=== PATIENT | female | born 1950 | race Caucasian/White ===

== ENCOUNTER → 2018-05-23 | Outpatient (CLI) | payer MEDICARE, MEDICAID ==
[2018-05-23 12:35] LABS: BUN/CREATININE RATIO 19; CREATININE SERUM 0.72 MG/DL (0.60-1.30); GFR ESTIMATED > 60
== END ==
LOC: LAB 11:57
PROVIDERS: ATTEND Nurse Practitioner Family
DX: J44.9 Chronic obstructive pulmonary disease, unspecified (principal)
CPT/HCPCS: 36415; 82565; 84520

== ENCOUNTER → 2018-06-28 | Outpatient (CLI) | payer MEDICARE ==
[~2018-06-28] MED LIST: IOHEXOL 350 MG/ML 100 ML (OMNIPAQUE 350) VIAL IV ONE; NS 100 ML (IVPB) BAG IV ONE; RECEIVED CONTRAST (Hold Metformin) IV SCH
[2018-06-28 12:32] LABS: ABG BASE EXCESS 0.7 MMOL/L (-2.5-2.5); ABG OXYGEN SATURATION 95 % (94-100); ABG PCO2 45 MMHG (35-45); ABG PH 7.37 (7.37-7.43); ABG PO2 73 MMHG (79-93); ABG TCO2 26.8 MMOL/L (21.0-31.0)
[2018-06-28 12:33] LABS: ALLENS TEST YES-POS; INSPIRED O2 RM AIR; PATIENT TEMP 98.4; VENTILATOR NO
--- NOTE | 2018-06-28 14:28 | Diagnostic Imaging Report ---
PROCEDURE: CT chest with contrast only. TECHNIQUE: Multiple contiguous axial images were obtained through the chest after administration of intravenous contrast. INDICATION: Shortness of breath. FINDINGS: The previous CT chest exam performed on 09/29/2017 noted mild diffuse interstitial changes but failed to show any sign of an acute cardiopulmonary abnormality. On this study, the heart size is within normal limits and stable when compared to the prior exam. Coronary artery calcifications are evident. The aorta is not abnormally dilated and there is no sign of dissection. There is no defect within the pulmonary arteries to indicate pulmonary embolus. There is no sign of failure, pneumonia, or pleural effusion. There are emphysematous changes involving both lungs, particularly the lung apices. There is a vague 5 mm parenchymal density in the posterior aspect of the right infrahilar region (image 34/62). This finding was not clearly evident on the prior exam. This density does not have the typical appearance of a pulmonary nodule, although its precise etiology is uncertain. No other parenchymal lung mass is noted. There is no mediastinal or hilar adenopathy. The thyroid gland where visualized is unremarkable. There is no obvious breast mass. According to our records, the patient has not had a mammogram. If the patient has had a recent (within the last year) mammogram elsewhere, then no further imaging would be necessary. However if the patient has not had a recent mammogram, then mammography would be recommended. The sections through the upper abdomen again show postsurgical changes, consistent with prior cholecystectomy. There is no acute abnormality of the upper abdomen. The bone windows are unremarkable for fracture or for destructive lesion. IMPRESSION: 1. There is no evidence for an acute cardiopulmonary abnormality. In particular, there is no sign of pulmonary embolus or of dissection. 2. There are emphysematous changes involving both lungs, primarily the upper lobes. 3. The faint parenchymal density in the right infrahilar region is of uncertain etiology. This is unlikely to be related to malignancy. Even so, a six-month followup CT chest exam would be recommended for further evaluation. 4. There is no obvious breast mass. Recommendations, as above. Dictated by: Dictated on workstation # [id number]
== END ==
LOC: LAB 12:04
PROVIDERS: ATTEND Nurse Practitioner Family
DX: J43.9 Emphysema, unspecified (principal); J98.4 Other disorders of lung; J45.909 Unspecified asthma, uncomplicated; Z72.0 Tobacco use
CPT/HCPCS: 36600; 71260; 82805

== ENCOUNTER → 2018-07-07 | Outpatient (CLI) | payer MEDICARE, MEDICAID ==
[~2018-07-07] MED LIST changes: -IOHEXOL 350 MG/ML 100 ML (OMNIPAQUE 350) VIAL IV ONE; -NS 100 ML (IVPB) BAG IV ONE; -RECEIVED CONTRAST (Hold Metformin) IV SCH; +RT-ALBUTEROL SULF 2.5 MG/3 ML PRE-MIX VIAL INH ONE; +RT-ALBUTEROL SULF 2.5 MG/3 ML PRE-MIX VIAL ONE
== END ==
LOC: RT 14:29
PROVIDERS: ATTEND Nurse Practitioner Family
DX: J44.9 Chronic obstructive pulmonary disease, unspecified (principal); J30.2 Other seasonal allergic rhinitis; R06.00 Dyspnea, unspecified; Z72.0 Tobacco use
CPT/HCPCS: 94060; 94726; 94729

== ENCOUNTER 2018-07-13 17:14 | Emergency (ER) | payer MEDICARE, MEDICAID ==
[~2018-07-13] VITALS: Ht 152.4 cm; Wt 65.8 kg
--- NOTE | 2018-07-13 17:22 | ED Respiratory ---
General Stated Complaint: SOB History of Present Illness Date Seen by Provider: Jul 13, 2018 Time Seen by Provider: 17:05 Initial Comments 67-year-old female with a 3 month history of sensation of dyspnea. She reportedly has had multiple workups which been negative including blood gases. Day she felt her breathing was worse so EMS was called. When they arrived her saturation was 95% on room air. She received a DuoNeb breathing treatment and her O2 sat increased 100%. She's not had any chest pain or pleuritic discomfort. No nausea or vomiting reported. Her family reports that she started having some mental status changes. She apparently becomes confused quite easily. No fever or chills and been reported. No paresthesias, weakness, incoordination or slurred speech reported. She smokes one pack a day. (SARA BUCIO MD) Allergies and Home Medications Allergies Coded Allergies: No Known Drug Allergies (Unverified , 07/13/18) Patient Home Medication List Home Medication List Reviewed: Yes (SARA BUCIO MD) Review of Systems Review of Systems Constitutional: No chills, No fever; malaise, weakness EENTM: no symptoms reported Respiratory: see HPI, cough; No hemoptysis, No orthopnea; short of breath, wheezing Cardiovascular: no symptoms reported; No chest pain Gastrointestinal: No diarrhea, No nausea, No vomiting Genitourinary: no symptoms reported Musculoskeletal: no symptoms reported Skin: no symptoms reported Psychiatric/Neurological: No Symptoms Reported Hematologic/Lymphatic: No Symptoms Reported Immunological/Allergic: no symptoms reported (SARA BUCIO MD) Past Wsztfrt-Crvfeo-Mxbadr Hx Past Med/Social Hx: Reviewed Nursing Past Med/Soc Hx (SARA BUCIO MD) Patient Social History Recent Foreign Travel: No Contact w/Someone Who Travel: No (SARA BUCIO MD) Physical Exam Vital Signs - First Documented 07/13/18 17:15 Temp 99.3 Pulse 82 Resp 18 B/P (MAP) 154/65 (94) Pulse Ox 94 (LI MIN DO) Capillary Refill : (SARA BUCIO MD) Height: '" Weight: lbs. oz. kg; BMI Method: General Appearance: WD/WN, no apparent distress Eyes: Bilateral Eye Normal Inspection, Bilateral Eye PERRL, Bilateral Eye EOMI HEENT: PERRL/EOMI; No normal ENT inspection (missing teeth); pharynx normal; No scleral icterus (L), No pharyngeal erythema Neck: non-tender, full range of motion, supple, normal inspection Respiratory: chest non-tender, no respiratory distress, no accessory muscle use , decreased breath sounds, rhonchi, wheezing (throughout) Cardiovascular: normal peripheral pulses, regular rate, rhythm, no edema, no gallop, no JVD, no murmur Extremities: normal range of motion, non-tender, normal inspection, no pedal edema, no calf tenderness, normal capillary refill, pelvis stable Neurologic/Psychiatric: shear assembler II-XII nml as tested, no motor/sensory deficits, alert, normal mood/affect, oriented x 3 Skin: normal color, warm/dry; No cyanosis, No jaundice Lymphatic: no adenopathy (SARA BUCIO MD) Progress/Results/Core Measures Suspected Sepsis SIRS Temperature: Pulse: Respiratory Rate: Blood Pressure / Mean: (SARA BUCIO MD) Results/Orders Lab Results Laboratory Tests Test 07/13/18 17:15 Range/Units White Blood Count 6.3 4.3-11.0 10^3/uL Red Blood Count 4.00 L 4.35-5.85 10^6/uL Hemoglobin 12.8 11.5-16.0 G/DL Hematocrit 39 35-52 % Mean Corpuscular Volume 98 80-99 FL Mean Corpuscular Hemoglobin 32 25-34 PG Mean Corpuscular Hemoglobin Concent 33 32-36 G/DL Red Cell Distribution Width 12.2 10.0-14.5 % Platelet Count 225 130-400 10^3/uL Mean Platelet Volume 10.4 7.4-10.4 FL Neutrophils (%) (Auto) 55 42-75 % Lymphocytes (%) (Auto) 34 12-44 % Monocytes (%) (Auto) 7 0-12 % Eosinophils (%) (Auto) 4 0-10 % Basophils (%) (Auto) 0 0-10 % Neutrophils # (Auto) 3.5 1.8-7.8 X 10^3 Lymphocytes # (Auto) 2.1 1.0-4.0 X 10^3 Monocytes # (Auto) 0.5 0.0-1.0 X 10^3 Eosinophils # (Auto) 0.3 0.0-0.3 10^3/uL Basophils # (Auto) 0.0 0.0-0.1 10^3/uL D-Dimer 1.57 H 0.00-0.49 UG/ML Sodium Level 144 135-145 MMOL/L Potassium Level 3.2 L 3.6-5.0 MMOL/L Chloride Level 103 98-107 MMOL/L Carbon Dioxide Level 26 21-32 MMOL/L Anion Gap 15 H 5-14 MMOL/L Blood Urea Nitrogen 9 7-18 MG/DL Creatinine 0.87 0.60-1.30 MG/DL Estimat Glomerular Filtration Rate > 60 BUN/Creatinine Ratio 10 Glucose Level 129 H 70-105 MG/DL Calcium Level 8.8 8.5-10.1 MG/DL Corrected Calcium 8.9 8.5-10.1 MG/DL Magnesium Level 1.7 L 1.8-2.4 MG/DL Total Bilirubin 0.2 0.1-1.0 MG/DL Aspartate Amino Transf (AST/SGOT) 22 5-34 U/L Alanine Aminotransferase (ALT/SGPT) 22 0-55 U/L Alkaline Phosphatase 66 40-136 U/L Troponin T < 6 <=10 NG/L B-Type Natriuretic Peptide 527.4 H <100.0 PG/ML Total Protein 6.3 L 6.4-8.2 GM/DL Albumin 3.9 3.2-4.5 GM/DL (LI MIN DO) My Orders Orders - LI MIN DO Azithromycin Injection (Zithromax Inject (07/13/18 18:28) Ceftriaxone For Iv Use (Rocephin For I (07/13/18 18:28) Ct Angio Chest W (07/13/18 18:48) Iopamidol 61% Injection (Isovue 300 61% (07/13/18 19:15) Sodium Chloride Flush (Catheter Flush Sy (07/13/18 19:15) Contrast Received (Contrast Received) (07/13/18 19:15) Ns (Ivpb) (Sodium Chloride 0.9% Ivpb Bag (07/13/18 19:15) (LI MIN DO) Medications Given in ED Current Medications Medications Dose Ordered Sig/Hernesto Route Start Time Stop Time Status Last Admin Dose Admin Iopamidol 100 ml ONCE ONCE IV 07/13/18 19:15 07/13/18 19:20 DC 07/13/18 19:23 100 ML Sodium Chloride 10 ml NEEDED PRN IV 07/13/18 19:15 07/13/18 19:23 10 ML Sodium Chloride 50 ml ONCE ONCE IV 07/13/18 19:15 07/13/18 19:20 DC 07/13/18 19:23 40 ML (LI MIN DO) Vital Signs/I&O 07/13/18 07/13/18 17:15 19:39 Temp 99.3 98.0 Pulse 82 82 Resp 18 18 B/P (MAP) 154/65 (94) 159/66 (97) Pulse Ox 94 95 (LI MIN DO) Vital Signs/I&O Capillary Refill : (SARA BUCIO MD) Progress Note : Time: 17:22 Progress Note We'll obtain cardiac/respiratory workup as well as a CT of her head due to reported mental status changes. I discussed this with the patient who understands and agrees with workup plan. 0 Will transition care to Dr. Min for remaining testing results. (SARA BUCIO MD) Progress Note : Progress Note Curtis addendum: Given patchy infiltrates on chest x-ray, patient complained of recent cough and shortness of breath, patient was treated for pneumonia. No recent antibiotics or hospitalizations, she was treated with Rocephin and azithromycin. CTA shows no PE. Patient was accepted for transfer by Dr. Vicente at [facility] at 8:10 PM as [facility] is on diversion. (LI MIN DO) ECG Initial ECG Impression Date: Jul 13, 2018 Initial ECG Impression Time: 17:32 Initial ECG Rhythm: Normal Sinus Initial ECG Intervals: Normal Initial ECG Impression: Nonspecific Changes Comment no acute changes. (SARA BUCIO MD) Departure Impression Primary Impression: Acute encephalopathy Additional Impressions: Cough Emphysema of lung Disposition: XFER SHT-TRM HOSP Condition: Stable Transfer Transfer Facility: Patient accepted by Dr. Vicente at 8:10 PM [facility]. (LI MIN DO) Departure-Patient Inst. Referrals: CHACHO PÉREZ DO (PCP/Family) Primary Care Physician SARA BUCIO MD Jul 13, 2018 17:22 LI MIN DO Jul 13, 2018 20:15
--- NOTE | 2018-07-13 17:47 | Diagnostic Imaging Report ---
PROCEDURE: CT head without contrast. TECHNIQUE: Multiple contiguous axial images were obtained through the brain without the use of intravenous contrast. INDICATION: Frequent falls. FINDINGS: The ventricles and sulci are within normal limits. There is no hydrocephalus or cerebral edema. There is no midline shift or mass effect. There is no intracranial mass, hemorrhage, or extra-axial fluid collection. The visualized paranasal sinuses and mastoid air cells are clear. There are no regional areas of decreased attenuation appreciated to suggest an acute CVA. IMPRESSION: No acute intracranial abnormality. Dictated by: Dictated on workstation # [id number]
--- NOTE | 2018-07-13 17:51 | Diagnostic Imaging Report ---
INDICATION: Shortness of breath. PA and lateral views were obtained. FINDINGS: The heart size is normal. There are patchy bibasilar infiltrates, right greater than left. There is no pleural effusion or pneumothorax. The mediastinum is unremarkable. IMPRESSION: Patchy bibasilar infiltrates, right greater than left. Dictated by: Dictated on workstation # [id number]
[2018-07-13 17:58] LABS: HEMATOCRIT 39 % (35-52); HEMOGLOBIN 12.8 G/DL (11.5-16.0); MEAN CORPUSCULAR HEMOGLOBIN 32 PG (25-34); MEAN CORPUSCULAR HGB CONC 33 G/DL (32-36); MEAN CORPUSCULAR VOLUME 98 FL (80-99); RED CELL DISTRIBUTION WIDTH 12.2 % (10.0-14.5); WHITE BLOOD COUNT 6.3 10^3/uL (4.3-11.0)
[2018-07-13 17:59] LABS: BASOPHILS % (AUTO) 0 % (0-10); EOSINOPHILS # (AUTO) 0.3 10^3/uL (0.0-0.3); EOSINOPHILS % (AUTO) 4 % (0-10); LYMPHOCYTES # (AUTO) 2.1 X 10^3 (1.0-4.0); LYMPHOCYTES % (AUTO) 34 % (12-44); MEAN PLATELET VOLUME 10.4 FL (7.4-10.4); MONOCYTES # (AUTO) 0.5 X 10^3 (0.0-1.0); MONOCYTES % (AUTO) 7 % (0-12); NEUTROPHILS # (AUTO) 3.5 X 10^3 (1.8-7.8); NEUTROPHILS % (AUTO) 55 % (42-75); PLATELET COUNT 225 10^3/uL (130-400)
[2018-07-13] MEDS ORDERED: BUPR100T8 (18:23)
[2018-07-13] MEDS ORDERED: CYCL10TA9 (18:23)
[2018-07-13] MEDS ORDERED: PANT40TA3 (18:23)
[2018-07-13] MEDS ORDERED: TRAZ-189 (18:23)
[2018-07-13] MEDS ORDERED: DULO60CA58 (18:23)
[2018-07-13] MEDS ORDERED: HYDR-3781 (18:23)
[2018-07-13] MEDS ORDERED: CLOP75TA28 (18:23)
[2018-07-13] MEDS ORDERED: SIMV40TA4 (18:23)
[2018-07-13] MEDS ORDERED: ZOLP5TAB7 (18:23)
[2018-07-13] MEDS ORDERED: LISI10TA2 (18:23)
[2018-07-13] MEDS ORDERED: PRAM1TAB5 (18:23)
[2018-07-13] MEDS ORDERED: PROP10TA8 (18:23)
[2018-07-13] MEDS ORDERED: MELO15TA39 (18:23)
[2018-07-13] MEDS ORDERED: LORA1TAB (18:23)
[2018-07-13] MEDS ORDERED: cefTRIAXone FOR IV USE 1,000 MG in WATER (STERILE) FOR INJECTION 10 ML IV STA (18:28)
[2018-07-13] MEDS ORDERED: AZITHROMYCIN INJECTION 500 MG in NS (IVPB) 250 ML IV STA (18:28)
[2018-07-13 18:37] LABS: ALANINE AMINOTRANSFERASE 22 U/L (0-55); ALKALINE PHOSPHATASE 66 U/L (40-136); BILIRUBIN,TOTAL 0.2 MG/DL (0.1-1.0); BUN/CREATININE RATIO 10; CALCIUM 8.8 MG/DL (8.5-10.1); CARBON DIOXIDE 26 MMOL/L (21-32); CHLORIDE 103 MMOL/L (98-107); CREATININE SERUM 0.87 MG/DL (0.60-1.30); GFR ESTIMATED > 60; GLUCOSE 129 MG/DL (70-105); MAGNESIUM 1.7 MG/DL (1.8-2.4); POTASSIUM 3.2 MMOL/L (3.6-5.0); SODIUM 144 MMOL/L (135-145); TOTAL PROTEIN 6.3 GM/DL (6.4-8.2)
[2018-07-13 18:38] LABS: ALBUMIN 3.9 GM/DL (3.2-4.5)
[2018-07-13] MEDS ORDERED: KCL 20 MEQ POWDER FOR ORAL SOLUTION PO STA (18:48)
--- NOTE | 2018-07-13 18:58 | NUR ---
DRESSING CHANGE TO RIGHT UPPER ARM FROM RECENT FISTULA PLACEMENT. STERI STRIPS IN PLACE ET AREA BRUISED WITH NO SIGNS OR SYMPTOMS OF INFECTION.
--- NOTE | 2018-07-13 19:07 | NUR ---
Report given to SCOTTIE Gonsalves at this time.
[2018-07-13] MEDS ORDERED: NS 50 ML (IVPB) BAG IV ONE (19:15)
[2018-07-13] MEDS ORDERED: RECEIVED CONTRAST (Hold Metformin) IV SCH (19:15)
[2018-07-13] MEDS ORDERED: IOPAMIDOL 61% 100 ML (ISOVUE 300) VIAL IV ONE (19:15)
[2018-07-13] MEDS ORDERED: CATHETER FLUSH 10 ML SYR IV PRN (19:15)
[2018-07-13 19:39] VITALS: BP 159/66
--- NOTE | 2018-07-13 19:57 | NUR ---
Pt. walked to the bathroom with assistance of 1. No c/o sob but did c/o nausea. Doctor notified.
--- NOTE | 2018-07-13 19:59 | NUR ---
Doctor in to see the patient at this time.
--- NOTE | 2018-07-13 20:03 | Diagnostic Imaging Report ---
PROCEDURE: CT angiography of the chest with contrast. TECHNIQUE: Multiple contiguous axial images were obtained through the chest after uneventful bolus administration of intravenous contrast. 2D reconstructed CTA MIP acquisitions were also performed. INDICATION: Shortness of breath FINDINGS: There are mild centrilobular emphysematous changes. There are no discrete pulmonary nodules, masses or infiltrates. There is no pleural or pericardial fluid. There is no pneumothorax. The thoracic aorta is normal in caliber without evidence of dissection. There are no filling defects seen within the pulmonary arteries to suggest pulmonary embolism. There is no pathologically enlarged adenopathy in the chest. There is a left renal cyst. The remainder of the intra-abdominal structures are unremarkable. IMPRESSION: Mild centrilobular emphysema Left renal cyst. No other acute abnormality in the chest. Specifically, there is no evidence of pulmonary embolism or aortic dissection. Dictated by: Dictated on workstation # [id number]
--- NOTE | 2018-07-13 21:27 | NUR ---
Talked to [facility] and they informed this RN that they were getting a room ready for the patient and they would call with a room number. This RN informed them that we were waiting for transport availability at this time as well. Pt. is sleeping at this time with no complaints noted.
[2018-07-13 22:25] VITALS: BP 136/58
== END 2018-07-13 23:51 | disposition short-term general hospital (02) ==
LOC: EDUNIT# 17:14 → ER FS 17:15
DX: J43.9 Emphysema, unspecified (principal); G93.40 Encephalopathy, unspecified; F17.210 Nicotine dependence, cigarettes, uncomplicated
CPT/HCPCS: 36415; 70450; 71046; 71275; 80053; 83735; 83880; 84484; 85025; 85379; 93041

== ENCOUNTER → 2018-08-11 | Outpatient (CLI) | payer MEDICARE, MEDICAID ==
[~2018-08-11] MED LIST changes: +BUPR100T8; +CLOP75TA28; +CYCL10TA9; +DULO60CA58; +HYDR-3781; +LISI10TA2; +LORA1TAB; +MELO15TA39; +PANT40TA3; +PRAM1TAB5; +PROP10TA8; -RT-ALBUTEROL SULF 2.5 MG/3 ML PRE-MIX VIAL INH ONE; -RT-ALBUTEROL SULF 2.5 MG/3 ML PRE-MIX VIAL ONE; +SIMV40TA4; +TRAZ-189; +ZOLP5TAB7
--- NOTE | 2018-08-11 11:12 | Diagnostic Imaging Report ---
INDICATION: Dysphagia. The study was performed in conjunction with speech pathology. Videofluoroscopy was performed during swallowing of barium of multiple consistencies. Patient ingested thin barium as well as thin barium with a straw. Patient also ingested applesauce, banana, ground meat and cracker consistency. Total of one minute and 3 seconds of fluoroscopy time was utilized. Oral phase unremarkable. There is normal epiglottic tilt and laryngeal elevation. No penetration or aspiration was observed. No significant residue was identified. IMPRESSION: Unremarkable modified barium swallow. Dictated by: Dictated on workstation # [id number]
== END ==
LOC: RAD 09:26
PROVIDERS: ATTEND Nurse Practitioner Family
DX: R13.11 Dysphagia, oral phase (principal)
CPT/HCPCS: 74230

== ENCOUNTER 2018-09-10 16:23 | Emergency (ER) | payer MEDICARE, MEDICAID ==
[~2018-09-10] VITALS: Ht 152.4 cm; Wt 65.8 kg
--- NOTE | 2018-09-10 17:06 | ED Dyspnea ---
General Chief Complaint: Respiratory Problems Stated Complaint: SOA Nursing Triage Note: Has been soa since 0900 this a.m. Has hx of COPD. Source of Information: Patient, EMS, RN Notes Reviewed Exam Limitations: No Limitations History of Present Illness Date Seen by Provider: Sep 10, 2018 Time Seen by Provider: 17:00 Initial Comments Patient presents c/ c/o worsening SOA since 09:00 this AM. States she has a PMH of COPD and this feels like a flare up. No known fever. Been using her inhaler s/ relief. Timing/Duration: 4-6 Hours Severity: Moderate Prior Episodes/Possible Cause: Occasional Episodes Modifying Factors: Improves With Other (noting helping) Associated Symptoms: Cough, Wheezing Allergies and Home Medications Allergies Coded Allergies: No Known Drug Allergies (Unverified , 07/13/18) Home Medications Doxycycline Hyclate 100 Mg Tablet, 100 MG PO BID Prescribed by: SUKUMAR CAR on 09/10/18 336 Review of Systems Review of Systems Constitutional: see HPI Respiratory: see HPI, cough, dyspnea on exertion, short of breath, wheezing All Other Systems Reviewed Negative Unless Noted: Yes (Negative excepted noted.) Past Alsxync-Eimebc-Ntpaet Hx Patient Social History Recent Foreign Travel: No Contact w/Someone Who Travel: No Recent Infectious Disease Expo: No Recent Hopitalizations: No Seasonal Allergies Seasonal Allergies: No Past Medical History Surgeries: No Respiratory: Yes COPD Cardiac: No Neurological: No Genitourinary: No Gastrointestinal: No Musculoskeletal: No Endocrine: No HEENT: No Cancer: No Psychosocial: Yes Anxiety Integumentary: No Blood Disorders: No Adverse Reaction/Blood Tranf: No Physical Exam Vital Signs Vital Signs - First Documented 09/10/18 16:31 Temp 97.3 Pulse 93 Resp 14 B/P (MAP) 138/79 (98) Pulse Ox 98 Capillary Refill : Less Than 3 Seconds Height, Weight, BMI Height: 5'0" Weight: 145lbs. oz. 65.604233up; BMI Method:Stated General Appearance: No Apparent Distress, WD/WN HEENT: Normal ENT Inspection Neck: Normal Inspection Respiratory: No Respiratory Distress, Decreased Breath Sounds, Wheezing Cardiovascular: Regular Rate, Rhythm Gastrointestinal: Non Tender, Soft Rectal: Deferred Neurologic/Psychiatric: Alert, Oriented x3, No Motor/Sensory Deficits, Depressed Affect Skin: Warm/Dry Progress/Results/Core Measures Results/Orders Lab Results Laboratory Tests Test 09/10/18 17:26 Range/Units My Orders Orders - SUKUMAR CAR DO Cbc With Automated Diff (09/10/18 17:03) Comprehensive Metabolic Panel (09/10/18 17:03) Magnesium (09/10/18 17:03) Chest 1 View Ap/Pa Only (09/10/18 17:03) Probnp Fs (09/10/18 17:03) Methylprednisolone Sod Succ (Solu-Medrol (09/10/18 17:15) Albuterol/Ipra Inhalation Soln (Duoneb I (09/10/18 17:45) Svn Small Volume Nebulizer (09/10/18 17:42) Medications Given in ED Current Medications Medications Dose Ordered Sig/Hernesto Route Start Time Stop Time Status Last Admin Dose Admin Methylprednisolone Sodium Succinate 125 mg ONCE ONCE IVP 09/10/18 17:15 09/10/18 17:16 UNV 09/10/18 17:23 125 MG Vital Signs/I&O 09/10/18 16:31 Temp 97.3 Pulse 93 Resp 14 B/P (MAP) 138/79 (98) Pulse Ox 98 Blood Pressure Mean: 98 Departure Impression Primary Impression: COPD exacerbation Disposition: 01 HOME, SELF-CARE Condition: Improved Departure-Patient Inst. Decision time for Depature: 17:57 Referrals: CHACHO PÉREZ DO (PCP/Family) Primary Care Physician Patient Instructions: Chronic Obstructive Pulmonary Disease (COPD), Including Emphysema Add. Discharge Instructions: All discharge instructions reviewed with patient and/or family. Voiced understanding. CONTINUE YOUR BREATHING TREATMENTS NEEDED. PUSH FLUIDS. Scripts Doxycycline Hyclate (Doxycycline Hyclate) 100 Mg Tablet 100 MG PO BID for 10 Days, #20 TAB 0 Refills Prov: SUKUMAR CAR DO 09/10/18 SUKUMAR CAR DO Sep 10, 2018 17:06
[2018-09-10] MEDS ORDERED: methylPREDNISolone 125 MG (Solu-MEDROL) VIAL ONE (17:14)
[2018-09-10] MEDS ORDERED: methylPREDNISolone 125 MG (Solu-MEDROL) VIAL IVP ONE (17:15)
--- NOTE | 2018-09-10 17:27 | Diagnostic Imaging Report ---
INDICATION: Shortness of breath. TIME OF EXAM: 05:12 p.m. COMPARISON: Correlation is made with prior study from 07/13/2018. FINDINGS: The heart size is normal. The pulmonary vascularity is unremarkable. The lungs are clear. No infiltrate, effusion or pneumothorax is detected. IMPRESSION: No acute cardiopulmonary process is detected. Dictated by: Dictated on workstation # [id number]
[2018-09-10] MEDS ORDERED: RT-ALBUTEROL/IPRATROPIUM 3 ML (DUONEB) VIAL INH ONE (17:45)
[2018-09-10] MEDS ORDERED: DOXY100T2 PO (17:46)
[2018-09-10] MEDS ORDERED: DOXYCYCLINE 100 MG (VIBRAMYCIN) TABLET PO STA (17:55)
[2018-09-10 17:56] LABS: HEMATOCRIT 39 % (35-52); HEMOGLOBIN 12.7 G/DL (11.5-16.0); MEAN CORPUSCULAR HEMOGLOBIN 31 PG (25-34); MEAN CORPUSCULAR HGB CONC 33 G/DL (32-36); MEAN CORPUSCULAR VOLUME 97 FL (80-99); WHITE BLOOD COUNT 7.8 10^3/uL (4.3-11.0)
[2018-09-10 17:57] LABS: BASOPHILS % (AUTO) 1 % (0-10); EOSINOPHILS % (AUTO) 4 % (0-10); LYMPHOCYTES % (AUTO) 25 % (12-44); MEAN PLATELET VOLUME 10.2 FL (7.4-10.4); MONOCYTES % (AUTO) 6 % (0-12); NEUTROPHILS % (AUTO) 64 % (42-75); PLATELET COUNT 167 10^3/uL (130-400); RED CELL DISTRIBUTION WIDTH 12.1 % (10.0-14.5)
[2018-09-10 17:58] LABS: BASOPHILS # (AUTO) 0.1 10^3/uL (0.0-0.1); EOSINOPHILS # (AUTO) 0.3 10^3/uL (0.0-0.3); LYMPHOCYTES # (AUTO) 1.9 X 10^3 (1.0-4.0); MONOCYTES # (AUTO) 0.5 X 10^3 (0.0-1.0)
[2018-09-10 17:59] LABS: SMEAR SCAN COMMENT YES
[2018-09-10] MEDS ORDERED: methylPREDNISolone 80 MG/ML (DEPO MEDROL) VIAL IM ONE (18:00)
[2018-09-10 18:04] LABS: CARBON DIOXIDE 27 MMOL/L (21-32); CHLORIDE 101 MMOL/L (98-107); POTASSIUM 4.1 MMOL/L (3.6-5.0)
[2018-09-10 18:05] LABS: ALANINE AMINOTRANSFERASE 19 U/L (0-55); ALKALINE PHOSPHATASE 84 U/L (40-136); BILIRUBIN,TOTAL 0.2 MG/DL (0.1-1.0); BUN/CREATININE RATIO 21; CREATININE SERUM 0.92 MG/DL (0.60-1.30); GFR ESTIMATED > 60; GLUCOSE 107 MG/DL (70-105); MAGNESIUM 1.8 MG/DL (1.8-2.4); TOTAL PROTEIN 6.4 GM/DL (6.4-8.2)
[2018-09-10 18:06] LABS: ALBUMIN 4.1 GM/DL (3.2-4.5)
[2018-09-10 18:07] LABS: SODIUM 142 MMOL/L (135-145)
[2018-09-10] MEDS ORDERED: methylPREDNISolone 80 MG/ML (DEPO MEDROL) VIAL ONE (18:25)
[2018-09-10] MEDS ORDERED: DOXYCYCLINE 100 MG (VIBRAMYCIN) TABLET ONE (18:25)
[2018-09-10] MEDS ORDERED: RT-ALBUTEROL/IPRATROPIUM 3 ML (DUONEB) VIAL ONE (18:25)
[2018-09-10 18:35] VITALS: BP 135/65
== END 2018-09-10 18:37 | disposition home or self-care (01) ==
LOC: EDUNIT# 16:23 → ER FS 16:24
DX: J44.1 Chronic obstructive pulmonary disease with (acute) exacerbation (principal); F41.9 Anxiety disorder, unspecified
CPT/HCPCS: 36415; 71045; 80053; 83735; 83880; 85025

== ENCOUNTER → 2018-09-21 | Outpatient (CLI) | payer MEDICARE, MEDICAID ==
[~2018-09-21] MED LIST changes: +DOXY100T2 PO
--- NOTE | 2018-09-21 12:05 | Diagnostic Imaging Report ---
CLINICAL INDICATION: Patient with ongoing cough and shortness of breath. EXAM: Chest x-ray PA and lateral views. COMPARISONS: Portable chest x-ray dated 09/10/2018. FINDINGS: Improved aeration of both lungs compared to the prior study. There is amorphous opacity in the periphery of the right lung base which may represent atelectasis versus infiltrate. There is minimal left lung base atelectasis versus infiltrate. Remainder of the lungs is clear. There is no pleural effusion or pneumothorax. Pulmonary vasculature and cardiac silhouettes are within normal limits. There are degenerative spurs throughout the thoracic spine. IMPRESSION: 1: There is improved aeration of both lung bases with minimal bibasilar atelectasis versus infiltrate present. 2: The remainder of this exam shows no significant interval change compared to the prior study of comparison. Dictated by: Dictated on workstation # [id number]
== END ==
LOC: RAD FS 10:10
PROVIDERS: ATTEND Nurse Practitioner Family
DX: R06.02 Shortness of breath (principal)
CPT/HCPCS: 71046

== ENCOUNTER 2018-10-23 16:09 | Emergency (ER) | payer MEDICARE, MEDICAID ==
[~2018-10-23] VITALS: Ht 152.4 cm; Wt 70.3 kg
[~2018-10-23 16:09] MED LIST changes: -TRAZ-189; +TRAZ-222
--- OUTSIDE RECORDS SUMMARY | 2018-10-23 16:14 | XMS REPORT | Continuity of Care Document ---
Author Organization Unknown Address Unknown Allergies Active Description Code Type Severity Reaction Onset Reported/Identified Relationship to Patient Clinical Status Yes No Allergy Information Available [id number] Drug Allergy Unknown N/A 06/28/2018 Yes No Known Drug Allergies [id number] Drug Allergy Unknown N/A 07/13/2018 Medications There is no data. Problems Date Dx Coded Attending Type Code Diagnosis Diagnosed By 05/24/2018 LUIS GASCA GAME PROGRAMER Ot J44.9 CHRONIC OBSTRUCTIVE PULMONARY DISEASE, U 05/31/2018 LUIS GASCA GAME PROGRAMER Ot J44.9 CHRONIC OBSTRUCTIVE PULMONARY DISEASE, U 06/15/2018 LUIS GASCA GAME PROGRAMER Ot J44.9 CHRONIC OBSTRUCTIVE PULMONARY DISEASE, U 06/28/2018 LUIS GASCA GAME PROGRAMER Ot J44.9 CHRONIC OBSTRUCTIVE PULMONARY DISEASE, U 06/28/2018 LUIS GASCA GAME PROGRAMER Ot J43.9 EMPHYSEMA, UNSPECIFIED 06/28/2018 LUIS GASCA GAME PROGRAMER Ot J45.909 UNSPECIFIED ASTHMA, UNCOMPLICATED 06/28/2018 LUIS GASCA GAME PROGRAMER Ot J98.4 OTHER DISORDERS OF LUNG 06/28/2018 LUIS GASCA GAME PROGRAMER Ot Z72.0 TOBACCO USE 07/07/2018 LUIS GASCA GAME PROGRAMER Ot J43.9 EMPHYSEMA, UNSPECIFIED 07/07/2018 LUIS GASCA GAME PROGRAMER Ot J45.909 UNSPECIFIED ASTHMA, UNCOMPLICATED 07/07/2018 LUIS GASCA GAME PROGRAMER Ot J98.4 OTHER DISORDERS OF LUNG 07/07/2018 LUIS GASCA GAME PROGRAMER Ot Z72.0 TOBACCO USE 07/13/2018 LUIS GASCA GAME PROGRAMER Ot R13.11 DYSPHAGIA, ORAL PHASE 07/13/2018 LUIS GASCA GAME PROGRAMER Ot G47.10 HYPERSOMNIA, UNSPECIFIED 07/13/2018 LI MIN DO Ot F17.210 NICOTINE DEPENDENCE, CIGARETTES, UNCOMPL 07/13/2018 MECHELLE CHO, LI T Ot G93.40 ENCEPHALOPATHY, UNSPECIFIED 07/13/2018 MECHELLE CHO, LI T Ot J43.9 EMPHYSEMA, UNSPECIFIED 07/13/2018 MECHELLE CHO, LI T Ot R06.00 DYSPNEA, UNSPECIFIED 07/14/2018 MECHELLE CHO, LI T Ot F17.210 NICOTINE DEPENDENCE, CIGARETTES, UNCOMPL 07/14/2018 MECHELLE CHO, LI T Ot G93.40 ENCEPHALOPATHY, UNSPECIFIED 07/14/2018 MECHELLE CHO, LI T Ot J43.9 EMPHYSEMA, UNSPECIFIED 07/14/2018 MECHELLE CHO, LI T Ot R06.00 DYSPNEA, UNSPECIFIED 07/18/2018 LUIS GASCA APRN Ot J43.9 EMPHYSEMA, UNSPECIFIED 07/18/2018 LUIS GASCA APRN Ot J45.909 UNSPECIFIED ASTHMA, UNCOMPLICATED 07/18/2018 LUIS GASCA GAME PROGRAMER Ot J98.4 OTHER DISORDERS OF LUNG 07/18/2018 LUIS GASCA APRN Ot Z72.0 TOBACCO USE 07/31/2018 LUIS GASCA GAME PROGRAMER Ot J30.2 OTHER SEASONAL ALLERGIC RHINITIS 07/31/2018 LUIS GASCA GAME PROGRAMER Ot J44.9 CHRONIC OBSTRUCTIVE PULMONARY DISEASE, U 07/31/2018 LUIS GASCA APRN Ot R06.00 DYSPNEA, UNSPECIFIED 07/31/2018 LUIS GASCA GAME PROGRAMER Ot Z72.0 TOBACCO USE 08/05/2018 MECHELLE CHO, LI T Ot F17.210 NICOTINE DEPENDENCE, CIGARETTES, UNCOMPL 08/05/2018 MECHELLE CHO, LI T Ot G93.40 ENCEPHALOPATHY, UNSPECIFIED 08/05/2018 MECHELLE CHO, LI T Ot J43.9 EMPHYSEMA, UNSPECIFIED 08/05/2018 MECHELLE CHO, LI T Ot R06.00 DYSPNEA, UNSPECIFIED 08/10/2018 LUIS GASCA APRN Ot R13.11 DYSPHAGIA, ORAL PHASE 09/01/2018 LUIS GASCA APRN Ot R13.11 DYSPHAGIA, ORAL PHASE 09/10/2018 SUKUMAR CAR DO Ot F41.9 ANXIETY DISORDER, UNSPECIFIED 09/10/2018 SUKUMAR CAR DO Ot J44.1 CHRONIC OBSTRUCTIVE PULMONARY DISEASE W 09/10/2018 SUKUMAR CAR DO Ot R06.02 SHORTNESS OF BREATH 09/10/2018 LUIS GASCA APRN Ot J44.9 CHRONIC OBSTRUCTIVE PULMONARY DISEASE, U 09/10/2018 CAMPOS LUIS Walker APRN Ot J30.2 OTHER SEASONAL ALLERGIC RHINITIS 09/10/2018 LUIS GASCA GAME PROGRAMER Ot J44.9 CHRONIC OBSTRUCTIVE PULMONARY DISEASE, U 09/10/2018 LUIS GASCA APRN Ot R06.00 DYSPNEA, UNSPECIFIED 09/10/2018 LUIS GASCA GAME PROGRAMER Ot Z72.0 TOBACCO USE 09/10/2018 LUIS GASCA GAME PROGRAMER Ot J43.9 EMPHYSEMA, UNSPECIFIED 09/10/2018 LUIS GASCA APRN Ot J45.909 UNSPECIFIED ASTHMA, UNCOMPLICATED 09/10/2018 LUIS GASCA APRN Ot J98.4 OTHER DISORDERS OF LUNG 09/10/2018 LUIS GASCA APRN Ot Z72.0 TOBACCO USE 09/10/2018 LUIS GASCA APRN Ot R13.11 DYSPHAGIA, ORAL PHASE 09/27/2018 MONTSERRAT MONGE APRN Ot R06.02 SHORTNESS OF BREATH 10/13/2018 MONTSERRAT MONGE APRN Ot R06.02 SHORTNESS OF BREATH Procedures There is no data. Results Test Result Range Arterial blood gas measurement - 06/28/18 12:15 Blood pCO2 45 mm[Hg] 35-45 Blood pO2 73 mm[Hg] 79-93 Arterial blood bicarbonate measurement (moles/volume) 25 mmol/L 23-27 Arterial blood base excess by calculation 0.7 mmol/L -2.5-2.5 Arterial blood oxygen saturation measurement 95 % 94-100 * Inhaled oxygen flow rate RM AIR NRG Arterial blood pH measurement with patient temperature correction 7.37 7.37-7.43 Arterial blood carbon dioxide, total measurement (moles/volume) 26.8 mmol/L 21.0-31.0 Body site R RAD NRG Assessment of wrist artery patency prior to arterial puncture YES-POS NRG Setting of ventilation mode NO NRG Measurement of body temperature 98.4 NRG Complete blood count (CBC) with automated white blood cell (WBC) differential - 07/13/18 17:15 Blood leukocytes automated count (number/volume) 6.3 10*3/uL 4.3-11.0 Blood erythrocytes automated count (number/volume) 4.00 10*6/uL 4.35-5.85 Venous blood hemoglobin measurement (mass/volume) 12.8 g/dL 11.5-16.0 Blood hematocrit (volume fraction) 39 % 35-52 Automated erythrocyte mean corpuscular volume 98 [foz_us] 80-99 Automated erythrocyte mean corpuscular hemoglobin (mass per erythrocyte) 32 pg 25-34 Automated erythrocyte mean corpuscular hemoglobin concentration measurement (mass/volume) 33 g/dL 32-36 Automated erythrocyte distribution width ratio 12.2 % 10.0- 14.5 Automated blood platelet count (count/volume) 225 10*3/uL 130-400 Automated blood platelet mean volume measurement 10.4 [foz_us] 7.4-10.4 Automated blood neutrophils/100 leukocytes 55 % 42-75 Automated blood lymphocytes/100 leukocytes 34 % 12-44 Blood monocytes/100 leukocytes 7 % 0-12 Automated blood eosinophils/100 leukocytes 4 % 0-10 Automated blood basophils/100 leukocytes 0 % 0-10 Blood neutrophils automated count (number/volume) 3.5 10*3 1.8-7.8 Blood lymphocytes automated count (number/volume) 2.1 10*3 1.0-4.0 Blood monocytes automated count (number/volume) 0.5 10*3 0.0- 1.0 Automated eosinophil count 0.3 10*3/uL 0.0-0.3 Automated blood basophil count (count/volume) 0.0 10*3/uL 0.0-0.1 Fibrin D-dimer FEU measurement in platelet poor plasma (mass/volume) - 07/13/18 17:15 Fibrin D-dimer FEU measurement in platelet poor plasma (mass/volume) 1.57 ug/mL 0.00-0.49 Comprehensive metabolic panel - 07/13/18 17:15 Serum or plasma sodium measurement (moles/volume) 144 mmol/L 135-145 Serum or plasma potassium measurement (moles/volume) 3.2 mmol/L 3.6-5.0 Serum or plasma chloride measurement (moles/volume) 103 mmol/L 98-107 Carbon dioxide 26 mmol/L 21-32 Serum or plasma anion gap determination (moles/volume) 15 mmol/L 5-14 Serum or plasma urea nitrogen measurement (mass/volume) 9 mg/dL 7-18 Serum or plasma creatinine measurement (mass/volume) 0.87 mg/dL 0.60-1.30 Serum or plasma urea nitrogen/creatinine mass ratio 10 NRG Serum or plasma creatinine measurement with calculation of estimated glomerular filtration rate > NRG Serum or plasma glucose measurement (mass/volume) 129 mg/dL 70-105 Serum or plasma calcium measurement (mass/volume) 8.8 mg/dL 8.5-10.1 Serum or plasma total bilirubin measurement (mass/volume) 0.2 mg/dL 0.1-1.0 Serum or plasma alkaline phosphatase measurement (enzymatic activity/volume) 66 U/L 40-136 Serum or plasma aspartate aminotransferase measurement (enzymatic activity/volume) 22 U/L 5-34 Serum or plasma alanine aminotransferase measurement (enzymatic activity/volume) 22 U/L 0-55 Serum or plasma protein measurement (mass/volume) 6.3 g/dL 6.4-8.2 Serum or plasma albumin measurement (mass/volume) 3.9 g/dL 3.2-4.5 CALCIUM CORRECTED 8.9 mg/dL 8.5-10.1 Magnesium - 07/13/18 17:15 Magnesium 1.7 mg/dL 1.8-2.4 TROPONIN T - 07/13/18 17:15 TROPONIN T < 6 <=10 Serum or plasma lithium measurement (moles/volume) - 07/13/18 17:15 BNP level 527.4 pg/mL <100.0 Complete blood count (CBC) with automated white blood cell (WBC) differential - 09/10/18 17:26 Blood leukocytes automated count (number/volume) 7.8 10*3/uL 4.3-11.0 Blood erythrocytes automated count (number/volume) 4.04 10*6/uL 4.35-5.85 Venous blood hemoglobin measurement (mass/volume) 12.7 g/dL 11.5-16.0 Blood hematocrit (volume fraction) 39 % 35-52 Automated erythrocyte mean corpuscular volume 97 [foz_us] 80-99 Automated erythrocyte mean corpuscular hemoglobin (mass per erythrocyte) 31 pg 25-34 Automated erythrocyte mean corpuscular hemoglobin concentration measurement (mass/volume) 33 g/dL 32-36 Automated erythrocyte distribution width ratio 12.1 % 10.0- 14.5 Automated blood platelet count (count/volume) 167 10*3/uL 130-400 Automated blood platelet mean volume measurement 10.2 [foz_us] 7.4-10.4 Automated blood neutrophils/100 leukocytes 64 % 42-75 Automated blood lymphocytes/100 leukocytes 25 % 12-44 Blood monocytes/100 leukocytes 6 % 0-12 Automated blood eosinophils/100 leukocytes 4 % 0-10 Automated blood basophils/100 leukocytes 1 % 0-10 Blood neutrophils automated count (number/volume) 5.0 10*3 1.8-7.8 Blood lymphocytes automated count (number/volume) 1.9 10*3 1.0-4.0 Blood monocytes automated count (number/volume) 0.5 10*3 0.0- 1.0 Automated eosinophil count 0.3 10*3/uL 0.0-0.3 Automated blood basophil count (count/volume) 0.1 10*3/uL 0.0-0.1 Blood blood smear finding identification by light microscopy YES [facility] Comprehensive metabolic panel - 09/10/18 17:26 Serum or plasma sodium measurement (moles/volume) 142 mmol/L 135-145 Serum or plasma potassium measurement (moles/volume) 4.1 mmol/L 3.6-5.0 Serum or plasma chloride measurement (moles/volume) 101 mmol/L 98-107 Carbon dioxide 27 mmol/L 21-32 Serum or plasma anion gap determination (moles/volume) 14 mmol/L 5-14 Serum or plasma urea nitrogen measurement (mass/volume) 19 mg/dL 7-18 Serum or plasma creatinine measurement (mass/volume) 0.92 mg/dL 0.60-1.30 Serum or plasma urea nitrogen/creatinine mass ratio 21 [facility] Serum or plasma creatinine measurement with calculation of estimated glomerular filtration rate > [facility] Serum or plasma glucose measurement (mass/volume) 107 mg/dL 70-105 Serum or plasma calcium measurement (mass/volume) 9.0 mg/dL 8.5-10.1 Serum or plasma total bilirubin measurement (mass/volume) 0.2 mg/dL 0.1-1.0 Serum or plasma alkaline phosphatase measurement (enzymatic activity/volume) 84 U/L 40-136 Serum or plasma aspartate aminotransferase measurement (enzymatic activity/volume) 19 U/L 5-34 Serum or plasma alanine aminotransferase measurement (enzymatic activity/volume) 19 U/L 0-55 Serum or plasma protein measurement (mass/volume) 6.4 g/dL 6.4-8.2 Serum or plasma albumin measurement (mass/volume) 4.1 g/dL 3.2-4.5 CALCIUM CORRECTED 8.9 mg/dL 8.5-10.1 Magnesium - 09/10/18 17:26 Magnesium 1.8 mg/dL 1.8-2.4 PROBNP FS - 09/10/18 17:26 PROBNP FS 244.4 pg/mL <75.0 Encounters ACCT No. Visit Date/Time Discharge Status Pt. Type Provider Facility Loc./Unit Complaint [id number] 09/21/2018 10:10:00 09/21/2018 23:59:59 CLS Outpatient MONTSERRAT MONGE GAME PROGRAMER [facility] RAD FS SHORTNESS OF BREATH [id number] 09/10/2018 16:24:00 09/10/2018 18:37:00 DIS Emergency SUKUMAR CAR DO [facility] ER FS SOA [id number] 08/11/2018 09:26:00 08/11/2018 23:59:59 CLS Outpatient LUIS GASCA GAME PROGRAMER [facility] RAD DYSPHAGIA [id number] 07/13/2018 17:15:00 07/13/2018 23:51:00 DIS Emergency MECHELLE LI [facility] ER FS SOB [id number] 07/11/2018 07:45:00 07/11/2018 23:59:59 CLS Preadmit LUIS GASCA GAME PROGRAMER [facility] SLEEP ASTHMA,SOB,COPD [id number] 07/07/2018 14:29:00 07/07/2018 23:59:59 CLS Outpatient LUIS GASCA GAME PROGRAMER [facility] RT ASTHMA,COPD,SEASONAL ALLERGY,SOB,TOBACCO USER [id number] 06/28/2018 12:04:00 06/28/2018 23:59:59 CLS Outpatient LUIS GASCA GAME PROGRAMER [facility] RAD COPD [id number] 05/23/2018 16:40:00 05/23/2018 23:59:59 CLS Preadmit LUIS GASCA GAME PROGRAMER [facility] RT ASTHMA, COPD, SEASONAL ALLERGY, SOB, TOBACCO USER [id number] 05/23/2018 11:57:00 05/23/2018 23:59:59 CLS Outpatient LUIS GASCA APRN [facility] LAB COPD
[2018-10-23] MEDS ORDERED: RT-ALBUTEROL/IPRATROPIUM 3 ML (DUONEB) VIAL INH ONE (16:45)
[2018-10-23] MEDS ORDERED: RT-ALBUTEROL SULF 2.5 MG/3 ML PRE-MIX VIAL INH STA (17:21)
[2018-10-23] MEDS ORDERED: ALBU2.5V4 INH (17:29)
--- NOTE | 2018-10-23 17:29 | ED Respiratory ---
General Chief Complaint: Respiratory Problems Stated Complaint: SOB,BACK PAIN Source: patient, family Exam Limitations: no limitations History of Present Illness Date Seen by Provider: Oct 23, 2018 Time Seen by Provider: 16:59 Initial Comments Here with report of shortness of air over the last week. This is causing her back hurt a little bit. She has been doing her breathing treatments at home and she feels like maybe the medicines all because they're not working as well. Has been on steroids over the last month and has been off those for a couple days. Also has had 2 rounds of antibiotics and that is complete. She does not want anymore steroids and would prefer no more antibiotics at this point. Denies fever or chills. Denies nausea or vomiting. Denies chest pain specifically. Does have oxygen at home that she can use at night. She is not had to really use it during the day. Timing/Duration: week, getting worse Severity: moderate Prior Episodes/Possible Cause: frequent episodes Modifying Factors: Worse With Activity; Improves With Oxygen, Improves With Rest Associated Symptoms: cough; No fever/chills, No lightheadedness, No nasal congestion, No nasal drainage; shortness of breath; No sinus infection, No sore throat; wheezing Allergies and Home Medications Allergies Coded Allergies: No Known Drug Allergies (Unverified , 07/13/18) Home Medications Albuterol Sulfate 2.5 Mg/3 Ml Vial.neb, 2.5 MG INH Q4H PRN for WHEEZING Prescribed by: TANIA BRANCH on 10/23/18 1729 Doxycycline Hyclate 100 Mg Tablet, 100 MG PO BID Prescribed by: SUKUMAR CAR on 09/10/18 1746 Patient Home Medication List Home Medication List Reviewed: Yes Review of Systems Review of Systems Constitutional: see HPI; No chills, No fever; other (sweating at night) Respiratory: cough, short of breath, wheezing Cardiovascular: No chest pain, No edema Gastrointestinal: No abdominal pain, No nausea, No vomiting Genitourinary: no symptoms reported Musculoskeletal: back pain; No muscle pain Skin: no symptoms reported Psychiatric/Neurological: No Symptoms Reported All Other Systems Reviewed Negative Unless Noted: Yes Past Xgksbos-Srrttt-Dvgqzl Hx Past Med/Social Hx: Reviewed Nursing Past Med/Soc Hx Patient Social History Alcohol Use: Denies Use Recreational Drug Use: No Smoking Status: Former Smoker Type Used: Cigarettes 2nd Hand Smoke Exposure: Yes Recent Foreign Travel: No Contact w/Someone Who Travel: No Recent Hopitalizations: No Seasonal Allergies Seasonal Allergies: No Past Medical History Surgeries: Yes Gallbladder, Hysterectomy, Orthopedic, 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 Respiratory: Yes COPD Cardiac: Yes Hypertension Neurological: No Genitourinary: No Gastrointestinal: No Musculoskeletal: No Endocrine: No HEENT: No Cancer: No Psychosocial: Yes Anxiety Integumentary: No Blood Disorders: No Adverse Reaction/Blood Tranf: No Family Medical History Reviewed Nursing Family Hx Physical Exam Capillary Refill : Height: 5'0" Weight: 145lbs. oz. 65.949352nf; BMI Method:Stated General Appearance: WD/WN, no apparent distress Neck: full range of motion, supple Respiratory: no accessory muscle use, decreased breath sounds, wheezing Cardiovascular: regular rate, rhythm, no murmur Gastrointestinal: non tender, soft Neurologic/Psychiatric: alert, oriented x 3 Skin: normal color, warm/dry Progress/Results/Core Measures Suspected Sepsis SIRS Temperature: Pulse: Respiratory Rate: Blood Pressure / Mean: Results/Orders My Orders Orders - TANIA BRANCH MD Albuterol/Ipra Inhalation Soln (Duoneb I (10/23/18 16:45) Chest Pa/Lat (2 View) (10/23/18 16:38) Svn Small Volume Nebulizer (10/23/18 16:38) Albuterol Pre-Mix Nebs (Rt) (Proventil (10/23/18 17:21) Svn Small Volume Nebulizer (10/23/18 17:21) Medications Given in ED Current Medications Medications Dose Ordered Sig/Hernesto Route Start Time Stop Time Status Last Admin Dose Admin Albuterol/ Ipratropium 3 ml ONCE ONCE INH 10/23/18 16:45 10/23/18 16:46 DC 10/23/18 16:56 3 ML Vital Signs/I&O Capillary Refill : Progress Note : Progress Note Seen and evaluated. Duo neb ordered. Two-view chest x-ray ordered. 1720: Repeat albuterol neb ordered. Patient still adamant about not wanting steroids or antibiotics. We will try with just albuterol home and oxygen as needed with the understanding that she needs to return for further evaluation and probable prescription of one or both of those at a minimum. Patient was in agreement with that plan. 1750: Overall better. Discharged home with return precautions. Patient verbalized understanding instructions and agreement with plan. Diagnostic Imaging Diagonstic Imaging: Xray Plain Films/CT/US/NM/MRI: chest Comments [facility] [place], [place] NAME: RUBEN RAPP MED REC#: [id number] PT STATUS: REG ER : 1950 PHYSICIAN: TANIA BRANCH MD ADMIT DATE: 10/23/18/ER FS Draft Date of Exam:10/23/18 CHEST PA/LAT (2 VIEW) INDICATION: Shortness of air. PA and lateral chest obtained at 04:27 p.m. and compared with 09/21/2018. Heart is normal in size. Mediastinal silhouette is unremarkable. There are COPD changes with hyperinflation. There are chronic-appearing increased basilar markings which appear similar to the prior study. There is no pneumothorax or pleural fluid. IMPRESSION: COPD changes and chronic-appearing increased basilar markings. These findings are similar to the prior study of 09/21/2018. There is no new abnormality. Dictated on workstation # [id number] Dict: 10/23/18 1657 Trans: 10/23/18 1731 [facility] [id number] Interpreted by: JHON HENDERSON MD Electronically signed by: Departure Impression Primary Impression: COPD exacerbation Disposition: HOME, SELF-CARE Condition: Improved Departure-Patient Inst. Decision time for Depature: 17:28 Referrals: CHACHO PÉREZ DO (PCP/Family) Primary Care Physician Patient Instructions: Chronic Obstructive Pulmonary Disease (COPD), Including Emphysema Add. Discharge Instructions: All discharge instructions reviewed with patient and/or family. Voiced understanding. Continue home medications as directed. You may use your albuterol treatments every 4 hours as needed. Use oxygen as needed at home. Follow up with your doctor on as scheduled. Return for worse breathing, fever, vomiting, weakness, chest pain or other concerns as needed. Scripts Albuterol Sulfate (Albuterol Sulfate) 2.5 Mg/3 Ml Vial.neb 2.5 MG INH Q4H PRN for WHEEZING, #50 EA 1 Refill Prov: TANIA BRANCH MD 10/23/18 TANIA BRANCH MD Oct 23, 2018 17:29
[2018-10-23 18:07] VITALS: BP 156/96
== END 2018-10-23 18:07 | disposition home or self-care (01) ==
LOC: EDUNIT# 16:09 → ER FS 16:10
DX: J44.1 Chronic obstructive pulmonary disease with (acute) exacerbation (principal); I10 Essential (primary) hypertension; F41.9 Anxiety disorder, unspecified; Z99.81 Dependence on supplemental oxygen; Z87.891 Personal history of nicotine dependence; Z90.710 Acquired absence of both cervix and uterus; Z98.890 Other specified postprocedural states; Z98.51 Tubal ligation status
CPT/HCPCS: 71046

== ENCOUNTER → 2018-11-07 | Outpatient (CLI) | payer MEDICARE, MEDICAID ==
[~2018-11-07] MED LIST changes: +ALBU2.5V4 INH; +IPRA3AMP31 IH; +NF-METHYLP PO
[2018-11-07 15:53] LABS: ABG BASE EXCESS -0.1 MMOL/L (-2.5-2.5); ABG OXYGEN SATURATION 94 % (94-100); ABG PCO2 42 MMHG (35-45); ABG PH 7.38 (7.37-7.43); ABG PO2 71 MMHG (79-93); ALLENS TEST YES-POS; INSPIRED O2 ROOM AIR; PATIENT TEMP 97; VENTILATOR NO
== END ==
LOC: RT 14:49
PROVIDERS: ATTEND Nurse Practitioner Family
DX: J44.9 Chronic obstructive pulmonary disease, unspecified (principal); R06.00 Dyspnea, unspecified; G47.10 Hypersomnia, unspecified; J30.2 Other seasonal allergic rhinitis; R13.10 Dysphagia, unspecified; R91.8 Other nonspecific abnormal finding of lung field; Z72.0 Tobacco use
CPT/HCPCS: 36600; 82805

== ENCOUNTER 2018-11-08 16:45 | Emergency (ER) | payer MEDICARE, MEDICAID ==
[~2018-11-08] VITALS: Ht 152.4 cm; Wt 68.0 kg
[~2018-11-08 16:45] MED LIST changes: -IPRA3AMP31 IH; -NF-METHYLP PO
--- OUTSIDE RECORDS SUMMARY | 2018-11-08 16:49 | XMS REPORT | Continuity of Care Document ---
Author Organization Unknown Address Unknown Allergies Active Description Code Type Severity Reaction Onset Reported/Identified Relationship to Patient Clinical Status Yes No Allergy Information Available [id number] Drug Allergy Unknown N/A 06/28/2018 Yes No Known Drug Allergies [id number] Drug Allergy Unknown N/A 07/13/2018 Medications There is no data. Problems Date Dx Coded Attending Type Code Diagnosis Diagnosed By 05/24/2018 LUIS GASCA GRANITE POLISHER Ot J44.9 CHRONIC OBSTRUCTIVE PULMONARY DISEASE, U 05/31/2018 LUIS GASCA GR[employer]ITE POLISHER Ot J44.9 CHRONIC OBSTRUCTIVE PULMONARY DISEASE, U 06/15/2018 LUIS GASCA GR[employer]ITE POLISHER Ot J44.9 CHRONIC OBSTRUCTIVE PULMONARY DISEASE, U 06/28/2018 LUIS GASCA GR[employer]ITE POLISHER Ot J44.9 CHRONIC OBSTRUCTIVE PULMONARY DISEASE, U 06/28/2018 LUIS GASCA GR[employer]ITE POLISHER Ot J43.9 EMPHYSEMA, UNSPECIFIED 06/28/2018 LUIS GASCA GR[employer]ITE POLISHER Ot J45.909 UNSPECIFIED ASTHMA, UNCOMPLICATED 06/28/2018 LUIS GASCA GR[employer]ITE POLISHER Ot J98.4 OTHER DISORDERS OF LUNG 06/28/2018 LUIS GASCA GR[employer]ITE POLISHER Ot Z72.0 TOBACCO USE 07/07/2018 LUIS GASCA GR[employer]ITE POLISHER Ot J43.9 EMPHYSEMA, UNSPECIFIED 07/07/2018 LUIS GASCA GR[employer]ITE POLISHER Ot J45.909 UNSPECIFIED ASTHMA, UNCOMPLICATED 07/07/2018 LUIS GASCA GR[employer]ITE POLISHER Ot J98.4 OTHER DISORDERS OF LUNG 07/07/2018 LUIS AGSCA GR[employer]ITE POLISHER Ot Z72.0 TOBACCO USE 07/13/2018 LUIS GASCA GR[employer]ITE POLISHER Ot R13.11 DYSPHAGIA, ORAL PHASE 07/13/2018 LUIS GASCA GR[employer]ITE POLISHER Ot G47.10 HYPERSOMNIA, UNSPECIFIED 07/13/2018 LI MIN [...] J45.909 UNSPECIFIED ASTHMA, UNCOMPLICATED 07/18/2018 LUIS GASCA [employer]ISHER Ot J98.4 OTHER DISORDERS OF LUNG 07/18/2018 LUIS GASCA APRN Ot Z72.0 TOBACCO USE 07/31/2018 LUIS GASCA GR[employer]ITE POLISHER Ot J30.2 OTHER SEASONAL ALLERGIC RHINITIS 07/31/2018 LUIS GASCA GR[employer] POLISHER Ot J44.9 CHRONIC OBSTRUCTIVE PULMONARY DISEASE, U 07/31/2018 LUIS GASCA APRN Ot R06.00 DYSPNEA, UNSPECIFIED 07/31/2018 LUIS GASCA GR[employer]ISHER Ot Z72.0 TOBACCO USE 08/05/2018 MECHELLE CHO, [...] R06.02 SHORTNESS OF BREATH 09/10/2018 LUIS GASCA [employer]ER Ot J44.9 CHRONIC OBSTRUCTIVE PULMONARY DISEASE, U 09/10/2018 LUIS GASCA GR[employer]ITE POLISHER Ot J30.2 OTHER SEASONAL ALLERGIC RHINITIS 09/10/2018 OLMAN GASCAINE Aaron GR[employer]ITE POLISHER Ot J44.9 CHRONIC OBSTRUCTIVE PULMONARY DISEASE, U 09/10/2018 OLMAN GSACAINE Aaron GR[employer]ITE POLISHER Ot R06.00 DYSPNEA, UNSPECIFIED 09/10/2018 OLMAN GASCAINE E GR[employer]ITE POLISHER Ot Z72.0 TOBACCO USE 09/10/2018 OLMAN GASCAINE E GR[employer]ITE POLISHER Ot J43.9 EMPHYSEMA, UNSPECIFIED 09/10/2018 CAMPOSOLMAN MORANINE E GRANITE POLISHER Ot J45.909 UNSPECIFIED ASTHMA, UNCOMPLICATED 09/10/2018 CAMPOSOLMAN MORANINE Aaron GR[employer]ITE POLISHER Ot J98.4 OTHER DISORDERS OF LUNG 09/10/2018 LUIS GASCA GR[employer]ITE POLISHER Ot Z72.0 TOBACCO USE 09/10/2018 LUIS GASCA GR[employer]ITE POLISHER Ot R13.11 DYSPHAGIA, ORAL PHASE 09/27/2018 MONTSERRAT MONGE GR[employer]ITE POLISHER Ot R06.02 SHORTNESS OF BREATH 10/13/2018 MONTSERRAT MONGE GR[employer]ITE POLISHER Ot R06.02 SHORTNESS OF BREATH 10/23/2018 LUIS GASCA GR[employer]ITE POLISHER Ot J44.9 CHRONIC OBSTRUCTIVE PULMONARY DISEASE, U 10/23/2018 LUIS GASCA GR[employer]ITE POLISHER Ot J30.2 OTHER SEASONAL ALLERGIC RHINITIS 10/23/2018 OLMAN GASCAINE Aaron GR[employer]ITE POLISHER Ot J44.9 CHRONIC OBSTRUCTIVE PULMONARY DISEASE, U 10/23/2018 LUIS GASCA GR[employer]ITE POLISHER Ot R06.00 DYSPNEA, UNSPECIFIED 10/23/2018 OLMAN GASCAINE Aaron GR[employer]ITE POLISHER Ot Z72.0 TOBACCO USE 10/23/2018 OLMAN GASCAINE Aaron GRANITE POLISHER Ot J43.9 EMPHYSEMA, UNSPECIFIED 10/23/2018 OLMAN GASCAINE Aaron GR[employer]ITE POLISHER Ot J45.909 UNSPECIFIED ASTHMA, UNCOMPLICATED 10/23/2018 OLMAN GASCAINE Aaron GR[employer]ITE POLISHER Ot J98.4 OTHER DISORDERS OF LUNG 10/23/2018 CAMPOSOLMAN MORANINE Aaron GRANITE POLISHER Ot Z72.0 TOBACCO USE 10/23/2018 LUIS GASCA GR[employer]ITE POLISHER Ot R13.11 DYSPHAGIA, ORAL PHASE 10/23/2018 MONTSERRAT MONGE GR[employer]ITE POLISHER Ot R06.02 SHORTNESS OF BREATH 10/26/2018 TANIA BRANCH MD, Ot F41.9 ANXIETY DISORDER, UNSPECIFIED 10/26/2018 TANIA BRANCH MD, Ot I10 ESSENTIAL (PRIMARY) HYPERTENSION 10/26/2018 TANIA BRANCH MD, Ot J44.1 CHRONIC OBSTRUCTIVE PULMONARY DISEASE W 10/26/2018 TANIA BRANCH MD, Ot R06.02 SHORTNESS OF BREATH 10/26/2018 TANIA BRANCH MD, Ot Z87.891 PERSONAL HISTORY OF NICOTINE DEPENDENCE 10/26/2018 TANIA BRANCH MD, Ot Z90.710 ACQUIRED ABSENCE OF BOTH CERVIX AND UTER 10/26/2018 TANIA BRANCH MD, Ot Z98.51 TUBAL LIGATION STATUS 10/26/2018 TANIA BRANCH MD, Ot Z98.890 OTHER SPECIFIED POSTPROCEDURAL STATES 10/26/2018 TANIA BRANCH MD, Ot Z99.81 DEPENDENCE ON SUPPLEMENTAL OXYGEN Procedures There is no data. Results Test [...] smear finding identification by light microscopy YES [facility] Comprehensive metabolic panel - 09/10/18 17:26 Serum [...] or plasma urea nitrogen/creatinine mass ratio 21 [facility] Serum or plasma creatinine measurement with calculation of estimated glomerular filtration rate > [facility] Serum or plasma glucose measurement (mass/volume) 107 [...] 09/10/18 17:26 PROBNP FS 244.4 pg/mL <75.0 Arterial blood gas measurement - 11/07/18 15:45 Blood pCO2 42 mm[Hg] 35-45 Blood pO2 71 mm[Hg] 79-93 Arterial blood bicarbonate measurement (moles/volume) 25 mmol/L 23-27 Arterial blood base excess by calculation -0.1 mmol/L -2.5-2.5 Arterial blood oxygen saturation measurement 94 % 94-100 * Inhaled oxygen flow rate ROOM AIR NRG Arterial blood pH measurement with patient temperature correction 7.38 7.37-7.43 Arterial blood carbon dioxide, total measurement (moles/volume) 26.0 mmol/L 21.0-31.0 Body site RT RAD NRG Assessment of wrist artery patency prior to arterial puncture YES-POS NRG Setting of ventilation mode NO NRG Measurement of body temperature 97 NRG Encounters ACCT No. Visit Date/Time Discharge Status Pt. Type Provider Facility Loc./Unit Complaint [id number] 10/23/2018 16:10:00 10/23/2018 18:07:00 DIS Outpatient TANIA BRANCH MD [facility] ER FS SOB,BACK PAIN [id number] 09/21/2018 10:10:00 09/21/2018 23:59:59 CLS Outpatient MONTSERRAT MONGE APRN [facility] RAD FS SHORTNESS OF BREATH [id number] 09/10/2018 16:24:00 09/10/2018 18:37:00 DIS Emergency SUKUMAR CAR DO [facility] ER FS SOA [id number] 08/11/2018 09:26:00 08/11/2018 23:59:59 CLS Outpatient LUIS GASCA APRN [facility] RAD DYSPHAGIA [id number] 07/13/2018 17:15:00 07/13/2018 23:51:00 DIS Emergency LI MIN DO [facility] ER FS SOB [id number] 07/11/2018 07:45:00 07/11/2018 23:59:59 CLS Preadmit LUIS GASCA APRN [facility] SLEEP ASTHMA,SOB,COPD [id number] 07/07/2018 14:29:00 07/07/2018 23:59:59 CLS Outpatient LUIS GASCA [employer]ISHER [facility] RT ASTHMA,COPD,SEASONAL ALLERGY,SOB,TOBACCO USER [id number] 06/28/2018 12:04:00 06/28/2018 23:59:59 CLS Outpatient LUIS GSACA [employer]ISHER [facility] RAD COPD [id number] 05/23/2018 16:40:00 05/23/2018 23:59:59 CLS Preadmit LUIS GASCA GR[employer]ITE [employer]ISHER [facility] RT ASTHMA, COPD, SEASONAL ALLERGY, SOB, TOBACCO USER [id number] 05/23/2018 11:57:00 05/23/2018 23:59:59 CLS Outpatient LUIS GASCA GR[employer] POLISHER [facility] LAB COPD [id number] 12/12/2018 21:00:00 PEN Preadmit LUIS GASCA GR[employer]ITE POLISHER [facility] SLEEP ASTHMA,TOBACCO USER,SOB,SEASONAL ALLERGY,COPD [id number] 11/08/2018 10:25:00 PEN Preadmit LUIS GASCA GR[employer]ITE POLISHER [facility] RAD COPD, SOB, SUSPECTED SLEEP APNEA [id number] 11/07/2018 14:49:00 ACT Outpatient LUIS GASCA GR[employer]ISHER [facility] RT J44.9
--- NOTE | 2018-11-08 17:01 | ED Respiratory ---
General Chief Complaint: Respiratory Problems Stated Complaint: SOB History of Present Illness Date Seen by Provider: Nov 08, 2018 Time Seen by Provider: 17:01 Initial Comments Patient presenting to the emergency department for evaluation of dyspnea that she says has been worsening over the past 2 days and she saw a flat clothier Dr. Mina yesterday and was started on prednisone. She says that she has been doing her inhaler every 4 hours and she still continues to be short of breath. She has a history of COPD and is on 2 L at baseline and denies smoking cigarettes any more. She appears to be in rimo-js-lqdnvtag respiratory distress breathing approximately 22 breaths per minute. She has nausea saturation of 94% on room air. She is not on any antibiotics currently. Her daughter seems quite dissatisfied as she was seen here 2 weeks ago and was given breathing treatments and steroids but she says she would never improved. After daughter left patient said that was not the case. (RERE GREENWOOD DO) Allergies and Home Medications Allergies Coded Allergies: No Known Drug Allergies (Unverified , 07/13/18) Home Medications Albuterol Sulfate 2.5 Mg/3 Ml Vial.neb, 2.5 MG INH Q4H PRN for WHEEZING Prescribed by: TANIA BRANCH on 10/23/18 1729 Doxycycline Hyclate 100 Mg Tablet, 100 MG PO BID Prescribed by: SUKUMAR CAR on 09/10/18 1746 Patient Home Medication List Home Medication List Reviewed: Yes (RERE GREENWOOD DO) Review of Systems Review of Systems Constitutional: no symptoms reported EENTM: no symptoms reported Respiratory: short of breath Cardiovascular: no symptoms reported Gastrointestinal: no symptoms reported Musculoskeletal: joint pain, muscle pain Skin: no symptoms reported Psychiatric/Neurological: No Symptoms Reported (RERE GREENWOOD DO) All Other Systems Reviewed Negative Unless Noted: Yes (RERE GREENWOOD DO) Past Izxjmiw-Wuhxyv-Yvlrkq Hx Patient Social History Type Used: Cigarettes Former Smoker, Quit: Oct 16, 2018 2nd Hand Smoke Exposure: Yes Recent Foreign Travel: No Contact w/Someone Who Travel: No Recent Hopitalizations: No (RERE GREENWOOD DO) Seasonal Allergies Seasonal Allergies: No (RERE GREENWOOD DO) Past Medical History Surgeries: Yes Gallbladder, Hysterectomy, Orthopedic, 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 Respiratory: Yes COPD Cardiac: Yes Hypertension Neurological: No Genitourinary: No Gastrointestinal: No Musculoskeletal: No Endocrine: No HEENT: No Cancer: No Psychosocial: Yes Anxiety Integumentary: No Blood Disorders: No Adverse Reaction/Blood Tranf: No (RERE GREENWOOD ) Physical Exam Vital Signs - First Documented 11/08/18 16:50 Temp 97.8 Pulse 108 Resp 26 B/P (MAP) 139/82 (101) Pulse Ox 93 O2 Delivery Room Air (SUKUMAR CAR ) Capillary Refill : (TIMORERE Mark ) Height: 5'0" Weight: 155lbs. oz. 70.314203lw; BMI Method:Stated General Appearance: moderate distress (respiratory) HEENT: PERRL/EOMI Neck: supple Respiratory: other (decreased aeration in all lung bearden with I/E wheezing) Cardiovascular: regular rate, rhythm, no edema Gastrointestinal: non tender Extremities: no pedal edema Neurologic/Psychiatric: alert, oriented x 3 Skin: normal color, warm/dry (RERE GREENWOOD DO) Progress/Results/Core Measures Suspected Sepsis SIRS Temperature: Pulse: Respiratory Rate: Laboratory Tests 11/08/18 17:10: Blood Pressure / Mean: Laboratory Tests 11/08/18 17:10: (TIMORERE Mark ) Results/Orders Lab Results Laboratory Tests Test 11/08/18 17:10 Range/Units White Blood Count 7.5 4.3-11.0 10^3/uL Red Blood Count 3.84 L 4.35-5.85 10^6/uL Hemoglobin 12.4 11.5-16.0 G/DL Hematocrit 38 35-52 % Mean Corpuscular Volume 98 80-99 FL Mean Corpuscular Hemoglobin 32 25-34 PG Mean Corpuscular Hemoglobin Concent 33 32-36 G/DL Red Cell Distribution Width 13.1 10.0-14.5 % Platelet Count 309 130-400 10^3/uL Mean Platelet Volume 9.9 7.4-10.4 FL Neutrophils (%) (Auto) 59 42-75 % Lymphocytes (%) (Auto) 29 12-44 % Monocytes (%) (Auto) 8 0-12 % Eosinophils (%) (Auto) 3 0-10 % Basophils (%) (Auto) 1 0-10 % Neutrophils # (Auto) 4.4 1.8-7.8 X 10^3 Lymphocytes # (Auto) 2.2 1.0-4.0 X 10^3 Monocytes # (Auto) 0.6 0.0-1.0 X 10^3 Eosinophils # (Auto) 0.2 0.0-0.3 10^3/uL Basophils # (Auto) 0.1 0.0-0.1 10^3/uL Sodium Level 141 135-145 MMOL/L Potassium Level 4.4 3.6-5.0 MMOL/L Chloride Level 102 98-107 MMOL/L Carbon Dioxide Level 26 21-32 MMOL/L Anion Gap 13 5-14 MMOL/L Blood Urea Nitrogen 16 7-18 MG/DL Creatinine 0.77 0.60-1.30 MG/DL Estimat Glomerular Filtration Rate > 60 BUN/Creatinine Ratio 21 Glucose Level 145 H 70-105 MG/DL Calcium Level 9.7 8.5-10.1 MG/DL Corrected Calcium 9.7 8.5-10.1 MG/DL Magnesium Level 1.8 1.8-2.4 MG/DL Total Bilirubin 0.2 0.1-1.0 MG/DL Aspartate Amino Transf (AST/SGOT) 26 5-34 U/L Alanine Aminotransferase (ALT/SGPT) 39 0-55 U/L Alkaline Phosphatase 79 40-136 U/L Troponin T < 6 <=10 NG/L Pro-B-Type Natriuretic Peptide 55.8 <75.0 PG/ML Total Protein 6.8 6.4-8.2 GM/DL Albumin 4.0 3.2-4.5 GM/DL (SUKUMAR CAR DO) Medications Given in ED Current Medications Medications Dose Ordered Sig/Hernesto Route Start Time Stop Time Status Last Admin Dose Admin Acetaminophen/ Hydrocodone Bitart 1 tab ONCE ONCE PO 11/08/18 17:30 11/08/18 17:31 DC 11/08/18 17:52 1 TAB Albuterol/ Ipratropium 3 ml ONCE ONCE INH 11/08/18 17:15 11/08/18 17:16 DC 11/08/18 17:50 3 ML Methylprednisolone Sodium Succinate 125 mg ONCE ONCE IVP 11/08/18 17:15 11/08/18 17:16 DC 11/08/18 17:52 125 MG (SUKUMAR CAR DO) Vital Signs/I&O 11/08/18 16:50 Temp 97.8 Pulse 108 Resp 26 B/P (MAP) 139/82 (101) Pulse Ox 93 O2 Delivery Room Air (SUKUMAR CAR DO) Vital Signs/I&O Capillary Refill : (RERE GREENWOOD DO) Progress Note : Progress Note I recommended admission to the patient but she is refusing to this point. After she gets Solu-Medrol breathing treatments and her workup was completed will approach the subject again. (RERE GREENWOOD DO) Departure Impression Primary Impression: COPD with exacerbation Disposition: HOME, SELF-CARE Condition: Improved Departure-Patient Inst. Referrals: CHACHO PÉREZ DO (PCP/Family) Primary Care Physician Patient Instructions: Chronic Obstructive Pulmonary Disease (COPD), Including Emphysema Scripts Ipratropium/Albuterol Sulfate (Iprat-Albut 0.5-3(2.5) mg/3 ml) 3 Ml Ampul.neb 3 ML IH Q6H PRN for SHORTNESS OF BREATH, #1 PKG 2 Refills Prov: SUKUMAR CAR DO 11/08/18 Methylprednisolone (Medrol) 4 Mg Tab 4 MG PO UD for 6 Days, #21 TAB as directed per dose pack Prov: SUKUMAR CAR DO 11/08/18 RERE GREENWOOD DO Nov 08, 2018 17:01 SUKUMAR CAR DO Nov 08, 2018 19:07
[2018-11-08] MEDS ORDERED: RT-ALBUTEROL/IPRATROPIUM 3 ML (DUONEB) VIAL INH ONE (17:15)
[2018-11-08] MEDS ORDERED: RT-ALBUTEROL SULF 2.5 MG/3 ML PRE-MIX VIAL INH SCH (17:15)
[2018-11-08] MEDS ORDERED: methylPREDNISolone 125 MG (Solu-MEDROL) VIAL IVP ONE (17:15)
[2018-11-08 17:29] LABS: BASOPHILS # (AUTO) 0.1 10^3/uL (0.0-0.1); BASOPHILS % (AUTO) 1 % (0-10); EOSINOPHILS # (AUTO) 0.2 10^3/uL (0.0-0.3); EOSINOPHILS % (AUTO) 3 % (0-10); HEMATOCRIT 38 % (35-52); HEMOGLOBIN 12.4 G/DL (11.5-16.0); LYMPHOCYTES # (AUTO) 2.2 X 10^3 (1.0-4.0); LYMPHOCYTES % (AUTO) 29 % (12-44); MEAN CORPUSCULAR HEMOGLOBIN 32 PG (25-34); MEAN CORPUSCULAR HGB CONC 33 G/DL (32-36); MEAN CORPUSCULAR VOLUME 98 FL (80-99); MEAN PLATELET VOLUME 9.9 FL (7.4-10.4); MONOCYTES # (AUTO) 0.6 X 10^3 (0.0-1.0); MONOCYTES % (AUTO) 8 % (0-12); NEUTROPHILS # (AUTO) 4.4 X 10^3 (1.8-7.8); NEUTROPHILS % (AUTO) 59 % (42-75); PLATELET COUNT 309 10^3/uL (130-400); RED CELL DISTRIBUTION WIDTH 13.1 % (10.0-14.5); WHITE BLOOD COUNT 7.5 10^3/uL (4.3-11.0)
[2018-11-08] MEDS ORDERED: HYDROcodone/APAP 5 MG/325 MG (LORTAB) TAB PO ONE (17:30)
[2018-11-08 18:03] LABS: ALANINE AMINOTRANSFERASE 39 U/L (0-55); ALKALINE PHOSPHATASE 79 U/L (40-136); BILIRUBIN,TOTAL 0.2 MG/DL (0.1-1.0); BUN/CREATININE RATIO 21; CALCIUM 9.7 MG/DL (8.5-10.1); CARBON DIOXIDE 26 MMOL/L (21-32); CHLORIDE 102 MMOL/L (98-107); CREATININE SERUM 0.77 MG/DL (0.60-1.30); GFR ESTIMATED > 60; GLUCOSE 145 MG/DL (70-105); MAGNESIUM 1.8 MG/DL (1.8-2.4); POTASSIUM 4.4 MMOL/L (3.6-5.0); SODIUM 141 MMOL/L (135-145); TOTAL PROTEIN 6.8 GM/DL (6.4-8.2)
--- NOTE | 2018-11-08 18:53 | Diagnostic Imaging Report ---
EXAM: CHEST 1 VIEW AP/PA ONLY INDICATION: Chest tightness. Shortness of air. COMPARISON: Chest radiograph of 10/23/2018. FINDINGS: Persistent atelectasis or infiltrate in the medial right lung base. No pleural effusion or pneumothorax. Normal heart size and central pulmonary vascularity. No acute osseous findings. IMPRESSION: Mild atelectasis or infiltrate in medial right lung base is similar to the prior exam. Dictated by: Dictated on workstation # [id number]
--- NOTE | 2018-11-08 19:00 | NUR ---
assumed care of this patient at this time. patient is stable at this time, stating she feels much better and is ready to go home.
[2018-11-08] MEDS ORDERED: IPRA3AMP31 IH (19:07)
[2018-11-08] MEDS ORDERED: NF-METHYLP PO (19:07)
[2018-11-08 19:16] VITALS: BP 128/67
--- NOTE | 2018-11-08 19:18 | NUR ---
patient discharge instructiosn reviewed with patient and caregiver, denies questions at this time. patient is escorted via own caregiver via wheel chair to private vehicle.
== END 2018-11-08 19:18 | disposition home or self-care (01) ==
LOC: EDUNIT# 16:45 → ER FS 16:46
DX: J44.1 Chronic obstructive pulmonary disease with (acute) exacerbation (principal); I10 Essential (primary) hypertension; F41.9 Anxiety disorder, unspecified; Z99.81 Dependence on supplemental oxygen; Z87.891 Personal history of nicotine dependence; Z98.51 Tubal ligation status; Z90.710 Acquired absence of both cervix and uterus
CPT/HCPCS: 36415; 71045; 80053; 83735; 83880; 84484; 85025; 94640; 96374

== ENCOUNTER → 2018-12-12 | Outpatient (CLI) | payer MEDICARE, MEDICAID ==
[~2018-12-12] MED LIST changes: +IPRA3AMP31 IH; +NF-METHYLP PO
== END ==
LOC: SLEEP 20:26
PROVIDERS: ATTEND Nurse Practitioner Family
DX: J44.9 Chronic obstructive pulmonary disease, unspecified (principal); G47.33 Obstructive sleep apnea (adult) (pediatric); J30.2 Other seasonal allergic rhinitis; G47.10 Hypersomnia, unspecified; R13.10 Dysphagia, unspecified; R00.0 Tachycardia, unspecified; Z72.0 Tobacco use
CPT/HCPCS: 95810

== ENCOUNTER → 2018-12-19 | Outpatient (CLI) | payer MEDICARE, MEDICAID ==
[~2018-12-19] MED LIST changes: -DULO60CA58; +DULO60CA59; +HOLD METFORMIN - RECEIVED CONTRAST 20 ML VIAL IV SCH; +IOHEXOL 350 MG/ML 100 ML (OMNIPAQUE 350) VIAL IV ONE; +NS 100 ML (IVPB) BAG IV ONE
[2018-12-19 11:33] LABS: CREATININE SERUM 0.93 MG/DL (0.60-1.30)
--- NOTE | 2018-12-19 17:11 | Diagnostic Imaging Report ---
PROCEDURE: CT chest with contrast only. TECHNIQUE: Multiple contiguous axial images were obtained through the chest after administration of intravenous contrast. Auto Exposure Controls were utilized during the CT exam to meet ALARA standards for radiation dose reduction. INDICATION: COPD, excessive cough. COMPARISON: CT chest from 07/13/2018 FINDINGS: Lungs and airway: No endoluminal nodule within the trachea. No pulmonary mass, nodule or consolidation. Severe emphysema is again seen. Pleura: No pleural effusion or pneumothorax. Heart and mediastinum: Thyroid is normal. No supraclavicular or axillary lymphadenopathy. No mediastinal, hilar or juxtaphrenic lymphadenopathy. Heart is normal in size. No pericardial effusion. Normal caliber thoracic aorta. Upper abdomen: Cholecystectomy. Left renal cyst. Musculoskeletal: No concerning focal osseous lesions. IMPRESSION: 1. No acute cardiopulmonary process. 2. Severe emphysema. 3. No features of intrathoracic neoplasm. Dictated by: Dictated on workstation # [id number]
== END ==
LOC: RAD 11:02
PROVIDERS: ATTEND Nurse Practitioner Family
DX: J43.9 Emphysema, unspecified (principal); G47.10 Hypersomnia, unspecified; J30.2 Other seasonal allergic rhinitis; Z72.0 Tobacco use; R91.8 Other nonspecific abnormal finding of lung field
CPT/HCPCS: 36415; 71260; 82565; 84520

== ENCOUNTER 2019-01-17 10:17 | Emergency (ER) | payer MEDICARE, MEDICAID ==
[~2019-01-17] VITALS: Ht 152.4 cm; Wt 72.6 kg
[~2019-01-17 10:17] MED LIST changes: -HOLD METFORMIN - RECEIVED CONTRAST 20 ML VIAL IV SCH; -IOHEXOL 350 MG/ML 100 ML (OMNIPAQUE 350) VIAL IV ONE; -NS 100 ML (IVPB) BAG IV ONE
[2019-01-17] MEDS ORDERED: methylPREDNISolone 125 MG (Solu-MEDROL) VIAL IVP ONE (10:45)
[2019-01-17] MEDS ORDERED: RT-ALBUTEROL/IPRATROPIUM 3 ML (DUONEB) VIAL INH ONE (10:45)
--- NOTE | 2019-01-17 11:10 | Diagnostic Imaging Report ---
Chest one view at 10:30h. INDICATION: Short of breath The heart size is within normal limits and stable when compared to 11/08/2018. As noted on the prior exam there is atelectasis/infiltrate along the medial aspect of the right lung base. A small area of increased density is also seen near the apex of the heart. These abnormal parenchyma densities are quite similar to the prior study and may well be chronic in nature. There is no new area of increased density to suggest pneumonia or a pleural effusion. There is no sign of failure. The mediastinal is not widened. The osseous structures are intact. IMPRESSION: Stable chest. There has been no adverse change since the prior exam. Dictated by: Dictated on workstation # [id number]
[2019-01-17 11:12] LABS: BASOPHILS % (AUTO) 1 % (0-10); EOSINOPHILS % (AUTO) 3 % (0-10); HEMATOCRIT 37 % (35-52); HEMOGLOBIN 12.1 G/DL (11.5-16.0); LYMPHOCYTES % (AUTO) 31 % (12-44); MEAN CORPUSCULAR HEMOGLOBIN 32 PG (25-34); MEAN CORPUSCULAR HGB CONC 32 G/DL (32-36); MEAN CORPUSCULAR VOLUME 98 FL (80-99); MEAN PLATELET VOLUME 9.6 FL (7.4-10.4); MONOCYTES % (AUTO) 7 % (0-12); NEUTROPHILS % (AUTO) 58 % (42-75); PLATELET COUNT 252 10^3/uL (130-400); RED CELL DISTRIBUTION WIDTH 12.7 % (10.0-14.5); WHITE BLOOD COUNT 12.4 10^3/uL (4.3-11.0)
[2019-01-17 11:13] LABS: BASOPHILS # (AUTO) 0.1 10^3/uL (0.0-0.1); EOSINOPHILS # (AUTO) 0.4 10^3/uL (0.0-0.3); LYMPHOCYTES # (AUTO) 3.8 X 10^3 (1.0-4.0); MONOCYTES # (AUTO) 0.9 X 10^3 (0.0-1.0); NEUTROPHILS # (AUTO) 7.2 X 10^3 (1.8-7.8)
[2019-01-17 11:20] LABS: ATYPICAL LYMPHOCYTES 7 %; BAND NEUTROPHILS 2 %; BASOPHILS % (MANUAL) 1 %; EOSINOPHILS % (MANUAL) 4 %; LYMPHOCYTES % (MANUAL) 26 %; MONOCYTES % (MANUAL) 7 %; MYELOCYTES % 3 %; NEUTROPHILS % (MANUAL) 50 %
[2019-01-17 11:21] LABS: RBC MORPH NORMAL
--- NOTE | 2019-01-17 11:30 | ED General ---
General Chief Complaint: Respiratory Problems Stated Complaint: SOB History of Present Illness Date Seen by Provider: Jan 17, 2019 Time Seen by Provider: 11:26 Initial Comments Patient presents emergency department for evaluation of shortness of breath that has been worsening for several days. She was seen last week by her primary care provider and prescribed prednisone and Levaquin. She is currently tapering down off of the prednisone and is currently on 10 mg daily. She says she stopped the Levaquin is started making her have yellow stools were loose 3 or 4 days ago and has persisted. Patient has a history of COPD and continues to smoke cigarettes. She says she does not understand why she was short of breath all the time. Patient denies any productive cough fevers chills nausea vomiting. Later on during her emergency department stay she started saying she had right-sided chest pain that was sharp. She initially said that he just started while she was here however then she admitted that it has been happening off and on for the past week. She is in no obvious distress with normal vital signs. Allergies and Home Medications Allergies Coded Allergies: No Known Drug Allergies (Unverified , 07/13/18) Home Medications Albuterol Sulfate 2.5 Mg/3 Ml Vial.neb, 2.5 MG INH Q4H PRN for WHEEZING Prescribed by: TANIA BRANCH on 10/23/18 172 Doxycycline Hyclate 100 Mg Tablet, 100 MG PO BID Prescribed by: SUKUMAR CAR on 09/10/18 174 Ipratropium/Albuterol Sulfate 3 Ml Ampul.neb, 3 ML IH Q6H PRN for SHORTNESS OF BREATH Prescribed by: SUKUMAR CAR on 11/08/181906 Methylprednisolone 4 Mg Tab, 4 MG PO UD as directed per dose pack Prescribed by: SUKUMAR CAR on 11/08/181906 Patient Home Medication List Home Medication List Reviewed: Yes Review of Systems Review of Systems Constitutional: no symptoms reported EENTM: no symptoms reported Respiratory: cough, short of breath Cardiovascular: chest pain Gastrointestinal: diarrhea Genitourinary: no symptoms reported Musculoskeletal: no symptoms reported Skin: no symptoms reported Psychiatric/Neurological: No Symptoms Reported All Other Systems Reviewed Negative Unless Noted: Yes Past Fhclizb-Jutctw-Jhrcuc Hx Patient Social History Type Used: Cigarettes Former Smoker, Quit: Oct 16, 2018 2nd Hand Smoke Exposure: Yes Recent Hopitalizations: No Seasonal Allergies Seasonal Allergies: No Past Medical History Surgeries: Yes Gallbladder, Hysterectomy, Orthopedic, 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 Respiratory: Yes COPD Cardiac: Yes Hypertension Neurological: No Genitourinary: No Gastrointestinal: No Musculoskeletal: No Endocrine: No HEENT: No Cancer: No Psychosocial: Yes Anxiety Integumentary: No Blood Disorders: No Adverse Reaction/Blood Tranf: No Physical Exam Vital Signs Vital Signs - First Documented 01/17/19 10:29 Temp 97.8 Pulse 93 Resp 23 B/P (MAP) 156/94 (114) Pulse Ox 97 O2 Delivery Room Air Capillary Refill : Height, Weight, BMI Height: 5'0" Weight: 150lbs. oz. 68.093806io; BMI Method:Stated General Appearance: Chronically ill HEENT: PERRL/EOMI Neck: Supple Respiratory: Wheezing, Other (diminished aeration in all lung bearden) Cardiovascular: Regular Rate, Rhythm Gastrointestinal: Non Tender, Soft Rectal: Deferred Back: Normal Inspection Extremity: Normal Capillary Refill, No Pedal Edema Neurologic/Psychiatric: Alert, Oriented x3 Skin: Normal Color Progress/Results/Core Measures Suspected Sepsis SIRS Temperature: Pulse: Respiratory Rate: Laboratory Tests 01/17/19 10:45: White Blood Count 12.4H Blood Pressure / Mean: Laboratory Tests 01/17/19 10:45: Creatinine 0.92, Platelet Count 252, Total Bilirubin 0.2 Results/Orders Lab Results Laboratory Tests Test 01/17/19 10:45 Range/Units White Blood Count 12.4 H 4.3-11.0 10^3/uL Red Blood Count 3.80 L 4.35-5.85 10^6/uL Hemoglobin 12.1 11.5-16.0 G/DL Hematocrit 37 35-52 % Mean Corpuscular Volume 98 80-99 FL Mean Corpuscular Hemoglobin 32 25-34 PG Mean Corpuscular Hemoglobin Concent 32 32-36 G/DL Red Cell Distribution Width 12.7 10.0-14.5 % Platelet Count 252 130-400 10^3/uL Mean Platelet Volume 9.6 7.4-10.4 FL Neutrophils (%) (Auto) 58 42-75 % Lymphocytes (%) (Auto) 31 12-44 % Monocytes (%) (Auto) 7 0-12 % Eosinophils (%) (Auto) 3 0-10 % Basophils (%) (Auto) 1 0-10 % Neutrophils # (Auto) 7.2 1.8-7.8 X 10^3 Lymphocytes # (Auto) 3.8 1.0-4.0 X 10^3 Monocytes # (Auto) 0.9 0.0-1.0 X 10^3 Eosinophils # (Auto) 0.4 H 0.0-0.3 10^3/uL Basophils # (Auto) 0.1 0.0-0.1 10^3/uL Neutrophils % (Manual) 50 % Lymphocytes % (Manual) 26 % Monocytes % (Manual) 7 % Eosinophils % (Manual) 4 % Basophils % (Manual) 1 % Myelocytes % 3 % Band Neutrophils 2 % Atypical Lymphocytes 7 % Blood Morphology Comment NORMAL Sodium Level 143 135-145 MMOL/L Potassium Level 4.0 3.6-5.0 MMOL/L Chloride Level 104 98-107 MMOL/L Carbon Dioxide Level 26 21-32 MMOL/L Anion Gap 13 5-14 MMOL/L Blood Urea Nitrogen 21 H 7-18 MG/DL Creatinine 0.92 0.60-1.30 MG/DL Estimat Glomerular Filtration Rate > 60 BUN/Creatinine Ratio 23 Glucose Level 98 70-105 MG/DL Calcium Level 9.9 8.5-10.1 MG/DL Corrected Calcium 10.1 8.5-10.1 MG/DL Total Bilirubin 0.2 0.1-1.0 MG/DL Aspartate Amino Transf (AST/SGOT) 16 5-34 U/L Alanine Aminotransferase (ALT/SGPT) 23 0-55 U/L Alkaline Phosphatase 68 40-136 U/L Troponin I < 0.30 <0.30 NG/ML Pro-B-Type Natriuretic Peptide 665.1 H <75.0 PG/ML Total Protein 6.0 L 6.4-8.2 GM/DL Albumin 3.7 3.2-4.5 GM/DL My Orders Orders - RERE GREENWODO DO Cbc With Automated Diff (01/17/19 10:36) Comprehensive Metabolic Panel (01/17/19 10:36) Probnp Fs (01/17/19 10:36) Troponin I (01/17/19 10:36) Chest 1 View Ap/Pa Only (01/17/19 10:36) Albuterol/Ipra Inhalation Soln (Duoneb I (01/17/19 10:45) Methylprednisolone Sod Succ (Solu-Medrol (01/17/19 10:45) Svn Small Volume Nebulizer (01/17/19 10:36) Manual Differential (01/17/19 10:45) Medications Given in ED Current Medications Medications Dose Ordered Sig/Hernesto Route Start Time Stop Time Status Last Admin Dose Admin Albuterol/ Ipratropium 3 ml ONCE ONCE INH 01/17/19 10:45 01/17/19 10:46 DC 01/17/19 10:53 3 ML Methylprednisolone Sodium Succinate 125 mg ONCE ONCE IVP 01/17/19 10:45 01/17/19 10:46 DC 01/17/19 10:53 125 MG Vital Signs/I&O 01/17/19 10:29 Temp 97.8 Pulse 93 Resp 23 B/P (MAP) 156/94 (114) Pulse Ox 97 O2 Delivery Room Air Capillary Refill : Progress Note : Progress Note Unfortunately patient is in poor health and continues to smoke. I tried explained to her that she will continue to get worse despite anything any health care provider can do for her when she continues smoking. I will check labs c hest x-ray treated with Solu-Medrol and neb treatment and reassess. Patient's workup negative for acute process and she has improved breathing and her repeat lung exam has improved as well. She denies any pain at this time. I told the results of tests including a leukocytosis which is likely from the steroids and the elevated BNP which I do not have a complete examination for. I told her we could admit her to the hospital to get further testing on her heart such an echocardiogram to see if she may have a component of CHF contributing to her shortness of breath. Patient refused stating that she would rather go home. Patient will be discharged in stable condition. She was told that she does not want to have increased steroid dosing. I told her that she will need to use her nebulizers every 2-3 hours if needed. I told her she can come back to the emergency department any time for any worsening symptoms. Patient aware and agreeable with plan and verbalized understanding of the above plan and instructions. Departure Impression Primary Impression: COPD exacerbation Additional Impression: Elevated brain natriuretic peptide (BNP) level Disposition: 01 HOME, SELF-CARE Condition: Stable Departure-Patient Inst. Referrals: CHACHO PÉREZ DO (PCP/Family) Primary Care Physician Patient Instructions: Exacerbation of COPD (DC) RERE GREENWOOD DO Jan 17, 2019 11:30
[2019-01-17 11:32] LABS: ALANINE AMINOTRANSFERASE 23 U/L (0-55); ALKALINE PHOSPHATASE 68 U/L (40-136); BILIRUBIN,TOTAL 0.2 MG/DL (0.1-1.0); BUN/CREATININE RATIO 23; CALCIUM 9.9 MG/DL (8.5-10.1); CARBON DIOXIDE 26 MMOL/L (21-32); CHLORIDE 104 MMOL/L (98-107); CREATININE SERUM 0.92 MG/DL (0.60-1.30); GFR ESTIMATED > 60; GLUCOSE 98 MG/DL (70-105); SODIUM 143 MMOL/L (135-145)
[2019-01-17 11:33] LABS: ALBUMIN 3.7 GM/DL (3.2-4.5)
[2019-01-17 12:14] VITALS: BP 153/87
== END 2019-01-17 12:14 | disposition home or self-care (01) ==
LOC: EDUNIT# 10:17 → ER FS 10:18
DX: J44.1 Chronic obstructive pulmonary disease with (acute) exacerbation (principal); R79.89 Other specified abnormal findings of blood chemistry; I10 Essential (primary) hypertension; F41.9 Anxiety disorder, unspecified; F17.210 Nicotine dependence, cigarettes, uncomplicated; Z79.52 Long term (current) use of systemic steroids; Z87.891 Personal history of nicotine dependence; Z90.710 Acquired absence of both cervix and uterus; Z98.51 Tubal ligation status
CPT/HCPCS: 36415; 71045; 80053; 83880; 84484; 85007; 85027; 93005; 96374

== ENCOUNTER 2019-02-14 10:39 | Outpatient (RCR) | payer MEDICARE, MEDICAID ==
[~2019-02-14 10:39] MED LIST changes: -BUPR100T8; +BUPR100T8 PO; -CLOP75TA28; +CLOP75TA28 PO; -DULO60CA59; +DULO60CA59 PO; -LISI10TA2; +LISI10TA2 PO; -LORA1TAB; +LORA1TAB PO; -MELO15TA39; +MELO15TA39 PO; -PRAM1TAB5; +PRAM1TAB5 PO; -SIMV40TA4; +SIMV40TA4 PO; -TRAZ-222; +TRAZ-222 PO
[2019-02-20 14:30] VITALS: BP 100/60
[2019-02-20 15:57] VITALS: BP 115/70
[2019-02-22 13:10] VITALS: BP 140/60
[2019-02-22 13:12] VITALS: BP 140/60
[2019-02-22 14:00] VITALS: BP 122/70
[2019-02-27 13:00] VITALS: BP 100/60
[2019-02-27 14:00] VITALS: BP 100/60
[2019-03-06 13:15] VITALS: BP 128/80
[2019-03-06 13:50] VITALS: BP 128/60
[2019-03-08 13:20] VITALS: BP 115/50
[2019-03-08 14:10] VITALS: BP 110/60
[2019-03-13 13:00] VITALS: BP 110/72
[2019-03-13 14:33] VITALS: BP 116/68
[2019-03-20 12:50] VITALS: BP 130/68
[2019-03-20 14:20] VITALS: BP 132/80
[2019-03-22 13:00] VITALS: BP 132/50
[2019-03-22 14:10] VITALS: BP 120/65
[2019-03-27 12:15] VITALS: BP 140/75
[2019-03-27 13:10] VITALS: BP 120/60
[2019-03-29 12:55] VITALS: BP 95/50
[2019-03-29 14:08] VITALS: BP 126/54
[2019-04-26] MEDS ORDERED: PRD20T PO (19:32)
[2019-04-26] MEDS ORDERED: DOXY100T2 PO (19:32)
[2019-05-08] MEDS ORDERED: IPRA3AMP31 IH (19:42)
[2019-05-08] MEDS ORDERED: AZIT250T12 PO (19:42)
[2019-05-08] MEDS ORDERED: PRD20T PO (19:42)
[2019-05-14] MEDS ORDERED: AZIT250T12 PO (08:04)
[2019-05-14] MEDS ORDERED: IPRA3AMP31 NEB (08:05)
[2019-05-14] MEDS ORDERED: METO-333 PO (08:11)
[2019-05-14] MEDS ORDERED: ROFL500T PO (11:39)
[2019-05-14] MEDS ORDERED: ESOM40CA52 PO (11:39)
[2019-05-14] MEDS ORDERED: TOPI50TA13 PO (11:39)
[2019-05-14] MEDS ORDERED: ISOS30TA3 PO (11:39)
[2019-05-15] MEDS ORDERED: PRD20T PO (11:51)
== END 2019-05-15 | disposition home or self-care (01) ==
LOC: PULM 10:39
PROVIDERS: ATTEND Nurse Practitioner Family
DX: J30.2 Other seasonal allergic rhinitis (principal); J44.9 Chronic obstructive pulmonary disease, unspecified; R13.10 Dysphagia, unspecified; R91.8 Other nonspecific abnormal finding of lung field; Z72.0 Tobacco use
CPT/HCPCS: 99211

== ENCOUNTER 2019-02-18 15:58 | Emergency (ER) | payer MEDICARE, MEDICAID ==
[~2019-02-18] VITALS: Ht 152 cm; Wt 72.7 kg
[~2019-02-18 15:58] MED LIST changes: +BUPR100T8; -BUPR100T8 PO; +CLOP75TA28; -CLOP75TA28 PO; +DULO60CA59; -DULO60CA59 PO; +LISI10TA2; -LISI10TA2 PO; +LORA1TAB; -LORA1TAB PO; +MELO15TA39; -MELO15TA39 PO; +PRAM1TAB5; -PRAM1TAB5 PO; +SIMV40TA4; -SIMV40TA4 PO; +TRAZ-222; -TRAZ-222 PO
--- NOTE | 2019-02-18 16:56 | ED Headache ---
General Chief Complaint: Head/Cervical Problems Stated Complaint: HEADACHE Nursing Triage Note: Patient reports a migraine headache for 2-3 days, states it is a typical migraine for her and that her home medications are not working. Nursing Sepsis Screen: No Definite Risk History of Present Illness Date Seen by Provider: Feb 18, 2019 Time Seen by Provider: 16:56 Initial Comments The patient is a 68-year-old white female who reports that she has had migraine headaches for many years beginning in her adolescence. She states that she had not had a headache in 6 months or more but has been troubled by 1 over the last 2-3 days. She used up quite a few remaining home medications she had. Over the last 2 days she has had only her bronchodilators. Timing/Duration: other (2-3 days) Severity/Quality: moderate Location: frontal, occipital Prior Headaches/Recent Trauma: chronic headaches Associated Symptoms: denies symptoms Allergies and Home Medications Allergies Coded Allergies: No Known Drug Allergies (Unverified , 07/13/18) Home Medications Albuterol Sulfate 2.5 Mg/3 Ml Vial.neb, 2.5 MG INH Q4H PRN for WHEEZING Prescribed by: TANIA BRANCH on 10/23/18 1729 Doxycycline Hyclate 100 Mg Tablet, 100 MG PO BID Prescribed by: SUKUMAR CAR on 09/10/18 174 Ipratropium/Albuterol Sulfate 3 Ml Ampul.neb, 3 ML IH Q6H PRN for SHORTNESS OF BREATH Prescribed by: SUKUMAR CAR on 11/08/181906 Methylprednisolone 4 Mg Tab, 4 MG PO UD as directed per dose pack Prescribed by: SUKUMAR CAR on 11/08/181906 Patient Home Medication List Home Medication List Reviewed: Yes Review of Systems Review of Systems Constitutional: see HPI Eyes: No Symptoms Reported Ears, Nose, Mouth, Throat: no symptoms reported Respiratory: cough, dyspnea on exertion, short of breath, wheezing Cardiovascular: no symptoms reported Gastrointestinal: no symptoms reported Genitourinary: no symptoms reported Musculoskeletal: no symptoms reported Skin: no symptoms reported Psychiatric/Neurological: No Symptoms Reported Past Ajzborl-Bnkadw-Esxnwd Hx Patient Social History Type Used: Cigarettes Former Smoker, Quit: Oct 16, 2018 2nd Hand Smoke Exposure: Yes Recent Foreign Travel: No Contact w/Someone Who Travel: No Recent Infectious Disease Expo: No Recent Hopitalizations: No Seasonal Allergies Seasonal Allergies: No Past Medical History Surgeries: Yes Gallbladder, Hysterectomy, Orthopedic, 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 Respiratory: Yes COPD Cardiac: Yes Hypertension Neurological: No Genitourinary: No Gastrointestinal: No Musculoskeletal: No Endocrine: No HEENT: No Cancer: No Psychosocial: Yes Anxiety Integumentary: No Blood Disorders: No Adverse Reaction/Blood Tranf: No Physical Exam Vital Signs Vital Signs - First Documented 02/18/19 16:15 Temp 36.3 Pulse 118 Resp 26 B/P (MAP) 161/103 (122) Pulse Ox 96 O2 Delivery Room Air Capillary Refill : Less Than 3 Seconds Height, Weight, BMI Height: 5'0" Weight: 160lbs. oz. 72.729539rl; 31.00 BMI Method:Stated General Appearance: mild distress, moderate distress HEENT: normal ENT inspection Neck: full range of motion Cardiovascular: normal peripheral pulses, regular rate, rhythm, no edema, no gallop, no JVD, no murmur Respiratory: chest non-tender, lungs clear, normal breath sounds, no respiratory distress, no accessory muscle use Gastrointestinal: normal bowel sounds, non tender, soft, no organomegaly, no pulsatile mass Extremities: normal range of motion, non-tender, normal inspection, no pedal edema, no calf tenderness, normal capillary refill, pelvis stable Psychiatric: alert, oriented x 3 Crainal Nerves: normal hearing, normal speech, PERRL Motor/Sensory: no motor deficit, no sensory deficit Skin: normal color, warm/dry Lymphatic: no adenopathy Progress/Results/Core Measures Results/Orders Lab Results Laboratory Tests Test 02/18/19 16:45 Range/Units White Blood Count 10.6 4.3-11.0 10^3/uL Red Blood Count 4.92 4.35-5.85 10^6/uL Hemoglobin 15.6 11.5-16.0 G/DL Hematocrit 48 35-52 % Mean Corpuscular Volume 98 80-99 FL Mean Corpuscular Hemoglobin 32 25-34 PG Mean Corpuscular Hemoglobin Concent 33 32-36 G/DL Red Cell Distribution Width 12.5 10.0-14.5 % Platelet Count 355 130-400 10^3/uL Mean Platelet Volume 10.4 7.4-10.4 FL Neutrophils (%) (Auto) 67 42-75 % Lymphocytes (%) (Auto) 23 12-44 % Monocytes (%) (Auto) 7 0-12 % Eosinophils (%) (Auto) 2 0-10 % Basophils (%) (Auto) 1 0-10 % Neutrophils # (Auto) 7.1 1.8-7.8 X 10^3 Lymphocytes # (Auto) 2.4 1.0-4.0 X 10^3 Monocytes # (Auto) 0.7 0.0-1.0 X 10^3 Eosinophils # (Auto) 0.3 0.0-0.3 10^3/uL Basophils # (Auto) 0.1 0.0-0.1 10^3/uL Sodium Level 141 135-145 MMOL/L Potassium Level 5.0 3.6-5.0 MMOL/L Chloride Level 103 98-107 MMOL/L Carbon Dioxide Level 28 21-32 MMOL/L Anion Gap 10 5-14 MMOL/L Blood Urea Nitrogen 13 7-18 MG/DL Creatinine 0.72 0.60-1.30 MG/DL Estimat Glomerular Filtration Rate > 60 BUN/Creatinine Ratio 18 Glucose Level 167 H 70-105 MG/DL Calcium Level 10.4 H 8.5-10.1 MG/DL Corrected Calcium 8.5-10.1 MG/DL Total Bilirubin 0.3 0.1-1.0 MG/DL Aspartate Amino Transf (AST/SGOT) 47 H 5-34 U/L Alanine Aminotransferase (ALT/SGPT) 48 0-55 U/L Alkaline Phosphatase 78 40-136 U/L Total Protein 7.5 6.4-8.2 GM/DL Albumin 4.6 H 3.2-4.5 GM/DL My Orders Orders - DEONNA BAILEY MD Cbc With Automated Diff (02/18/19 16:16) Comprehensive Metabolic Panel (02/18/19 16:16) Drug Screen Stat (Urine) (02/18/19 16:17) Ns Iv 1000 Ml (Sodium Chloride 0.9%) (02/18/19 17:00) Ketorolac Injection (Toradol Injection) (02/18/19 17:00) Promethazine Injection (Phenergan Injec (02/18/19 17:00) Diphenhydramine Injection (Benadryl Inje (02/18/19 17:00) Ed Iv/Invasive Line Start (02/18/19 16:59) Medications Given in ED Current Medications Medications Dose Ordered Sig/Hernesto Route Start Time Stop Time Status Last Admin Dose Admin Diphenhydramine HCl 25 mg ONCE ONCE IVP 02/18/19 17:00 02/18/19 17:01 DC 02/18/19 17:08 25 MG Ketorolac Tromethamine 30 mg ONCE ONCE IVP 02/18/19 17:00 02/18/19 17:01 DC 02/18/19 17:09 30 MG Promethazine HCl 25 mg ONCE ONCE IVP 02/18/19 17:00 02/18/19 17:01 DC 02/18/19 17:08 25 MG Vital Signs/I&O 02/18/19 16:15 Temp 36.3 Pulse 118 Resp 26 B/P (MAP) 161/103 (122) Pulse Ox 96 O2 Delivery Room Air Blood Pressure Mean: 122 Departure Communication (Admissions) 1754: The patient is sitting up reports that her headache is much better. Impression Primary Impression: migraine Disposition: 01 HOME, SELF-CARE Condition: Improved Departure-Patient Inst. Decision time for Depature: 17:58 Referrals: CHACHO PÉREZ DO (PCP/Family) Primary Care Physician Patient Instructions: Migraine Headache (DC) Add. Discharge Instructions: All discharge instructions reviewed with patient and/or family. Voiced understanding. Home to bed. Plenty of liquids. In the morning make arrangements with your provider to refill your migraine medications. DEONNA BAILEY MD Feb 18, 2019 16:56
[2019-02-18] MEDS ORDERED: NS IV 1000 ML 1,000 ML IV SCH (17:00)
[2019-02-18] MEDS ORDERED: PROMETHAZINE INJ 25 MG/ML (PHENERGAN) AMP IVP ONE (17:00)
[2019-02-18] MEDS ORDERED: KETOROLAC 30 MG/ML VIAL IVP ONE (17:00)
[2019-02-18] MEDS ORDERED: diphenhydrAMINE 50 MG/ML INJ (BENADRYL) IVP ONE (17:00)
[2019-02-18 17:25] LABS: EOSINOPHILS % (AUTO) 2 % (0-10); HEMATOCRIT 48 % (35-52); HEMOGLOBIN 15.6 G/DL (11.5-16.0); LYMPHOCYTES % (AUTO) 23 % (12-44); MEAN CORPUSCULAR HEMOGLOBIN 32 PG (25-34); MEAN CORPUSCULAR HGB CONC 33 G/DL (32-36); MEAN CORPUSCULAR VOLUME 98 FL (80-99); MEAN PLATELET VOLUME 10.4 FL (7.4-10.4); MONOCYTES % (AUTO) 7 % (0-12); NEUTROPHILS % (AUTO) 67 % (42-75); PLATELET COUNT 355 10^3/uL (130-400); RED CELL DISTRIBUTION WIDTH 12.5 % (10.0-14.5); WHITE BLOOD COUNT 10.6 10^3/uL (4.3-11.0)
[2019-02-18 17:26] LABS: BASOPHILS # (AUTO) 0.1 10^3/uL (0.0-0.1); BASOPHILS % (AUTO) 1 % (0-10); EOSINOPHILS # (AUTO) 0.3 10^3/uL (0.0-0.3); LYMPHOCYTES # (AUTO) 2.4 X 10^3 (1.0-4.0); MONOCYTES # (AUTO) 0.7 X 10^3 (0.0-1.0); NEUTROPHILS # (AUTO) 7.1 X 10^3 (1.8-7.8)
[2019-02-18 17:27] LABS: ALANINE AMINOTRANSFERASE 48 U/L (0-55); ALBUMIN 4.6 GM/DL (3.2-4.5); ALKALINE PHOSPHATASE 78 U/L (40-136); BILIRUBIN,TOTAL 0.3 MG/DL (0.1-1.0); BUN/CREATININE RATIO 18; CALCIUM 10.4 MG/DL (8.5-10.1); CARBON DIOXIDE 28 MMOL/L (21-32); CHLORIDE 103 MMOL/L (98-107); CREATININE SERUM 0.72 MG/DL (0.60-1.30); GFR ESTIMATED > 60; GLUCOSE 167 MG/DL (70-105); SODIUM 141 MMOL/L (135-145); TOTAL PROTEIN 7.5 GM/DL (6.4-8.2)
[2019-02-18 18:16] VITALS: BP 158/96
== END 2019-02-18 18:28 | disposition home or self-care (01) ==
LOC: EDUNIT# 15:58 → ER FS 15:59
DX: G43.909 Migraine, unspecified, not intractable, without status migrainosus (principal); I10 Essential (primary) hypertension; J44.9 Chronic obstructive pulmonary disease, unspecified; F41.9 Anxiety disorder, unspecified; Z79.52 Long term (current) use of systemic steroids; Z87.891 Personal history of nicotine dependence; Z90.710 Acquired absence of both cervix and uterus; Z98.51 Tubal ligation status; Z77.22 Contact with and (suspected) exposure to environmental tobacco smoke (acute) (chronic)
CPT/HCPCS: 36415; 80053; 85025

== ENCOUNTER 2019-04-26 17:33 | Emergency (ER) | payer MEDICARE, MEDICAID ==
[~2019-04-26] VITALS: Ht 154.9 cm; Wt 68.5 kg
--- NOTE | 2019-04-26 17:44 | ED General ---
General Stated Complaint: SOB; COUGH Source of Information: Patient History of Present Illness Date Seen by Provider: Apr 26, 2019 Time Seen by Provider: 17:44 Initial Comments Patient is a 68-year-old female with history of tobacco use and COPD who comes to the emergency department today with dyspnea. She has been having symptoms over the last 5-7 days. She uses inhalers at home but states he has not been helping. She does have increased cough and sputum production. No fevers but she has significantly worse dyspnea compared to baseline. Normally, she uses oxygen only at nighttime when she is sleeping. Patient does complain of some sternal chest pain as well. She has unable to identify any aggravating or alleviating factors. The pain is nonradiating. Allergies and Home Medications Allergies Coded Allergies: No Known Drug Allergies (Unverified , 07/13/18) Home Medications Albuterol Sulfate 2.5 Mg/3 Ml Vial.neb, 2.5 MG INH Q4H PRN for WHEEZING Prescribed by: TANIA BRANCH on 10/23/18 172 Doxycycline Hyclate 100 Mg Tablet, 100 MG PO BID Prescribed by: SUKUMAR CAR on 09/10/18 174 Ipratropium/Albuterol Sulfate 3 Ml Ampul.neb, 3 ML IH Q6H PRN for SHORTNESS OF BREATH Prescribed by: SUKUMAR CAR on 11/08/181906 Methylprednisolone 4 Mg Tab, 4 MG PO UD as directed per dose pack Prescribed by: SUKUMAR CAR on 11/08/181906 Patient Home Medication List Home Medication List Reviewed: Yes Review of Systems Review of Systems Constitutional: malaise, weakness EENTM: no symptoms reported Respiratory: see HPI Cardiovascular: see HPI, chest pain Gastrointestinal: no symptoms reported Musculoskeletal: no symptoms reported Skin: no symptoms reported Psychiatric/Neurological: No Symptoms Reported All Other Systems Reviewed Negative Unless Noted: Yes Past Cedkkaa-Zhrhcm-Usmrmq Hx Patient Social History Type Used: Cigarettes Former Smoker, Quit: Oct 16, 2018 2nd Hand Smoke Exposure: Yes Recent Foreign Travel: No Recent Hopitalizations: No Seasonal Allergies Seasonal Allergies: No Past Medical History Surgeries: Yes Gallbladder, Hysterectomy, Orthopedic, 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 Respiratory: Yes COPD Cardiac: Yes Hypertension Neurological: No Genitourinary: No Gastrointestinal: No Musculoskeletal: No Endocrine: No HEENT: No Cancer: No Psychosocial: Yes Anxiety Integumentary: No Blood Disorders: No Adverse Reaction/Blood Tranf: No Physical Exam Vital Signs Capillary Refill : Height, Weight, BMI Height: 5'0" Weight: 160lbs. oz. 72.288199ew; 31.00 BMI Method:Stated General Appearance: Obese, Other (significant respiratory distress and tripoding on the gurney) Eyes: Bilateral Eye Normal Inspection, Bilateral Eye PERRL HEENT: PERRL/EOMI, Normal ENT Inspection Neck: Full Range of Motion Respiratory: Accessory Muscle Use, Decreased Breath Sounds, Respiratory Distress, Wheezing Cardiovascular: Regular Rate, Rhythm, No Edema, No JVD Gastrointestinal: Non Tender, Soft Extremity: Normal Capillary Refill Neurologic/Psychiatric: Alert, Oriented x3 Skin: Normal Color, Warm/Dry Progress/Results/Core Measures Suspected Sepsis SIRS Temperature: Pulse: Respiratory Rate: Blood Pressure / Mean: Results/Orders My Orders Orders - DEMETRA LOZA DO Influenza A And B Antigens (04/26/19 17:47) Ed Iv/Invasive Line Start (04/26/19 17:47) Cbc With Automated Diff (04/26/19 17:47) Basic Metabolic Panel (04/26/19 17:47) Probnp Fs (04/26/19 17:47) Troponin I Fs (04/26/19 17:47) Ekg Tracing (04/26/19 17:47) Chest 1 View Ap/Pa Only (04/26/19 17:47) Methylprednisolone Sod Succ (Solu-Medrol (04/26/19 18:00) Vital Signs/I&O Capillary Refill : Progress Note : Time: 17:52 Progress Note Patient is seen and examined. The patient has significantly diminished airflow bilaterally in the lungs. She has wheezes throughout and prolonged expiratory phase. She is currently complaining of chest pain. EKG is ordered along with cardiac labs and chest x-ray. Solu-Medrol 125 mg and DuoNeb is also ordered. Currently, her oxygen saturation is 98% on room air despite that she has some increased work of breathing on physical exam. 18:10: MARQUISE to Dr. Schuler. X-ray and labs are pending. DuoNeb running currently. ECG Initial ECG Impression Date: Apr 26, 2019 Initial ECG Impression Time: 17:55 Initial ECG Rate: 80 Initial ECG Rhythm: Normal Sinus Initial ECG Intervals: Normal Departure Impression Primary Impression: COPD exacerbation Disposition: ADMITTED INPATIENT Condition: Improved Departure-Patient Inst. Referrals: CHACHO PÉREZ DO (PCP/Family) Primary Care Physician DEMETRA LOZA DO Apr 26, 2019 17:44 POS
[2019-04-26] MEDS ORDERED: methylPREDNISolone 125 MG (Solu-MEDROL) VIAL IVP ONE (18:00)
[2019-04-26] MEDS ORDERED: RT-ALBUTEROL/IPRATROPIUM 3 ML (DUONEB) VIAL ONE (18:12)
[2019-04-26] MEDS ORDERED: RT-ALBUTEROL/IPRATROPIUM 3 ML (DUONEB) VIAL INH ONE (18:15)
[2019-04-26 18:30] LABS: HEMATOCRIT 43 % (35-52); HEMOGLOBIN 14.1 G/DL (11.5-16.0); MEAN CORPUSCULAR HEMOGLOBIN 32 PG (25-34); MEAN CORPUSCULAR HGB CONC 33 G/DL (32-36); MEAN CORPUSCULAR VOLUME 96 FL (80-99); WHITE BLOOD COUNT 5.8 10^3/uL (4.3-11.0)
[2019-04-26] MEDS ORDERED: cefTRIAXone FOR IV USE 1,000 MG in WATER (STERILE) FOR INJECTION 10 ML IV ONE (18:30)
[2019-04-26 18:31] LABS: BASOPHILS # (AUTO) 0.1 10^3/uL (0.0-0.1); BASOPHILS % (AUTO) 1 % (0-10); EOSINOPHILS # (AUTO) 0.5 10^3/uL (0.0-0.3); EOSINOPHILS % (AUTO) 9 % (0-10); LYMPHOCYTES # (AUTO) 2.3 X 10^3 (1.0-4.0); LYMPHOCYTES % (AUTO) 40 % (12-44); MEAN PLATELET VOLUME 11.4 FL (7.4-10.4); MONOCYTES # (AUTO) 0.5 X 10^3 (0.0-1.0); MONOCYTES % (AUTO) 8 % (0-12); NEUTROPHILS # (AUTO) 2.5 X 10^3 (1.8-7.8); NEUTROPHILS % (AUTO) 42 % (42-75); PLATELET COUNT 232 10^3/uL (130-400); RED CELL DISTRIBUTION WIDTH 12.2 % (10.0-14.5)
--- NOTE | 2019-04-26 18:37 | Diagnostic Imaging Report ---
EXAM: CHEST 1 VIEW AP/PA ONLY INDICATION: Shortness of breath. Wheezing. Abdominal pain. COMPARISON: 01/17/2019 FINDINGS: Normal heart size and central pulmonary vascularity. Stable interstitial opacities in the lung bases likely due to fibrotic change. No new focal pulmonary opacity. No pleural effusion or pneumothorax. Osseous structures are intact. IMPRESSION: No acute cardiopulmonary findings. Stable fibrotic changes in the lung bases. Dictated by: Dictated on workstation # [id number]
[2019-04-26 18:47] LABS: BUN/CREATININE RATIO 17; CALCIUM 9.6 MG/DL (8.5-10.1); CARBON DIOXIDE 26 MMOL/L (21-32); CHLORIDE 109 MMOL/L (98-107); GFR ESTIMATED 55; GLUCOSE 184 MG/DL (70-105); POTASSIUM 3.8 MMOL/L (3.6-5.0); SODIUM 145 MMOL/L (135-145)
[2019-04-26] MEDS ORDERED: RT-ALBUTEROL SULF 2.5 MG/3 ML PRE-MIX VIAL INH ONE (19:00)
[2019-04-26 19:23] VITALS: BP 128/58
[2019-04-26] MEDS ORDERED: PRD20T PO (19:32)
[2019-04-26] MEDS ORDERED: DOXY100T2 PO (19:32)
== END 2019-04-26 19:34 | disposition home or self-care (01) ==
LOC: EDUNIT# 17:33 → ER FS 17:34
DX: J44.1 Chronic obstructive pulmonary disease with (acute) exacerbation (principal); I10 Essential (primary) hypertension; F41.9 Anxiety disorder, unspecified; Z79.52 Long term (current) use of systemic steroids; Z77.22 Contact with and (suspected) exposure to environmental tobacco smoke (acute) (chronic); Z90.710 Acquired absence of both cervix and uterus; Z98.51 Tubal ligation status
CPT/HCPCS: 36415; 71045; 80048; 83605; 83880; 84484; 85025; 87040; 87804; 93005; 94640; 96374; 96375

== ENCOUNTER 2019-05-08 17:31 | Emergency (ER) | payer MEDICARE, MEDICAID ==
[~2019-05-08] VITALS: Ht 152.4 cm; Wt 69.5 kg
[~2019-05-08 17:31] MED LIST changes: +PRD20T PO
--- NOTE | 2019-05-08 17:48 | ED Respiratory ---
General Chief Complaint: Respiratory Problems Stated Complaint: SOB,COUGH,SWELLING Source: patient Exam Limitations: no limitations (CRISTINA SAVAGE) History of Present Illness Date Seen by Provider: May 08, 2019 Time Seen by Provider: 17:35 Initial Comments Patient presents ER by private conveyance walking in with chief complaint of wheezing shortness of breath and high blood pressure tonight. No chest pain. She says she had a heart catheter many years ago and was told she was clean. She's never had a heart attack or stents placed. She does not follow with a optical technician. She doesn't history of COPD and quit smoking a month ago. Before that she's mowing about half pack a day. She has been using her albuterol inhaler frequently today every 4-6 hours without benefit. 12 days ago she was in the ER and was given an injection of steroids as well as put on a steroid taper. She says she never totally got over that. She's had no fevers chills. She has had productive cough. No sick contacts. She did get her flu shot this year. She follows with Dr. PÉREZ and Dr. Marsh, pulmonology. She uses oxygen 2 L to sleep at night. She is not wearing it during the day. She denies a history of congestive heart failure but endorses orthopnea and some swelling in her feet. (CRISTINA SAVAGE) Allergies and Home Medications Allergies Coded Allergies: No Known Drug Allergies (Unverified , 07/13/18) Home Medications Albuterol Sulfate 2.5 Mg/3 Ml Vial.neb, 2.5 MG INH Q4H PRN for WHEEZING Prescribed by: TANIA BRANCH on 10/23/181728 Azithromycin 250 Mg Tablet, 500 MG PO DAILY Prescribed by: MAURIZIO KAPOOR on 05/08/191941 Doxycycline Hyclate 100 Mg Tablet, 100 MG PO BID Prescribed by: SUKUMAR CAR on 09/10/18 174 Doxycycline Hyclate 100 Mg Tablet, 100 MG PO BID Prescribed by: DEVIN DOMINGUEZ on 04/26/191931 Ipratropium/Albuterol Sulfate 3 Ml Ampul.neb, 3 ML IH Q6H PRN for SHORTNESS OF BREATH Prescribed by: SUKUMAR CAR on 11/08/181906 Ipratropium/Albuterol Sulfate 3 Ml Ampul.neb, 3 ML IH Q6H PRN for SHORTNESS OF BREATH Prescribed by: MAURIZIO KAPOOR on 05/08/191941 Methylprednisolone 4 Mg Tab, 4 MG PO UD as directed per dose pack Prescribed by: SUKUMAR CAR on 11/08/181906 Prednisone 20 Mg Tab, 60 MG PO DAILY Prescribed by: DEVIN DOMINGUEZ on 04/26/191931 Prednisone 20 Mg Tab, 40 MG PO DAILY Prescribed by: MAURIZIO KAPOOR on 05/08/191941 Patient Home Medication List Home Medication List Reviewed: Yes (CRISTINA SAVAGE) Review of Systems Review of Systems Constitutional: No chills, No fever; malaise EENTM: No ear discharge, No ear pain Respiratory: cough, phlegm, short of breath; No stridor; wheezing Cardiovascular: No chest pain; edema Gastrointestinal: No abdominal pain, No constipation, No diarrhea, No nausea Genitourinary: No discharge, No dysuria Musculoskeletal: No back pain, No joint pain Skin: No pruritus, No rash Psychiatric/Neurological: Denies Headache, Denies Numbness, Denies Paresthesia (CRISTINA SAVAGE) Past Etrzwmp-Ikkgbq-Bhgkwx Hx Patient Social History Alcohol Use: Denies Use Smoking Status: Former Smoker Type Used: Cigarettes Former Smoker, Quit: Apr 04, 2019 2nd Hand Smoke Exposure: Yes Recent Foreign Travel: No Contact w/Someone Who Travel: No Recent Hopitalizations: No (CRISTINA SAVAGE) Seasonal Allergies Seasonal Allergies: No (CRISTINA SAVAGE) Past Medical History Surgeries: Yes Gallbladder, Hysterectomy, Orthopedic, 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 Respiratory: Yes COPD Cardiac: Yes Hypertension Neurological: No Genitourinary: No Gastrointestinal: No Musculoskeletal: No Endocrine: No HEENT: No Cancer: No Psychosocial: Yes Anxiety Integumentary: No Blood Disorders: No Adverse Reaction/Blood Tranf: No (CRISTINA SAVAGE) Physical Exam Vital Signs - First Documented 05/08/19 17:38 Temp 36.2 Pulse 92 Resp 25 B/P (MAP) 126/58 (80) Pulse Ox 98 O2 Delivery Room Air (MAURIZIO KAPOOR MD) Capillary Refill : (CRISTINA SAVAGE) Height: 5'0" Weight: 160lbs. oz. 72.479965ug; 28.00 BMI Method:Stated General Appearance: mild distress, obese Eyes: Bilateral Eye Normal Inspection, Bilateral Eye PERRL, Bilateral Eye EOMI HEENT: PERRL/EOMI, normal ENT inspection, pharynx normal Neck: full range of motion, normal inspection Respiratory: respiratory distress (mild), decreased breath sounds, accessory muscle use (mild), wheezing (bilateral) Cardiovascular: normal peripheral pulses, regular rate, rhythm, other (mild 1+ edema bilateral lower extremities and ankles) Extremities: normal range of motion, normal capillary refill, pedal edema Neurologic/Psychiatric: alert, normal mood/affect, oriented x 3 Skin: normal color, warm/dry (CRISTINA SAVAGE) Progress/Results/Core Measures Suspected Sepsis SIRS Temperature: Pulse: Respiratory Rate: Blood Pressure / Mean: (CRISTINA SAVAGE) Results/Orders Lab Results Laboratory Tests Test 05/08/19 17:50 05/08/19 17:52 Range/Units White Blood Count 9.1 4.3-11.0 10^3/uL Red Blood Count 3.95 L 4.35-5.85 10^6/uL Hemoglobin 12.4 11.5-16.0 G/DL Hematocrit 39 35-52 % Mean Corpuscular Volume 98 80-99 FL Mean Corpuscular Hemoglobin 31 25-34 PG Mean Corpuscular Hemoglobin Concent 32 32-36 G/DL Red Cell Distribution Width 12.1 10.0-14.5 % Platelet Count 237 130-400 10^3/uL Mean Platelet Volume 11.2 H 7.4-10.4 FL Neutrophils (%) (Auto) 67 42-75 % Lymphocytes (%) (Auto) 23 12-44 % Monocytes (%) (Auto) 7 0-12 % Eosinophils (%) (Auto) 2 0-10 % Basophils (%) (Auto) 0 0-10 % Neutrophils # (Auto) 6.1 1.8-7.8 X 10^3 Lymphocytes # (Auto) 2.1 1.0-4.0 X 10^3 Monocytes # (Auto) 0.6 0.0-1.0 X 10^3 Eosinophils # (Auto) 0.2 0.0-0.3 10^3/uL Basophils # (Auto) 0.0 0.0-0.1 10^3/uL Sodium Level 141 135-145 MMOL/L Potassium Level 4.0 3.6-5.0 MMOL/L Chloride Level 105 98-107 MMOL/L Carbon Dioxide Level 24 21-32 MMOL/L Anion Gap 12 5-14 MMOL/L Blood Urea Nitrogen 20 H 7-18 MG/DL Creatinine 0.95 0.60-1.30 MG/DL Estimat Glomerular Filtration Rate 58 BUN/Creatinine Ratio 21 Glucose Level 143 H 70-105 MG/DL Calcium Level 9.3 8.5-10.1 MG/DL Corrected Calcium 9.1 8.5-10.1 MG/DL Total Bilirubin 0.2 0.1-1.0 MG/DL Aspartate Amino Transf (AST/SGOT) 30 5-34 U/L Alanine Aminotransferase (ALT/SGPT) 36 0-55 U/L Alkaline Phosphatase 72 40-136 U/L C-Reactive Protein 0.23 <0.50 MG/DL Pro-B-Type Natriuretic Peptide 625.0 H <75.0 PG/ML Total Protein 6.6 6.4-8.2 GM/DL Albumin 4.2 3.2-4.5 GM/DL Blood Gas Puncture Site RT RADIAL Blood Gas Patient Temperature 36.2 Arterial Blood pH 7.39 7.37-7.43 Arterial Blood Partial Pressure CO2 48 H 35-45 MMHG Arterial Blood Partial Pressure O2 30 *L 79-93 MMHG Arterial Blood HCO3 29 H 23-27 MMOL/L Arterial Blood Total CO2 30.6 21.0-31.0 MMOL/L Arterial Blood Oxygen Saturation 57 L 94-100 % Arterial Blood Base Excess 3.3 H -2.5-2.5 MMOL/L Loi Test OK Blood Gas Ventilator Setting NO Blood Gas Inspired Oxygen ROOM AIR (MAURIZIO KAPOOR MD) Micro Results Microbiology 05/08/19 Influenza Types A,B Antigen (JENNIFER) - Final, Complete (MAURIZIO KAPOOR MD) My Orders Orders - MAURIZIO KAPOOR MD Albuterol/Ipra Inhalation Soln (Duoneb I (05/08/19 18:12) Svn Small Volume Nebulizer (05/08/19 18:12) Methylprednisolone Sod Succ (Solu-Medrol (05/08/19 18:15) Albuterol/Ipra Inhalation Soln (Duoneb I (05/08/19 19:33) Azithromycin Tablet (Zithromax Tablet) (05/08/19 19:33) Rx-Lorazepam (Rx-Ativan) (05/08/19 19:33) Svn Small Volume Nebulizer (05/08/19 19:33) (MAURIZIO KAPOOR MD) Vital Signs/I&O 05/08/19 05/08/19 17:38 19:52 Temp 36.2 36.8 Pulse 92 84 Resp 25 18 B/P (MAP) 126/58 (80) 97/83 Pulse Ox 98 97 O2 Delivery Room Air Room Air (MAURIZIO KAPOOR MD) Vital Signs/I&O Capillary Refill : (CRISTINA SAVAGE) Progress Note : Time: 17:47 Progress Note DuoNeb, labs included BNP and a CRP to help differentiate between an infection/pneumonia versus COPD exacerbation versus fluid retention from CHF exacerbation. Chest x-ray and ABG. Her baseline BNP runs around 500- 600. (CRISTINA SAVAGE) Progress Note #1: Time: 18:17 Progress Note I assumed care of the patient from Dr. Savage at 1800. The patient's chest x-ray does not show any acute infiltrate or effusion. It shows chronic COPD changes. Her CBC does not show any acute significant abnormality. She has a stable white blood cell count 9.1. Her blood gas was a venous blood gas rather than arterial. She is saturating 96-98% on room air so will defer repeating an attempt for an arterial gas. Awaiting chemistry panel, but so far this appears to be a COPD exacerbation rather than an infectious process or episode of heart failure. Progress Note #2: Time: 18:36 Progress Note Influenza swab negative for A and B. Chemistry panel and proBNP pending. Breathing treatment and SoluMedrol 125 mg IV administered. Pt resting comfortably in room and maintaining O2 sats. Progress Note #3: Progress Note On repeat exam pt has expiratory wheezes but still able to speak in complete sentences and maintains a good oxygen level. She states her nebulizer machine is not giving out any mist or medicine at home. She has trouble sleeping at night as well. She also feels that Dr. Marsh is not helping her and thinks that he does nothing for her as a pulmonology doctor. I gave her 1 more breathing treatment and ordered another nebulizer for her as well as a course of zithromax to help with inflammation and if there is a bacterial component. give a 5 day burst of steroid and have her keep her appt on May [address] Pérez for follow up. Send with a few Ativan pills to take at bedtime to see if that helps her rest and ask Dr. Pérez for something to help with insomnia. (MAURIZIO KAPOOR MD) Diagnostic Imaging Diagonstic Imaging: Xray Plain Films/CT/US/NM/MRI: chest (1v) Reviewed: Reviewed by Me (CRISTINA SAVAGE) Comments NAME: RUBEN RAPP [facility] REC#: [id number] PT STATUS: REG ER : 1950 PHYSICIAN: CRISTINA SAVAGE MD ADMIT DATE: 05/08/19/ER FS Draft Date of Exam:05/08/19 CHEST 1 VIEW AP/PA ONLY INDICATION: Shortness of breath, cough. COMPARISON: 04/26/2019 FINDINGS: There is air trapping and COPD, chronic. There is no focal infiltrate. There is no failure, effusion or pneumothorax. IMPRESSION: Chronic findings. No acute abnormality apparent. Dictated on workstation # [id number] Dict: 05/08/19 1811 Trans: 05/08/19 181 [facility] [id number] Interpreted by: TULIO FARAH Electronically signed by: (MAURIZIO KAPOOR MD) Transfer of Care Transfer of Care Time: 18:00 Care transferred to: Dr. Kapoor (CRISTINA SAVAGE) Departure Impression Primary Impression: COPD with exacerbation Additional Impression: Insomnia Qualified Codes: G47.00 - Insomnia, unspecified Disposition: HOME, SELF-CARE Condition: Stable Departure-Patient Inst. Decision time for Depature: 19:35 (MAURIZIO KAPOOR MD) Referrals: CHACHO PÉREZ DO (PCP/Family) Primary Care Physician Patient Instructions: Exacerbation of COPD (DC), Insomnia (DC), Tips for Getting Better Sleep Add. Discharge Instructions: Follow up with Dr. Pérez and ask him about seeing a different Icu Clerk or Lung doctor since you do not feel Dr. Marsh was helping you. Check with him about your trouble sleeping as well as your COPD. All discharge instructions reviewed with patient and/or family. Voiced understanding. Scripts Ipratropium/Albuterol Sulfate (Iprat-Albut 0.5-3(2.5) mg/3 ml) 3 Ml Ampul.neb 3 ML IH Q6H PRN for SHORTNESS OF BREATH for 15 Days, #60 EACH 0 Refills Prov: MAURIZIO KAPOOR MD 05/08/19 Prednisone (Prednisone) 20 Mg Tab 40 MG PO DAILY for COPD exacerbation for 5 Days, #10 TAB 0 Refills Prov: MAURIZIO KAPOOR MD 05/08/19 Azithromycin (Azithromycin) 250 Mg Tablet 500 MG PO DAILY for 4 Days, #8 TAB 0 Refills Prov: MAURIZIO KAPOOR MD 05/08/19 CRISTINA SAVAGE May 08, 2019 17:48 MAURIZIO KAPOOR MD May 08, 2019 18:22
[2019-05-08 18:02] LABS: HEMATOCRIT 39 % (35-52); HEMOGLOBIN 12.4 G/DL (11.5-16.0); MEAN CORPUSCULAR HEMOGLOBIN 31 PG (25-34); MEAN CORPUSCULAR HGB CONC 32 G/DL (32-36); MEAN CORPUSCULAR VOLUME 98 FL (80-99); MEAN PLATELET VOLUME 11.2 FL (7.4-10.4); PLATELET COUNT 237 10^3/uL (130-400); RED CELL DISTRIBUTION WIDTH 12.1 % (10.0-14.5); WHITE BLOOD COUNT 9.1 10^3/uL (4.3-11.0)
[2019-05-08 18:03] LABS: BASOPHILS % (AUTO) 0 % (0-10); EOSINOPHILS # (AUTO) 0.2 10^3/uL (0.0-0.3); EOSINOPHILS % (AUTO) 2 % (0-10); LYMPHOCYTES # (AUTO) 2.1 X 10^3 (1.0-4.0); LYMPHOCYTES % (AUTO) 23 % (12-44); MONOCYTES # (AUTO) 0.6 X 10^3 (0.0-1.0); MONOCYTES % (AUTO) 7 % (0-12); NEUTROPHILS # (AUTO) 6.1 X 10^3 (1.8-7.8); NEUTROPHILS % (AUTO) 67 % (42-75)
[2019-05-08] MEDS ORDERED: RT-ALBUTEROL/IPRATROPIUM 3 ML (DUONEB) VIAL INH STA ×2 (18:12→19:33)
[2019-05-08] MEDS ORDERED: methylPREDNISolone 125 MG (Solu-MEDROL) VIAL IVP STA (18:15)
--- NOTE | 2019-05-08 18:15 | Diagnostic Imaging Report ---
INDICATION: Shortness of breath, cough. COMPARISON: 04/26/2019 FINDINGS: There is air trapping and COPD, chronic. There is no focal infiltrate. There is no failure, effusion or pneumothorax. IMPRESSION: Chronic findings. No acute abnormality apparent. Dictated by: Dictated on workstation # [id number]
[2019-05-08 18:16] LABS: ABG BASE EXCESS 3.3 MMOL/L (-2.5-2.5); ABG PCO2 48 MMHG (35-45); ABG PH 7.39 (7.37-7.43); ABG PO2 30 MMHG (79-93); ABG TCO2 30.6 MMOL/L (21.0-31.0)
[2019-05-08 18:17] LABS: ABG OXYGEN SATURATION 57 % (94-100); ALLENS TEST OK; INSPIRED O2 ROOM AIR; VENTILATOR NO
[2019-05-08 18:18] LABS: PATIENT TEMP 36.2
[2019-05-08 18:34] LABS: CREATININE SERUM 0.95 MG/DL (0.60-1.30)
[2019-05-08 18:35] LABS: ALBUMIN 4.2 GM/DL (3.2-4.5); BILIRUBIN,TOTAL 0.2 MG/DL (0.1-1.0); CALCIUM 9.3 MG/DL (8.5-10.1); TOTAL PROTEIN 6.6 GM/DL (6.4-8.2)
[2019-05-08] MEDS ORDERED: RX-LORAZEPAM (ATIVAN) 0.5 MG TAB PPK#4 PO STA (19:33)
[2019-05-08] MEDS ORDERED: AZITHROMYCIN 250 MG TAB (ZITHROMAX) PO STA (19:33)
[2019-05-08] MEDS ORDERED: AZIT250T12 PO (19:42)
[2019-05-08] MEDS ORDERED: PRD20T PO (19:42)
[2019-05-08] MEDS ORDERED: IPRA3AMP31 IH (19:42)
[2019-05-08 19:52] VITALS: BP 97/83
== END 2019-05-08 19:59 | disposition home or self-care (01) ==
LOC: EDUNIT# 17:31 → ER FS 17:33
DX: J44.1 Chronic obstructive pulmonary disease with (acute) exacerbation (principal); G47.00 Insomnia, unspecified; I10 Essential (primary) hypertension; F41.9 Anxiety disorder, unspecified; Z87.891 Personal history of nicotine dependence; Z99.81 Dependence on supplemental oxygen; Z90.710 Acquired absence of both cervix and uterus; Z98.51 Tubal ligation status
CPT/HCPCS: 36415; 71045; 80053; 82805; 83880; 85025; 86141; 87804; 96374

== ENCOUNTER 2019-05-13 02:51 | Inpatient (IN) | payer MEDICARE, MEDICAID ==
[~2019-05-13] VITALS: Ht 152.4 cm; Wt 70.9 kg
[~2019-05-13 02:51] MED LIST changes: +AZIT250T12 PO; -BUPR100T8; +BUPR100T8 PO; -CLOP75TA28; +CLOP75TA28 PO; -DULO60CA59; +DULO60CA59 PO; -LISI10TA2; +LISI10TA2 PO; -LORA1TAB; +LORA1TAB PO; -MELO15TA39; +MELO15TA39 PO; -PRAM1TAB5; +PRAM1TAB5 PO; -SIMV40TA4; +SIMV40TA4 PO; -TRAZ-222; +TRAZ-222 PO
--- NOTE | 2019-05-13 02:56 | ED Dyspnea ---
General Stated Complaint: TROUBLE BREATHING Source of Information: Patient History of Present Illness Date Seen by Provider: May 13, 2019 Time Seen by Provider: 02:56 Initial Comments 68 yo F presenting with continued shortness of breath and cough. She has a hx of COPD and longstanding tobacco abuse. She reports that she quit smoking a few months ago but continues to have trouble breathing. She was seen in ED on [place] [facility] and discharged with steroid shot and new nebulizer since hers was not working at home and treatment for COPD exacerbation with Zithromax. She reports that she was not feeling that she was improving. She continues to work harder to breathe and is still coughing up phlegm. She has tightness in her chest. She denies having any nausea or vomiting. She states that she has had subjective fever at home. Despite continue breathing treatments she was still having difficulty breathing even with minimal exertion she gets winded and out of breath. The breathing treatments helped but had not made a significant improvement in her symptoms. She felt like it was worse tonight and came to the emergency department. Allergies and Home Medications Allergies Coded Allergies: No Known Drug Allergies (Unverified , 07/13/18) Home Medications Albuterol Sulfate 2.5 Mg/3 Ml Vial.neb, 2.5 MG INH Q4H PRN for WHEEZING Prescribed by: TANIA BRANCH on 10/23/18 172 Azithromycin 250 Mg Tablet, 500 MG PO DAILY Prescribed by: MAURIZIO KAPOOR on 05/08/191941 Doxycycline Hyclate 100 Mg Tablet, 100 MG PO BID Prescribed by: SUKUMAR CAR on 09/10/18 174 Doxycycline Hyclate 100 Mg Tablet, 100 MG PO BID Prescribed by: DEVIN DOMINGUEZ on 04/26/19 193 Ipratropium/Albuterol Sulfate 3 Ml Ampul.neb, 3 ML IH Q6H PRN for SHORTNESS OF BREATH Prescribed by: SUKUMAR CAR on 11/08/181906 Ipratropium/Albuterol Sulfate 3 Ml Ampul.neb, 3 ML IH Q6H PRN for SHORTNESS OF BREATH Prescribed by: MAURIZIO KAPOOR on 05/08/191941 Methylprednisolone 4 Mg Tab, 4 MG PO UD as directed per dose pack Prescribed by: SUKUMAR CAR on 11/08/181906 Prednisone 20 Mg Tab, 60 MG PO DAILY Prescribed by: DEVIN DOMINGUEZ on 04/26/191931 Prednisone 20 Mg Tab, 40 MG PO DAILY Prescribed by: MAURIZIO KAPOOR on 05/08/191941 Patient Home Medication List Home Medication List Reviewed: Yes Review of Systems Review of Systems Constitutional: chills, fever (subjective), malaise, weakness (general) EENTM: hoarseness, nose congestion (mild) Respiratory: cough, dyspnea on exertion; No hemoptysis; phlegm, short of breath; No stridor; wheezing Cardiovascular: chest pain (tightness) Gastrointestinal: no symptoms reported Genitourinary: no symptoms reported Musculoskeletal: no symptoms reported Skin: no symptoms reported Psychiatric/Neurological: No Symptoms Reported Past Kjdjedu-Dentiv-Gavjty Hx Past Med/Social Hx: Reviewed Nursing Past Med/Soc Hx Patient Social History Type Used: Cigarettes Former Smoker, Quit: Apr 04, 2019 2nd Hand Smoke Exposure: Yes Recent Foreign Travel: No Contact w/Someone Who Travel: No Recent Hopitalizations: No Seasonal Allergies Seasonal Allergies: No Past Medical History Surgeries: Yes Gallbladder, Hysterectomy, Orthopedic, 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 Respiratory: Yes COPD Cardiac: Yes Hypertension Neurological: No Genitourinary: No Gastrointestinal: No Musculoskeletal: No Endocrine: No HEENT: No Cancer: No Psychosocial: Yes Anxiety Integumentary: No Blood Disorders: No Adverse Reaction/Blood Tranf: No Physical Exam Vital Signs Vital Signs - First Documented 05/13/19 05/13/19 02:55 03:13 Temp 35.7 Pulse 84 Resp 28 B/P (MAP) 139/78 (98) Pulse Ox 94 O2 Delivery Room Air O2 Flow Rate 2.00 Capillary Refill : Height, Weight, BMI Height: 5'0" Weight: 160lbs. oz. 72.719814ay; 29.00 BMI Method:Stated General Appearance: Mild Distress (working hard to breath) HEENT: Pharyngeal Erythema (without exudate) Neck: Normal Inspection, Non Tender, Supple Respiratory: Accessory Muscle Use, Decreased Breath Sounds, Rhonci, Wheezing, Other (tachypnea) Cardiovascular: Regular Rate, Rhythm, Normal Peripheral Pulses Gastrointestinal: No Pulsatile Mass, Non Tender, Soft Extremity: Normal Capillary Refill, Normal Inspection, No Pedal Edema Neurologic/Psychiatric: Alert, Oriented x3, No Motor/Sensory Deficits Skin: Normal Color, Warm/Dry Progress/Results/Core Measures Results/Orders Lab Results Laboratory Tests Test 12/29/19 03:05 05/13/19 05:20 Range/Units White Blood Count 10.3 4.3-11.0 10^3/uL Red Blood Count 3.99 L 4.35-5.85 10^6/uL Hemoglobin 12.8 11.5-16.0 G/DL Hematocrit 38 35-52 % Mean Corpuscular Volume 96 80-99 FL Mean Corpuscular Hemoglobin 32 25-34 PG Mean Corpuscular Hemoglobin Concent 33 32-36 G/DL Red Cell Distribution Width 12.0 10.0-14.5 % Platelet Count 264 130-400 10^3/uL Mean Platelet Volume 11.1 H 7.4-10.4 FL Neutrophils (%) (Auto) 53 42-75 % Lymphocytes (%) (Auto) 35 12-44 % Monocytes (%) (Auto) 7 0-12 % Eosinophils (%) (Auto) 4 0-10 % Basophils (%) (Auto) 1 0-10 % Neutrophils # (Auto) 5.5 1.8-7.8 X 10^3 Lymphocytes # (Auto) 3.6 1.0-4.0 X 10^3 Monocytes # (Auto) 0.7 0.0-1.0 X 10^3 Eosinophils # (Auto) 0.4 H 0.0-0.3 10^3/uL Basophils # (Auto) 0.1 0.0-0.1 10^3/uL Sodium Level 139 135-145 MMOL/L Potassium Level 4.1 3.6-5.0 MMOL/L Chloride Level 103 98-107 MMOL/L Carbon Dioxide Level 23 21-32 MMOL/L Anion Gap 13 5-14 MMOL/L Blood Urea Nitrogen 23 H 7-18 MG/DL Creatinine 0.77 0.60-1.30 MG/DL Estimat Glomerular Filtration Rate > 60 BUN/Creatinine Ratio 30 Glucose Level 138 H 70-105 MG/DL Calcium Level 10.2 H 8.5-10.1 MG/DL Corrected Calcium 10.1 8.5-10.1 MG/DL Magnesium Level 1.8 1.6-2.4 MG/DL Total Bilirubin 0.3 0.1-1.0 MG/DL Aspartate Amino Transf (AST/SGOT) 24 5-34 U/L Alanine Aminotransferase (ALT/SGPT) 35 0-55 U/L Alkaline Phosphatase 70 40-136 U/L Troponin I < 0.30 <0.30 NG/ML Pro-B-Type Natriuretic Peptide 1092.0 H <75.0 PG/ML Total Protein 6.6 6.4-8.2 GM/DL Albumin 4.1 3.2-4.5 GM/DL Blood Gas Puncture Site RIGHT WRIST Blood Gas Patient Temperature 35.7 Arterial Blood pH 7.43 7.37-7.43 Arterial Blood Partial Pressure CO2 40 35-45 MMHG Arterial Blood Partial Pressure O2 81 79-93 MMHG Arterial Blood HCO3 27 23-27 MMOL/L Arterial Blood Total CO2 27.7 21.0-31.0 MMOL/L Arterial Blood Oxygen Saturation 96 94-100 % Arterial Blood Base Excess 2.0 -2.5-2.5 MMOL/L Loi Test YES-POS Blood Gas Ventilator Setting YES Blood Gas Inspired Oxygen 2 My Orders Orders - MAURIZIO KAPOOR MD Cbc With Automated Diff (05/13/19 03:07) Comprehensive Metabolic Panel (05/13/19 03:07) Albuterol/Ipra Inhalation Soln (Duoneb I (05/13/19 03:15) Magnesium (05/13/19 03:07) Chest Pa/Lat (2 View) (05/13/19 03:07) Ekg Tracing (05/13/19 03:07) O2 (05/13/19 03:07) Ed Iv/Invasive Line Start (05/13/19 03:07) Sputum Culture (05/13/19 03:07) Monitor-Rhythm Ecg Trace Only (05/13/19 03:07) Svn Small Volume Nebulizer (05/13/19 03:07) Troponin I Fs (05/13/19 03:07) Probnp Fs (05/13/19 03:07) Methylprednisolone Sod Succ (Solu-Medrol (05/13/19 05:00) Arterial Blood Gas (05/13/19 05:00) Medications Given in ED Current Medications Medications Dose Ordered Sig/Hernesto Route Start Time Stop Time Status Last Admin Dose Admin Albuterol/ Ipratropium 3 ml ONCE ONCE INH 05/13/19 03:15 05/13/19 03:16 DC 05/13/19 05:08 3 ML Vital Signs/I&O 05/13/19 05/13/19 02:55 03:13 Temp 35.7 Pulse 84 Resp 28 B/P (MAP) 139/78 (98) Pulse Ox 94 95 O2 Delivery Room Air Nasal Cannula O2 Flow Rate 2.00 Progress Progress Note #1: Progress Note check labs with CXR and ECG. Try breathing treatment with a steroid injection for her symptoms Progress Note #2: Progress Note Improved tachypnea after treatment but still wheezing and easily winded with minimal exertion. No acute finding on my review of her 2 view CXR. No acute change on her ECG. Progress Note #3: Progress Note Labs stable other than she has elevated BNP tonight of 1092. Her Troponin is still <0.3. [address] Melgoza for the hospitalist service and he accepted her for admit for COPD exacerbation. Initial ECG Impression Date: May 13, 2019 Initial ECG Impression Time: 03:22 Initial ECG Rate: 83 Initial ECG Rhythm: Normal Sinus Initial ECG Comparisson: Unchanged Comment Sinus rhythm with a heart rate of 83 beats for minute. MS interval 137 ms. QT interval 348 ms and a QT corrected interval 409 ms. There is no acute ST elevation. She has some global T-wave flattening. She has some artifact secondary to movement. This appears similar to prior tracings in the system. Diagnostic Imaging Diagonstic Imaging: Xray Plain Films/CT/US/NM/MRI: chest Comments On my review of her 2 view CXR she has no acute infiltrate but has mild increased pulmonary vascular congestion compared to prior imaging. No effusion Reviewed: Reviewed by Me Departure Communication (Admissions) Time/Spoke to Admitting Phy: 05:08 D/w Dr. Melgoza for the Hospitalist service since the patient follows with Dr. Hudson lindsay. He accepted the pt for admit and will continue breathing treatments and pulmonary toilet as well as try COPD order set. Impression Primary Impression: COPD exacerbation Disposition: ADMITTED INPATIENT Condition: Stable Admissions Decision to Admit Reason: Admit from ER (General) Decision to Admit/Date: May 13, 2019 Time/Decision to Admit Time: 05:08 Departure-Patient Inst. Referrals: CHACHO PÉREZ DO (PCP/Family) Primary Care Physician MAURIZIO KAPOOR MD May 13, 2019 02:56
[2019-05-13 03:14] LABS: BASOPHILS # (AUTO) 0.1 10^3/uL (0.0-0.1); BASOPHILS % (AUTO) 1 % (0-10); EOSINOPHILS # (AUTO) 0.4 10^3/uL (0.0-0.3); EOSINOPHILS % (AUTO) 4 % (0-10); HEMATOCRIT 38 % (35-52); HEMOGLOBIN 12.8 G/DL (11.5-16.0); LYMPHOCYTES # (AUTO) 3.6 X 10^3 (1.0-4.0); LYMPHOCYTES % (AUTO) 35 % (12-44); MEAN CORPUSCULAR HEMOGLOBIN 32 PG (25-34); MEAN CORPUSCULAR HGB CONC 33 G/DL (32-36); MEAN CORPUSCULAR VOLUME 96 FL (80-99); MEAN PLATELET VOLUME 11.1 FL (7.4-10.4); MONOCYTES # (AUTO) 0.7 X 10^3 (0.0-1.0); MONOCYTES % (AUTO) 7 % (0-12); NEUTROPHILS # (AUTO) 5.5 X 10^3 (1.8-7.8); NEUTROPHILS % (AUTO) 53 % (42-75); PLATELET COUNT 264 10^3/uL (130-400); WHITE BLOOD COUNT 10.3 10^3/uL (4.3-11.0)
[2019-05-13] MEDS ORDERED: RT-ALBUTEROL/IPRATROPIUM 3 ML (DUONEB) VIAL INH ONE (03:15)
[2019-05-13 03:33] LABS: BUN/CREATININE RATIO 30; CARBON DIOXIDE 23 MMOL/L (21-32); CHLORIDE 103 MMOL/L (98-107); CREATININE SERUM 0.77 MG/DL (0.60-1.30); GFR ESTIMATED > 60; POTASSIUM 4.1 MMOL/L (3.6-5.0); SODIUM 139 MMOL/L (135-145)
[2019-05-13 03:34] LABS: ALANINE AMINOTRANSFERASE 35 U/L (0-55); ALBUMIN 4.1 GM/DL (3.2-4.5); ALKALINE PHOSPHATASE 70 U/L (40-136); BILIRUBIN,TOTAL 0.3 MG/DL (0.1-1.0); CALCIUM 10.2 MG/DL (8.5-10.1); GLUCOSE 138 MG/DL (70-105); MAGNESIUM 1.8 MG/DL (1.6-2.4); TOTAL PROTEIN 6.6 GM/DL (6.4-8.2)
[2019-05-13] MEDS ORDERED: methylPREDNISolone 125 MG (Solu-MEDROL) VIAL IVP STA (05:00)
[2019-05-13 05:24] LABS: ABG OXYGEN SATURATION 96 % (94-100); ABG PCO2 40 MMHG (35-45); ABG PH 7.43 (7.37-7.43); ABG PO2 81 MMHG (79-93); ABG TCO2 27.7 MMOL/L (21.0-31.0)
[2019-05-13 05:26] LABS: ALLENS TEST YES-POS; INSPIRED O2 2; VENTILATOR YES
[2019-05-13 05:27] LABS: PATIENT TEMP 35.7
--- NOTE | 2019-05-13 07:20 | Diagnostic Imaging Report ---
EXAMINATION: CHEST (PA AND LATERAL) CLINICAL INDICATION: 68-year-old female, shortness of breath. COMPARISON: May 08, 2019. FINDINGS: Stable overall appearance of the cardiomediastinal silhouette. There is no identified pneumothorax. There is no pleural effusion. There is no identified interval focal airspace consolidation. IMPRESSION: No identified acute cardiopulmonary abnormality. Dictated by: Dictated on workstation # [id number]
[2019-05-13 08:13] VITALS: BP 143/64
[2019-05-13 08:53] VITALS: BP 140/67
[2019-05-13] MEDS ORDERED: NICOTINE 14 MG (NICODERM) PATCH TD ONE (10:17)
[2019-05-13] MEDS: NICOTINE 14 MG (NICODERM) PATCH TD SCH (10:28)
[2019-05-13 10:58] VITALS: BP 140/67
[2019-05-13] MEDS ORDERED: RT-ALBUTEROL/IPRATROPIUM 3 ML (DUONEB) VIAL INH PRN (11:15)
[2019-05-13 11:31] VITALS: BP 133/68
--- NOTE | 2019-05-13 11:53 | History & Physical-Hospitalist ---
History of Present Illness HPI/Chief Complaint Viviane Vizcarra is a 68-year-old female with past medical history of hypertension, GERD, chronic abdominal pain, COPD, tobacco abuse, who presented with shortness of breath. She reports that she has been treated with a course of steroids recently and she failed to improve. She reports cough. She reports fevers at home. Her main complaint is abdominal pain which is chronic in nature. She describes it as sharp and constant. She denies any radiation. She says that it is diffuse throughout her abdomen. There is nothing that makes the pain better or worse. Source: patient Exam Limitations: no limitations Date Seen 05/13/19 Time Seen by a Provider: 11:30 Attending Physician Opal Skelton MD PCP Graham Calderon DO Referring Physician Date of Admission May 13, 2019 at 05:42 Home Medications & Allergies Home Medications Reviewed patient Home Medication Reconciliation performed by pharmacy medication reconciliations pharmaceutical development technician and/or nursing. Patients Allergies have been reviewed. Allergies Allergies Coded Allergies No Known Drug Allergies (Unverified07/13/18) Past Uflbfvo-Gfvdus-Fgqhjm Hx Past Med/Social Hx: Reviewed Nursing Past Med/Soc Hx Patient Social History Alcohol Use: Denies Use Recreational Drug Use: No Smoking Status: Current Everyday Smoker Former Smoker, Quit: Apr 04, 2019 Type Used: Cigarettes 2nd Hand Smoke Exposure: Yes Physical Abuse Screen: No Sexual Abuse: No Recent Foreign Travel: No Contact w/other who traveled: No Recent Hopitalizations: No Recent Infectious Disease Expo: No Immunizations Up To Date Pediatric: Yes Date of Pneumonia Vaccine: Feb 13, 2019 Date of Influenza Vaccine: Feb 13, 2019 Seasonal Allergies Seasonal Allergies: No Past Medical History Surgeries: Gallbladder, Hysterectomy, Orthopedic, 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 Currently Using CPAP: No Cardiac: Hypertension Psychosocial: Anxiety History of Blood Disorders: No Adverse Reaction to Blood Evans: No Family History Hypertension GRANDMOTHER Neoplasm 19 FATHER (PROSTATE) 19 MOTHER (UNKNOWN CANCER) Review of Systems Constitutional: fever EENTM: no symptoms reported Respiratory: cough, short of breath Cardiovascular: no symptoms reported Gastrointestinal: abdominal pain; No diarrhea, No nausea, No vomiting Genitourinary: no symptoms reported Musculoskeletal: no symptoms reported Skin: no symptoms reported Psychiatric/Neurological: No Symptoms Reported Physical Exam Physical Exam Vital Signs Vital Signs - First Documented 05/13/19 05/13/19 02:55 03:13 Temp 35.7 Pulse 84 Resp 28 B/P (MAP) 139/78 (98) Pulse Ox 94 O2 Delivery Room Air O2 Flow Rate 2.00 Capillary Refill : Less Than 3 Seconds Height, Weight, BMI Height: 5'0" Weight: 160lbs. oz. [id number]; 30.13 BMI Method:Stated General Appearance: No Apparent Distress, WD/WN HEENT: PERRL/EOMI, Pharynx Normal Neck: Normal Inspection, Supple Respiratory: Chest Non Tender, No Accessory Muscle Use, No Respiratory Distress, Wheezing (Mild) Cardiovascular: Regular Rate, Rhythm, No Edema, No Murmur, Normal Peripheral Pulses Gastrointestinal: Normal Bowel Sounds, Soft; No Distended, No Guarding, No Mass; Tenderness Extremity: Normal Inspection, Non Tender, No Pedal Edema Neurologic/Psychiatric: Alert, Oriented x3, No Motor/Sensory Deficits, Normal Mood/Affect Skin: Normal Color, Warm/Dry Results Results/Procedures Labs Laboratory Tests 05/13/19 03:05 Patient resulted labs reviewed. Imaging: Reviewed Imaging Report Assessment/Plan Admission Diagnosis Acute COPD exacerbation Admission Status: Observation Assessment and Plan Acute COPD exacerbation Failed outpatient treatment Received IV steroids in the ER Begin oral prednisone tomorrow DuoNeb's ordered every 4 hours MAT protocol in place Oxygen supplementation as needed to keep SaO2 88-92 percent BNP elevated at 1092 Initial troponin negative, repeat once Will plan to get echocardiogram tomorrow Not fluid overloaded on exam Chronic abdominal pain Obtain urinalysis Check lipase level LFTs within normal limits DVT prophylaxis: Lovenox Clinical Quality Measures DVT/VTE Risk/Contraindication: Risk Factor Score Per Nursin RFS Level Per Nursing on Admit: 4+=Very High OPAL SKELTON MD May 13, 2019 11:53
[2019-05-13] MEDS ORDERED: MELATONIN 3 MG TABLET PO PRN (12:00)
[2019-05-13] MEDS ORDERED: ONDANSETRON 4 MG (ZOFRAN) ORAL DISSOLVE TAB PO PRN (12:00)
[2019-05-13] MEDS ORDERED: POLYETHYLENE GLYCOL 17 GM (MIRALAX) PACK PO PRN (12:00)
[2019-05-13] MEDS ORDERED: BISACODYL 10 MG SUPP (DULCOLAX) PR PRN (12:00)
[2019-05-13] MEDS ORDERED: PATIENT MAY USE OWN MEDS, ALL PO SCH (12:00)
[2019-05-13] MEDS ORDERED: ONDANSETRON 4 MG/2 ML (SDV) Z0FRAN IV PRN ×2 (12:00→21:00)
[2019-05-13] MEDS ORDERED: ANTACID SUSP 30 ML UDC (MYLANTA) PO PRN ×2 (12:00→21:00)
[2019-05-13] MEDS: ENOXAPARIN 40 MG/0.4 ML (LOVENOX) SYR SC SCH (12:19)
[2019-05-13] MEDS: methylPREDNISolone 40 MG/ML (Solu-MEDROL) VIAL IV SCH ×2 (12:19→21:35)
[2019-05-13] MEDS: ACETAMINOPHEN 325 MG TABLET PO PRN (12:20)
[2019-05-13] MEDS: RT-ALBUTEROL/IPRATROPIUM 3 ML (DUONEB) VIAL INH SCH ×3 (14:50→21:58)
[2019-05-13 15:37] VITALS: BP 142/79
[2019-05-13 19:54] VITALS: BP 119/57
[2019-05-13] MEDS ORDERED: 1/2 NS IV SOLUTION 1,000 ML IV PRN (20:55)
[2019-05-13] MEDS ORDERED: LORazepam INJ 2 MG/ML (ATIVAN) VIAL IM/IV PRN (21:00)
[2019-05-13] MEDS ORDERED: D5 1/2 NS 1000 ML IV SOLUTION 1,000 ML IV PRN (21:00)
[2019-05-13] MEDS ORDERED: ONDANSETRON 4 MG (ZOFRAN) ORAL DISSOLVE TAB SL PRN (21:00)
[2019-05-13] MEDS ORDERED: SENNA W/DOCUSATE (SENOKOT S) TABLET PO PRN (21:00)
[2019-05-13 21:15] LABS: BILIRUBIN,URINE NEGATIVE (NEGATIVE); CLARITY,URINE CLEAR; COLOR,URINE YELLOW; GLUCOSE, URINE (UA) 3+ (NEGATIVE); KETONES,URINE TRACE (NEGATIVE); LEUKOCYTE ESTERASE ,URINE NEGATIVE (NEGATIVE); NITRITE,URINE NEGATIVE (NEGATIVE); PH,URINE 5.5 (5-9); PROTEIN,URINE NEGATIVE (NEGATIVE)
[2019-05-13 21:21] LABS: BACTERIA,URINE TRACE /HPF
[2019-05-13 21:22] LABS: YEAST,URINE FEW /HPF
[2019-05-13] MEDS ORDERED: THIAMINE INJECTION 100 MG, FOLIC ACID INJECTION 1 MG, VITAMIN MULTI INJECTION 10 ML, MA... IV SCH ×5 (21:30)
[2019-05-13] MEDS: SENNOSIDES 8.6 MG (SENOKOT) TAB PO SCH (21:35)
[2019-05-13] MEDS: DOCUSATE SODIUM 100 MG (COLACE) CAP PO SCH (21:36)
[2019-05-13] MEDS: LORazepam 1 MG (ATIVAN) TAB PO PRN ×2 (21:43→23:52)
[2019-05-13 21:46] LABS: INR 0.9 (0.8-1.4); PROTHROMBIN TIME PATIENT 12.8 SEC (12.2-14.7)
[2019-05-13 22:03] LABS: ALANINE AMINOTRANSFERASE 35 U/L (0-55); ALBUMIN 4.1 GM/DL (3.2-4.5); ALKALINE PHOSPHATASE 61 U/L (40-136); BILIRUBIN,TOTAL 0.2 MG/DL (0.1-1.0); BUN/CREATININE RATIO 19; CALCIUM 10.1 MG/DL (8.5-10.1); CARBON DIOXIDE 20 MMOL/L (21-32); CHLORIDE 107 MMOL/L (98-107); CREATININE SERUM 0.98 MG/DL (0.60-1.30); GFR ESTIMATED 56; GLUCOSE 230 MG/DL (70-105); POTASSIUM 3.9 MMOL/L (3.6-5.0); SODIUM 142 MMOL/L (135-145); TOTAL PROTEIN 6.3 GM/DL (6.4-8.2)
[2019-05-14] VITALS (7 sets, daily range): BP systolic 100–144; BP diastolic 52–78
[2019-05-14] MEDS: LORazepam INJ 2 MG/ML (ATIVAN) VIAL IV PRN ×3 (00:29→13:53)
[2019-05-14] MEDS: RT-ALBUTEROL/IPRATROPIUM 3 ML (DUONEB) VIAL INH SCH ×6 (01:28→22:12)
[2019-05-14] MEDS: predniSONE 20 MG TAB PO SCH (05:20)
[2019-05-14] MEDS: methylPREDNISolone 40 MG/ML (Solu-MEDROL) VIAL IV SCH (05:20)
[2019-05-14] MEDS: SENNOSIDES 8.6 MG (SENOKOT) TAB PO SCH ×2 (08:00→19:46)
[2019-05-14] MEDS: DOCUSATE SODIUM 100 MG (COLACE) CAP PO SCH ×2 (08:00→19:46)
[2019-05-14] MEDS: NICOTINE 14 MG (NICODERM) PATCH TD SCH (08:00)
[2019-05-14] MEDS: PATCH REMOVAL TP SCH (08:00)
[2019-05-14] MEDS ORDERED: AZIT250T12 PO (08:04)
[2019-05-14] MEDS ORDERED: IPRA3AMP31 NEB (08:05)
[2019-05-14] MEDS ORDERED: METO-333 PO (08:11)
[2019-05-14] MEDS: LORazepam 1 MG (ATIVAN) TAB PO PRN (09:38)
[2019-05-14] MEDS ORDERED: TOPI50TA13 PO (11:39)
[2019-05-14] MEDS ORDERED: ROFL500T PO (11:39)
[2019-05-14] MEDS ORDERED: ESOM40CA52 PO (11:39)
[2019-05-14] MEDS ORDERED: ISOS30TA3 PO (11:39)
[2019-05-14] MEDS ORDERED: THIAMINE INJECTION 100 MG, FOLIC ACID INJECTION 1 MG, VITAMIN MULTI INJECTION 10 ML, MA... IV NR ×5 (12:14)
[2019-05-14] MEDS: ENOXAPARIN 40 MG/0.4 ML (LOVENOX) SYR SC SCH (12:40)
[2019-05-14] MEDS: HALOPERIDOL 5 MG/ML (HALDOL) AMP IM PRN (12:41)
--- NOTE | 2019-05-14 12:50 | Progress Note - Hospitalist ---
[facility] 05/14/19 1250: Subjective HPI/CC On Admission Date Seen by Provider: May 14, 2019 Time Seen by Provider: 12:45 Viviane Vizcarra is a 68-year-old female with past medical history of hypertension, GERD, chronic abdominal pain, COPD, tobacco abuse, who presented with shortness of breath. She reports that she has been treated with a course of steroids recently and she failed to improve. She reports cough. She reports fevers at home. Her main complaint is abdominal pain which is chronic in nature. She describes it as sharp and constant. She denies any radiation. She says that it is diffuse throughout her abdomen. There is nothing that makes the pain better or worse. Subjective/Events-last exam Viviane is alert but is not oriented to place and time. No family at bedside. Viviane continues to ask about things that are not seen by other people. She denies pain and states she is breathing better and would like to go home. She denies SOB, chest pain, N/V, F/C and abdominal pain at this time. She states she is eating and drinking without issue Urinating and having bowel movements without issue. Objective Exam Vital Signs Vital Signs Date Time Temp Pulse Resp B/P (MAP) Pulse Ox O2 Delivery O2 Flow Rate FiO2 05/14/19 15:14 36.5 95 20 121/56 (77) 95 Room Air 05/14/19 10:19 21 05/14/19 04:00 2.00 Capillary Refill : Less Than 3 Seconds General Appearance: No Apparent Distress, Other (had visable shaking in both extremities. No apprent distress, but is hallucinating. ) HEENT: PERRL/EOMI Neck: Full Range of Motion, Non Tender, Supple Respiratory: Chest Non Tender, No Accessory Muscle Use, No Respiratory Distress, Wheezing (minimal. ) Cardiovascular: Regular Rate, Rhythm, No Edema, Normal Peripheral Pulses Gastrointestinal: Non Tender, Distended; No Guarding; Other (denies tenderness ) Extremity: No Calf Tenderness, No Pedal Edema Neurologic/Psychiatric: Alert; No Oriented x3, No Normal Mood/Affect Skin: Normal Color, Warm/Dry Lymphatic: No Adenopathy Results/Procedures Lab Laboratory Tests 05/13/19 21:28 Patient resulted labs reviewed. Imaging: Reviewed Imaging Report Assessment/Plan Assessment and Plan Assess & Plan/Chief Complaint Acute COPD exacerbation - patient failed outpatient treatment - Started on oral steroids prednisone 40mg - DuoNeb Q4H - MAT protocol - Oxygen supplementations as needed - BNP was 1092, ECHO was being completed today - troponin negative Chronic Abdominal Pain - urinalysis was negative - Lipase within normal range - LFTs normal - Improving, patient is eating and drinking without issue - Continue stool softeners as needed Withdrawal - patient is having an increase in hacllucinations and has tried to elope and walk home which well over 30 plus miles. - continue withdrawal protocol - haloperidol 2mg Q4 PRN Patinet seems to have a complicated home and family situation. Will continue to monitor med rec and will reach out to social work for assistance. Clinical Quality Measures DVT/VTE Risk/Contraindication: Risk Factor Score Per Nursin RFS Level Per Nursing on Admit: 4+=Very High CAROL SALAZAR MD 05/14/19 1624: Assessment/Plan Assessment and Plan Assess & Plan/Chief Complaint Having symptoms consistent with withdrawal today. Does take Lorazepam at home and unsure of last dose time. Denies any alcohol intake but behavior consistent with alcohol/benzo withdrawal. I called and spoke with her PCP Dr Calderon who is unaware of any illicit drug use or alcohol dependence. Will continue on CIWA protocol. Social work consulted and appreciate assistance. Supervisory-Addendum Brief Verification & Attestation Participated in pt care: history, MDM, physical Personally performed: exam, history, MDM, supervision of care Care discussed with: Medical Student Procedures: n/a Results interpretation: Verified all documentation Verification and Attestation of Medical Student E/M Service A medical student performed and documented this service in my presence. I reviewed and verified all information documented by the medical student and made modifications to such information, when appropriate. I personally performed the physical exam and medical decision making. Carol Salazar, May 14, 2019,16:20 [facility] May 14, 2019 12:50 CAROL SALAZAR MD May 14, 2019 16:24
[2019-05-14] MEDS: PRAMIPEXOLE 0.5 MG TAB (MIRAPEX) PO SCH (21:06)
[2019-05-14] MEDS: meTOprolol TARTRATE 25 MG (LOPRESSOR) TABLET PO SCH (21:06)
[2019-05-14] MEDS: toPIRamate 25 MG (TOPAMAX) TAB PO SCH ×3 (21:06→21:08)
[2019-05-14] MEDS: buPROPion SR 100 MG (WELLBUTRIN SR) TAB PO SCH (21:06)
[2019-05-15] MEDS: LORazepam 1 MG (ATIVAN) TAB PO PRN (01:05)
[2019-05-15] MEDS: ACETAMINOPHEN 325 MG TABLET PO PRN (01:08)
[2019-05-15 03:59] VITALS: BP 121/64
[2019-05-15] MEDS: RT-ALBUTEROL/IPRATROPIUM 3 ML (DUONEB) VIAL INH SCH ×3 (04:29→12:07)
[2019-05-15] MEDS: HALOPERIDOL 5 MG/ML (HALDOL) AMP IM PRN (04:33)
[2019-05-15 05:43] LABS: HEMOGLOBIN 11.9 G/DL (11.5-16.0); MEAN PLATELET VOLUME 11.4 FL (7.4-10.4); RED CELL DISTRIBUTION WIDTH 12.9 % (10.0-14.5)
[2019-05-15 05:52] LABS: BUN/CREATININE RATIO 29; CARBON DIOXIDE 20 MMOL/L (21-32); CHLORIDE 110 MMOL/L (98-107); CREATININE SERUM 0.83 MG/DL (0.60-1.30); GFR ESTIMATED > 60; GLUCOSE 93 MG/DL (70-105); POTASSIUM 3.8 MMOL/L (3.6-5.0); SODIUM 140 MMOL/L (135-145)
[2019-05-15] MEDS: predniSONE 20 MG TAB PO SCH (06:01)
[2019-05-15 07:40] VITALS: BP 130/63
[2019-05-15] MEDS: NICOTINE 14 MG (NICODERM) PATCH TD SCH (08:22)
[2019-05-15] MEDS: DOCUSATE SODIUM 100 MG (COLACE) CAP PO SCH (08:22)
[2019-05-15] MEDS: meTOprolol TARTRATE 25 MG (LOPRESSOR) TABLET PO SCH (08:22)
[2019-05-15] MEDS: PRAMIPEXOLE 0.5 MG TAB (MIRAPEX) PO SCH (08:22)
[2019-05-15] MEDS: buPROPion SR 100 MG (WELLBUTRIN SR) TAB PO SCH (08:23)
[2019-05-15] MEDS: SENNOSIDES 8.6 MG (SENOKOT) TAB PO SCH (08:26)
[2019-05-15] MEDS: PATCH REMOVAL TP SCH (08:32)
[2019-05-15] MEDS ORDERED: PANTOPRAZOLE 40 MG (PROTONIX) TAB PO SCH (09:00)
[2019-05-15] MEDS ORDERED: SIMvastatin 40 MG (ZOCOR) TAB PO SCH (09:00)
[2019-05-15] MEDS ORDERED: ISOSORBIDE MONONITRATE 30 MG (IMDUR) TAB PO SCH (09:00)
[2019-05-15] MEDS ORDERED: DULoxetine 30 MG (CYMBALTA) CAP PO SCH (09:00)
[2019-05-15] MEDS ORDERED: traZODone 100 MG (DESYREL) TAB PO SCH (09:00)
[2019-05-15] MEDS ORDERED: ROFLUMILAST 500 MCG TAB (DALIRESP) PO SCH (09:00)
[2019-05-15] MEDS ORDERED: MELOXICAM 7.5 MG (MOBIC) TABLET PO SCH (09:00)
[2019-05-15] MEDS ORDERED: CLOPIDOGREL 75 MG (PLAVIX) TABLET PO SCH (09:00)
[2019-05-15] MEDS ORDERED: PRD20T PO (11:51)
[2019-05-15 11:56] VITALS: BP 120/58
[2019-05-15] MEDS: ENOXAPARIN 40 MG/0.4 ML (LOVENOX) SYR SC SCH (12:00)
--- NOTE | 2019-05-15 12:02 | Discharge Inst-Simple/Standard ---
Discharge Inst-Standard Reconcile Patient Problems Problems Reviewed?: Yes Discharge Medications New, Converted or Re-Newed RX: Transmitted to Pharmacy Patient Instructions/Follow Up Plan of Care/Instructions/FU: Please continue to take your medications as written. Please follow up with your PCP in the next week to follow up this hospital stay. Activity as Tolerated: Yes Discharge Diet: No Restrictions Return to The Hospital For: Chest pain, shortness of breath, confusion, if you feel you are getting worse. CAROL GODINEZ MD May 15, 2019 12:02
--- NOTE | 2019-05-15 12:09 | Discharge Summary ---
[facility] 05/15/19 1209: Diagnosis/Chief Complaint Date of Admission May 14, 2019 at 13:21 Date of Discharge Discharge Date: May 15, 2019 Discharge Time: 13:00 Admission Diagnosis Acute COPD exacerbation Primary Care Graham Calderon DO Discharge Diagnosis (1) COPD exacerbation Status: Acute Discharge Summary Discharge Physical Exam Allergies: Coded Allergies: No Known Drug Allergies (Unverified , 07/13/18) Vitals & I&Os Vital Signs Date Time Temp Pulse Resp B/P (MAP) Pulse Ox O2 Delivery O2 Flow Rate FiO2 05/15/19 08:16 95 Room Air 05/15/19 08:00 2.00 05/15/19 07:40 36.1 75 18 130/63 (85) 05/14/19 10:19 21 General Appearance: No Apparent Distress, WD/WN HEENT: PERRL/EOMI, Moist Mucous Membranes Respiratory: Chest Non Tender, No Accessory Muscle Use, No Respiratory Distress, Wheezing (Improved ) Cardiovascular: Regular Rate, Rhythm, No Edema, Normal Peripheral Pulses Gastrointestinal: Non Tender, Soft; No Distended, No Guarding Extremity: Normal Capillary Refill, No Calf Tenderness, No Pedal Edema Skin: Normal Color, Warm/Dry Neurologic/Psychiatric: Alert, Oriented x3, Normal Mood/Affect, voice intercept technician II-XII Norm as Tested Hospital Course Viviane Vizcarra was admitted to [facility] on 05/13/19 and is being discharged today 05/15/19. She was admitted to [facility] for an Acute COPD exacerbation. Pertinent PMH includes COPD and a failed course of outpatient kristin tment for COPD exacerbation. While at [facility] she was under the care of Dr. Salazar hospitalist and Dr. Melgoza Hospitalist. Chest x-ray was performed and the patient had no acute cardiopulmonary findings, ECHO was performed and showed an EF of 75-80% and a grade 1 diastolic dysfunction, labs outside of a elevated BNP were within normal limits, exam findings where positive for severe wheezing and rhonchi. This patient was short of breath and required supplementation oxygen. Treatment course included supplemental oxygenation, steroids and DuoNebs. The patient continually improved over the course of admission at [facility] and exam findings have resolved. The patient will be discharged today in stable condition. Extensive social work and family contact was initiated for this patient to make sure she is getting her needs met at home. The family is supportive of helping out and social work has worked to increase home care hours. The patient and family are both comfortable with the patient being discharged home today. Follow up information and medications are outlined in the discharge instruction. The following information is only a summary if the PT admission while at [facility] and is not all inclusive. Please review entire chart for more information. Labs (last 24 hrs) Laboratory Tests 05/15/19 05:14: White Blood Count 13.0H, Red Blood Count 3.80L, Hemoglobin 11.9, Hematocrit 37, Mean Corpuscular Volume 98, Mean Corpuscular Hemoglobin 31, Mean Corpuscular Hemoglobin Concent 32, Red Cell Distribution Width 12.9, Platelet Count 236, Mean Platelet Volume 11.4H, Sodium Level 140, Potassium Level 3.8, Chloride Level 110H, Carbon Dioxide Level 20L, Anion Gap 10, Blood Urea Nitrogen 24H, Creatinine 0.83, Estimat Glomerular Filtration Rate > 60, BUN/Creatinine Ratio 29, Glucose Level 93, Calcium Level 9.0 Patient resulted labs reviewed. Pending Labs Laboratory Tests 05/15/19 05:14: White Blood Count 13.0, Red Blood Count 3.80, Hemoglobin 11.9, Hematocrit 37, Mean Corpuscular Volume 98, Mean Corpuscular Hemoglobin 31, Mean Corpuscular Hemoglobin Concent 32, Red Cell Distribution Width 12.9, Platelet Count 236, Mean Platelet Volume 11.4, Sodium Level 140, Potassium Level 3.8, Chloride Level 110, Carbon Dioxide Level 20, Anion Gap 10, Blood Urea Nitrogen 24, Creatinine 0.83, Estimat Glomerular Filtration Rate > 60, BUN/Creatinine Ratio 29, Glucose Level 93, Calcium Level 9.0 Imaging: Reviewed Imaging Report Discharge Home Medications: Active Scripts Active Prednisone 20 Mg Tab 40 Mg PO DAILY@0700 Reported Daliresp (Roflumilast) 500 Mcg Tablet 500 Mcg PO DAILY Esomeprazole Magnesium 40 Mg Capsule.dr 40 Mg PO DAILY Topiramate 50 Mg Tablet 50 Mg PO HS Isosorbide Mononitrate ER (Isosorbide Mononitrate) 30 Mg Tab.er.24h 30 Mg PO DAILY Metoprolol Tartrate 25 Mg Tablet 25 Mg PO BID Iprat-Albut 0.5-3(2.5) mg/3 ml (Ipratropium/Albuterol Sulfate) 3 Ml Ampul.neb 3 Ml NEB Q8H PRN Azithromycin 250 Mg Tablet 500 Mg PO DAILY FILLED #8 / 4 DAY SUPPLY ON 05-10-2019 Meloxicam 15 Mg Tablet 15 Mg PO DAILY Pramipexole Dihydrochloride (Pramipexole Di-HCl) 1 Mg Tablet 1 Mg PO BID Lisinopril 10 Mg Tablet 10 Mg PO DAILY Duloxetine HCl 60 Mg Capsule.dr 60 Mg PO DAILY Bupropion HCl Sr (Bupropion HCl) 100 Mg Tablet.er 100 Mg PO BID Simvastatin 40 Mg Tablet 40 Mg PO DAILY Lorazepam 1 Mg Tablet 1 Mg PO TID PRN Trazodone HCl 50 Mg Tablet 100 Mg PO DAILY TAKES 2 (50MG) TABS Clopidogrel (Clopidogrel Bisulfate) 75 Mg Tablet 75 Mg PO DAILY Instructions to patient/family Please see electronic discharge instructions given to patient. Clinical Quality Measures DVT/VTE Risk/Contraindication: Risk Factor Score Per Nursin RFS Level Per Nursing on Admit: 4+=Very High CAROL SALAZAR MD 05/15/19 1342: Discharge Summary Discharge Physical Exam Allergies: Coded Allergies: No Known Drug Allergies (Unverified , 07/13/18) Discussion & Recommendations Discharge Planning: >30 minutes discharge planning Supervisory-Addendum Brief Verification & Attestation Participated in pt care: history, MDM, physical Personally performed: exam, history, MDM, supervision of care Care discussed with: Medical Student Procedures: n/a Results interpretation: Verified all documentation Verification and Attestation of Medical Student E/M Service A medical student performed and documented this service in my presence. I reviewed and verified all information documented by the medical student and made modifications to such information, when appropriate. I personally performed the physical exam and medical decision making. Carol Salazar, May 15, 2019,13:41 [facility] May 15, 2019 12:09 CAROL SALAZAR MD May 15, 2019 13:42
[2019-05-15 13:45] VITALS: BP 120/58
== END 2019-05-15 13:45 | disposition home or self-care (01) | DRG 191 ==
LOC: EDUNIT# 02:51 → ER FS 02:54 → 4TH 05:42 → OBSVTOIN 05-14 13:21
PROVIDERS: ADMIT Internal Medicine; ATTEND Internal Medicine
DX: J44.1 Chronic obstructive pulmonary disease with (acute) exacerbation (principal); F10.239 Alcohol dependence with withdrawal, unspecified; F15.93 Other stimulant use, unspecified with withdrawal; I10 Essential (primary) hypertension; F41.9 Anxiety disorder, unspecified; K21.9 Gastro-esophageal reflux disease without esophagitis; Z87.891 Personal history of nicotine dependence; Z90.710 Acquired absence of both cervix and uterus
CPT/HCPCS: 36415; 71046; 80048; 80053; 80320; 81000; 82805; 83690; 83735; 83880; 84484; 85025; 85027; 85610; 85730; 93005; 93041; 93306; 94640; 94760; 94761; 96374; G0378

== ENCOUNTER 2019-07-21 16:53 | Emergency (ER) | payer MEDICARE, MEDICAID ==
[~2019-07-21] VITALS: Ht 153.7 cm; Wt 65.9 kg
[~2019-07-21 16:53] MED LIST changes: +ESOM40CA52 PO; +IPRA3AMP31 NEB; +ISOS30TA3 PO; +METO-333 PO; +ROFL500T PO; +SIMV40TA25 PO; -SIMV40TA4 PO; +TOPI50TA13 PO; -TRAZ-222 PO; +TRZ50T PO
--- NOTE | 2019-07-21 16:55 | ED General ---
General Stated Complaint: PAIN ALL OVER History of Present Illness Date Seen by Provider: Jul 21, 2019 Time Seen by Provider: 16:55 Initial Comments Patient is a 69-year-old female with past medical history significant for fibromyalgia who comes to the emergency department today complaining of pain all over her body. She has had symptoms over the last 3 days. The patient reports she has been more active compared to baseline as she has been rearranging her house and moving furniture around. She denies any trauma. There is no distribution of her pain other than all of the large muscle groups. It is not isolated to the upper extremities. She has not had fever, chills, flu symptoms. No nausea or vomiting. Patient does have a history of COPD but she states this has not been worse compared to baseline. She does use oxygen as needed at home. No worsening cough or sputum production. Patient states she is not currently taking any medication related to her fibromyalgia. She had previously been treated with Lyrica and Cymbalta but these caused some side effects which she could not tolerate. She does use ibuprofen which gives her some relief of symptoms but no stronger medications than that. Patient does endorse one prior episode of what she describes to be an "flare of fibromyalgia" that she cannot recall what it was treated with. She denies that she has been on tramadol in the past. Allergies and Home Medications Allergies Coded Allergies: No Known Drug Allergies (Unverified , 07/13/18) Home Medications Bupropion HCl 100 Mg Tablet.er, 100 MG PO BID, (Reported) Clopidogrel Bisulfate 75 Mg Tablet, 75 MG PO DAILY, (Reported) Duloxetine HCl 60 Mg Capsule.dr, 60 MG PO DAILY, (Reported) Esomeprazole Magnesium 40 Mg Capsule.dr, 40 MG PO DAILY, (Reported) Ipratropium/Albuterol Sulfate 3 Ml Ampul.neb, 3 ML NEB Q8H PRN for SHORTNESS OF BREATH, (Reported) Isosorbide Mononitrate 30 Mg Tab.er.24h, 30 MG PO DAILY, (Reported) Lorazepam 1 Mg Tablet, 1 MG PO TID PRN for ANXIETY, (Reported) Meloxicam 15 Mg Tablet, 15 MG PO DAILY, (Reported) Metoprolol Tartrate 25 Mg Tablet, 25 MG PO BID, (Reported) Pramipexole Di-HCl 1 Mg Tablet, 1 MG PO BID, (Reported) Prednisone 20 Mg Tab, 40 MG PO DAILY@0700 Prescribed by: CAROL GODINEZ on 05/15/19 1151 Roflumilast 500 Mcg Tablet, 500 MCG PO DAILY, (Reported) Simvastatin 40 Mg Tablet, 40 MG PO DAILY, (Reported) Topiramate 50 Mg Tablet, 50 MG PO HS, (Reported) Tramadol HCl 50 Mg Tablet, 50 MG PO BID PRN for PAIN Prescribed by: DEMETRA LOZA on 07/21/19 1810 Trazodone HCl 50 Mg Tablet, 100 MG PO DAILY, (Reported) TAKES 2 (50MG) TABS Patient Home Medication List Home Medication List Reviewed: Yes Review of Systems Review of Systems Constitutional: see HPI EENTM: no symptoms reported Respiratory: no symptoms reported Cardiovascular: no symptoms reported Musculoskeletal: see HPI Skin: no symptoms reported Psychiatric/Neurological: No Symptoms Reported All Other Systems Reviewed Negative Unless Noted: Yes Physical Exam Vital Signs Vital Signs - First Documented 07/21/19 17:00 Temp 36.2 Pulse 87 Resp 24 B/P (MAP) 108/82 (91) Pulse Ox 96 O2 Delivery Room Air Capillary Refill : Height, Weight, BMI Height: '" Weight: lbs. oz. kg; BMI Method: General Appearance: No Apparent Distress, WD/WN HEENT: PERRL/EOMI, Normal ENT Inspection Neck: Full Range of Motion, Non Tender Respiratory: Chest Non Tender, Other (mild increased work of breathing and some wheezes) Cardiovascular: Regular Rate, Rhythm, No Edema Extremity: Normal Capillary Refill, Normal Inspection, Other (patient has diffuse muscle tenderness to palpation across all large muscle groups including back, arms, legs, thighs) Neurologic/Psychiatric: Alert, Oriented x3 Skin: Normal Color, Warm/Dry Progress/Results/Core Measures Suspected Sepsis SIRS Temperature: Pulse: Respiratory Rate: Laboratory Tests 07/21/19 17:25: White Blood Count 5.1 Blood Pressure / Mean: Laboratory Tests 07/21/19 17:25: Creatinine 0.90, Platelet Count 219 Results/Orders Lab Results Laboratory Tests Test 07/21/19 17:25 07/21/19 17:55 Range/Units White Blood Count 5.1 4.3-11.0 10^3/uL Red Blood Count 3.83 L 4.35-5.85 10^6/uL Hemoglobin 12.0 11.5-16.0 G/DL Hematocrit 37 35-52 % Mean Corpuscular Volume 97 80-99 FL Mean Corpuscular Hemoglobin 31 25-34 PG Mean Corpuscular Hemoglobin Concent 32 32-36 G/DL Red Cell Distribution Width 12.7 10.0-14.5 % Platelet Count 219 130-400 10^3/uL Mean Platelet Volume 11.2 H 7.4-10.4 FL Neutrophils (%) (Auto) 40 L 42-75 % Lymphocytes (%) (Auto) 44 12-44 % Monocytes (%) (Auto) 8 0-12 % Eosinophils (%) (Auto) 7 0-10 % Basophils (%) (Auto) 1 0-10 % Neutrophils # (Auto) 2.0 1.8-7.8 X 10^3 Lymphocytes # (Auto) 2.2 1.0-4.0 X 10^3 Monocytes # (Auto) 0.4 0.0-1.0 X 10^3 Eosinophils # (Auto) 0.4 H 0.0-0.3 10^3/uL Basophils # (Auto) 0.1 0.0-0.1 10^3/uL Sodium Level 145 135-145 MMOL/L Potassium Level 4.1 3.6-5.0 MMOL/L Chloride Level 109 H 98-107 MMOL/L Carbon Dioxide Level 27 21-32 MMOL/L Anion Gap 9 5-14 MMOL/L Blood Urea Nitrogen 13 7-18 MG/DL Creatinine 0.90 0.60-1.30 MG/DL Estimat Glomerular Filtration Rate > 60 BUN/Creatinine Ratio 14 Glucose Level 132 H 70-105 MG/DL Calcium Level 9.2 8.5-10.1 MG/DL Urine Color YELLOW Urine Clarity CLEAR Urine pH 7.5 5-9 Urine Specific [place] 1.015 L 1.016-1.022 Urine Protein NEGATIVE NEGATIVE Urine Glucose (UA) 3+ H NEGATIVE Urine Ketones NEGATIVE NEGATIVE Urine Nitrite NEGATIVE NEGATIVE Urine Bilirubin NEGATIVE NEGATIVE Urine Urobilinogen 0.2 < = 1.0 MG/DL Urine Leukocyte Esterase NEGATIVE NEGATIVE Urine RBC (Auto) NEGATIVE NEGATIVE Urine RBC NONE /HPF Urine WBC NONE /HPF Urine Squamous Epithelial Cells RARE /HPF Urine Crystals NONE /LPF Urine Bacteria NONE /HPF Urine Casts NONE /LPF Urine Mucus NEGATIVE /LPF Urine Culture Indicated NO Micro Results Microbiology 07/21/19 Influenza Types A,B Antigen (JENNIFER) - Final, Complete My Orders Orders - DEMETRA LOZA DO Hydrocodone/Apap 5/325 Tablet (Lortab 5 (07/21/19 17:15) Cbc With Automated Diff (07/21/19 17:08) Basic Metabolic Panel (07/21/19 17:08) Influenza A And B Antigens (07/21/19 17:08) Crp Fs (07/21/19 17:11) Albuterol/Ipra Inhalation Soln (Duoneb I (07/21/19 17:15) Svn Small Volume Nebulizer (07/21/19 17:11) Creatine Kinase (07/21/19 17:49) Urinalysis (07/21/19 17:49) Medications Given in ED Current Medications Medications Dose Ordered Sig/Hernesto Route Start Time Stop Time Status Last Admin Dose Admin Acetaminophen/ Hydrocodone Bitart 2 tab ONCE ONCE PO 07/21/19 17:15 07/21/19 17:16 DC 07/21/19 17:19 2 TAB Albuterol/ Ipratropium 3 ml ONCE ONCE INH 07/21/19 17:15 07/21/19 17:16 DC 07/21/19 17:19 3 ML Vital Signs/I&O 07/21/19 17:00 Temp 36.2 Pulse 87 Resp 24 B/P (MAP) 108/82 (91) Pulse Ox 96 O2 Delivery Room Air Capillary Refill : Progress Note : Time: 17:15 Progress Note Patient is seen and examined. She has a normal neurologic exam and physical exam other than some muscle tenderness which is diffuse and not specifically limited to the upper shoulder, arms, neck. Her neck is supple. Unclear cause for her symptoms today but she appears very healthy and well-hydrated. PE is overall negative other than some subjective muscle discomfort with palpation. Will check for influenza and basic labs. We'll give some pain medication in the ER. 18:10: MARQUISE to Dr. Queen. UA, CRP, CK pending. Anticipate d/c home. Rx for tramadol completed. Departure Impression Primary Impression: Fibromyalgia Disposition: HOME, SELF-CARE Condition: Improved Departure-Patient Inst. Scripts Tramadol HCl (Tramadol HCl) 50 Mg Tablet 50 MG PO BID PRN for PAIN for 3 Days, #12 TAB 0 Refills Prov: DEMETRA LOZA DO 07/21/19 DEMETRA LZOA DO Jul 21, 2019 16:55
[2019-07-21] MEDS ORDERED: HYDROcodone/APAP 5 MG/325 MG (LORTAB) TAB PO ONE (17:15)
[2019-07-21] MEDS ORDERED: RT-ALBUTEROL/IPRATROPIUM 3 ML (DUONEB) VIAL INH ONE (17:15)
[2019-07-21 17:33] LABS: HEMATOCRIT 37 % (35-52); MEAN CORPUSCULAR HEMOGLOBIN 31 PG (25-34); MEAN CORPUSCULAR HGB CONC 32 G/DL (32-36); MEAN CORPUSCULAR VOLUME 97 FL (80-99); MEAN PLATELET VOLUME 11.2 FL (7.4-10.4); PLATELET COUNT 219 10^3/uL (130-400); RED CELL DISTRIBUTION WIDTH 12.7 % (10.0-14.5); WHITE BLOOD COUNT 5.1 10^3/uL (4.3-11.0)
[2019-07-21 17:34] LABS: BASOPHILS # (AUTO) 0.1 10^3/uL (0.0-0.1); BASOPHILS % (AUTO) 1 % (0-10); EOSINOPHILS # (AUTO) 0.4 10^3/uL (0.0-0.3); EOSINOPHILS % (AUTO) 7 % (0-10); LYMPHOCYTES # (AUTO) 2.2 X 10^3 (1.0-4.0); LYMPHOCYTES % (AUTO) 44 % (12-44); MONOCYTES # (AUTO) 0.4 X 10^3 (0.0-1.0); MONOCYTES % (AUTO) 8 % (0-12); NEUTROPHILS % (AUTO) 40 % (42-75)
[2019-07-21 17:55] LABS: BUN/CREATININE RATIO 14; CALCIUM 9.2 MG/DL (8.5-10.1); CARBON DIOXIDE 27 MMOL/L (21-32); CHLORIDE 109 MMOL/L (98-107); GFR ESTIMATED > 60; GLUCOSE 132 MG/DL (70-105); POTASSIUM 4.1 MMOL/L (3.6-5.0); SODIUM 145 MMOL/L (135-145)
[2019-07-21 18:03] LABS: BILIRUBIN,URINE NEGATIVE (NEGATIVE); CLARITY,URINE CLEAR; COLOR,URINE YELLOW; KETONES,URINE NEGATIVE (NEGATIVE); LEUKOCYTE ESTERASE ,URINE NEGATIVE (NEGATIVE); PROTEIN,URINE NEGATIVE (NEGATIVE)
[2019-07-21] MEDS ORDERED: TRM50T PO (18:10)
[2019-07-21 18:16] LABS: BACTERIA,URINE LARGE /HPF; GLUCOSE, URINE (UA) NEGATIVE (NEGATIVE); NITRITE,URINE POSITIVE (NEGATIVE)
[2019-07-21] MEDS ORDERED: RX-TRIMETH/SULFA. 160-800 MG (BACTRIM DS) TAB PPK#2 PO ONE (19:08)
[2019-07-21] MEDS ORDERED: RX-TRIMETH/SULFA. 160-800 MG (BACTRIM DS) TAB PPK#2 PO STA (19:10)
[2019-07-21 19:15] VITALS: BP 145/61
--- NOTE | 2019-07-21 19:15 | NUR ---
Pt dismissed following instructions reviewed, pt continues to want more narcotics administered. Pt was told a urine infection was deteched and a RX take home Bacttrim provided so she may get started on it. Pt's Tramadrol script provided and Dr Queen wrote the Sepr
--- NOTE | 2019-07-21 19:15 | NUR ---
Tramadol script has a Septra DS script written on lower half by Dr Queen.
--- OUTSIDE RECORDS SUMMARY | 2019-07-25 02:47 | XMS REPORT | Continuity of Care Document ---
Author Organization Unknown Address Unknown Phone Unavailable Allergies Active Description Code Type Severity Reaction Onset Reported/Identified Relationship to Patient Clinical Status Yes No Allergy Information Available [id number] Drug Allergy Unknown N/A 019 Yes No Known Drug Allergies [id number] Drug Allergy Unknown N/A 07/13/2018 Medications There is no data. Problems Date Dx Coded Attending Type Code Diagnosis Diagnosed By 05/24/2018 LUIS GASCA APRN Ot J44.9 CHRONIC OBSTRUCTIVE PULMONARY DISEASE, U 05/31/2018 LUIS GASCA APRN Ot J44.9 CHRONIC OBSTRUCTIVE PULMONARY DISEASE, U 06/15/2018 LUIS GASCA APRN Ot J44.9 CHRONIC OBSTRUCTIVE PULMONARY DISEASE, U 06/28/2018 LUIS GASCA BUSINESS INTELLIGENCE ETL DEVELOPER Ot J44.9 CHRONIC OBSTRUCTIVE PULMONARY DISEASE, U 06/28/2018 LUIS GASCA BUSINESS INTELLIGENCE ETL DEVELOPER Ot J43.9 EMPHYSEMA, UNSPECIFIED 06/28/2018 LUIS GASCA BUSINESS INTELLIGENCE ETL DEVELOPER Ot J45.909 UNSPECIFIED ASTHMA, UNCOMPLICATED 06/28/2018 LUIS GASCA BUSINESS INTELLIGENCE ETL DEVELOPER Ot J98.4 OTHER DISORDERS OF LUNG 06/28/2018 LUIS GASCA BUSINESS INTELLIGENCE ETL DEVELOPER Ot Z72.0 TOBACCO USE 07/07/2018 LUIS GASCA BUSINESS INTELLIGENCE ETL DEVELOPER Ot J43.9 EMPHYSEMA, UNSPECIFIED 07/07/2018 LUIS GASCA BUSINESS INTELLIGENCE ETL DEVELOPER Ot J45.909 UNSPECIFIED ASTHMA, UNCOMPLICATED 07/07/2018 LUIS GASCA BUSINESS INTELLIGENCE ETL DEVELOPER Ot J98.4 OTHER DISORDERS OF LUNG 07/07/2018 LUIS GASCA BUSINESS INTELLIGENCE ETL DEVELOPER Ot Z72.0 TOBACCO USE 07/13/2018 LUIS GASCA BUSINESS INTELLIGENCE ETL DEVELOPER Ot R13.11 DYSPHAGIA, ORAL PHASE 07/13/2018 LUIS GASCA BUSINESS INTELLIGENCE ETL DEVELOPER Ot G47.10 HYPERSOMNIA, UNSPECIFIED 07/13/2018 LI MIN DO Ot F17.210 NICOTINE DEPENDENCE, CIGARETTES, UNCOMPL 07/13/2018 MECHELLE DO, LI T Ot G93. 40 ENCEPHALOPATHY, UNSPECIFIED 07/13/2018 MECHELLE CHO, LI T Ot J43. 9 EMPHYSEMA, UNSPECIFIED 07/13/2018 MECHELLE CHO, LI T Ot R06. 00 DYSPNEA, UNSPECIFIED 07/14/2018 MECHELLE CHO, LI T Ot F17.210 NICOTINE DEPENDENCE, CIGARETTES, UNCOMPL 07/14/2018 MECHELLE CHO, LI T Ot G93. 40 ENCEPHALOPATHY, UNSPECIFIED 07/14/2018 MECHELLE CHO, LI T Ot J43. 9 EMPHYSEMA, UNSPECIFIED 07/14/2018 MECHELLE CHO, IL T Ot R06. 00 DYSPNEA, UNSPECIFIED 07/18/2018 LUIS GASCA BUSINESS INTELLIGENCE ETL DEVELOPER Ot J43.9 EMPHYSEMA, UNSPECIFIED 07/18/2018 LUIS GASCA BUSINESS INTELLIGENCE ETL DEVELOPER Ot J45.909 UNSPECIFIED ASTHMA, UNCOMPLICATED 07/18/2018 LUIS GASCA BUSINESS INTELLIGENCE ETL DEVELOPER Ot J98.4 OTHER DISORDERS OF LUNG 07/18/2018 LUIS GASCA APRN Ot Z72.0 TOBACCO USE 07/31/2018 LUIS GASCA APRN Ot J30.2 OTHER SEASONAL ALLERGIC RHINITIS 07/31/2018 LUIS GASCA BUSINESS INTELLIGENCE ETL DEVELOPER Ot J44.9 CHRONIC OBSTRUCTIVE PULMONARY DISEASE, U 07/31/2018 LUIS GASCA APRN Ot R06.00 DYSPNEA, UNSPECIFIED 07/31/2018 LUIS GASCA BUSINESS INTELLIGENCE ETL DEVELOPER Ot Z72.0 TOBACCO USE 08/05/2018 MECHELLE CHO, LI T Ot F17.210 NICOTINE DEPENDENCE, CIGARETTES, UNCOMPL 08/05/2018 MECHELLE CHO, LI T Ot G93. 40 ENCEPHALOPATHY, UNSPECIFIED 08/05/2018 MECHELLE CHO, LI T Ot J43. 9 EMPHYSEMA, UNSPECIFIED 08/05/2018 MECHELLE CHO, LI T Ot R06. 00 DYSPNEA, UNSPECIFIED 08/10/2018 LUIS GASCA APRN Ot [...] DISEASE, U 09/10/2018 LUIS GASCA APRN Ot J30.2 OTHER SEASONAL ALLERGIC RHINITIS 09/10/2018 LUIS GASCA BUSINESS INTELLIGENCE ETL DEVELOPER Ot J44.9 CHRONIC OBSTRUCTIVE PULMONARY DISEASE, U 09/10/2018 LUIS GASCA BUSINESS INTELLIGENCE ETL DEVELOPER Ot R06.00 DYSPNEA, UNSPECIFIED 09/10/2018 LUIS GASCA BUSINESS INTELLIGENCE ETL DEVELOPER Ot Z72.0 TOBACCO USE 09/10/2018 LUIS GASCA BUSINESS INTELLIGENCE ETL DEVELOPER Ot J43.9 EMPHYSEMA, UNSPECIFIED 09/10/2018 LUIS GASCA BUSINESS INTELLIGENCE ETL DEVELOPER Ot J45.909 UNSPECIFIED ASTHMA, UNCOMPLICATED 09/10/2018 LUIS GASCA BUSINESS INTELLIGENCE ETL DEVELOPER Ot J98.4 OTHER DISORDERS OF LUNG 09/10/2018 LUIS GASCA BUSINESS INTELLIGENCE ETL DEVELOPER Ot Z72.0 TOBACCO USE 09/10/2018 LUIS GASCA APRN Ot R13.11 DYSPHAGIA, ORAL PHASE 09/27/2018 MONTSERRAT MONGE BUSINESS INTELLIGENCE ETL DEVELOPER Ot R06. 02 SHORTNESS OF BREATH 10/13/2018 MONTSERRAT MONGE BUSINESS INTELLIGENCE ETL DEVELOPER Ot R06. 02 SHORTNESS OF BREATH 10/23/2018 TANIA BRANCH MD Ot F41.9 ANXIETY DISORDER, UNSPECIFIED 10/23/2018 TANIA BRANCH MD Ot I10 ESSENTIAL (PRIMARY) HYPERTENSION 10/23/2018 TANIA BRANCH MD Ot J44.1 CHRONIC OBSTRUCTIVE PULMONARY DISEASE W 10/23/2018 TANIA BRANCH MD Ot R06.02 SHORTNESS OF BREATH 10/23/2018 TANIA BRANCH MD Ot Z87.891 PERSONAL HISTORY OF NICOTINE DEPENDENCE 10/23/2018 TANIA BRANCH MD Ot Z90.710 ACQUIRED ABSENCE OF BOTH CERVIX AND UTER 10/23/2018 TANIA BRANCH MD Ot Z98.51 TUBAL LIGATION STATUS 10/23/2018 TANIA BRANCH MD Ot Z98.890 OTHER SPECIFIED POSTPROCEDURAL STATES 10/23/2018 TANIA BRANCH MD Ot Z99.81 DEPENDENCE ON SUPPLEMENTAL OXYGEN 10/23/2018 LUIS GASCA BUSINESS INTELLIGENCE ETL DEVELOPER Ot J44.9 CHRONIC OBSTRUCTIVE PULMONARY DISEASE, U 10/23/2018 LUIS GASCA BUSINESS INTELLIGENCE ETL DEVELOPER Ot J30.2 OTHER SEASONAL ALLERGIC RHINITIS 10/23/2018 LUIS GASCA BUSINESS INTELLIGENCE ETL DEVELOPER Ot J44.9 CHRONIC OBSTRUCTIVE PULMONARY DISEASE, U 10/23/2018 ULIS GASCA BUSINESS INTELLIGENCE ETL DEVELOPER Ot R06.00 DYSPNEA, UNSPECIFIED 10/23/2018 CAMPOSLUIS MORAN BUSINESS INTELLIGENCE ETL DEVELOPER Ot Z72.0 TOBACCO USE 10/23/2018 LUIS GASCA BUSINESS INTELLIGENCE ETL DEVELOPER Ot J43.9 EMPHYSEMA, UNSPECIFIED 10/23/2018 LUIS GASCA BUSINESS INTELLIGENCE ETL DEVELOPER Ot J45.909 UNSPECIFIED ASTHMA, UNCOMPLICATED 10/23/2018 LUIS GASCA BUSINESS INTELLIGENCE ETL DEVELOPER Ot J98.4 OTHER DISORDERS OF LUNG 10/23/2018 LUIS GASCA BUSINESS INTELLIGENCE ETL DEVELOPER Ot Z72.0 TOBACCO USE 10/23/2018 LUIS GASCA BUSINESS INTELLIGENCE ETL DEVELOPER Ot R13.11 DYSPHAGIA, ORAL PHASE 10/23/2018 MONTSERRAT MONGE BUSINESS INTELLIGENCE ETL DEVELOPER Ot R06. 02 SHORTNESS OF BREATH 10/26/2018 TANIA BRANCH MD Ot F41.9 ANXIETY DISORDER, UNSPECIFIED 10/26/2018 TANIA BRANCH MD Ot I10 ESSENTIAL (PRIMARY) HYPERTENSION 10/26/2018 TANIA BRANCH MD Ot J44.1 CHRONIC OBSTRUCTIVE PULMONARY DISEASE W 10/26/2018 TANIA BRANCH MD Ot R06.02 SHORTNESS OF BREATH 10/26/2018 TANIA BRANCH MD Ot Z87.891 PERSONAL HISTORY OF NICOTINE DEPENDENCE 10/26/2018 TANIA BRANCH MD Ot Z90.710 ACQUIRED ABSENCE OF BOTH CERVIX AND UTER 10/26/2018 TANIA BRANCH MD Ot Z98.51 TUBAL LIGATION STATUS 10/26/2018 TANIA BRANCH MD Ot Z98.890 OTHER SPECIFIED POSTPROCEDURAL STATES 10/26/2018 TANIA BRANCH MD Ot Z99.81 DEPENDENCE ON SUPPLEMENTAL OXYGEN 11/08/2018 RERE GREENWOOD DO Ot F41 .9 ANXIETY DISORDER, UNSPECIFIED 11/08/2018 RERE GREENWOOD DO Ot I10 ESSENTIAL (PRIMARY) HYPERTENSION 11/08/2018 RERE GREENWOOD DO Ot J44 .1 CHRONIC OBSTRUCTIVE PULMONARY DISEASE W 11/08/2018 RERE GREENWOOD DO Ot R06.00 DYSPNEA, UNSPECIFIED 11/08/2018 RERE GREENWOOD DO Ot Z87.891 PERSONAL HISTORY OF NICOTINE DEPENDENCE 11/08/2018 RERE GREENWOOD DO Ot Z90.710 ACQUIRED ABSENCE OF BOTH CERVIX AND UTER 11/08/2018 RERE GREENWOOD DO Ot Z98.51 TUBAL LIGATION STATUS 11/08/2018 RERE GREENWOOD DO Ot Z99.81 DEPENDENCE ON SUPPLEMENTAL OXYGEN 11/08/2018 LUIS GASCA BUSINESS INTELLIGENCE ETL DEVELOPER Ot G47.10 HYPERSOMNIA, UNSPECIFIED 11/08/2018 CAMPOSOLMAN MORANINE Aaron BUSINESS INTELLIGENCE ETL DEVELOPER Ot J30.2 OTHER SEASONAL ALLERGIC RHINITIS 11/08/2018 CAMPOSOLMAN MORANINE Aaron BUSINESS INTELLIGENCE ETL DEVELOPER Ot J44.9 CHRONIC OBSTRUCTIVE PULMONARY DISEASE, U 11/08/2018 CAMPOSOLMAN MORANINE Aaron BUSINESS INTELLIGENCE ETL DEVELOPER Ot R06.00 DYSPNEA, UNSPECIFIED 11/08/2018 CAMPOSOLMAN MORANINE Aaron BUSINESS INTELLIGENCE ETL DEVELOPER Ot R13.10 DYSPHAGIA, UNSPECIFIED 11/08/2018 CAMPOSOLMAN MORANINE Aaron BUSINESS INTELLIGENCE ETL DEVELOPER Ot R91.8 OTHER NONSPECIFIC ABNORMAL FINDING OF YAYA 11/08/2018 CAMPOSLUIS MORAN BUSINESS INTELLIGENCE ETL DEVELOPER Ot Z72.0 TOBACCO USE 11/10/2018 RERE GREENWOOD DO Ot F41 .9 ANXIETY DISORDER, UNSPECIFIED 11/10/2018 RERE GREENWOOD DO Ot I10 ESSENTIAL (PRIMARY) HYPERTENSION 11/10/2018 RERE GREENWOOD DO Ot J44 .1 CHRONIC OBSTRUCTIVE PULMONARY DISEASE W 11/10/2018 RERE GREENWOOD DO Ot R06.00 DYSPNEA, UNSPECIFIED 11/10/2018 RERE GREENWOOD DO Ot Z87.891 PERSONAL HISTORY OF NICOTINE DEPENDENCE 11/10/2018 RERE GREENWOOD DO Ot Z90.710 ACQUIRED ABSENCE OF BOTH CERVIX AND UTER 11/10/2018 RERE GREENWOOD DO Ot Z98.51 TUBAL LIGATION STATUS 11/10/2018 RERE GREENWOOD DO Ot Z99.81 DEPENDENCE ON SUPPLEMENTAL OXYGEN 11/14/2018 RERE GREENWOOD DO Ot F41 .9 ANXIETY DISORDER, UNSPECIFIED 11/14/2018 RERE GREENWOOD DO Ot I10 ESSENTIAL (PRIMARY) HYPERTENSION 11/14/2018 RERE GREENWOOD DO Ot J44 .1 CHRONIC OBSTRUCTIVE PULMONARY DISEASE W 11/14/2018 RERE GREENWOOD DO Ot R06.00 DYSPNEA, UNSPECIFIED 11/14/2018 RERE GREENWOOD DO Ot Z87.891 PERSONAL HISTORY OF NICOTINE DEPENDENCE 11/14/2018 RERE GREENWOOD DO Ot Z90.710 ACQUIRED ABSENCE OF BOTH CERVIX AND UTER 11/14/2018 RERE GREENWOOD DO Ot Z98.51 TUBAL LIGATION STATUS 11/14/2018 RERE GREENWOOD DO Ot Z99.81 DEPENDENCE ON SUPPLEMENTAL OXYGEN 12/06/2018 OLMAN GASCAINE E BUSINESS INTELLIGENCE ETL DEVELOPER Ot G47.9 SLEEP DISORDER, UNSPECIFIED 12/11/2018 OLMAN GASCAINE E BUSINESS INTELLIGENCE ETL DEVELOPER Ot G47.10 HYPERSOMNIA, UNSPECIFIED 12/11/2018 OLMAN GASCAINE E BUSINESS INTELLIGENCE ETL DEVELOPER Ot J30.2 OTHER SEASONAL ALLERGIC RHINITIS 12/11/2018 OLMAN GASCAINE E BUSINESS INTELLIGENCE ETL DEVELOPER Ot J44.9 CHRONIC OBSTRUCTIVE PULMONARY DISEASE, U 12/11/2018 OLMAN GASCAINE E BUSINESS INTELLIGENCE ETL DEVELOPER Ot R06.00 DYSPNEA, UNSPECIFIED 12/11/2018 OLMAN GASCAINE E BUSINESS INTELLIGENCE ETL DEVELOPER Ot R13.10 DYSPHAGIA, UNSPECIFIED 12/11/2018 OLMAN GASCAINE E BUSINESS INTELLIGENCE ETL DEVELOPER Ot R91.8 OTHER NONSPECIFIC ABNORMAL FINDING OF YAYA 12/11/2018 CAMPOSOLMAN MORANINE E BUSINESS INTELLIGENCE ETL DEVELOPER Ot Z72.0 TOBACCO USE 12/12/2018 OLMAN GASCAINE E BUSINESS INTELLIGENCE ETL DEVELOPER Ot G47.9 SLEEP DISORDER, UNSPECIFIED 12/14/2018 OLMAN GASCAINE E BUSINESS INTELLIGENCE ETL DEVELOPER Ot G47.10 HYPERSOMNIA, UNSPECIFIED 12/14/2018 OLMAN GASCAINE E BUSINESS INTELLIGENCE ETL DEVELOPER Ot G47.33 OBSTRUCTIVE SLEEP APNEA (ADULT) (PEDIATR 12/14/2018 OLMAN GASCAINE E BUSINESS INTELLIGENCE ETL DEVELOPER Ot J30.2 OTHER SEASONAL ALLERGIC RHINITIS 12/14/2018 OLMAN GASCAINE Aaron BUSINESS INTELLIGENCE ETL DEVELOPER Ot J44.9 CHRONIC OBSTRUCTIVE PULMONARY DISEASE, U 12/14/2018 OLMAN GASCAINE E BUSINESS INTELLIGENCE ETL DEVELOPER Ot R00.0 TACHYCARDIA, UNSPECIFIED 12/14/2018 OLMAN GASCAINE E BUSINESS INTELLIGENCE ETL DEVELOPER Ot R13.10 DYSPHAGIA, UNSPECIFIED 12/14/2018 OLMAN GASCAINE Aaron BUSINESS INTELLIGENCE ETL DEVELOPER Ot Z72.0 TOBACCO USE 12/18/2018 OLMAN GASCAINE Aaron BUSINESS INTELLIGENCE ETL DEVELOPER Ot G47.10 HYPERSOMNIA, UNSPECIFIED 12/18/2018 OLMAN GASCAINE E BUSINESS INTELLIGENCE ETL DEVELOPER Ot G47.33 OBSTRUCTIVE SLEEP APNEA (ADULT) (PEDIATR 12/18/2018 OLMAN GASCAINE E BUSINESS INTELLIGENCE ETL DEVELOPER Ot J30.2 OTHER SEASONAL ALLERGIC RHINITIS 12/18/2018 OLMAN GASCAINE E BUSINESS INTELLIGENCE ETL DEVELOPER Ot J44.9 CHRONIC OBSTRUCTIVE PULMONARY DISEASE, U 12/18/2018 OLMAN GASCAINE E BUSINESS INTELLIGENCE ETL DEVELOPER Ot R00.0 TACHYCARDIA, UNSPECIFIED 12/18/2018 OLMAN GASCAINE E BUSINESS INTELLIGENCE ETL DEVELOPER Ot R13.10 DYSPHAGIA, UNSPECIFIED 12/18/2018 OLMAN GASCAINE E BUSINESS INTELLIGENCE ETL DEVELOPER Ot Z72.0 TOBACCO USE 12/21/2018 OLMAN GASCAINE E BUSINESS INTELLIGENCE ETL DEVELOPER Ot G47.10 HYPERSOMNIA, UNSPECIFIED 12/21/2018 CAMPOSOLMAN MORANINE E BUSINESS INTELLIGENCE ETL DEVELOPER Ot J30.2 OTHER SEASONAL ALLERGIC RHINITIS 12/21/2018 CAMPOSOLMAN MORANINE E BUSINESS INTELLIGENCE ETL DEVELOPER Ot J43.9 EMPHYSEMA, UNSPECIFIED 12/21/2018 CAMPOSOLMAN MORANINE E BUSINESS INTELLIGENCE ETL DEVELOPER Ot R91.8 OTHER NONSPECIFIC ABNORMAL FINDING OF YAYA 12/21/2018 LUIS GASCA BUSINESS INTELLIGENCE ETL DEVELOPER Ot Z72.0 TOBACCO USE 12/25/2018 LUIS GASCA BUSINESS INTELLIGENCE ETL DEVELOPER Ot G47.10 HYPERSOMNIA, UNSPECIFIED 12/25/2018 OLMAN GASCAINE E BUSINESS INTELLIGENCE ETL DEVELOPER Ot J30.2 OTHER SEASONAL ALLERGIC RHINITIS 12/25/2018 OLMAN GASCAINE E BUSINESS INTELLIGENCE ETL DEVELOPER Ot J43.9 EMPHYSEMA, UNSPECIFIED 12/25/2018 OLMAN GASCAINE E BUSINESS INTELLIGENCE ETL DEVELOPER Ot R91.8 OTHER NONSPECIFIC ABNORMAL FINDING OF YAYA 12/25/2018 OLMAN GASCAINE Aaron BUSINESS INTELLIGENCE ETL DEVELOPER Ot Z72.0 TOBACCO USE 12/25/2018 OLMAN GASCAINE E BUSINESS INTELLIGENCE ETL DEVELOPER Ot J44.9 CHRONIC OBSTRUCTIVE PULMONARY DISEASE, U 12/25/2018 OLMAN GASCAINE E BUSINESS INTELLIGENCE ETL DEVELOPER Ot J30.2 OTHER SEASONAL ALLERGIC RHINITIS 12/25/2018 OLMAN GASCAINE E BUSINESS INTELLIGENCE ETL DEVELOPER Ot J44.9 CHRONIC OBSTRUCTIVE PULMONARY DISEASE, U 12/25/2018 OLMAN GASCAINE E BUSINESS INTELLIGENCE ETL DEVELOPER Ot R06.00 DYSPNEA, UNSPECIFIED 12/25/2018 OLMAN GASCAINE E BUSINESS INTELLIGENCE ETL DEVELOPER Ot Z72.0 TOBACCO USE 12/25/2018 OLMAN GASCAINE E BUSINESS INTELLIGENCE ETL DEVELOPER Ot J43.9 EMPHYSEMA, UNSPECIFIED 12/25/2018 OLMAN GASCAINE E BUSINESS INTELLIGENCE ETL DEVELOPER Ot J45.909 UNSPECIFIED ASTHMA, UNCOMPLICATED 12/25/2018 OLMAN GASCAINE E BUSINESS INTELLIGENCE ETL DEVELOPER Ot J98.4 OTHER DISORDERS OF LUNG 12/25/2018 LUIS GASCA BUSINESS INTELLIGENCE ETL DEVELOPER Ot Z72.0 TOBACCO USE 12/25/2018 OLMAN GASCAINE E BUSINESS INTELLIGENCE ETL DEVELOPER Ot R13.11 DYSPHAGIA, ORAL PHASE 12/25/2018 MONTSERRAT MONGE BUSINESS INTELLIGENCE ETL DEVELOPER Ot R06. 02 SHORTNESS OF BREATH 12/25/2018 LUIS GASCA E BUSINESS INTELLIGENCE ETL DEVELOPER Ot G47.10 HYPERSOMNIA, UNSPECIFIED 12/25/2018 OLMAN GASCAINE E BUSINESS INTELLIGENCE ETL DEVELOPER Ot J30.2 OTHER SEASONAL ALLERGIC RHINITIS 12/25/2018 OLMAN GASCAINE E BUSINESS INTELLIGENCE ETL DEVELOPER Ot J44.9 CHRONIC OBSTRUCTIVE PULMONARY DISEASE, U 12/25/2018 OLMAN GASCAINE E BUSINESS INTELLIGENCE ETL DEVELOPER Ot R06.00 DYSPNEA, UNSPECIFIED 12/25/2018 CAMPOSOLMAN MORANINE E BUSINESS INTELLIGENCE ETL DEVELOPER Ot R13.10 DYSPHAGIA, UNSPECIFIED 12/25/2018 CAMPOS, LUIS E BUSINESS INTELLIGENCE ETL DEVELOPER Ot R91.8 OTHER NONSPECIFIC ABNORMAL FINDING OF YAYA 12/25/2018 LUIS GASCA BUSINESS INTELLIGENCE ETL DEVELOPER Ot Z72.0 TOBACCO USE 12/25/2018 OLMAN GASCAINE E BUSINESS INTELLIGENCE ETL DEVELOPER Ot G47.10 HYPERSOMNIA, UNSPECIFIED 12/25/2018 OLMAN GASCAINE E BUSINESS INTELLIGENCE ETL DEVELOPER Ot G47.33 OBSTRUCTIVE SLEEP APNEA (ADULT) (PEDIATR 12/25/2018 OLMAN GASCAINE E BUSINESS INTELLIGENCE ETL DEVELOPER Ot J30.2 OTHER SEASONAL ALLERGIC RHINITIS 12/25/2018 LUIS GASCA BUSINESS INTELLIGENCE ETL DEVELOPER Ot J44.9 CHRONIC OBSTRUCTIVE PULMONARY DISEASE, U 12/25/2018 LIUS GASCA E BUSINESS INTELLIGENCE ETL DEVELOPER Ot R00.0 TACHYCARDIA, UNSPECIFIED 12/25/2018 OLMAN GASCAINE E BUSINESS INTELLIGENCE ETL DEVELOPER Ot R13.10 DYSPHAGIA, UNSPECIFIED 12/25/2018 OLMAN GASCAINE E BUSINESS INTELLIGENCE ETL DEVELOPER Ot Z72.0 TOBACCO USE 12/28/2018 OLMAN GASCAINE E BUSINESS INTELLIGENCE ETL DEVELOPER Ot G47.10 HYPERSOMNIA, UNSPECIFIED 12/28/2018 OLMAN GASCAINE E BUSINESS INTELLIGENCE ETL DEVELOPER Ot J30.2 OTHER SEASONAL ALLERGIC RHINITIS 12/28/2018 OLMAN GASCAINE E BUSINESS INTELLIGENCE ETL DEVELOPER Ot J43.9 EMPHYSEMA, UNSPECIFIED 12/28/2018 CAMPOS, LUIS E BUSINESS INTELLIGENCE ETL DEVELOPER Ot R91.8 OTHER NONSPECIFIC ABNORMAL FINDING OF YAYA 12/28/2018 OLMAN GASCAINE E BUSINESS INTELLIGENCE ETL DEVELOPER Ot Z72.0 TOBACCO USE 12/28/2018 CAMPOS, LUIS E BUSINESS INTELLIGENCE ETL DEVELOPER Ot G47.10 HYPERSOMNIA, UNSPECIFIED 12/28/2018 CAMPOSLUIS MORAN BUSINESS INTELLIGENCE ETL DEVELOPER Ot J30.2 OTHER SEASONAL ALLERGIC RHINITIS 12/28/2018 LUIS GASCA BUSINESS INTELLIGENCE ETL DEVELOPER Ot J43.9 EMPHYSEMA, UNSPECIFIED 12/28/2018 LUIS GASCA BUSINESS INTELLIGENCE ETL DEVELOPER Ot R91.8 OTHER NONSPECIFIC ABNORMAL FINDING OF YAYA 12/28/2018 CAMPOSLUIS MORAN BUSINESS INTELLIGENCE ETL DEVELOPER Ot Z72.0 TOBACCO USE 01/02/2019 CAMPOSLUIS MORAN BUSINESS INTELLIGENCE ETL DEVELOPER Ot G47.10 HYPERSOMNIA, UNSPECIFIED 01/02/2019 CAMPOSLUIS MORAN BUSINESS INTELLIGENCE ETL DEVELOPER Ot G47.33 OBSTRUCTIVE SLEEP APNEA (ADULT) (PEDIATR 01/02/2019 CAMPOSLUIS MORAN BUSINESS INTELLIGENCE ETL DEVELOPER Ot J30.2 OTHER SEASONAL ALLERGIC RHINITIS 01/02/2019 LUIS GASCA BUSINESS INTELLIGENCE ETL DEVELOPER Ot J44.9 CHRONIC OBSTRUCTIVE PULMONARY DISEASE, U 01/02/2019 LUIS GASCA BUSINESS INTELLIGENCE ETL DEVELOPER Ot R00.0 TACHYCARDIA, UNSPECIFIED 01/02/2019 LUIS GASCA BUSINESS INTELLIGENCE ETL DEVELOPER Ot R13.10 DYSPHAGIA, UNSPECIFIED 01/02/2019 LUIS GASCA BUSINESS INTELLIGENCE ETL DEVELOPER Ot Z72.0 TOBACCO USE 01/17/2019 RERE GREENWOOD DO Ot F17.210 NICOTINE DEPENDENCE, CIGARETTES, UNCOMPL 01/17/2019 RERE GREENWOOD DO Ot F41 .9 ANXIETY DISORDER, UNSPECIFIED 01/17/2019 RERE GREENWOOD DO Ot I10 ESSENTIAL (PRIMARY) HYPERTENSION 01/17/2019 RERE GREENWOOD DO Ot J44 .1 CHRONIC OBSTRUCTIVE PULMONARY DISEASE W 01/17/2019 RERE GREENWOOD DO Ot R06.02 SHORTNESS OF BREATH 01/17/2019 RERE GREENWOOD DO Ot R79.89 OTHER SPECIFIED ABNORMAL FINDINGS OF BLO 01/17/2019 RERE GREENWOOD DO Ot Z79.52 PROFESSOR OF PRACTICE (CURRENT) USE OF SYSTEMIC STER 01/17/2019 RERE GREENWOOD DO Ot Z87.891 PERSONAL HISTORY OF NICOTINE DEPENDENCE 01/17/2019 RERE GREENWOOD DO Ot Z90.710 ACQUIRED ABSENCE OF BOTH CERVIX AND UTER 01/17/2019 RERE GREENWOOD DO Ot Z98.51 TUBAL LIGATION STATUS 01/23/2019 RERE GREENWOOD DO, Ot F17.210 NICOTINE DEPENDENCE, CIGARETTES, UNCOMPL 01/23/2019 RERE GREENWOOD DO Ot F41 .9 ANXIETY DISORDER, UNSPECIFIED 01/23/2019 RERE GREENWOOD DO Ot I10 ESSENTIAL (PRIMARY) HYPERTENSION 01/23/2019 RERE GREENWOOD DO Ot J44 .1 CHRONIC OBSTRUCTIVE PULMONARY DISEASE W 01/23/2019 RERE GREENWOOD DO Ot R06.02 SHORTNESS OF BREATH 01/23/2019 RERE GREENWOOD DO Ot R79.89 OTHER SPECIFIED ABNORMAL FINDINGS OF BLO 01/23/2019 RERE GREENWOOD DO Ot Z79.52 SENIOR CARE (CURRENT) USE OF SYSTEMIC STER 01/23/2019 RREE GREENWOOD DO Ot Z87.891 PERSONAL HISTORY OF NICOTINE DEPENDENCE 01/23/2019 RERE GREENWOOD DO Ot Z90.710 ACQUIRED ABSENCE OF BOTH CERVIX AND UTER 01/23/2019 RERE GREENWOOD DO Ot Z98.51 TUBAL LIGATION STATUS 02/18/2019 DEONNA BAILEY MD, Ot F41 .9 ANXIETY DISORDER, UNSPECIFIED 02/18/2019 DEONNA BAILEY MD Ot G43.909 MIGRAINE, UNSP, NOT INTRACTABLE, WITHOUT 02/18/2019 DEONNA BAILEY MD Ot I10 ESSENTIAL (PRIMARY) HYPERTENSION 02/18/2019 DEONNA BAILEY MD, Ot J44 .9 CHRONIC OBSTRUCTIVE PULMONARY DISEASE, U 02/18/2019 DEONNA BAILEY MD Ot R51 HEADACHE 02/18/2019 DEONNA BAILEY MD Ot Z77.22 CNTCT W AND EXPSR TO ENVIRON TOBACCO SMO 02/18/2019 DEONNA BAILEY MD Ot Z79.52 SENIOR CARE (CURRENT) USE OF SYSTEMIC STER 02/18/2019 DEONNA BAILEY MD Ot Z87.891 PERSONAL HISTORY OF NICOTINE DEPENDENCE 02/18/2019 DEONNA BAILEY MD Ot Z90.710 ACQUIRED ABSENCE OF BOTH CERVIX AND UTER 02/18/2019 DEONNA BAILEY MD Ot Z98.51 TUBAL LIGATION STATUS 02/23/2019 DEONNA BAILEY MD, Ot F41 .9 ANXIETY DISORDER, UNSPECIFIED 02/23/2019 DEONNA BAILEY MD Ot G43.909 MIGRAINE, UNSP, NOT INTRACTABLE, WITHOUT 02/23/2019 DEONNA BAILEY MD Ot I10 ESSENTIAL (PRIMARY) HYPERTENSION 02/23/2019 DEONNA BAILEY MD, Ot J44 .9 CHRONIC OBSTRUCTIVE PULMONARY DISEASE, U 02/23/2019 DEONNA BAILEY MD Ot R51 HEADACHE 02/23/2019 DEONNA BAILEY MD Ot Z77.22 CNTCT W AND EXPSR TO ENVIRON TOBACCO SMO 02/23/2019 DEONNA BAILEY MD Ot Z79.52 PROFESSOR OF PRACTICE (CURRENT) USE OF SYSTEMIC STER 02/23/2019 DEONNA BAILEY MD Ot Z87.891 PERSONAL HISTORY OF NICOTINE DEPENDENCE 02/23/2019 DEONNA BAILEY MD Ot Z90.710 ACQUIRED ABSENCE OF BOTH CERVIX AND UTER 02/23/2019 DEONNA BAILEY MD Ot Z98.51 TUBAL LIGATION STATUS 02/25/2019 DEONNA BAILEY MD Ot F41 .9 ANXIETY DISORDER, UNSPECIFIED 02/25/2019 DEONNA BAILEY MD Ot G43.909 MIGRAINE, UNSP, NOT INTRACTABLE, WITHOUT 02/25/2019 DEONNA BAILEY MD Ot I10 ESSENTIAL (PRIMARY) HYPERTENSION 02/25/2019 DEONNA BAILEY MD Ot J44 .9 CHRONIC OBSTRUCTIVE PULMONARY DISEASE, U 02/25/2019 DEONNA BAILEY MD Ot R51 HEADACHE 02/25/2019 DEONNA BAILEY MD Ot Z77.22 CNTCT W AND EXPSR TO ENVIRON TOBACCO SMO 02/25/2019 DEONNA BAILEY MD Ot Z79.52 PROFESSOR OF PRACTICE (CURRENT) USE OF SYSTEMIC STER 02/25/2019 DEONNA BAILEY MD Ot Z87.891 PERSONAL HISTORY OF NICOTINE DEPENDENCE 02/25/2019 DEONNA BAILEY MD Ot Z90.710 ACQUIRED ABSENCE OF BOTH CERVIX AND UTER 02/25/2019 DEONNA BAILEY MD Ot Z98.51 TUBAL LIGATION STATUS 02/28/2019 DEONNA BAILEY MD Ot F41 .9 ANXIETY DISORDER, UNSPECIFIED 02/28/2019 DEONNA BAILEY MD Ot G43.909 MIGRAINE, UNSP, NOT INTRACTABLE, WITHOUT 02/28/2019 DEONNA BAILEY MD Ot I10 ESSENTIAL (PRIMARY) HYPERTENSION 02/28/2019 DEONNA BAILEY MD Ot J44 .9 CHRONIC OBSTRUCTIVE PULMONARY DISEASE, U 02/28/2019 DEONNA BAILEY MD Ot R51 HEADACHE 02/28/2019 DEONNA BAILEY MD Ot Z77.22 CNTCT W AND EXPSR TO ENVIRON TOBACCO SMO 02/28/2019 DEONNA BAILEY MD Ot Z79.52 SENIOR CARE (CURRENT) USE OF SYSTEMIC STER 02/28/2019 DEONNA BAILEY MD Ot Z87.891 PERSONAL HISTORY OF NICOTINE DEPENDENCE 02/28/2019 DEONNA BAILEY MD Ot Z90.710 ACQUIRED ABSENCE OF BOTH CERVIX AND UTER 02/28/2019 DEONNA BAILEY MD Ot Z98.51 TUBAL LIGATION STATUS 03/15/2019 LUIS GASCA [employer] INTELLIGENCE ETL DEVELOPER Ot J30.2 OTHER SEASONAL ALLERGIC RHINITIS 03/15/2019 LUIS GASCA BUSINESS INTELLIGENCE ETL DEVELOPER Ot J44.9 CHRONIC OBSTRUCTIVE PULMONARY DISEASE, U 03/15/2019 LUIS GASCA BUSINESS INTELLIGENCE ETL DEVELOPER Ot R13.10 DYSPHAGIA, UNSPECIFIED 03/15/2019 OLMAN GASCAINE Aaron BUSINESS INTELLIGENCE ETL DEVELOPER Ot R91.8 OTHER NONSPECIFIC ABNORMAL FINDING OF YAYA 03/15/2019 OLMAN GASCAINE Aaron BUSINESS INTELLIGENCE ETL DEVELOPER Ot Z72.0 TOBACCO USE 03/20/2019 OLMAN GASCAINE Aaron BUSINESS INTELLIGENCE ETL DEVELOPER Ot J30.2 OTHER SEASONAL ALLERGIC RHINITIS 03/20/2019 OLMAN GASCAINE Aaron BUSINESS INTELLIGENCE ETL DEVELOPER Ot J44.9 CHRONIC OBSTRUCTIVE PULMONARY DISEASE, U 03/20/2019 OLMAN GASCAINE Aaron BUSINESS INTELLIGENCE ETL DEVELOPER Ot R13.10 DYSPHAGIA, UNSPECIFIED 03/20/2019 OLMAN GASCAINE Aaron BUSINESS INTELLIGENCE ETL DEVELOPER Ot R91.8 OTHER NONSPECIFIC ABNORMAL FINDING OF YAYA 03/20/2019 LUIS GASCA BUSINESS INTELLIGENCE ETL DEVELOPER Ot Z72.0 TOBACCO USE 03/22/2019 LUIS GASCA BUSINESS INTELLIGENCE ETL DEVELOPER Ot J30.2 OTHER SEASONAL ALLERGIC RHINITIS 03/22/2019 OLMAN GASCAINE Aaron BUSINESS INTELLIGENCE ETL DEVELOPER Ot J44.9 CHRONIC OBSTRUCTIVE PULMONARY DISEASE, U 03/22/2019 OLMAN GASCAINE Aaron BUSINESS INTELLIGENCE ETL DEVELOPER Ot R13.10 DYSPHAGIA, UNSPECIFIED 03/22/2019 OLMAN GASCAINE Aaron BUSINESS INTELLIGENCE ETL DEVELOPER Ot R91.8 OTHER NONSPECIFIC ABNORMAL FINDING OF YAYA 03/22/2019 OLMAN GASCAINE Aaron BUSINESS INTELLIGENCE ETL DEVELOPER Ot Z72.0 TOBACCO USE 03/27/2019 OLMAN GASCAINE Aaron BUSINESS INTELLIGENCE ETL DEVELOPER Ot J30.2 OTHER SEASONAL ALLERGIC RHINITIS 03/27/2019 OLMAN GASCAINE Aaron BUSINESS INTELLIGENCE ETL DEVELOPER Ot J44.9 CHRONIC OBSTRUCTIVE PULMONARY DISEASE, U 03/27/2019 CAMPOS, LUIS E BUSINESS INTELLIGENCE ETL DEVELOPER Ot R13.10 DYSPHAGIA, UNSPECIFIED 03/27/2019 CAMPOS, LUIS E BUSINESS INTELLIGENCE ETL DEVELOPER Ot R91.8 OTHER NONSPECIFIC ABNORMAL FINDING OF YAYA 03/27/2019 CAMPOSOLMAN MORANINE E BUSINESS INTELLIGENCE ETL DEVELOPER Ot Z72.0 TOBACCO USE 03/27/2019 CAMPOSOLMAN MORANINE E BUSINESS INTELLIGENCE ETL DEVELOPER Ot J30.2 OTHER SEASONAL ALLERGIC RHINITIS 03/27/2019 CAMPOS, LUIS E BUSINESS INTELLIGENCE ETL DEVELOPER Ot J44.9 CHRONIC OBSTRUCTIVE PULMONARY DISEASE, U 03/27/2019 CAMPOS LUIS E BUSINESS INTELLIGENCE ETL DEVELOPER Ot R13.10 DYSPHAGIA, UNSPECIFIED 03/27/2019 CAMPOS LUIS E BUSINESS INTELLIGENCE ETL DEVELOPER Ot R91.8 OTHER NONSPECIFIC ABNORMAL FINDING OF YAYA 03/27/2019 CAMPOSOLMAN MORANINE Aaron BUSINESS INTELLIGENCE ETL DEVELOPER Ot Z72.0 TOBACCO USE 03/28/2019 CAMPOSOLMAN MORANINE E BUSINESS INTELLIGENCE ETL DEVELOPER Ot J30.2 OTHER SEASONAL ALLERGIC RHINITIS 03/28/2019 CAMPOSOLMAN MORANINE E BUSINESS INTELLIGENCE ETL DEVELOPER Ot J44.9 CHRONIC OBSTRUCTIVE PULMONARY DISEASE, U 03/28/2019 CAMPOSOLMAN MORANINE E BUSINESS INTELLIGENCE ETL DEVELOPER Ot R13.10 DYSPHAGIA, UNSPECIFIED 03/28/2019 CAMPOS LUIS E BUSINESS INTELLIGENCE ETL DEVELOPER Ot R91.8 OTHER NONSPECIFIC ABNORMAL FINDING OF YAYA 03/28/2019 CAMPOSOLMAN MORANINE Aaron BUSINESS INTELLIGENCE ETL DEVELOPER Ot Z72.0 TOBACCO USE 03/29/2019 CAMPOSOLMAN MORANINE E BUSINESS INTELLIGENCE ETL DEVELOPER Ot J30.2 OTHER SEASONAL ALLERGIC RHINITIS 03/29/2019 CAMPOSOLMAN MORANINE E BUSINESS INTELLIGENCE ETL DEVELOPER Ot J44.9 CHRONIC OBSTRUCTIVE PULMONARY DISEASE, U 03/29/2019 CAMPOSOLMAN MORANINE Aaron BUSINESS INTELLIGENCE ETL DEVELOPER Ot R13.10 DYSPHAGIA, UNSPECIFIED 03/29/2019 CAMPOSOLMAN MORANINE E BUSINESS INTELLIGENCE ETL DEVELOPER Ot R91.8 OTHER NONSPECIFIC ABNORMAL FINDING OF YAYA 03/29/2019 CAMPOSOLMAN MORANINE Aaron BUSINESS INTELLIGENCE ETL DEVELOPER Ot Z72.0 TOBACCO USE 03/29/2019 CAMPOSOLMAN MORANINE E BUSINESS INTELLIGENCE ETL DEVELOPER Ot J30.2 OTHER SEASONAL ALLERGIC RHINITIS 03/29/2019 CAMPOS, LUIS E BUSINESS INTELLIGENCE ETL DEVELOPER Ot J44.9 CHRONIC OBSTRUCTIVE PULMONARY DISEASE, U 03/29/2019 CAMPOSOLMANLUIS E BUSINESS INTELLIGENCE ETL DEVELOPER Ot R13.10 DYSPHAGIA, UNSPECIFIED 03/29/2019 CAMPOS LUIS E BUSINESS INTELLIGENCE ETL DEVELOPER Ot R91.8 OTHER NONSPECIFIC ABNORMAL FINDING OF YAYA 03/29/2019 CAMPOSOLMAN MORANINE E BUSINESS INTELLIGENCE ETL DEVELOPER Ot Z72.0 TOBACCO USE 04/26/2019 DEVIN DOMINGUEZ MD Ot F41. 9 ANXIETY DISORDER, UNSPECIFIED 04/26/2019 DEVIN DOMINGUEZ MD Ot I10 ESSENTIAL (PRIMARY) HYPERTENSION 04/26/2019 DEVIN DOMINGUEZ MD Ot J44. 1 CHRONIC OBSTRUCTIVE PULMONARY DISEASE W 04/26/2019 DEVIN DOMINGUEZ MD Ot R05 COUGH 04/26/2019 DEVIN DOMINGUEZ MD Ot Z77. 22 CNTCT W AND EXPSR TO ENVIRON TOBACCO SMO 04/26/2019 DEVIN DOMINGUEZ MD Ot Z79. 52 SENIOR CARE (CURRENT) USE OF SYSTEMIC STER 04/26/2019 DEVIN DOMINGUEZ MD Ot Z90.710 ACQUIRED ABSENCE OF BOTH CERVIX AND UTER 04/26/2019 DEVIN DOMINGUEZ MD Ot Z98. 51 TUBAL LIGATION STATUS 04/30/2019 DEVIN DOMINGUEZ MD, Ot F41. 9 ANXIETY DISORDER, UNSPECIFIED 04/30/2019 DEVIN DOMINGUEZ MD Ot I10 ESSENTIAL (PRIMARY) HYPERTENSION 04/30/2019 DEVIN DOMINGUEZ MD Ot J44. 1 CHRONIC OBSTRUCTIVE PULMONARY DISEASE W 04/30/2019 DEVIN DOMINGUEZ MD Ot R05 COUGH 04/30/2019 DEVIN DOMINGUEZ MD Ot Z77. 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 51 TUBAL LIGATION STATUS 05/08/2019 MAURIZIO KAPOOR MD Ot F41.9 ANXIETY DISORDER, UNSPECIFIED 05/08/2019 MAURIZIO KAPOOR MD Ot G47.0 0 INSOMNIA, UNSPECIFIED 05/08/2019 MAURIZIO KAPOOR MD Ot I10 ESSENTIAL (PRIMARY) HYPERTENSION 05/08/2019 MAURIZIO KAPOOR MD, Ot J44.1 CHRONIC OBSTRUCTIVE PULMONARY DISEASE W 05/08/2019 MAURIZIO KAPOOR MD Ot R06.0 2 SHORTNESS OF BREATH 05/08/2019 MAURIZIO KAPOOR MD Ot Z87.8 91 PERSONAL HISTORY OF NICOTINE DEPENDENCE 05/08/2019 ENYART MD, MAURIZIO E Ot Z90.7 10 ACQUIRED ABSENCE OF BOTH CERVIX AND UTER 05/08/2019 MAURIZIO KAPOOR MD Ot Z98.5 1 TUBAL LIGATION STATUS 05/08/2019 MAURIZIO KAPOOR MD Ot Z99.8 1 DEPENDENCE ON SUPPLEMENTAL OXYGEN 05/10/2019 MAURIZIO KAPOOR MD Ot F41.9 ANXIETY DISORDER, UNSPECIFIED 05/10/2019 MAURIZIO KAPOOR MD Ot G47.0 0 INSOMNIA, UNSPECIFIED 05/10/2019 MAURIZIO KAPOOR MD Ot I10 ESSENTIAL (PRIMARY) HYPERTENSION 05/10/2019 MAURIZIO KAPOOR MD Ot J44.1 CHRONIC OBSTRUCTIVE PULMONARY DISEASE W 05/10/2019 MAURIZIO KAPOOR MD Ot R06.0 2 SHORTNESS OF BREATH 05/10/2019 MAURIZIO KAPOOR MD Ot Z87.8 91 PERSONAL HISTORY OF NICOTINE DEPENDENCE 05/10/2019 MAURIZIO KAPOOR MD Ot Z90.7 10 ACQUIRED ABSENCE OF BOTH CERVIX AND UTER 05/10/2019 MAURIZIO KAPOOR MD Ot Z98.5 1 TUBAL LIGATION STATUS 05/10/2019 MAURIZIO KAPOOR MD Ot Z99.8 1 DEPENDENCE ON SUPPLEMENTAL OXYGEN 05/15/2019 LUIS GASCA BUSINESS INTELLIGENCE ETL DEVELOPER Ot J30.2 OTHER SEASONAL ALLERGIC RHINITIS 05/15/2019 LUIS GASCA APRN Ot J44.9 CHRONIC OBSTRUCTIVE PULMONARY DISEASE, U 05/15/2019 LUIS GASCA BUSINESS INTELLIGENCE ETL DEVELOPER Ot R13.10 DYSPHAGIA, UNSPECIFIED 05/15/2019 LUIS GASCA BUSINESS INTELLIGENCE ETL DEVELOPER Ot R91.8 OTHER NONSPECIFIC ABNORMAL FINDING OF YAYA 05/15/2019 LUIS GASCA BUSINESS INTELLIGENCE ETL DEVELOPER Ot Z72.0 TOBACCO USE 05/15/2019 JEAN SKELTON MD Ot F10.239 ALCOHOL DEPENDENCE WITH WITHDRAWAL, UNSP 05/15/2019 JEAN SKELTON MD Ot F15. 93 OTHER STIMULANT USE, UNSPECIFIED WITH [place] 05/15/2019 JEAN SKELTON MD Ot F41. 9 ANXIETY DISORDER, UNSPECIFIED 05/15/2019 JEAN SKELTON MD Ot I10 ESSENTIAL (PRIMARY) HYPERTENSION 05/15/2019 JEAN SKELTON MD Ot J44. 1 CHRONIC OBSTRUCTIVE PULMONARY DISEASE W 05/15/2019 JEAN SKELTON MD Ot K21. 9 GASTRO-ESOPHAGEAL REFLUX DISEASE WITHOUT 05/15/2019 JEAN SKELTON MD Ot Z87.891 PERSONAL HISTORY OF NICOTINE DEPENDENCE 05/15/2019 JEAN SKELTON MD Ot Z90.710 ACQUIRED ABSENCE OF BOTH CERVIX AND UTER 05/17/2019 CAMPOSOLMAN MORANINE E BUSINESS INTELLIGENCE ETL DEVELOPER Ot J30.2 OTHER SEASONAL ALLERGIC RHINITIS 05/17/2019 CAMPOSOLMAN MORANINE E BUSINESS INTELLIGENCE ETL DEVELOPER Ot J44.9 CHRONIC OBSTRUCTIVE PULMONARY DISEASE, U 05/17/2019 CAMPOS, LUIS E BUSINESS INTELLIGENCE ETL DEVELOPER Ot R13.10 DYSPHAGIA, UNSPECIFIED 05/17/2019 CAMPOS LUIS E BUSINESS INTELLIGENCE ETL DEVELOPER Ot R91.8 OTHER NONSPECIFIC ABNORMAL FINDING OF YAYA 05/17/2019 CAMPOSOLMAN MORANINE E BUSINESS INTELLIGENCE ETL DEVELOPER Ot Z72.0 TOBACCO USE 05/23/2019 JEAN SKELTON MD Ot F10.239 ALCOHOL DEPENDENCE WITH WITHDRAWAL, UNSP 05/23/2019 JEAN SKELTON MD Ot F15. 93 OTHER STIMULANT USE, UNSPECIFIED WITH [place] 05/23/2019 JEAN SKELTON MD Ot F41. 9 ANXIETY DISORDER, UNSPECIFIED 05/23/2019 JEAN SKELTON MD Ot I10 ESSENTIAL (PRIMARY) HYPERTENSION 05/23/2019 JEAN SKELTON MD Ot J44. 1 CHRONIC OBSTRUCTIVE PULMONARY DISEASE W 05/23/2019 JEAN SKELTON MD Ot K21. 9 GASTRO-ESOPHAGEAL REFLUX DISEASE WITHOUT 05/23/2019 JEAN SKELTON MD Ot Z87.891 PERSONAL HISTORY OF NICOTINE DEPENDENCE 05/23/2019 JEAN SKELTON MD Ot Z90.710 ACQUIRED ABSENCE OF BOTH CERVIX AND UTER 05/23/2019 JEAN SKELTON MD Ot F10.239 ALCOHOL DEPENDENCE WITH WITHDRAWAL, UNSP 05/23/2019 JEAN SKELTON MD Ot F15. 93 OTHER STIMULANT USE, UNSPECIFIED WITH [place] 05/23/2019 JEAN SKELTON MD Ot F41. 9 ANXIETY DISORDER, UNSPECIFIED 05/23/2019 JEAN SKELTON MD Ot I10 ESSENTIAL (PRIMARY) HYPERTENSION 05/23/2019 JEAN SKELTON MD Ot J44. 1 CHRONIC OBSTRUCTIVE PULMONARY DISEASE W 05/23/2019 JEAN SKELTON MD Ot K21. 9 GASTRO-ESOPHAGEAL REFLUX DISEASE WITHOUT 05/23/2019 JEAN SKELTON MD Ot Z87.891 PERSONAL HISTORY OF NICOTINE DEPENDENCE 05/23/2019 JEAN SKELTON MD Ot Z90.710 ACQUIRED ABSENCE OF BOTH CERVIX AND UTER 05/23/2019 JEAN SKELTON MD Ot F10.239 ALCOHOL DEPENDENCE WITH WITHDRAWAL, UNSP 05/23/2019 JEAN SKELTON MD Ot F15. 93 OTHER STIMULANT USE, UNSPECIFIED WITH [place] 05/23/2019 JEAN SKELTON MD Ot F41. 9 ANXIETY DISORDER, UNSPECIFIED 05/23/2019 JEAN SKELTON MD Ot I10 ESSENTIAL (PRIMARY) HYPERTENSION 05/23/2019 JEAN SKELTON MD, Ot J44. 1 CHRONIC OBSTRUCTIVE PULMONARY DISEASE W 05/23/2019 JEAN SKELTON MD Ot K21. 9 GASTRO-ESOPHAGEAL REFLUX DISEASE WITHOUT 05/23/2019 JEAN SKELTON MD, Ot Z87.891 PERSONAL HISTORY OF NICOTINE DEPENDENCE 05/23/2019 JEAN SKELTON MD, Ot Z90.710 ACQUIRED ABSENCE OF BOTH CERVIX AND UTER 05/28/2019 LUIS GASCA APRN Ot J30.2 OTHER SEASONAL ALLERGIC RHINITIS 05/28/2019 LUIS GASCA APRN Ot J44.9 CHRONIC OBSTRUCTIVE PULMONARY DISEASE, U 05/28/2019 LUIS GASCA APRN Ot R13.10 DYSPHAGIA, UNSPECIFIED 05/28/2019 LUIS GASCA APRN Ot R91.8 OTHER NONSPECIFIC ABNORMAL FINDING OF YAYA Procedures There is no data. Results Test Result Range Arterial blood gas measurement - 9 12:15 Blood pCO2 45 mm[Hg] 35-45 Blood pO2 73 mm[Hg] 79-93 Arterial blood bicarbonate measurement (moles/volume) 25 mmol/L 23-27 Arterial blood base excess by calculation 0.7 mmol /L -2.5-2.5 Arterial blood oxygen saturation measurement 95 % 94-100 * Inhaled oxygen flow rate RM AIR NRG Arterial blood pH measurement with patient temperature correction 7.37 7.37-7.43 Arterial blood carbon dioxide, total measurement (mole s/volume) 26.8 mmol/L 21.0-31.0 Body site R RAD NRG Assessment of wrist artery patency prior to arterial p uncture YES-POS NRG Setting of ventilation mode NO NR G Measurement of body temperature 98.4 NRG Complete blood count (CBC) with automate d white blood cell (WBC) differential - 07/13/18 17:15 Blood leukocytes automated count (number/volume) 6.3 10*3/uL 4.3-11.0 Blood erythrocytes automated count (number/volume) 4.00 10*6/uL 4.35-5.85 Venous blood hemoglobin measurement (mass/volume) 12.8 g/dL 11.5-16.0 Blood hematocrit (volume fraction) 39 % 35-52 Automated erythrocyte mean corpuscular volume 98 [ foz_us] 80-99 Automated erythrocyte mean corpuscular h emoglobin (mass per erythrocyte) 32 pg 25-34 Automated erythrocyte mean corpuscular h emoglobin concentration measurement (mass/volume) 33 g/dL 32-36 Automated erythrocyte distribution width ratio 12. 2 % 10.0- 14.5 Automated blood platelet count [...] 10*3 1.0-4.0 Blood monocytes automated count (number/volume) 0. 5 10*3 0.0-1.0 Automated eosinophil count 0.3 10*3/uL 0 .0-0.3 Automated blood basophil count (count/volume) 0.0 10*3/uL 0.0-0.1 Fibrin D-dimer FEU measurement in platel et poor plasma (mass/volume) - 07/13/18 17:15 Fibrin [...] 5-14 Serum or plasma urea nitrogen measurement (mass/volume ) 9 mg/dL 7-18 Serum or plasma creatinine measurement (mass/volume) 0.87 mg/dL 0.60-1.30 Serum or plasma urea nitrogen/creatinine mass ratio 10 NRG Serum or plasma creatinine measurement w ith calculation of estimated glomerular filtration rate > NRG Serum or plasma glucose measurement (mass/volume) 129 mg/dL 70-105 Serum or plasma calcium measurement (mass/volume) 8.8 mg/dL 8.5-10.1 Serum or plasma total bilirubin measurement (mass/volu me) 0.2 mg/dL 0.1-1.0 Serum or plasma alkaline phosphatase jeanine surement (enzymatic activity/volume) 66 U/L 40-136 Serum or plasma aspartate aminotransfera se measurement (enzymatic activity/volume) 22 U/L 5-34 Serum or plasma alanine aminotransferase measurement (enzymatic activity/volume) 22 U/L 0-55 Serum or plasma protein measurement (mass/volume) 6.3 g/dL 6.4-8.2 Serum or plasma albumin measurement (mass/volume) 3.9 g/dL 3.2-4.5 CALCIUM CORRECTED 8.9 mg/dL 8.5-10.1 Magnesium - 07/13/18 17:15 Magnesium 1.7 mg/dL 1.8-2.4 TROPONIN T - 07/13/18 17:15 TROPONIN T < 6 <=10 Serum or plasma lithium measurement (mol es/volume) - 07/13/18 17:15 BNP level 527.4 pg/mL <100.0 Complete blood count (CBC) with automate d white blood cell (WBC) differential - 09/10/18 17:26 Blood leukocytes automated count (number/volume) 7.8 10*3/uL 4.3-11.0 Blood erythrocytes automated count (number/volume) 4.04 10*6/uL 4.35-5.85 Venous blood hemoglobin measurement (mass/volume) 12.7 g/dL 11.5-16.0 Blood hematocrit (volume fraction) 39 % 35-52 Automated erythrocyte mean corpuscular volume 97 [ foz_us] 80-99 Automated erythrocyte mean corpuscular h emoglobin (mass per erythrocyte) 31 pg 25-34 Automated erythrocyte mean corpuscular h emoglobin concentration measurement (mass/volume) 33 g/dL 32-36 Automated erythrocyte distribution width ratio 12. 1 % 10.0- 14.5 Automated blood platelet count [...] 10*3 1.0-4.0 Blood monocytes automated count (number/volume) 0. 5 10*3 0.0-1.0 Automated eosinophil count 0.3 10*3/uL 0 .0-0.3 Automated blood basophil count (count/volume) 0.1 10*3/uL 0.0-0.1 Blood blood smear finding identification by light micr oscopy YES [facility] Comprehensive metabolic panel - 09/10/18 17:26 Serum or plasma sodium measurement (moles/volume) 142 mmol/L 135-145 Serum or plasma potassium measurement (moles/volume) 4.1 mmol/L 3.6-5.0 Serum or plasma chloride measurement (moles/volume) 101 mmol/L 98-107 Carbon dioxide 27 mmol/L 21-32 Serum or plasma anion gap determination (moles/volume) 14 mmol/L 5-14 Serum or plasma urea nitrogen measurement (mass/volume ) 19 mg/dL 7-18 Serum or plasma creatinine measurement (mass/volume) 0.92 mg/dL 0.60-1.30 Serum or plasma urea nitrogen/creatinine mass ratio 21 NRG Serum or plasma creatinine measurement w ith calculation of estimated glomerular filtration rate > NRG Serum or plasma glucose measurement (mass/volume) 107 mg/dL 70-105 Serum or plasma calcium measurement (mass/volume) 9.0 mg/dL 8.5-10.1 Serum or plasma total bilirubin measurement (mass/volu me) 0.2 mg/dL 0.1-1.0 Serum or plasma alkaline phosphatase jeanine surement (enzymatic activity/volume) 84 U/L 40-136 Serum or plasma aspartate aminotransfera se measurement (enzymatic activity/volume) 19 U/L 5-34 Serum or plasma alanine aminotransferase measurement (enzymatic activity/volume) 19 U/L 0-55 Serum or plasma protein measurement (mass/volume) 6.4 g/dL 6.4-8.2 Serum or plasma albumin measurement (mass/volume) 4.1 g/dL 3.2-4.5 CALCIUM CORRECTED 8.9 mg/dL 8.5-10.1 Magnesium - 09/10/18 17:26 Magnesium 1.8 mg/dL 1.8-2.4 PROBNP FS - 09/10/18 17:26 PROBNP FS 244.4 pg/mL <75.0 Arterial blood gas measurement - 9 15:45 Blood pCO2 42 mm[Hg] 35-45 Blood pO2 71 mm[Hg] 79-93 Arterial blood bicarbonate measurement (moles/volume) 25 mmol/L 23-27 Arterial blood base excess by calculation -0.1 mmo l/L -2.5-2.5 Arterial blood oxygen saturation measurement 94 % 94-100 * Inhaled oxygen flow rate ROOM AIR NRG Arterial blood pH measurement with patient temperature correction 7.38 7.37-7.43 Arterial blood carbon dioxide, total measurement (mole s/volume) 26.0 mmol/L 21.0-31.0 Body site RT RAD NRG Assessment of wrist artery patency prior to arterial p uncture YES-POS NRG Setting of ventilation mode NO NR G Measurement of body temperature 97 NRG Complete blood count (CBC) with automate d white blood cell (WBC) differential - 11/08/18 17:10 Blood leukocytes automated count (number/volume) 7.5 10*3/uL 4.3-11.0 Blood erythrocytes automated count (number/volume) 3.84 10*6/uL 4.35-5.85 Venous blood hemoglobin measurement (mass/volume) 12.4 g/dL 11.5-16.0 Blood hematocrit (volume fraction) 38 % 35-52 Automated erythrocyte mean corpuscular volume 98 [ foz_us] 80-99 Automated erythrocyte mean corpuscular h emoglobin (mass per erythrocyte) 32 pg 25-34 Automated erythrocyte mean corpuscular h emoglobin concentration measurement (mass/volume) 33 g/dL 32-36 Automated erythrocyte distribution width ratio 13. 1 % 10.0- 14.5 Automated blood platelet count (count/volume) 309 10*3/uL 130-400 Automated blood platelet mean volume measurement 9.9 [foz_us] 7.4-10.4 Automated blood neutrophils/100 leukocytes 59 % 42-75 Automated blood lymphocytes/100 leukocytes 29 % 12-44 Blood monocytes/100 leukocytes 8 % 0-12 Automated blood eosinophils/100 leukocytes 3 % 0-10 Automated blood basophils/100 leukocytes 1 % 0-10 Blood neutrophils automated count (number/volume) 4.4 10*3 1.8-7.8 Blood lymphocytes automated count (number/volume) 2.2 10*3 1.0-4.0 Blood monocytes automated count (number/volume) 0. 6 10*3 0.0-1.0 Automated eosinophil count 0.2 10*3/uL 0 .0-0.3 Automated blood basophil count (count/volume) 0.1 10*3/uL 0.0-0.1 Comprehensive metabolic panel - 11/08/18 17:10 Serum or plasma sodium measurement (moles/volume) 141 mmol/L 135-145 Serum or plasma potassium measurement (moles/volume) 4.4 mmol/L 3.6-5.0 Serum or plasma chloride measurement (moles/volume) 102 mmol/L 98-107 Carbon dioxide 26 mmol/L 21-32 Serum or plasma anion gap determination (moles/volume) 13 mmol/L 5-14 Serum or plasma urea nitrogen measurement (mass/volume ) 16 mg/dL 7-18 Serum or plasma creatinine measurement (mass/volume) 0.77 mg/dL 0.60-1.30 Serum or plasma urea nitrogen/creatinine mass ratio 21 NRG Serum or plasma creatinine measurement w ith calculation of estimated glomerular filtration rate > NRG Serum or plasma glucose measurement (mass/volume) 145 mg/dL 70-105 Serum or plasma calcium measurement (mass/volume) 9.7 mg/dL 8.5-10.1 Serum or plasma total bilirubin measurement (mass/volu me) 0.2 mg/dL 0.1-1.0 Serum or plasma alkaline phosphatase jeanine surement (enzymatic activity/volume) 79 U/L 40-136 Serum or plasma aspartate aminotransfera se measurement (enzymatic activity/volume) 26 U/L 5-34 Serum or plasma alanine aminotransferase measurement (enzymatic activity/volume) 39 U/L 0-55 Serum or plasma protein measurement (mass/volume) 6.8 g/dL 6.4-8.2 Serum or plasma albumin measurement (mass/volume) 4.0 g/dL 3.2-4.5 CALCIUM CORRECTED 9.7 mg/dL 8.5-10.1 Magnesium - 11/08/18 17:10 Magnesium 1.8 mg/dL 1.8-2.4 TROPONIN T - 11/08/18 17:10 TROPONIN T < 6 <=10 PROBNP FS - 11/08/18 17:10 PROBNP FS 55.8 pg/mL <75.0 [id number] - 12/19/18 11:11 Serum or plasma urea nitrogen measurement (mass/volume ) 12 mg/dL 7-18 Serum or plasma creatinine measurement (mass/volume) 0.93 mg/dL 0.60-1.30 Serum or plasma urea nitrogen/creatinine mass ratio 13 NRG Serum or plasma creatinine measurement w ith calculation of estimated glomerular filtration rate 60 NRG Complete blood count (CBC) with automate d white blood cell (WBC) differential - 01/17/19 10:45 Blood leukocytes automated count (number/volume) 12.4 10*3/uL 4.3-11.0 Blood erythrocytes automated count (number/volume) 3.80 10*6/uL 4.35-5.85 Venous blood hemoglobin measurement (mass/volume) 12.1 g/dL 11.5-16.0 Blood hematocrit (volume fraction) 37 % 35-52 Automated erythrocyte mean corpuscular volume 98 [ foz_us] 80-99 Automated erythrocyte mean corpuscular h emoglobin (mass per erythrocyte) 32 pg 25-34 Automated erythrocyte mean corpuscular h emoglobin concentration measurement (mass/volume) 32 g/dL 32-36 Automated erythrocyte distribution width ratio 12. 7 % 10.0- 14.5 Automated blood platelet count (count/volume) 252 10*3/uL 130-400 Automated blood platelet mean volume measurement 9.6 [foz_us] 7.4-10.4 Automated blood neutrophils/100 leukocytes 58 % 42-75 Automated blood lymphocytes/100 leukocytes 31 % 12-44 Blood monocytes/100 leukocytes 7 % 0-12 Automated blood eosinophils/100 leukocytes 3 % 0-10 Automated blood basophils/100 leukocytes 1 % 0-10 Blood neutrophils automated count (number/volume) 7.2 10*3 1.8-7.8 Blood lymphocytes automated count (number/volume) 3.8 10*3 1.0-4.0 Blood monocytes automated count (number/volume) 0. 9 10*3 0.0-1.0 Automated eosinophil count 0.4 10*3/uL 0 .0-0.3 Automated blood basophil count (count/volume) 0.1 10*3/uL 0.0-0.1 Manual absolute plasma cell count - 09/01 10:45 Blood monocytes/100 leukocytes 7 % NRG Manual blood segmented neutrophils/100 leukocytes 50 % NRG Blood band neutrophils/100 leukocytes 2 % NRG Manual blood lymphocytes/100 leukocytes 26 % NRG Manual eosinophils/100 leukocytes in nose 4 % NRG Manual blood basophils/100 leukocytes 1 % NRG Manual blood lymphocytes variant/100 leukocytes 7 % NRG Blood erythrocyte morphology finding identification NORMAL NRG Manual blood myelocytes/100 leukocytes 3 % NRG Comprehensive metabolic panel - 01/17/19 10:45 Serum or plasma sodium measurement (moles/volume) 143 mmol/L 135-145 Serum or plasma potassium measurement (moles/volume) 4.0 mmol/L 3.6-5.0 Serum or plasma chloride measurement (moles/volume) 104 mmol/L 98-107 Carbon dioxide 26 mmol/L 21-32 Serum or plasma anion gap determination (moles/volume) 13 mmol/L 5-14 Serum or plasma urea nitrogen measurement (mass/volume ) 21 mg/dL 7-18 Serum or plasma creatinine measurement (mass/volume) 0.92 mg/dL 0.60-1.30 Serum or plasma urea nitrogen/creatinine mass ratio 23 NRG Serum or plasma creatinine measurement w ith calculation of estimated glomerular filtration rate > NRG Serum or plasma glucose measurement (mass/volume) 98 mg/dL 70-105 Serum or plasma calcium measurement (mass/volume) 9.9 mg/dL 8.5-10.1 Serum or plasma total bilirubin measurement (mass/volu me) 0.2 mg/dL 0.1-1.0 Serum or plasma alkaline phosphatase jeanine surement (enzymatic activity/volume) 68 U/L 40-136 Serum or plasma aspartate aminotransfera se measurement (enzymatic activity/volume) 16 U/L 5-34 Serum or plasma alanine aminotransferase measurement (enzymatic activity/volume) 23 U/L 0-55 Serum or plasma protein measurement (mass/volume) 6.0 g/dL 6.4-8.2 Serum or plasma albumin measurement (mass/volume) 3.7 g/dL 3.2-4.5 CALCIUM CORRECTED 10.1 mg/dL 8.5-10.1 Serum or plasma troponin i.cardiac measu rement (mass/volume) - 01/17/19 10:45 Serum or plasma troponin i.cardiac measurement (mass/v olume) < ng/mL <0.30 PROBNP FS - 01/17/19 10:45 PROBNP FS 665.1 pg/mL <75.0 Complete blood count (CBC) with automate d white blood cell (WBC) differential - 02/18/19 16:45 Blood leukocytes automated count (number/volume) 10.6 10*3/uL 4.3-11.0 Blood erythrocytes automated count (number/volume) 4.92 10*6/uL 4.35-5.85 Venous blood hemoglobin measurement (mass/volume) 15.6 g/dL 11.5-16.0 Blood hematocrit (volume fraction) 48 % 35-52 Automated erythrocyte mean corpuscular volume 98 [ foz_us] 80-99 Automated erythrocyte mean corpuscular h emoglobin (mass per erythrocyte) 32 pg 25-34 Automated erythrocyte mean corpuscular h emoglobin concentration measurement (mass/volume) 33 g/dL 32-36 Automated erythrocyte distribution width ratio 12. 5 % 10.0- 14.5 Automated blood platelet count (count/volume) 355 10*3/uL 130-400 Automated blood platelet mean volume measurement 10.4 [foz_us] 7.4-10.4 Automated blood neutrophils/100 leukocytes 67 % 42-75 Automated blood lymphocytes/100 leukocytes 23 % 12-44 Blood monocytes/100 leukocytes 7 % 0-12 Automated blood eosinophils/100 leukocytes 2 % 0-10 Automated blood basophils/100 leukocytes 1 % 0-10 Blood neutrophils automated count (number/volume) 7.1 10*3 1.8-7.8 Blood lymphocytes automated count (number/volume) 2.4 10*3 1.0-4.0 Blood monocytes automated count (number/volume) 0. 7 10*3 0.0-1.0 Automated eosinophil count 0.3 10*3/uL 0 .0-0.3 Automated blood basophil count (count/volume) 0.1 10*3/uL 0.0-0.1 Comprehensive metabolic panel - 02/18/19 16:45 Serum or plasma sodium measurement (moles/volume) 141 mmol/L 135-145 Serum or plasma potassium measurement (moles/volume) 5.0 mmol/L 3.6-5.0 Serum or plasma chloride measurement (moles/volume) 103 mmol/L 98-107 Carbon dioxide 28 mmol/L 21-32 Serum or plasma anion gap determination (moles/volume) 10 mmol/L 5-14 Serum or plasma urea nitrogen measurement (mass/volume ) 13 mg/dL 7-18 Serum or plasma creatinine measurement (mass/volume) 0.72 mg/dL 0.60-1.30 Serum or plasma urea nitrogen/creatinine mass ratio 18 NRG Serum or plasma creatinine measurement w ith calculation of estimated glomerular filtration rate > NRG Serum or plasma glucose measurement (mass/volume) 167 mg/dL 70-105 Serum or plasma calcium measurement (mass/volume) 10.4 mg/dL 8.5-10.1 Serum or plasma total bilirubin measurement (mass/volu me) 0.3 mg/dL 0.1-1.0 Serum or plasma alkaline phosphatase jeanine surement (enzymatic activity/volume) 78 U/L 40-136 Serum or plasma aspartate aminotransfera se measurement (enzymatic activity/volume) 47 U/L 5-34 Serum or plasma alanine aminotransferase measurement (enzymatic activity/volume) 48 U/L 0-55 Serum or plasma protein measurement (mass/volume) 7.5 g/dL 6.4-8.2 Serum or plasma albumin measurement (mass/volume) 4.6 g/dL 3.2-4.5 Complete blood count (CBC) with automate d white blood cell (WBC) differential - 04/26/19 18:00 Blood leukocytes automated count (number/volume) 5.8 10*3/uL 4.3-11.0 Blood erythrocytes automated count (number/volume) 4.41 10*6/uL 4.35-5.85 Venous blood hemoglobin measurement (mass/volume) 14.1 g/dL 11.5-16.0 Blood hematocrit (volume fraction) 43 % 35-52 Automated erythrocyte mean corpuscular volume 96 [ foz_us] 80-99 Automated erythrocyte mean corpuscular h emoglobin (mass per erythrocyte) 32 pg 25-34 Automated erythrocyte mean corpuscular h emoglobin concentration measurement (mass/volume) 33 g/dL 32-36 Automated erythrocyte distribution width ratio 12. 2 % 10.0- 14.5 Automated blood platelet count (count/volume) 232 10*3/uL 130-400 Automated blood platelet mean volume measurement 11.4 [foz_us] 7.4-10.4 Automated blood neutrophils/100 leukocytes 42 % 42-75 Automated blood lymphocytes/100 leukocytes 40 % 12-44 Blood monocytes/100 leukocytes 8 % 0-12 Automated blood eosinophils/100 leukocytes 9 % 0-10 Automated blood basophils/100 leukocytes 1 % 0-10 Blood neutrophils automated count (number/volume) 2.5 10*3 1.8-7.8 Blood lymphocytes automated count (number/volume) 2.3 10*3 1.0-4.0 Blood monocytes automated count (number/volume) 0. 5 10*3 0.0-1.0 Automated eosinophil count 0.5 10*3/uL 0 .0-0.3 Automated blood basophil count (count/volume) 0.1 10*3/uL 0.0-0.1 Blood lactic acid measurement (moles/vol ume) - 04/26/19 18:00 Blood lactic acid measurement (moles/volume) 1.47 mmol/L 0.50-2.00 Whole blood basic metabolic panel - 04/15 07/04 18:00 Serum or plasma sodium measurement (moles/volume) 145 mmol/L 135-145 Serum or plasma potassium measurement (moles/volume) 3.8 mmol/L 3.6-5.0 Serum or plasma chloride measurement (moles/volume) 109 mmol/L 98-107 Carbon dioxide 26 mmol/L 21-32 Serum or plasma anion gap determination (moles/volume) 10 mmol/L 5-14 Serum or plasma urea nitrogen measurement (mass/volume ) 17 mg/dL 7-18 Serum or plasma creatinine measurement (mass/volume) 1.00 mg/dL 0.60-1.30 Serum or plasma urea nitrogen/creatinine mass ratio 17 NRG Serum or plasma creatinine measurement w ith calculation of estimated glomerular filtration rate 55 NRG Serum or plasma glucose measurement (mass/volume) 184 mg/dL 70-105 Serum or plasma calcium measurement (mass/volume) 9.6 mg/dL 8.5-10.1 TROPONIN I FS - 04/26/19 18:00 TROPONIN I FS < 0.30 <0.30 PROBNP FS - 04/26/19 18:00 PROBNP FS 403.8 pg/mL <75.0 Bacterial blood culture - 04/26/19 18:00 Bacterial blood culture NG NRG Influenza virus A and B antigen detectio n - 04/26/19 18:04 FLU RESULT NEGATIVE FOR INFLUENZA A AND B ANTIGENS BY IA NRG Bacterial blood culture - 04/26/19 18:35 Bacterial blood culture NG NR Complete blood count (CBC) with automate d white blood cell (WBC) differential - 05/08/19 17:50 Blood leukocytes automated count (number/volume) 9.1 10*3/uL 4.3-11.0 Blood erythrocytes automated count (number/volume) 3.95 10*6/uL 4.35-5.85 Venous blood hemoglobin measurement (mass/volume) 12.4 g/dL 11.5-16.0 Blood hematocrit (volume fraction) 39 % 35-52 Automated erythrocyte mean corpuscular volume 98 [ foz_us] 80-99 Automated erythrocyte mean corpuscular h emoglobin (mass per erythrocyte) 31 pg 25-34 Automated erythrocyte mean corpuscular h emoglobin concentration measurement (mass/volume) 32 g/dL 32-36 Automated erythrocyte distribution width ratio 12. 1 % 10.0- 14.5 Automated blood platelet count (count/volume) 237 10*3/uL 130-400 Automated blood platelet mean volume measurement 11.2 [foz_us] 7.4-10.4 Automated blood neutrophils/100 leukocytes 67 % 42-75 Automated blood lymphocytes/100 leukocytes 23 % 12-44 Blood monocytes/100 leukocytes 7 % 0-12 Automated blood eosinophils/100 leukocytes 2 % 0-10 Automated blood basophils/100 leukocytes 0 % 0-10 Blood neutrophils automated count (number/volume) 6.1 10*3 1.8-7.8 Blood lymphocytes automated count (number/volume) 2.1 10*3 1.0-4.0 Blood monocytes automated count (number/volume) 0. 6 10*3 0.0-1.0 Automated eosinophil count 0.2 10*3/uL 0 .0-0.3 Automated blood basophil count (count/volume) 0.0 10*3/uL 0.0-0.1 Comprehensive metabolic panel - 05/08/19 17:50 Serum or plasma sodium measurement (moles/volume) 141 mmol/L 135-145 Serum or plasma potassium measurement (moles/volume) 4.0 mmol/L 3.6-5.0 Serum or plasma chloride measurement (moles/volume) 105 mmol/L 98-107 Carbon dioxide 24 mmol/L 21-32 Serum or plasma anion gap determination (moles/volume) 12 mmol/L 5-14 Serum or plasma urea nitrogen measurement (mass/volume ) 20 mg/dL 7-18 Serum or plasma creatinine measurement (mass/volume) 0.95 mg/dL 0.60-1.30 Serum or plasma urea nitrogen/creatinine mass ratio 21 NRG Serum or plasma creatinine measurement w ith calculation of estimated glomerular filtration rate 58 NRG Serum or plasma glucose measurement (mass/volume) 143 mg/dL 70-105 Serum or plasma calcium measurement (mass/volume) 9.3 mg/dL 8.5-10.1 Serum or plasma total bilirubin measurement (mass/volu me) 0.2 mg/dL 0.1-1.0 Serum or plasma alkaline phosphatase jeanine surement (enzymatic activity/volume) 72 U/L 40-136 Serum or plasma aspartate aminotransfera se measurement (enzymatic activity/volume) 30 U/L 5-34 Serum or plasma alanine aminotransferase measurement (enzymatic activity/volume) 36 U/L 0-55 Serum or plasma protein measurement (mass/volume) 6.6 g/dL 6.4-8.2 Serum or plasma albumin measurement (mass/volume) 4.2 g/dL 3.2-4.5 CALCIUM CORRECTED 9.1 mg/dL 8.5-10.1 PROBNP FS - 05/08/19 17:50 PROBNP FS 625.0 pg/mL <75.0 CRP FS - 05/08/19 17:50 CRP FS 0.23 mg/dL <0.50 Arterial blood gas measurement - 9 17:52 Blood pCO2 48 mm[Hg] 35-45 Blood pO2 30 mm[Hg] 79-93 Arterial blood bicarbonate measurement (moles/volume) 29 mmol/L 23-27 Arterial blood base excess by calculation 3.3 mmol /L -2.5-2.5 Arterial blood oxygen saturation measurement 57 % 94-100 * Inhaled oxygen flow rate ROOM AIR NRG Arterial blood pH measurement with patient temperature correction 7.39 7.37-7.43 Arterial blood carbon dioxide, total measurement (mole s/volume) 30.6 mmol/L 21.0-31.0 Body site RT RADIAL NRG Assessment of wrist artery patency prior to arterial p uncture OK NRG Setting of ventilation mode NO NR G Measurement of body temperature 36.2 NRG Influenza virus A and B antigen detectio n - 05/08/19 17:58 FLU RESULT NEGATIVE FOR INFLUENZA A AND B ANTIGENS BY IA NRG Complete blood count (CBC) with automate d white blood cell (WBC) differential - 05/13/19 03:05 Blood leukocytes automated count (number/volume) 10.3 10*3/uL 4.3-11.0 Blood erythrocytes automated count (number/volume) 3.99 10*6/uL 4.35-5.85 Venous blood hemoglobin measurement (mass/volume) 12.8 g/dL 11.5-16.0 Blood hematocrit (volume fraction) 38 % 35-52 Automated erythrocyte mean corpuscular volume 96 [ foz_us] 80-99 Automated erythrocyte mean corpuscular h emoglobin (mass per erythrocyte) 32 pg 25-34 Automated erythrocyte mean corpuscular h emoglobin concentration measurement (mass/volume) 33 g/dL 32-36 Automated erythrocyte distribution width ratio 12. 0 % 10.0- 14.5 Automated blood platelet count (count/volume) 264 10*3/uL 130-400 Automated blood platelet mean volume measurement 11.1 [foz_us] 7.4-10.4 Automated blood neutrophils/100 leukocytes 53 % 42-75 Automated blood lymphocytes/100 leukocytes 35 % 12-44 Blood monocytes/100 leukocytes 7 % 0-12 Automated blood eosinophils/100 leukocytes 4 % 0-10 Automated blood basophils/100 leukocytes 1 % 0-10 Blood neutrophils automated count (number/volume) 5.5 10*3 1.8-7.8 Blood lymphocytes automated count (number/volume) 3.6 10*3 1.0-4.0 Blood monocytes automated count (number/volume) 0. 7 10*3 0.0-1.0 Automated eosinophil count 0.4 10*3/uL 0 .0-0.3 Automated blood basophil count (count/volume) 0.1 10*3/uL 0.0-0.1 Comprehensive metabolic panel - 05/13/19 03:05 Serum or plasma sodium measurement (moles/volume) 139 mmol/L 135-145 Serum or plasma potassium measurement (moles/volume) 4.1 mmol/L 3.6-5.0 Serum or plasma chloride measurement (moles/volume) 103 mmol/L 98-107 Carbon dioxide 23 mmol/L 21-32 Serum or plasma anion gap determination (moles/volume) 13 mmol/L 5-14 Serum or plasma urea nitrogen measurement (mass/volume ) 23 mg/dL 7-18 Serum or plasma creatinine measurement (mass/volume) 0.77 mg/dL 0.60-1.30 Serum or plasma urea nitrogen/creatinine mass ratio 30 NRG Serum or plasma creatinine measurement w ith calculation of estimated glomerular filtration rate > NRG Serum or plasma glucose measurement (mass/volume) 138 mg/dL 70-105 Serum or plasma calcium measurement (mass/volume) 10.2 mg/dL 8.5-10.1 Serum or plasma total bilirubin measurement (mass/volu me) 0.3 mg/dL 0.1-1.0 Serum or plasma alkaline phosphatase jeanine surement (enzymatic activity/volume) 70 U/L 40-136 Serum or plasma aspartate aminotransfera se measurement (enzymatic activity/volume) 24 U/L 5-34 Serum or plasma alanine aminotransferase measurement (enzymatic activity/volume) 35 U/L 0-55 Serum or plasma protein measurement (mass/volume) 6.6 g/dL 6.4-8.2 Serum or plasma albumin measurement (mass/volume) 4.1 g/dL 3.2-4.5 CALCIUM CORRECTED 10.1 mg/dL 8.5-10.1 Magnesium - 05/13/19 03:05 Magnesium 1.8 mg/dL 1.6-2.4 TROPONIN I FS - 05/13/19 03:05 TROPONIN I FS < 0.30 <0.30 PROBNP FS - 05/13/19 03:05 PROBNP FS 1092.0 pg/mL <75.0 Arterial blood gas measurement - 9 05:20 Blood pCO2 40 mm[Hg] 35-45 Blood pO2 81 mm[Hg] 79-93 Arterial blood bicarbonate measurement (moles/volume) 27 mmol/L 23-27 Arterial blood base excess by calculation 2.0 mmol /L -2.5-2.5 Arterial blood oxygen saturation measurement 96 % 94-100 * Inhaled oxygen flow rate 2 NRG Arterial blood pH measurement with patient temperature correction 7.43 7.37-7.43 Arterial blood carbon dioxide, total measurement (mole s/volume) 27.7 mmol/L 21.0-31.0 Body site RIGHT WRIST NRG Assessment of wrist artery patency prior to arterial p uncture YES-POS NRG Setting of ventilation mode YES NR G Measurement of body temperature 35.7 NRG Serum or plasma troponin i.cardiac measu rement (mass/volume) - 05/13/19 11:35 Serum or plasma troponin i.cardiac measurement (mass/v olume) < ng/mL <0.028 Lipase - 05/13/19 11:35 Lipase 34 U/L 8-78 Complete urinalysis with reflex to cultu re - 05/13/19 21:00 Urine color determination YELLOW NRG Urine clarity determination CLEAR NR G Urine pH measurement by test strip 5.5 5-9 Specific gravity of urine by test strip 1.025 1.016-1.022 Urine protein assay by test strip, semi-quantitative NEGATIVE NEGATIVE Urine glucose detection by automated test strip 3+ NEGATIVE Erythrocytes detection in urine sediment by light micr oscopy NEGATIVE NEGATIVE Urine ketones detection by automated test strip TR CAPO NEGATIVE Urine nitrite detection by test strip NEGATIVE NEGATIVE Urine total bilirubin detection by test strip NEGA TIVE NEGATIVE Urine urobilinogen measurement by automated test strip (mass/volume) 0.2 mg/dL < = 1.0 Urine leukocyte esterase detection by dipstick NEG ATIVE NEGATIVE Automated urine sediment erythrocyte cou nt by microscopy (number/high power field) NONE NRG Automated urine sediment leukocyte count by microscopy (number/high power field) NONE NRG Bacteria detection in urine sediment by light microsco py TRACE NRG Squamous epithelial cells detection in u rine sediment by light microscopy 2-5 NRG Crystals detection in urine sediment by light microsco py NONE NRG Casts detection in urine sediment by light microscopy NONE NRG Mucus detection in urine sediment by light microscopy NEGATIVE NRG Complete urinalysis with reflex to culture NO NRG Yeast detection in urine sediment by light microscopy FEW NRG PT panel in platelet poor plasma by coag ulation assay - 05/13/19 21:28 Prothrombin time (PT) in platelet poor plasma by coagu lation assay 12.8 s 12.2-14.7 INR in platelet poor plasma or blood by coagulation as say 0.9 0.8-1.4 Activated partial thromboplastin time (a PTT) in platelet poor plasma bycoagulation assay - 05/13/19 21:28 Activated partial thromboplastin time (a PTT) in platelet poor plasma bycoagulation assay 26 s 24-35 Comprehensive metabolic panel - 05/13/19 21:28 Serum or plasma sodium measurement (moles/volume) 142 mmol/L 135-145 Serum or plasma potassium measurement (moles/volume) 3.9 mmol/L 3.6-5.0 Serum or plasma chloride measurement (moles/volume) 107 mmol/L 98-107 Carbon dioxide 20 mmol/L 21-32 Serum or plasma anion gap determination (moles/volume) 15 mmol/L 5-14 Serum or plasma urea nitrogen measurement (mass/volume ) 19 mg/dL 7-18 Serum or plasma creatinine measurement (mass/volume) 0.98 mg/dL 0.60-1.30 Serum or plasma urea nitrogen/creatinine mass ratio 19 NRG Serum or plasma creatinine measurement w ith calculation of estimated glomerular filtration rate 56 NRG Serum or plasma glucose measurement (mass/volume) 230 mg/dL 70-105 Serum or plasma calcium measurement (mass/volume) 10.1 mg/dL 8.5-10.1 Serum or plasma total bilirubin measurement (mass/volu me) 0.2 mg/dL 0.1-1.0 Serum or plasma alkaline phosphatase jeanine surement (enzymatic activity/volume) 61 U/L 40-136 Serum or plasma aspartate aminotransfera se measurement (enzymatic activity/volume) 16 U/L 5-34 Serum or plasma alanine aminotransferase measurement (enzymatic activity/volume) 35 U/L 0-55 Serum or plasma protein measurement (mass/volume) 6.3 g/dL 6.4-8.2 Serum or plasma albumin measurement (mass/volume) 4.1 g/dL 3.2-4.5 CALCIUM CORRECTED 10.0 mg/dL 8.5-10.1 Serum or plasma ethanol measurement (mas s/volume) - 05/13/19 21:28 Serum or plasma ethanol measurement (mass/volume) < mg/dL <10 Automated blood complete blood count (he mogram) panel - 05/15/19 05:14 Blood leukocytes automated count (number/volume) 13.0 10*3/uL 4.3-11.0 Blood erythrocytes automated count (number/volume) 3.80 10*6/uL 4.35-5.85 Venous blood hemoglobin measurement (mass/volume) 11.9 g/dL 11.5-16.0 Blood hematocrit (volume fraction) 37 % 35-52 Automated erythrocyte mean corpuscular volume 98 [ foz_us] 80-99 Automated erythrocyte mean corpuscular h emoglobin (mass per erythrocyte) 31 pg 25-34 Automated erythrocyte mean corpuscular h emoglobin concentration measurement (mass/volume) 32 g/dL 32-36 Automated erythrocyte distribution width ratio 12. 9 % 10.0- 14.5 Automated blood platelet count (count/volume) 236 10*3/uL 130-400 Automated blood platelet mean volume measurement 11.4 [foz_us] 7.4-10.4 Whole blood basic metabolic panel - 04/17 06/03 05:14 Serum or plasma sodium measurement (moles/volume) 140 mmol/L 135-145 Serum or plasma potassium measurement (moles/volume) 3.8 mmol/L 3.6-5.0 Serum or plasma chloride measurement (moles/volume) 110 mmol/L 98-107 Carbon dioxide 20 mmol/L 21-32 Serum or plasma anion gap determination (moles/volume) 10 mmol/L 5-14 Serum or plasma urea nitrogen measurement (mass/volume ) 24 mg/dL 7-18 Serum or plasma creatinine measurement (mass/volume) 0.83 mg/dL 0.60-1.30 Serum or plasma urea nitrogen/creatinine mass ratio 29 NRG Serum or plasma creatinine measurement w ith calculation of estimated glomerular filtration rate > NRG Serum or plasma glucose measurement (mass/volume) 93 mg/dL 70-105 Serum or plasma calcium measurement (mass/volume) 9.0 mg/dL 8.5-10.1 Influenza virus A and B antigen detectio n - 07/21/19 17:20 FLU RESULT NEGATIVE FOR INFLUENZA A AND B ANTIGENS BY IA NRG Complete blood count (CBC) with automate d white blood cell (WBC) differential - 07/21/19 17:25 Blood leukocytes automated count (number/volume) 5.1 10*3/uL 4.3-11.0 Blood erythrocytes automated count (number/volume) 3.83 10*6/uL 4.35-5.85 Venous blood hemoglobin measurement (mass/volume) 12.0 g/dL 11.5-16.0 Blood hematocrit (volume fraction) 37 % 35-52 Automated erythrocyte mean corpuscular volume 97 [ foz_us] 80-99 Automated erythrocyte mean corpuscular h emoglobin (mass per erythrocyte) 31 pg 25-34 Automated erythrocyte mean corpuscular h emoglobin concentration measurement (mass/volume) 32 g/dL 32-36 Automated erythrocyte distribution width ratio 12. 7 % 10.0- 14.5 Automated blood platelet count (count/volume) 219 10*3/uL 130-400 Automated blood platelet mean volume measurement 11.2 [foz_us] 7.4-10.4 Automated blood neutrophils/100 leukocytes 40 % 42-75 Automated blood lymphocytes/100 leukocytes 44 % 12-44 Blood monocytes/100 leukocytes 8 % 0-12 Automated blood eosinophils/100 leukocytes 7 % 0-10 Automated blood basophils/100 leukocytes 1 % 0-10 Blood neutrophils automated count (number/volume) 2.0 10*3 1.8-7.8 Blood lymphocytes automated count (number/volume) 2.2 10*3 1.0-4.0 Blood monocytes automated count (number/volume) 0. 4 10*3 0.0-1.0 Automated eosinophil count 0.4 10*3/uL 0 .0-0.3 Automated blood basophil count (count/volume) 0.1 10*3/uL 0.0-0.1 Whole blood basic metabolic panel - 12/02 17:25 Serum or plasma sodium measurement (moles/volume) 145 mmol/L 135-145 Serum or plasma potassium measurement (moles/volume) 4.1 mmol/L 3.6-5.0 Serum or plasma chloride measurement (moles/volume) 109 mmol/L 98-107 Carbon dioxide 27 mmol/L 21-32 Serum or plasma anion gap determination (moles/volume) 9 mmol/L 5-14 Serum or plasma urea nitrogen measurement (mass/volume ) 13 mg/dL 7-18 Serum or plasma creatinine measurement (mass/volume) 0.90 mg/dL 0.60-1.30 Serum or plasma urea nitrogen/creatinine mass ratio 14 NRG Serum or plasma creatinine measurement w ith calculation of estimated glomerular filtration rate > NRG Serum or plasma glucose measurement (mass/volume) 132 mg/dL 70-105 Serum or plasma calcium measurement (mass/volume) 9.2 mg/dL 8.5-10.1 CRP FS - 07/21/19 17:25 CRP FS 0.26 mg/dL <0.50 Serum or plasma creatine kinase measurem ent (enzymatic activity/volume) - 07/21/19 17:25 Serum or plasma creatine kinase measurem ent (enzymatic activity/volume) 79 U/L 29-168 Complete urinalysis with reflex to cultu re - 07/21/19 17:55 Urine color determination YELLOW NRG Urine clarity determination CLEAR NR G Urine pH measurement by test strip 5.0 5-9 Specific gravity of urine by test strip > 1.016-1.022 Urine protein assay by test strip, semi-quantitative NEGATIVE NEGATIVE Urine glucose detection by automated test strip NE GATIVE NEGATIVE Erythrocytes detection in urine sediment by light micr oscopy NEGATIVE NEGATIVE Urine ketones detection by automated test strip NE GATIVE NEGATIVE Urine nitrite detection by test strip POSITIVE NEGATIVE Urine total bilirubin detection by test strip NEGA TIVE NEGATIVE Urine urobilinogen measurement by automated test strip (mass/volume) 0.2 mg/dL < = 1.0 Urine leukocyte esterase detection by dipstick NEG ATIVE NEGATIVE Automated urine sediment erythrocyte cou nt by microscopy (number/high power field) NONE NRG Automated urine sediment leukocyte count by microscopy (number/high power field) [HPF] NRG Bacteria detection in urine sediment by light microsco py LARGE NRG Squamous epithelial cells detection in u rine sediment by light microscopy 5-10 NRG Crystals detection in urine sediment by light microsco py NONE NRG Casts detection in urine sediment by light microscopy NONE NRG Mucus detection in urine sediment by light microscopy NEGATIVE NRG Complete urinalysis with reflex to culture YES NRG Bacterial urine culture - 07/21/19 17:55 Bacterial urine culture [id number] NRG COLONY COUNT >100,000/ML NRG FREE TEXT ENTRY 2 PRELIM RAPID ID BY [facility] [id number] [phone] NRG FREE TEXT ENTRY 3 CONFIRMATION TO FOLLOW NRG Encounters ACCT No. Visit Date/Time Discharge Status Pt. Type Provider Facility Loc./Unit Complaint [id number] 07/21/2019 16:55:00 19:14:00 DIS Emergency DAGO DO DEMETRA Gisel [facility] ER FS PAIN ALL OVER [id number] 05/14/2019 13:21:00 13:45:00 DIS Inpatient NAFISA JASON, JEAN Flores [facility] 4TH TROUBLE BREATHING [id number] 02/14/2019 10:39:00 00:01:00 DIS Outpatient LUIS GASCA APRN [facility] PULM COPD [id number] 05/08/2019 17:33:00 19:59:00 DIS Emergency MAURIZIO KAPOOR MD [facility] ER FS SOB,COUGH,SWELLING [id number] 04/26/2019 17:34:00 19:34:00 DIS Emergency ALBERTO JASON, DEVIN Rain [facility] ER FS SOB; COUGH [id number] 02/18/2019 15:59:00 18:28:00 DIS Emergency LYNN JASON, DEONNA Treviño [facility] ER FS HEADACHE [id number] 01/17/2019 10:18:00 12:14:00 DIS Emergency RERE GREENWOOD DO [facility] ER FS SOB [id number] 01/10/2019 09:33:00 23:59:59 CLS Preadmit LUIS GASCA APRN [facility] RAD COPD,SOB,SMOKIN G HX [id number] 12/19/2018 11:02:00 23:59:59 CLS Outpatient LUIS GASCA APRN [facility] RAD COPD, SOB, SUSP ECTED SLEEP APNEA [id number] 12/12/2018 20:26:00 23:59:59 CLS Outpatient LUIS GASCA APRN [facility] SLEEP ASTHMA,TOBACCO USER,SOB,SEASONAL ALLERGY,COPD [id number] 11/08/2018 16:46:00 19:18:00 DIS Emergency RERE GREENWOOD DO [facility] ER FS SOB [id number] 11/07/2018 14:49:00 23:59:59 CLS Outpatient LUIS GASCA [employer]EL[employer] [facility] RT J44.9 [id number] 10/23/2018 16:10:00 18:07:00 DIS Emergency TANIA BRANCH MD [facility] ER FS SOB,BACK PAIN [id number] 09/21/2018 10:10:00 23:59:59 CLS Outpatient MONTSERRAT MONGE [employer] DEVEL[employer] [facility] RAD FS SHORTNESS OF BREATH [id number] 09/10/2018 16:24:00 18:37:00 DIS Emergency JOCELINE SUKUMAR CHO [facility] ER FS SOA [id number] 08/11/2018 09:26:00 23:59:59 CLS Outpatient LUIS GASCA [employer] DEVELOPER [facility] RAD DYSPHAGIA [id number] 07/13/2018 17:15:00 23:51:00 DIS Emergency LI MIN DO T [facility] ER FS SOB [id number] 07/11/2018 07:45:00 23:59:59 CLS Preadmit LUIS GSACA [employer] DEVELOPER [facility] SLEEP ASTHMA,SOB,COPD [id number] 07/07/2018 14:29:00 23:59:59 CLS Outpatient LUIS GASCA [employer] DEVELOPER [facility] RT ASTHMA,COPD,SEA ITZ ALLERGY,SOB,TOBACCO USER [id number] 06/28/2018 12:04:00 23:59:59 CLS Outpatient LUIS GASCA [employer] DEVELOPER [facility] RAD COPD [id number] 05/23/2018 16:40:00 23:59:59 CLS Preadmit LUIS GASCA APRN [facility] RT ASTHMA, COPD, S EASONAL ALLERGY, SOB, TOBACCO USER [id number] 05/23/2018 11:57:00 23:59:59 CLS Outpatient LUIS GASCA APRN [facility] LAB COPD
== END 2019-07-21 19:14 | disposition home or self-care (01) ==
LOC: EDUNIT# 16:53 → ER FS 16:55
DX: M79.7 Fibromyalgia (principal); Z79.02 Long term (current) use of antithrombotics/antiplatelets; Z79.52 Long term (current) use of systemic steroids
CPT/HCPCS: 36415; 80048; 81000; 82550; 85025; 86141; 87077; 87088; 87186; 87804

== ENCOUNTER → 2019-07-24 | Outpatient (CLI) | payer MEDICARE, MEDICAID ==
[~2019-07-24] MED LIST changes: +TRM50T PO
--- NOTE | 2019-07-24 11:08 | Diagnostic Imaging Report ---
EXAMINATION: CHEST (PA AND LATERAL) CLINICAL INDICATION: 69-year-old female, shortness of breath. COMPARISON: May 13, 2019. FINDINGS: Stable overall appearance of the cardiomediastinal silhouette. There is no identified pneumothorax. There is no pleural effusion. There is no identified focal airspace consolidation. IMPRESSION: No identified acute cardiopulmonary abnormality. Dictated by: Dictated on workstation # [id number]
== END ==
LOC: RAD FS 10:47
PROVIDERS: ATTEND Emergency Medicine
DX: R06.02 Shortness of breath (principal)
CPT/HCPCS: 71046

== ENCOUNTER 2019-07-27 09:01 | Emergency (ER) | payer MEDICARE, MEDICAID ==
[~2019-07-27] VITALS: Ht 152.4 cm; Wt 65.9 kg
--- NOTE | 2019-07-27 09:45 | ED General ---
General Chief Complaint: Respiratory Problems Stated Complaint: COUGH; SOB; GENERAL WEAKNESS Nursing Triage Note: Pt ambulatory with walker. Pt's care worker present. Care worker reports pt has had cough, SOB, change in mental status for several days. Pt c/o L sided chest pain that has persisted for 3-4 days. Pt unalbe to describe pain or give pain number. Care worker reports pt was seen at Dr. Calderon's office three times this week and was delusion on one of those visits. Care worker reports pt uses oxygen concentrator at home. Nursing Sepsis Screen: No Definite Risk History of Present Illness Date Seen by Provider: Jul 27, 2019 Time Seen by Provider: 09:42 Initial Comments 69-year-old female has history of fibromyalgia chronic pain COPD with O2 at home she was seen here [address] Mcdonnell and then by myself complaint at that time was muscle pain all over her UA might show positive for infection though she was not symptomatic in that regard she was prescribed tramadol for pain and Septra for her urine culture ended up showing Escherichia coli resistant to sulfa but she apparently was prescribed Augmentin and then also Macrobid in response to this she nsists that she took antibiotics as prescribed on 07-22, two days later she filled the tramadol and also started buprenorphine 8 mg by mouth twice a day she reportedly has had 3 visits to the office in the interim today she is brought to the ER again by a home health care worker patient says she can't breathe respiratory rate is 18 O2 sat 94% on room air with no apparent increased work of breathing worker says she has been staring off into space, forgetful, confused and having occasional jerking or muscle spasms she has fallen once only injury skin tear dorsal right forearm Allergies and Home Medications Allergies Coded Allergies: No Known Drug Allergies (Unverified , 07/13/18) Home Medications Bupropion HCl 100 Mg Tablet.er, 100 MG PO BID, (Reported) Clopidogrel Bisulfate 75 Mg Tablet, 75 MG PO DAILY, (Reported) Duloxetine HCl 60 Mg Capsule.dr, 60 MG PO DAILY, (Reported) Esomeprazole Magnesium 40 Mg Capsule.dr, 40 MG PO DAILY, (Reported) Ipratropium/Albuterol Sulfate 3 Ml Ampul.neb, 3 ML NEB Q8H PRN for SHORTNESS OF BREATH, (Reported) Isosorbide Mononitrate 30 Mg Tab.er.24h, 30 MG PO DAILY, (Reported) Lorazepam 1 Mg Tablet, 1 MG PO TID PRN for ANXIETY, (Reported) Meloxicam 15 Mg Tablet, 15 MG PO DAILY, (Reported) Metoprolol Tartrate 25 Mg Tablet, 25 MG PO BID, (Reported) Pramipexole Di-HCl 1 Mg Tablet, 1 MG PO BID, (Reported) Prednisone 20 Mg Tab, 40 MG PO DAILY@0700 Prescribed by: CAROL GODINEZ on 05/15/19 1151 Roflumilast 500 Mcg Tablet, 500 MCG PO DAILY, (Reported) Simvastatin 40 Mg Tablet, 40 MG PO DAILY, (Reported) Topiramate 50 Mg Tablet, 50 MG PO HS, (Reported) Tramadol HCl 50 Mg Tablet, 50 MG PO BID PRN for PAIN Prescribed by: DEMETRA MCDONNELL on 07/21/19 1810 Trazodone HCl 50 Mg Tablet, 100 MG PO DAILY, (Reported) TAKES 2 (50MG) TABS Patient Home Medication List Home Medication List Reviewed: Yes Review of Systems Review of Systems Constitutional: No fever EENTM: no symptoms reported Respiratory: short of breath Cardiovascular: No chest pain, No palpitations, No syncope Gastrointestinal: no symptoms reported; No abdominal pain, No diarrhea Genitourinary: no symptoms reported Musculoskeletal: no symptoms reported Skin: other (skin tears right forearm) Psychiatric/Neurological: No Symptoms Reported Past Yscbxaz-[id number] Hx Patient Social History Alcohol Use: Denies Use Recreational Drug Use: No Smoking Status: Current Everyday Smoker Type Used: Cigarettes Former Smoker, Quit: Apr 04, 2019 2nd Hand Smoke Exposure: Yes Recent Foreign Travel: No Contact w/Someone Who Travel: No Recent Infectious Disease Expo: No Recent Hopitalizations: No Immunizations Up To Date Tetanus Booster (TDap): Unknown PED Vaccines UTD: Yes Date of Pneumonia Vaccine: Feb 13, 2019 Date of Influenza Vaccine: Feb 13, 2019 Seasonal Allergies Seasonal Allergies: No Past Medical History Surgeries: No Gallbladder, Hysterectomy, Orthopedic, 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 Respiratory: Yes COPD Currently Using CPAP: No Cardiac: Yes Hypertension Neurological: No Genitourinary: No Gastrointestinal: No Musculoskeletal: No Endocrine: No HEENT: No Cancer: No Psychosocial: Yes Anxiety Integumentary: No Blood Disorders: No Adverse Reaction/Blood Tranf: No Family Medical History Hypertension GRANDMOTHER Neoplasm 19 FATHER (PROSTATE) 19 MOTHER (UNKNOWN CANCER) Physical Exam Vital Signs Vital Signs - First Documented 07/27/19 09:10 Temp 36.7 Pulse 86 Resp 18 B/P (MAP) 134/65 (88) Pulse Ox 94 O2 Delivery Room Air Capillary Refill : Less Than 3 Seconds Height, Weight, BMI Height: 5'0" Weight: 160lbs. oz. [id number]; 28.00 BMI Method:Stated General Appearance: No Apparent Distress, Other (seems "spacy" but responds appropriately) Eyes: Bilateral Eye PERRL, Bilateral Eye EOMI HEENT: TMs Normal, Pharynx Normal, Moist Mucous Membranes Neck: Supple Respiratory: Rhonci Cardiovascular: Regular Rate, Rhythm Gastrointestinal: Non Tender, Soft Back: Normal Inspection Extremity: Other (is stiff / rigid generally light skin tears on dorsal right forearm equal vial gauger no asymmetry or focal deficits found) Neurologic/Psychiatric: Alert, signing teacher II-XII Norm as Tested Progress/Results/Core Measures Suspected Sepsis Recent Fever Within 48 Hours: No Infection Criteria Present: None New/Unexplained Altered Menta: No Sepsis Screen: No Definite Risk SIRS Temperature: Pulse: 86 Respiratory Rate: 18 Laboratory Tests 07/27/19 09:45: White Blood Count 10.5 Blood Pressure 134 /65 Mean: 88 Laboratory Tests 07/27/19 09:45: Creatinine 0.93, Platelet Count 273, Total Bilirubin 0.2 Results/Orders Lab Results Laboratory Tests Test 07/27/19 09:45 07/27/19 09:55 Range/Units White Blood Count 10.5 4.3-11.0 10^3/uL Red Blood Count 3.53 L 4.35-5.85 10^6/uL Hemoglobin 11.0 L 11.5-16.0 G/DL Hematocrit 35 35-52 % Mean Corpuscular Volume 98 80-99 FL Mean Corpuscular Hemoglobin 31 25-34 PG Mean Corpuscular Hemoglobin Concent 32 32-36 G/DL Red Cell Distribution Width 13.1 10.0-14.5 % Platelet Count 273 130-400 10^3/uL Mean Platelet Volume 11.4 H 7.4-10.4 FL Neutrophils (%) (Auto) 86 H 42-75 % Lymphocytes (%) (Auto) 8 L 12-44 % Monocytes (%) (Auto) 6 0-12 % Eosinophils (%) (Auto) 0 0-10 % Basophils (%) (Auto) 0 0-10 % Neutrophils # (Auto) 9.0 H 1.8-7.8 X 10^3 Lymphocytes # (Auto) 0.8 L 1.0-4.0 X 10^3 Monocytes # (Auto) 0.6 0.0-1.0 X 10^3 Eosinophils # (Auto) 0.0 0.0-0.3 10^3/uL Basophils # (Auto) 0.0 0.0-0.1 10^3/uL Sodium Level 140 135-145 MMOL/L Potassium Level 5.0 3.6-5.0 MMOL/L Chloride Level 105 98-107 MMOL/L Carbon Dioxide Level 24 21-32 MMOL/L Anion Gap 11 5-14 MMOL/L Blood Urea Nitrogen 41 H 7-18 MG/DL Creatinine 0.93 0.60-1.30 MG/DL Estimat Glomerular Filtration Rate 60 BUN/Creatinine Ratio 44 Glucose Level 169 H 70-105 MG/DL Calcium Level 9.8 8.5-10.1 MG/DL Corrected Calcium 9.7 8.5-10.1 MG/DL Total Bilirubin 0.2 0.1-1.0 MG/DL Aspartate Amino Transf (AST/SGOT) 29 5-34 U/L Alanine Aminotransferase (ALT/SGPT) 50 0-55 U/L Alkaline Phosphatase 75 40-136 U/L Troponin I < 0.30 <0.30 NG/ML Total Protein 6.8 6.4-8.2 GM/DL Albumin 4.1 3.2-4.5 GM/DL Urine Color YELLOW Urine Clarity CLEAR Urine pH 6.0 5-9 Urine Specific [place] 1.020 1.016-1.022 Urine Protein NEGATIVE NEGATIVE Urine Glucose (UA) NEGATIVE NEGATIVE Urine Ketones NEGATIVE NEGATIVE Urine Nitrite NEGATIVE NEGATIVE Urine Bilirubin NEGATIVE NEGATIVE Urine Urobilinogen 0.2 < = 1.0 MG/DL Urine Leukocyte Esterase 1+ H NEGATIVE Urine RBC (Auto) NEGATIVE NEGATIVE Urine RBC RARE /HPF Urine WBC 0-2 /HPF Urine Squamous Epithelial Cells 0-2 /HPF Urine Crystals NONE /LPF Urine Bacteria TRACE /HPF Urine Casts NONE /LPF Urine Mucus SMALL H /LPF Urine Culture Indicated YES My Orders Orders - HALLEY SOLIS MD Iv Heplock-Insert (Order) (07/27/19 09:36) Cbc With Automated Diff (07/27/19 09:36) Comprehensive Metabolic Panel (07/27/19 09:36) Urinalysis (07/27/19 09:36) Ekg Tracing (07/27/19 09:36) Troponin I Fs (07/27/19 09:36) Chest Pa/Lat (2 View) (07/27/19 09:36) Ct Head Wo (07/27/19 09:36) Albuterol/Ipra Inhalation Soln (Duoneb I (07/27/19 10:15) Svn Small Volume Nebulizer (07/27/19 10:15) Penology Teacher (07/27/19 10:15) Urine Culture (07/27/19 09:55) Manual Differential (07/27/19 09:45) Medications Given in ED Current Medications Medications Dose Ordered Sig/Hern[place] Route Start Time Stop Time Status Last Admin Dose Admin Albuterol/ Ipratropium 3 ml ONCE ONCE INH 07/27/19 10:15 07/27/19 10:17 DC 07/27/19 10:24 3 ML Vital Signs/I&O 07/27/19 09:10 Temp 36.7 Pulse 86 Resp 18 B/P (MAP) 134/65 (88) Pulse Ox 94 O2 Delivery Room Air Capillary Refill : Less Than 3 Seconds Blood Pressure Mean: 88 Progress Note : Progress Note EKG shows sinus rhythm at [address] changes pt able to ambulate with her walker although very slowly Chest x-ray shows nothing acute UA although it triggered a culture again shows only trace bacteria 0-2 red cells 0-2 white cells 1+ leukocyte esterase sp gr 1.020 CT head shows nothing acute CMP normal except BUN 40 troponin negative CBC - Hb 11 WBC 10,500 pt denies any bloody or black tarry stools Patient is on numerous medications many of which can be sedating Feel this polypharmacy is a problem suggested trying just taking the buprenorphine at bedtime and eliminating the a.m. dose if possible Will give some IV fluids here for mild dehydration Not finding reason for further evaluation testing or hospital admission Departure Impression Primary Impression: Polypharmacy Additional Impression: Dehydration Disposition: 01 HOME, SELF-CARE Condition: Stable Departure-Patient Inst. Decision time for Depature: 10:43 Referrals: KELLENBERGER,CHACHO D DO (PCP/Family) Primary Care Physician Add. Discharge Instructions: Our evaluation, including a CAT scan of the head, showed only dehydration You do seem quite sedated We suggest you take the buprinorphine only at bedtime not in the morning if you can tolerate this HALLEY SOLIS MD Jul 27, 2019 09:45
[2019-07-27] MEDS ORDERED: RT-ALBUTEROL/IPRATROPIUM 3 ML (DUONEB) VIAL INH ONE (10:15)
--- NOTE | 2019-07-27 10:19 | Diagnostic Imaging Report ---
INDICATION: Shortness of breath. TIME OF EXAM: 10:06 AM CORRELATION is made with prior chest from 07/24/2019. Heart appears enlarged. Lungs are hyperinflated consistent with COPD. No infiltrates are seen. There is no effusion or pneumothorax. IMPRESSION: Cardiomegaly and COPD. No acute infiltrate is detected. Dictated by: Dictated on workstation # [id number]
[2019-07-27 10:20] LABS: BILIRUBIN,URINE NEGATIVE (NEGATIVE); CLARITY,URINE CLEAR; COLOR,URINE YELLOW; GLUCOSE, URINE (UA) NEGATIVE (NEGATIVE); KETONES,URINE NEGATIVE (NEGATIVE); LEUKOCYTE ESTERASE ,URINE 1+ (NEGATIVE); NITRITE,URINE NEGATIVE (NEGATIVE); PROTEIN,URINE NEGATIVE (NEGATIVE)
[2019-07-27 10:21] LABS: BACTERIA,URINE TRACE /HPF; RBC,URINE RARE /HPF; SQUAMOUS EPITHELIAL CELL,UR 0-2 /HPF; WBC,URINE 0-2 /HPF
--- NOTE | 2019-07-27 10:23 | Diagnostic Imaging Report ---
PROCEDURE: CT head without contrast. TECHNIQUE: Multiple contiguous axial images were obtained through the brain without the use of intravenous contrast. Auto Exposure Controls were utilized during the CT exam to meet ALARA standards for radiation dose reduction. INDICATION: Confusion. COMPARISON: Prior head CT from 07/13/2018. FINDINGS: The ventricles and sulci are stable in appearance. No sulcal effacement is seen. There is no midline shift. No acute intra-axial or extra-axial hemorrhage is detected. The cisterns are patent. The visualized paranasal sinuses are clear. IMPRESSION: No acute intracranial process is detected. Dictated by: Dictated on workstation # [id number]
[2019-07-27 10:29] LABS: ALANINE AMINOTRANSFERASE 50 U/L (0-55); ALKALINE PHOSPHATASE 75 U/L (40-136); BILIRUBIN,TOTAL 0.2 MG/DL (0.1-1.0); BUN/CREATININE RATIO 44; CALCIUM 9.8 MG/DL (8.5-10.1); CARBON DIOXIDE 24 MMOL/L (21-32); CHLORIDE 105 MMOL/L (98-107); CREATININE SERUM 0.93 MG/DL (0.60-1.30); GFR ESTIMATED 60; GLUCOSE 169 MG/DL (70-105); SODIUM 140 MMOL/L (135-145); TOTAL PROTEIN 6.8 GM/DL (6.4-8.2)
[2019-07-27 10:30] LABS: ALBUMIN 4.1 GM/DL (3.2-4.5); HEMATOCRIT 35 % (35-52); MEAN CORPUSCULAR HEMOGLOBIN 31 PG (25-34); MEAN CORPUSCULAR HGB CONC 32 G/DL (32-36); MEAN CORPUSCULAR VOLUME 98 FL (80-99); MEAN PLATELET VOLUME 11.4 FL (7.4-10.4); PLATELET COUNT 273 10^3/uL (130-400); RED CELL DISTRIBUTION WIDTH 13.1 % (10.0-14.5); WHITE BLOOD COUNT 10.5 10^3/uL (4.3-11.0)
[2019-07-27 10:31] LABS: BASOPHILS % (AUTO) 0 % (0-10); EOSINOPHILS % (AUTO) 0 % (0-10); LYMPHOCYTES # (AUTO) 0.8 X 10^3 (1.0-4.0); LYMPHOCYTES % (AUTO) 8 % (12-44); MONOCYTES # (AUTO) 0.6 X 10^3 (0.0-1.0); MONOCYTES % (AUTO) 6 % (0-12); NEUTROPHILS % (AUTO) 86 % (42-75)
[2019-07-27 10:41] LABS: BAND NEUTROPHILS 3 %; BASOPHILS % (MANUAL) 0 %; EOSINOPHILS % (MANUAL) 0 %; LYMPHOCYTES % (MANUAL) 7 %; MONOCYTES % (MANUAL) 5 %; NEUTROPHILS % (MANUAL) 85 %; RBC MORPH NORMAL
[2019-07-27] MEDS ORDERED: NS IV 1000 ML 1,000 ML IV SCH (10:45)
[2019-07-27 11:15] VITALS: BP 120/55
--- OUTSIDE RECORDS SUMMARY | 2019-07-29 02:41 | XMS REPORT | Continuity of Care Document ---
Author Organization Unknown Address Unknown Phone Unavailable Allergies Active Description Code Type Severity Reaction Onset Reported/Identified Relationship to Patient Clinical Status Yes No Allergy Information Available [id number] Drug Allergy Unknown N/A 019 Yes No Known Drug Allergies [id number] Drug Allergy Unknown N/A 07/13/2018 Medications There is no data. Problems Date Dx Coded Attending Type Code Diagnosis Diagnosed By 05/24/2018 LUIS GASCA APRN Ot J44.9 CHRONIC OBSTRUCTIVE PULMONARY DISEASE, U 05/31/2018 LUIS GASCA APRN Ot J44.9 CHRONIC OBSTRUCTIVE PULMONARY DISEASE, U 06/15/2018 LUIS GASCA APRN Ot J44.9 CHRONIC OBSTRUCTIVE PULMONARY DISEASE, U 06/28/2018 LUIS GASCA 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 Ot J44.9 CHRONIC OBSTRUCTIVE PULMONARY DISEASE, U 06/28/2018 LUIS GASCA 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 Ot J43.9 EMPHYSEMA, UNSPECIFIED 06/28/2018 LUIS GASCA 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 Ot J45.909 UNSPECIFIED ASTHMA, UNCOMPLICATED 06/28/2018 LUIS GASCA 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 Ot J98.4 OTHER DISORDERS OF LUNG 06/28/2018 LUIS GASCA 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 Ot Z72.0 TOBACCO USE 07/07/2018 LUIS GASCA 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 Ot J43.9 EMPHYSEMA, UNSPECIFIED 07/07/2018 LUIS GASCA 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 Ot J45.909 UNSPECIFIED ASTHMA, UNCOMPLICATED 07/07/2018 LUIS GASCA 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 Ot J98.4 OTHER DISORDERS OF LUNG 07/07/2018 LUIS GASCA 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 Ot Z72.0 TOBACCO USE 07/13/2018 LUIS GASCA 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 Ot R13.11 DYSPHAGIA, ORAL PHASE 07/13/2018 LUIS GASCA 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 Ot G47.10 HYPERSOMNIA, UNSPECIFIED 07/13/2018 LI MIN [...] J43. 9 EMPHYSEMA, UNSPECIFIED 07/14/2018 MECHELLE CHO, LI T Ot R06. 00 DYSPNEA, UNSPECIFIED 07/18/2018 LUIS GASCA 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 Ot J43.9 EMPHYSEMA, UNSPECIFIED 07/18/2018 LUIS GASCA 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 Ot J45.909 UNSPECIFIED ASTHMA, UNCOMPLICATED 07/18/2018 LUIS GASCA 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 Ot J98.4 OTHER DISORDERS OF LUNG 07/18/2018 LUIS GASCA APRN Ot Z72.0 TOBACCO USE 07/31/2018 LUIS GASCA APRN Ot J30.2 OTHER SEASONAL ALLERGIC RHINITIS 07/31/2018 LUIS GASCA 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 Ot J44.9 CHRONIC OBSTRUCTIVE PULMONARY DISEASE, U 07/31/2018 LUIS GASCA APRN Ot R06.00 DYSPNEA, UNSPECIFIED 07/31/2018 LUIS GASCA 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 Ot Z72.0 TOBACCO USE 08/05/2018 MECHELLE CHO, [...] OTHER SEASONAL ALLERGIC RHINITIS 09/10/2018 LUIS GASCA 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 Ot J44.9 CHRONIC OBSTRUCTIVE PULMONARY DISEASE, U 09/10/2018 LUIS GASCA 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 Ot R06.00 DYSPNEA, UNSPECIFIED 09/10/2018 LUIS GASCA 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 Ot Z72.0 TOBACCO USE 09/10/2018 LUIS GASCA 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 Ot J43.9 EMPHYSEMA, UNSPECIFIED 09/10/2018 LUIS GASCA 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 Ot J45.909 UNSPECIFIED ASTHMA, UNCOMPLICATED 09/10/2018 LUIS GASCA 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 Ot J98.4 OTHER DISORDERS OF LUNG 09/10/2018 LUIS GASCA 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 Ot Z72.0 TOBACCO USE 09/10/2018 LUIS GASCA APRN Ot R13.11 DYSPHAGIA, ORAL PHASE 09/27/2018 MONTSERRAT MONGE 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 Ot R06. 02 SHORTNESS OF BREATH 10/13/2018 MONTSERRAT MONGE 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 Ot R06. 02 SHORTNESS OF BREATH 10/23/2018 [...] DEPENDENCE ON SUPPLEMENTAL OXYGEN 10/23/2018 LUIS GASCA 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 Ot J44.9 CHRONIC OBSTRUCTIVE PULMONARY DISEASE, U 10/23/2018 LUIS GASCA 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 Ot J30.2 OTHER SEASONAL ALLERGIC RHINITIS 10/23/2018 LUIS GASCA 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 Ot J44.9 CHRONIC OBSTRUCTIVE PULMONARY DISEASE, U 10/23/2018 LUIS GASCA 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 Ot R06.00 DYSPNEA, UNSPECIFIED 10/23/2018 CAMPOSLUIS MORAN 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 Ot Z72.0 TOBACCO USE 10/23/2018 LUIS GASCA 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 Ot J43.9 EMPHYSEMA, UNSPECIFIED 10/23/2018 LUIS GASCA 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 Ot J45.909 UNSPECIFIED ASTHMA, UNCOMPLICATED 10/23/2018 LUIS GASCA 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 Ot J98.4 OTHER DISORDERS OF LUNG 10/23/2018 LUIS GASCA 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 Ot Z72.0 TOBACCO USE 10/23/2018 LUIS GASCA 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 Ot R13.11 DYSPHAGIA, ORAL PHASE 10/23/2018 MONTSERRAT MONGE 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 Ot R06. 02 SHORTNESS OF BREATH 10/26/2018 [...] DEPENDENCE ON SUPPLEMENTAL OXYGEN 11/08/2018 LUIS GASCA 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 Ot G47.10 HYPERSOMNIA, UNSPECIFIED 11/08/2018 CAMPOSOLMAN MORANINE Aaron 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 Ot J30.2 OTHER SEASONAL ALLERGIC RHINITIS 11/08/2018 CAMPOSOLMAN MORANINE Aaron 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 Ot J44.9 CHRONIC OBSTRUCTIVE PULMONARY DISEASE, U 11/08/2018 CAMPOSOLMAN MORANINE Aaron 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 Ot R06.00 DYSPNEA, UNSPECIFIED 11/08/2018 CAMPOSOLMAN MORANINE Aaron 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 Ot R13.10 DYSPHAGIA, UNSPECIFIED 11/08/2018 CAMPOSOLMAN MORANINE Aaron 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 Ot R91.8 OTHER NONSPECIFIC ABNORMAL FINDING OF YAYA 11/08/2018 CAMPOSLUIS MORAN 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 Ot Z72.0 TOBACCO USE 11/10/2018 RERE GREENWOOD [...] ON SUPPLEMENTAL OXYGEN 12/06/2018 OLMAN GASCAINE E 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 Ot G47.9 SLEEP DISORDER, UNSPECIFIED 12/11/2018 OLMAN GASCAINE E 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 Ot G47.10 HYPERSOMNIA, UNSPECIFIED 12/11/2018 OLMAN GASCAINE E 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 Ot J30.2 OTHER SEASONAL ALLERGIC RHINITIS 12/11/2018 OLMAN GASCAINE E 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 Ot J44.9 CHRONIC OBSTRUCTIVE PULMONARY DISEASE, U 12/11/2018 OLMAN GASCAINE E 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 Ot R06.00 DYSPNEA, UNSPECIFIED 12/11/2018 OLMAN GASCAINE E 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 Ot R13.10 DYSPHAGIA, UNSPECIFIED 12/11/2018 OLMAN GASCAINE E 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 Ot R91.8 OTHER NONSPECIFIC ABNORMAL FINDING OF YAYA 12/11/2018 CAMPOSOLMAN MORANINE E 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 Ot Z72.0 TOBACCO USE 12/12/2018 OLMAN GASCAINE E 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 Ot G47.9 SLEEP DISORDER, UNSPECIFIED 12/14/2018 OLMAN GASCAINE E 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 Ot G47.10 HYPERSOMNIA, UNSPECIFIED 12/14/2018 OLMAN GASCAINE E 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 Ot G47.33 OBSTRUCTIVE SLEEP APNEA (ADULT) (PEDIATR 12/14/2018 OLMAN GASCAINE E 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 Ot J30.2 OTHER SEASONAL ALLERGIC RHINITIS 12/14/2018 OLMAN GASCAINE Aaron 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 Ot J44.9 CHRONIC OBSTRUCTIVE PULMONARY DISEASE, U 12/14/2018 OLMAN GASCAINE E 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 Ot R00.0 TACHYCARDIA, UNSPECIFIED 12/14/2018 OLMAN GASCAINE E 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 Ot R13.10 DYSPHAGIA, UNSPECIFIED 12/14/2018 OLMAN GASCAINE Aaron 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 Ot Z72.0 TOBACCO USE 12/18/2018 OLMAN GASCAINE Aaron 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 Ot G47.10 HYPERSOMNIA, UNSPECIFIED 12/18/2018 OLMAN GASCAINE E 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 Ot G47.33 OBSTRUCTIVE SLEEP APNEA (ADULT) (PEDIATR 12/18/2018 OLMAN GASCAINE E 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 Ot J30.2 OTHER SEASONAL ALLERGIC RHINITIS 12/18/2018 OLMAN GASCAINE E 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 Ot J44.9 CHRONIC OBSTRUCTIVE PULMONARY DISEASE, U 12/18/2018 OLMAN GASCAINE E 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 Ot R00.0 TACHYCARDIA, UNSPECIFIED 12/18/2018 OLMAN GASCAINE E 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 Ot R13.10 DYSPHAGIA, UNSPECIFIED 12/18/2018 OLMAN GASCAINE E 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 Ot Z72.0 TOBACCO USE 12/21/2018 OLMAN GASCAINE E 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 Ot G47.10 HYPERSOMNIA, UNSPECIFIED 12/21/2018 CAMPOSOLMAN MORANINE E 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 Ot J30.2 OTHER SEASONAL ALLERGIC RHINITIS 12/21/2018 CAMPOSOLMAN MORANINE E 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 Ot J43.9 EMPHYSEMA, UNSPECIFIED 12/21/2018 CAMPOSOLMAN MORANINE E 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 Ot R91.8 OTHER NONSPECIFIC ABNORMAL FINDING OF YAYA 12/21/2018 LUIS GASCA 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 Ot Z72.0 TOBACCO USE 12/25/2018 LUIS GASCA 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 Ot G47.10 HYPERSOMNIA, UNSPECIFIED 12/25/2018 OLMAN GASCAINE E 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 Ot J30.2 OTHER SEASONAL ALLERGIC RHINITIS 12/25/2018 OLMAN GASCAINE E 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 Ot J43.9 EMPHYSEMA, UNSPECIFIED 12/25/2018 OLMAN GASCAINE E 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 Ot R91.8 OTHER NONSPECIFIC ABNORMAL FINDING OF YAYA 12/25/2018 OLMAN GASCAINE Aaron 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 Ot Z72.0 TOBACCO USE 12/25/2018 OLMAN GASCAINE E 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 Ot J44.9 CHRONIC OBSTRUCTIVE PULMONARY DISEASE, U 12/25/2018 OLMAN GASCAINE E 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 Ot J30.2 OTHER SEASONAL ALLERGIC RHINITIS 12/25/2018 OLMAN GASCAINE E 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 Ot J44.9 CHRONIC OBSTRUCTIVE PULMONARY DISEASE, U 12/25/2018 OLMAN GASCAINE E 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 Ot R06.00 DYSPNEA, UNSPECIFIED 12/25/2018 OLMAN GASCAINE E 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 Ot Z72.0 TOBACCO USE 12/25/2018 OLMAN GASCAINE E 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 Ot J43.9 EMPHYSEMA, UNSPECIFIED 12/25/2018 OLMAN GASCAINE E 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 Ot J45.909 UNSPECIFIED ASTHMA, UNCOMPLICATED 12/25/2018 OLMAN GASCAINE E 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 Ot J98.4 OTHER DISORDERS OF LUNG 12/25/2018 LUIS GASCA 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 Ot Z72.0 TOBACCO USE 12/25/2018 OLMAN GASCAINE E 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 Ot R13.11 DYSPHAGIA, ORAL PHASE 12/25/2018 MONTSERRAT MONGE 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 Ot R06. 02 SHORTNESS OF BREATH 12/25/2018 LUIS GASCA E 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 Ot G47.10 HYPERSOMNIA, UNSPECIFIED 12/25/2018 OLMAN GASCAINE E 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 Ot J30.2 OTHER SEASONAL ALLERGIC RHINITIS 12/25/2018 OLMAN GASCAINE E 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 Ot J44.9 CHRONIC OBSTRUCTIVE PULMONARY DISEASE, U 12/25/2018 OLMAN GASCAINE E 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 Ot R06.00 DYSPNEA, UNSPECIFIED 12/25/2018 CAMPOSOLMAN MORANINE E 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 Ot R13.10 DYSPHAGIA, UNSPECIFIED 12/25/2018 CAMPOS, LUIS E 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 Ot R91.8 OTHER NONSPECIFIC ABNORMAL FINDING OF YAYA 12/25/2018 LUIS GASCA 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 Ot Z72.0 TOBACCO USE 12/25/2018 OLMAN GASCAINE E 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 Ot G47.10 HYPERSOMNIA, UNSPECIFIED 12/25/2018 OLMAN GASCAINE E 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 Ot G47.33 OBSTRUCTIVE SLEEP APNEA (ADULT) (PEDIATR 12/25/2018 OLMAN GASCAINE E 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 Ot J30.2 OTHER SEASONAL ALLERGIC RHINITIS 12/25/2018 LUIS GASCA 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 Ot J44.9 CHRONIC OBSTRUCTIVE PULMONARY DISEASE, U 12/25/2018 LUIS GASCA E 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 Ot R00.0 TACHYCARDIA, UNSPECIFIED 12/25/2018 OLMAN GASCAINE E 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 Ot R13.10 DYSPHAGIA, UNSPECIFIED 12/25/2018 OLMAN GASCAINE E 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 Ot Z72.0 TOBACCO USE 12/28/2018 OLMAN GASCAINE E 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 Ot G47.10 HYPERSOMNIA, UNSPECIFIED 12/28/2018 OLMAN GASCAINE E 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 Ot J30.2 OTHER SEASONAL ALLERGIC RHINITIS 12/28/2018 OLMAN GASCAINE E 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 Ot J43.9 EMPHYSEMA, UNSPECIFIED 12/28/2018 CAMPOS, LUIS E 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 Ot R91.8 OTHER NONSPECIFIC ABNORMAL FINDING OF YAYA 12/28/2018 OLMAN GASCAINE E 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 Ot Z72.0 TOBACCO USE 12/28/2018 CAMPOS, LUIS E 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 Ot G47.10 HYPERSOMNIA, UNSPECIFIED 12/28/2018 CAMPOSLUIS MORAN 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 Ot J30.2 OTHER SEASONAL ALLERGIC RHINITIS 12/28/2018 LUIS GASCA 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 Ot J43.9 EMPHYSEMA, UNSPECIFIED 12/28/2018 LUIS GASCA 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 Ot R91.8 OTHER NONSPECIFIC ABNORMAL FINDING OF YAYA 12/28/2018 CAMPOSLUIS MORAN 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 Ot Z72.0 TOBACCO USE 01/02/2019 CAMPOSLUIS MORAN 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 Ot G47.10 HYPERSOMNIA, UNSPECIFIED 01/02/2019 CAMPOSLUIS MORAN 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 Ot G47.33 OBSTRUCTIVE SLEEP APNEA (ADULT) (PEDIATR 01/02/2019 CAMPOSLUIS MORAN 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 Ot J30.2 OTHER SEASONAL ALLERGIC RHINITIS 01/02/2019 LUIS GASCA 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 Ot J44.9 CHRONIC OBSTRUCTIVE PULMONARY DISEASE, U 01/02/2019 LUIS GASCA 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 Ot R00.0 TACHYCARDIA, UNSPECIFIED 01/02/2019 LUIS GASCA 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 Ot R13.10 DYSPHAGIA, UNSPECIFIED 01/02/2019 LUIS GASCA 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 Ot Z72.0 TOBACCO USE 01/17/2019 RERE GREENWOOD [...] BLO 01/17/2019 RERE GREENWOOD DO Ot Z79.52 REHAB 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 SYSTEMIC STER 01/17/2019 RERE [...] BLO 01/23/2019 RERE GREENWOOD DO Ot Z79.52 RESIDENTIAL (CURRENT) USE OF SYSTEMIC STER 01/23/2019 RERE GREENWOOD DO Ot Z87.891 PERSONAL HISTORY [...] SMO 02/18/2019 DEONNA BAILEY MD Ot Z79.52 RESIDENTIAL (CURRENT) USE OF SYSTEMIC STER 02/18/2019 DEONNA [...] SMO 02/23/2019 DEONNA BAILEY MD Ot 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.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 SYSTEMIC STER 02/23/2019 DEONNA [...] SMO 02/25/2019 DEONNA BAILEY MD Ot 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.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 SYSTEMIC STER 02/25/2019 DEONNA BAILEY MD Ot Z87.891 PERSONAL HISTORY OF NICOTINE DEPENDENCE 02/25/2019 DEONNA BAILEY MD Ot Z90.710 ACQUIRED ABSENCE OF BOTH CERVIX AND UTER 02/25/2019 DEONNA BAILEY MD Ot Z98.51 TUBAL LIGATION STATUS 02/28/2019 DEONNA BAILEY MD Ot F41 .9 ANXIETY DISORDER, UNSPECIFIED 02/28/2019 DEONNA ABILEY MD Ot G43.909 MIGRAINE, UNSP, NOT INTRACTABLE, WITHOUT 02/28/2019 DEONNA BAILEY MD Ot I10 ESSENTIAL (PRIMARY) HYPERTENSION 02/28/2019 DEONNA BAILEY MD Ot J44 .9 CHRONIC OBSTRUCTIVE PULMONARY DISEASE, U 02/28/2019 DEONNA BAILEY MD Ot R51 HEADACHE 02/28/2019 DEONNA BAILEY MD Ot Z77.22 CNTCT W AND EXPSR TO ENVIRON TOBACCO SMO 02/28/2019 DEONNA BAILEY MD Ot Z79.52 RESIDENTIAL (CURRENT) USE OF SYSTEMIC STER 02/28/2019 DEONNA BAILEY MD Ot Z87.891 PERSONAL HISTORY OF NICOTINE DEPENDENCE 02/28/2019 DEONNA BAILEY MD Ot Z90.710 ACQUIRED ABSENCE OF BOTH CERVIX AND UTER 02/28/2019 DEONNA BAILEY MD Ot Z98.51 TUBAL LIGATION STATUS 03/15/2019 LUIS GASCA 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 Ot J30.2 OTHER SEASONAL ALLERGIC RHINITIS 03/15/2019 LUIS GASCA 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 Ot J44.9 CHRONIC OBSTRUCTIVE PULMONARY DISEASE, U 03/15/2019 LUIS GASCA 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 Ot R13.10 DYSPHAGIA, UNSPECIFIED 03/15/2019 OLMAN GASCAINE Aaron 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 Ot R91.8 OTHER NONSPECIFIC ABNORMAL FINDING OF YAYA 03/15/2019 OLMAN GASCAINE Aaron 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 Ot Z72.0 TOBACCO USE 03/20/2019 OLMAN GASCAINE Aaron 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 Ot J30.2 OTHER SEASONAL ALLERGIC RHINITIS 03/20/2019 OLMAN GASCAINE Aaron 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 Ot J44.9 CHRONIC OBSTRUCTIVE PULMONARY DISEASE, U 03/20/2019 OLMAN GASCAINE Aaron 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 Ot R13.10 DYSPHAGIA, UNSPECIFIED 03/20/2019 OLMAN GASCAINE Aaron 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 Ot R91.8 OTHER NONSPECIFIC ABNORMAL FINDING OF YAYA 03/20/2019 LUIS GASCA 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 Ot Z72.0 TOBACCO USE 03/22/2019 LUIS GASCA 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 Ot J30.2 OTHER SEASONAL ALLERGIC RHINITIS 03/22/2019 OLMAN GASCAINE Aaron 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 Ot J44.9 CHRONIC OBSTRUCTIVE PULMONARY DISEASE, U 03/22/2019 OLMAN GASCAINE Aaron 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 Ot R13.10 DYSPHAGIA, UNSPECIFIED 03/22/2019 OLMAN GASCAINE Aaron 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 Ot R91.8 OTHER NONSPECIFIC ABNORMAL FINDING OF YAYA 03/22/2019 OLMAN GASCAINE Aaron 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 Ot Z72.0 TOBACCO USE 03/27/2019 OLMAN GASCAINE Aaron 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 Ot J30.2 OTHER SEASONAL ALLERGIC RHINITIS 03/27/2019 OLMAN GASCAINE Aaron 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 Ot J44.9 CHRONIC OBSTRUCTIVE PULMONARY DISEASE, U 03/27/2019 CAMPOS, LUIS E 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 Ot R13.10 DYSPHAGIA, UNSPECIFIED 03/27/2019 CAMPOS, LUIS E 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 Ot R91.8 OTHER NONSPECIFIC ABNORMAL FINDING OF YAYA 03/27/2019 CAMPOSOLMAN MORANINE E 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 Ot Z72.0 TOBACCO USE 03/27/2019 CAMPOSOLMAN MORANINE E 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 Ot J30.2 OTHER SEASONAL ALLERGIC RHINITIS 03/27/2019 CAMPOS, LUIS E 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 Ot J44.9 CHRONIC OBSTRUCTIVE PULMONARY DISEASE, U 03/27/2019 CAMPOS LUIS E 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 Ot R13.10 DYSPHAGIA, UNSPECIFIED 03/27/2019 CAMPOS LUIS E 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 Ot R91.8 OTHER NONSPECIFIC ABNORMAL FINDING OF YAYA 03/27/2019 CAMPOSOLMAN MORANINE Aaron 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 Ot Z72.0 TOBACCO USE 03/28/2019 CAMPOSOLMAN MORANINE E 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 Ot J30.2 OTHER SEASONAL ALLERGIC RHINITIS 03/28/2019 CAMPOSOLMAN MORANINE E 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 Ot J44.9 CHRONIC OBSTRUCTIVE PULMONARY DISEASE, U 03/28/2019 CAMPOSOLMAN MORANINE E 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 Ot R13.10 DYSPHAGIA, UNSPECIFIED 03/28/2019 CAMPOS LUIS E 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 Ot R91.8 OTHER NONSPECIFIC ABNORMAL FINDING OF YAYA 03/28/2019 CAMPOSOLMAN MORANINE Aaron 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 Ot Z72.0 TOBACCO USE 03/29/2019 CAMPOSOLMAN MORANINE E 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 Ot J30.2 OTHER SEASONAL ALLERGIC RHINITIS 03/29/2019 CAMPOSOLMAN MORANINE E 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 Ot J44.9 CHRONIC OBSTRUCTIVE PULMONARY DISEASE, U 03/29/2019 CAMPOSOLMAN MORANINE Aaron 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 Ot R13.10 DYSPHAGIA, UNSPECIFIED 03/29/2019 CAMPOSOLMAN MORANINE E 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 Ot R91.8 OTHER NONSPECIFIC ABNORMAL FINDING OF YAYA 03/29/2019 CAMPOSOLMAN MORANINE Aaron 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 Ot Z72.0 TOBACCO USE 03/29/2019 CAMPOSOLMAN MORANINE E 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 Ot J30.2 OTHER SEASONAL ALLERGIC RHINITIS 03/29/2019 CAMPOS, LUIS E 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 Ot J44.9 CHRONIC OBSTRUCTIVE PULMONARY DISEASE, U 03/29/2019 CAMPOSOLMANLUIS E 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 Ot R13.10 DYSPHAGIA, UNSPECIFIED 03/29/2019 CAMPOS LUIS E 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 Ot R91.8 OTHER NONSPECIFIC ABNORMAL FINDING OF YAYA 03/29/2019 CAMPOSOLMAN MORANINE E 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 Ot Z72.0 TOBACCO USE 04/26/2019 DEVIN DOMINGUEZ [...] 04/26/2019 DEVIN DOMINGUEZ MD Ot Z79. 52 RESIDENTIAL (CURRENT) USE OF SYSTEMIC STER 04/26/2019 DEVIN [...] 04/30/2019 DEVIN DOMINGUEZ MD Ot Z79. 52 REHAB 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 SYSTEMIC STER 04/30/2019 DEVIN [...] DEPENDENCE ON SUPPLEMENTAL OXYGEN 05/15/2019 LUIS GASCA 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 Ot J30.2 OTHER SEASONAL ALLERGIC RHINITIS 05/15/2019 LUIS GASCA APRN Ot J44.9 CHRONIC OBSTRUCTIVE PULMONARY DISEASE, U 05/15/2019 LUIS GASCA 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 Ot R13.10 DYSPHAGIA, UNSPECIFIED 05/15/2019 LUIS GASCA 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 Ot R91.8 OTHER NONSPECIFIC ABNORMAL FINDING OF YAYA 05/15/2019 LUIS GASCA 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 Ot Z72.0 TOBACCO USE 05/15/2019 JEAN SKELTON [...] CERVIX AND UTER 05/17/2019 CAMPOSOLMAN MORANINE E 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 Ot J30.2 OTHER SEASONAL ALLERGIC RHINITIS 05/17/2019 CAMPOSOLMAN MORANINE E 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 Ot J44.9 CHRONIC OBSTRUCTIVE PULMONARY DISEASE, U 05/17/2019 CAMPOS, LUIS E 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 Ot R13.10 DYSPHAGIA, UNSPECIFIED 05/17/2019 CAMPOS LUIS E 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 Ot R91.8 OTHER NONSPECIFIC ABNORMAL FINDING OF YAYA 05/17/2019 CAMPOSOLMAN MORANINE E 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 Ot Z72.0 TOBACCO USE 05/23/2019 JEAN SKELTON [...] R91.8 OTHER NONSPECIFIC ABNORMAL FINDING OF YAYA 07/27/2019 CHACHO PÉREZ DO Ot R06.02 SHORTNESS OF BREATH Procedures There [...] finding identification by light micr oscopy YES [facility] Comprehensive metabolic panel - 09/10/18 17:26 [...] 11/08/18 17:10 PROBNP FS 55.8 pg/mL <75.0 [id number] - 12/19/18 11:11 Serum or plasma urea [...] - 04/26/19 18:35 Bacterial blood culture NG NRG Complete blood count (CBC) with automate [...] mg/dL <0.50 Arterial blood gas measurement - 12/24/1 9 17:52 Blood pCO2 48 mm[Hg] 35-45 [...] FOR INFLUENZA A AND B ANTIGENS BY [facility] Complete blood count (CBC) with automate d [...] culture - 07/21/19 17:55 Bacterial urine culture [id number] NRG COLONY COUNT >100,000/ML NRG FTX;REPORTABLE SUSCEPTIBILITY REPORTED 07/24/19 10: 50 NRG FREE TEXT ENTRY 2 PRELIM RAPID ID BY VCP [id number] NRG FREE TEXT ENTRY 3 RML CONFIRMED ID 07/24/19 10:05 NRG Dirithromycin susceptibility test by dis k diffusion - 07/21/19 17:55 Gentamicin susceptibility test by minimum inhibitory c oncentration > NRG Trimethoprim/sulfamethoxazole susceptibi lity test by minimum inhibitoryconcentration > NRG Levofloxacin susceptibility test by minimum inhibitory concentration > NRG Ampicillin susceptibility test by minimum inhibitory c oncentration > NRG Cefazolin susceptibility test by minimum inhibitory co ncentration 4 NRG Ceftriaxone susceptibility test by minimum inhibitory concentration <= NRG Ciprofloxacin susceptibility test by minimum inhibitor y concentration > NRG Meropenem susceptibility test by minimum inhibitory co ncentration <= NRG Nitrofurantoin susceptibility test by mi nimum inhibitory concentration <= NRG Amoxicillin and clavulanate potassium susc JENNIFER = NRG Comprehensive metabolic panel - 07/27/19 09:45 Serum or plasma sodium measurement (moles/volume) 140 mmol/L 135-145 Serum or plasma potassium measurement (moles/volume) 5.0 mmol/L 3.6-5.0 Serum or plasma chloride measurement (moles/volume) 105 mmol/L 98-107 Carbon dioxide 24 mmol/L 21-32 Serum or plasma anion gap determination (moles/volume) 11 mmol/L 5-14 Serum or plasma urea nitrogen measurement (mass/volume ) 41 mg/dL 7-18 Serum or plasma creatinine measurement (mass/volume) 0.93 mg/dL 0.60-1.30 Serum or plasma urea nitrogen/creatinine mass ratio 44 NRG Serum or plasma creatinine measurement w ith calculation of estimated glomerular filtration rate 60 NRG Serum or plasma glucose measurement (mass/volume) 169 mg/dL 70-105 Serum or plasma calcium measurement (mass/volume) 9.8 mg/dL 8.5-10.1 Serum or plasma total bilirubin measurement (mass/volu me) 0.2 mg/dL 0.1-1.0 Serum or plasma alkaline phosphatase jeanine surement (enzymatic activity/volume) 75 U/L 40-136 Serum or plasma aspartate aminotransfera se measurement (enzymatic activity/volume) 29 U/L 5-34 Serum or plasma alanine aminotransferase measurement (enzymatic activity/volume) 50 U/L 0-55 Serum or plasma protein measurement (mass/volume) 6.8 g/dL 6.4-8.2 Serum or plasma albumin measurement (mass/volume) 4.1 g/dL 3.2-4.5 CALCIUM CORRECTED 9.7 mg/dL 8.5-10.1 TROPONIN I FS - 07/27/19 09:45 TROPONIN I FS < 0.30 <0.30 Complete blood count (CBC) with automate d white blood cell (WBC) differential - 07/27/19 09:45 Blood leukocytes automated count (number/volume) 10.5 10*3/uL 4.3-11.0 Blood erythrocytes automated count (number/volume) 3.53 10*6/uL 4.35-5.85 Venous blood hemoglobin measurement (mass/volume) 11.0 g/dL 11.5-16.0 Blood hematocrit (volume fraction) 35 % 35-52 Automated erythrocyte mean corpuscular volume 98 [ foz_us] 80-99 Automated erythrocyte mean corpuscular h emoglobin (mass per erythrocyte) 31 pg 25-34 Automated erythrocyte mean corpuscular h emoglobin concentration measurement (mass/volume) 32 g/dL 32-36 Automated erythrocyte distribution width ratio 13. 1 % 10.0- 14.5 Automated blood platelet count (count/volume) 273 10*3/uL 130-400 Automated blood platelet mean volume measurement 11.4 [foz_us] 7.4-10.4 Automated blood neutrophils/100 leukocytes 86 % 42-75 Automated blood lymphocytes/100 leukocytes 8 % 12-44 Blood monocytes/100 leukocytes 6 % 0-12 Automated blood eosinophils/100 leukocytes 0 % 0-10 Automated blood basophils/100 leukocytes 0 % 0-10 Blood neutrophils automated count (number/volume) 9.0 10*3 1.8-7.8 Blood lymphocytes automated count (number/volume) 0.8 10*3 1.0-4.0 Blood monocytes automated count (number/volume) 0. 6 10*3 0.0-1.0 Automated eosinophil count 0.0 10*3/uL 0 .0-0.3 Automated blood basophil count (count/volume) 0.0 10*3/uL 0.0-0.1 Manual absolute plasma cell count - 07/14 08/02 09:45 Blood monocytes/100 leukocytes 5 % NRG Manual blood segmented neutrophils/100 leukocytes 85 % NRG Blood band neutrophils/100 leukocytes 3 % NRG Manual blood lymphocytes/100 leukocytes 7 % NRG Manual eosinophils/100 leukocytes in nose 0 % NRG Manual blood basophils/100 leukocytes 0 % NRG Blood erythrocyte morphology finding identification NORMAL NRG Complete urinalysis with reflex to cultu re - 07/27/19 09:55 Urine color determination YELLOW NRG Urine clarity determination CLEAR NR G Urine pH measurement by test strip 6.0 5-9 Specific gravity of urine by test strip 1.020 1.016-1.022 Urine protein assay by test strip, [...] 1.0 Urine leukocyte esterase detection by dipstick 1+ NEGATIVE Automated urine sediment erythrocyte cou nt by microscopy (number/high power field) RARE NRG Automated urine sediment leukocyte count by microscopy (number/high power field) [HPF] NRG Bacteria detection in urine sediment by light microsco py TRACE NRG Squamous epithelial cells detection in u rine sediment by light microscopy 0-2 NRG Crystals detection in urine sediment by light microsco py NONE NRG Casts detection in urine sediment by light microscopy NONE NRG Mucus detection in urine sediment by light microscopy SMALL NRG Complete urinalysis with reflex to culture YES NRG Encounters ACCT No. Visit Date/Time Discharge Status Pt. Type Provider Facility Loc./Unit Complaint [id number] 07/27/2019 09:04:00 11:15:00 DIS Emergency WILL JASON, HALLEY Joyce [facility] ER FS COUGH; SOB; GENERAL WEA KNESS [id number] 07/24/2019 10:47:00 23:59:59 CLS Outpatient CHACHO PÉREZ DO [facility] RAD FS SOA [id number] 07/21/2019 16:55:00 19:14:00 DIS Emergency DEMETRA LOZA DO [facility] ER FS PAIN ALL OVER [id number] 05/14/2019 13:21:00 13:45:00 DIS Inpatient NAFISA JASON, JEAN Flores [facility] 4TH TROUBLE BREATHING [id number] 02/14/2019 10:39:00 00:01:00 DIS Outpatient LUIS GASCA APRN [facility] PULM COPD [id number] 05/08/2019 17:33:00 19:59:00 DIS Emergency MAURIZIO KAPOOR MD [facility] ER FS SOB,COUGH,SWELLING [id number] 04/26/2019 17:34:00 19:34:00 DIS Emergency ALBERTO JASON, DEVIN Rain [facility] [facility]B; COUGH [id number] 02/18/2019 15:59:00 18:28:00 DIS Emergency LYNN JASON, DEONNA Treviño [facility] ER FS HEADACHE [id number] 01/17/2019 10:18:00 12:14:00 DIS Emergency RERE GREENWOOD DO [facility] ER FS SOB [id number] 01/10/2019 09:33:00 23:59:59 CLS Preadmit LUIS GASCA APRN [facility] RAD COPD,SOB,SMOKIN G HX [id number] 12/19/2018 11:02:00 23:59:59 CLS Outpatient 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 [facility] RAD COPD, SOB, SUSP ECTED SLEEP APNEA [id number] 12/12/2018 20:26:00 23:59:59 CLS Outpatient LUIS GASCA APRN [facility] SLEEP ASTHMA,TOBACCO USER,SOB,SEASONAL ALLERGY,COPD [id number] 11/08/2018 16:46:00 19:18:00 DIS Emergency RERE GREENWOOD DO [facility] ER FS SOB [id number] 11/07/2018 14:49:00 23:59:59 CLS Outpatient LUIS GASCA 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 [facility] RT J44.9 [id number] 10/23/2018 16:10:00 18:07:00 DIS Emergency TANIA BRANCH MD [facility] ER FS SOB,BACK PAIN [id number] 09/21/2018 10:10:00 23:59:59 CLS Outpatient MONTSERRAT MONGE 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 [facility] RAD FS SHORTNESS OF BREATH [id number] 09/10/2018 16:24:00 18:37:00 DIS Emergency SUKUMAR CAR DO [facility] ER FS SOA [id number] 08/11/2018 09:26:00 23:59:59 CLS Outpatient LUIS GASCA 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 [facility] RAD DYSPHAGIA [id number] 07/13/2018 17:15:00 23:51:00 DIS Emergency LI MIN DO T [facility] ER FS SOB [id number] 07/11/2018 07:45:00 23:59:59 CLS Preadmit LUIS GASCA 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 [facility] SLEEP ASTHMA,SOB,COPD [id number] 07/07/2018 14:29:00 23:59:59 CLS Outpatient LUIS GASCA 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 [facility] RT ASTHMA,COPD,SEA ITZ ALLERGY,SOB,TOBACCO USER [id number] 06/28/2018 12:04:00 23:59:59 CLS Outpatient LUIS GASCA 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 [facility] RAD COPD [id number] 05/23/2018 16:40:00 23:59:59 CLS Preadmit LUIS GASCA E 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 [facility] RT ASTHMA, COPD, S EASONAL ALLERGY, SOB, TOBACCO USER [id number] 05/23/2018 11:57:00 019 23:59:59 CLS Outpatient LUIS GASCA APRN [facility] LAB COPD
== END 2019-07-27 11:15 | disposition home or self-care (01) ==
LOC: EDUNIT# 09:01 → ER FS 09:04
DX: E86.0 Dehydration (principal); J44.9 Chronic obstructive pulmonary disease, unspecified; I10 Essential (primary) hypertension; F41.9 Anxiety disorder, unspecified; F17.210 Nicotine dependence, cigarettes, uncomplicated; Z79.899 Other long term (current) drug therapy; Z79.02 Long term (current) use of antithrombotics/antiplatelets; Z80.42 Family history of malignant neoplasm of prostate
CPT/HCPCS: 36415; 70450; 71046; 80053; 81000; 84484; 85007; 85027; 87077; 87088; 87186; 93005

== ENCOUNTER 2019-10-07 08:52 | Emergency (ER) | payer MEDICARE, MEDICAID ==
[~2019-10-07] VITALS: Ht 152.4 cm; Wt 62.7 kg
--- OUTSIDE RECORDS SUMMARY | 2019-10-07 08:58 | XMS REPORT | Continuity of Care Document ---
Author Organization Unknown Address Unknown Phone Unavailable Allergies Active Description Code Type Severity Reaction Onset Reported/Identified Relationship to Patient Clinical Status Yes No Allergy Information Available [id number] Drug Allergy Unknown N/A 019 Yes No Known Drug Allergies [id number] Drug Allergy Unknown N/A 07/13/2018 Medications There is no data. Problems Date Dx Coded Attending Type Code Diagnosis Diagnosed By 05/24/2018 LUIS GASCA APRN Ot J44.9 CHRONIC OBSTRUCTIVE PULMONARY DISEASE, U 05/31/2018 LUIS GASCA APRN Ot J44.9 CHRONIC OBSTRUCTIVE PULMONARY DISEASE, U 06/15/2018 LUIS GASCA APRN Ot J44.9 CHRONIC OBSTRUCTIVE PULMONARY DISEASE, U 06/28/2018 LUIS GASCA ELECTRIC BLANKET PACKER Ot J44.9 CHRONIC OBSTRUCTIVE PULMONARY DISEASE, U 06/28/2018 LUIS AGSCA ELECTRIC BLANKET PACKER Ot J43.9 EMPHYSEMA, UNSPECIFIED 06/28/2018 LUIS GASCA ELECTRIC BLANKET PACKER Ot J45.909 UNSPECIFIED ASTHMA, UNCOMPLICATED 06/28/2018 LUIS GASCA ELECTRIC BLANKET PACKER Ot J98.4 OTHER DISORDERS OF LUNG 06/28/2018 LUIS GASCA ELECTRIC BLANKET PACKER Ot Z72.0 TOBACCO USE 07/07/2018 LUIS GASCA ELECTRIC BLANKET PACKER Ot J43.9 EMPHYSEMA, UNSPECIFIED 07/07/2018 LUIS GASCA ELECTRIC BLANKET PACKER Ot J45.909 UNSPECIFIED ASTHMA, UNCOMPLICATED 07/07/2018 LUIS GASCA ELECTRIC BLANKET PACKER Ot J98.4 OTHER DISORDERS OF LUNG 07/07/2018 LUIS GASCA ELECTRIC BLANKET PACKER Ot Z72.0 TOBACCO USE 07/13/2018 LUIS GASCA ELECTRIC BLANKET PACKER Ot R13.11 DYSPHAGIA, ORAL PHASE 07/13/2018 LUIS GASCA ELECTRIC BLANKET PACKER Ot G47.10 HYPERSOMNIA, UNSPECIFIED 07/13/2018 LI MIN [...] R06. 00 DYSPNEA, UNSPECIFIED 07/18/2018 LUIS GASCA ELECTRIC BLANKET PACKER Ot J43.9 EMPHYSEMA, UNSPECIFIED 07/18/2018 LUIS GASCA ELECTRIC BLANKET PACKER Ot J45.909 UNSPECIFIED ASTHMA, UNCOMPLICATED 07/18/2018 LUIS GASCA ELECTRIC BLANKET PACKER Ot J98.4 OTHER DISORDERS OF LUNG 07/18/2018 LUIS GASCA APRN Ot Z72.0 TOBACCO USE 07/31/2018 LUIS GASCA APRN Ot J30.2 OTHER SEASONAL ALLERGIC RHINITIS 07/31/2018 LUIS GASCA ELECTRIC BLANKET PACKER Ot J44.9 CHRONIC OBSTRUCTIVE PULMONARY DISEASE, U 07/31/2018 LUIS GASCA APRN Ot R06.00 DYSPNEA, UNSPECIFIED 07/31/2018 LUIS GASCA ELECTRIC BLANKET PACKER Ot Z72.0 TOBACCO USE 08/05/2018 MECHELLE CHO, [...] OTHER SEASONAL ALLERGIC RHINITIS 09/10/2018 LUIS GASCA ELECTRIC BLANKET PACKER Ot J44.9 CHRONIC OBSTRUCTIVE PULMONARY DISEASE, U 09/10/2018 LUIS GASCA ELECTRIC BLANKET PACKER Ot R06.00 DYSPNEA, UNSPECIFIED 09/10/2018 LUIS GASCA ELECTRIC BLANKET PACKER Ot Z72.0 TOBACCO USE 09/10/2018 LUIS GASCA ELECTRIC BLANKET PACKER Ot J43.9 EMPHYSEMA, UNSPECIFIED 09/10/2018 LUIS GASCA ELECTRIC BLANKET PACKER Ot J45.909 UNSPECIFIED ASTHMA, UNCOMPLICATED 09/10/2018 LUIS GASCA ELECTRIC BLANKET PACKER Ot J98.4 OTHER DISORDERS OF LUNG 09/10/2018 LUIS GASCA ELECTRIC BLANKET PACKER Ot Z72.0 TOBACCO USE 09/10/2018 LUIS GASCA APRN Ot R13.11 DYSPHAGIA, ORAL PHASE 09/27/2018 MONTSERRAT MONGE ELECTRIC BLANKET PACKER Ot R06. 02 SHORTNESS OF BREATH 10/13/2018 MONTSERRAT MONGE ELECTRIC BLANKET PACKER Ot R06. 02 SHORTNESS OF BREATH 10/23/2018 ATNIA BRANCH MD Ot F41.9 ANXIETY DISORDER, UNSPECIFIED [...] DEPENDENCE ON SUPPLEMENTAL OXYGEN 10/23/2018 LUIS GASCA ELECTRIC BLANKET PACKER Ot J44.9 CHRONIC OBSTRUCTIVE PULMONARY DISEASE, U 10/23/2018 LUIS GASCA ELECTRIC BLANKET PACKER Ot J30.2 OTHER SEASONAL ALLERGIC RHINITIS 10/23/2018 LUIS GASCA ELECTRIC BLANKET PACKER Ot J44.9 CHRONIC OBSTRUCTIVE PULMONARY DISEASE, U 10/23/2018 LUIS GASCA ELECTRIC BLANKET PACKER Ot R06.00 DYSPNEA, UNSPECIFIED 10/23/2018 CAMPOSLUIS MORAN ELECTRIC BLANKET PACKER Ot Z72.0 TOBACCO USE 10/23/2018 LUIS GASCA ELECTRIC BLANKET PACKER Ot J43.9 EMPHYSEMA, UNSPECIFIED 10/23/2018 LUIS GASCA ELECTRIC BLANKET PACKER Ot J45.909 UNSPECIFIED ASTHMA, UNCOMPLICATED 10/23/2018 LUIS GASCA ELECTRIC BLANKET PACKER Ot J98.4 OTHER DISORDERS OF LUNG 10/23/2018 LUIS GASCA ELECTRIC BLANKET PACKER Ot Z72.0 TOBACCO USE 10/23/2018 LUIS GASCA ELECTRIC BLANKET PACKER Ot R13.11 DYSPHAGIA, ORAL PHASE 10/23/2018 MONTSERRAT MONGE ELECTRIC BLANKET PACKER Ot R06. 02 SHORTNESS OF BREATH 10/26/2018 [...] DEPENDENCE ON SUPPLEMENTAL OXYGEN 11/08/2018 LUIS GASCA ELECTRIC BLANKET PACKER Ot G47.10 HYPERSOMNIA, UNSPECIFIED 11/08/2018 CAMPOSOLMAN MORANINE Aaron ELECTRIC BLANKET PACKER Ot J30.2 OTHER SEASONAL ALLERGIC RHINITIS 11/08/2018 CAMPOSOLMAN MORANINE Aaron ELECTRIC BLANKET PACKER Ot J44.9 CHRONIC OBSTRUCTIVE PULMONARY DISEASE, U 11/08/2018 CAMPOSOLMAN MORANINE Aaron ELECTRIC BLANKET PACKER Ot R06.00 DYSPNEA, UNSPECIFIED 11/08/2018 CAMPOSOLMAN MORANINE Aaron ELECTRIC BLANKET PACKER Ot R13.10 DYSPHAGIA, UNSPECIFIED 11/08/2018 CAMPOSOLMAN MORANINE Aaron ELECTRIC BLANKET PACKER Ot R91.8 OTHER NONSPECIFIC ABNORMAL FINDING OF YAYA 11/08/2018 CAMPOSLUIS MORAN ELECTRIC BLANKET PACKER Ot Z72.0 TOBACCO USE 11/10/2018 RERE GREENWOOD [...] ON SUPPLEMENTAL OXYGEN 12/06/2018 OLMAN GASCAINE E ELECTRIC BLANKET PACKER Ot G47.9 SLEEP DISORDER, UNSPECIFIED 12/11/2018 OLMAN GASCAINE E ELECTRIC BLANKET PACKER Ot G47.10 HYPERSOMNIA, UNSPECIFIED 12/11/2018 OLMAN GASCAINE E ELECTRIC BLANKET PACKER Ot J30.2 OTHER SEASONAL ALLERGIC RHINITIS 12/11/2018 OLMAN GASCAINE E ELECTRIC BLANKET PACKER Ot J44.9 CHRONIC OBSTRUCTIVE PULMONARY DISEASE, U 12/11/2018 OLMAN GASCAINE E ELECTRIC BLANKET PACKER Ot R06.00 DYSPNEA, UNSPECIFIED 12/11/2018 OLMAN GASCAINE E ELECTRIC BLANKET PACKER Ot R13.10 DYSPHAGIA, UNSPECIFIED 12/11/2018 OLMAN GASCAINE E ELECTRIC BLANKET PACKER Ot R91.8 OTHER NONSPECIFIC ABNORMAL FINDING OF YAYA 12/11/2018 CAMPOSOLMAN MORANINE E ELECTRIC BLANKET PACKER Ot Z72.0 TOBACCO USE 12/12/2018 OLMAN GASCAINE E ELECTRIC BLANKET PACKER Ot G47.9 SLEEP DISORDER, UNSPECIFIED 12/14/2018 OLMAN GASCAINE E ELECTRIC BLANKET PACKER Ot G47.10 HYPERSOMNIA, UNSPECIFIED 12/14/2018 OLMAN GASCAINE E ELECTRIC BLANKET PACKER Ot G47.33 OBSTRUCTIVE SLEEP APNEA (ADULT) (PEDIATR 12/14/2018 OLMAN GASCAINE E ELECTRIC BLANKET PACKER Ot J30.2 OTHER SEASONAL ALLERGIC RHINITIS 12/14/2018 OLMAN GASCAINE Aaron ELECTRIC BLANKET PACKER Ot J44.9 CHRONIC OBSTRUCTIVE PULMONARY DISEASE, U 12/14/2018 OLMAN GASCAINE E ELECTRIC BLANKET PACKER Ot R00.0 TACHYCARDIA, UNSPECIFIED 12/14/2018 OLMAN GASCAINE E ELECTRIC BLANKET PACKER Ot R13.10 DYSPHAGIA, UNSPECIFIED 12/14/2018 OLMAN GASCAINE Aaron ELECTRIC BLANKET PACKER Ot Z72.0 TOBACCO USE 12/18/2018 OLMAN GASCAINE Aaron ELECTRIC BLANKET PACKER Ot G47.10 HYPERSOMNIA, UNSPECIFIED 12/18/2018 OLMAN GASCAINE E ELECTRIC BLANKET PACKER Ot G47.33 OBSTRUCTIVE SLEEP APNEA (ADULT) (PEDIATR 12/18/2018 OLMAN GASCAINE E ELECTRIC BLANKET PACKER Ot J30.2 OTHER SEASONAL ALLERGIC RHINITIS 12/18/2018 OLMAN GASCAINE E ELECTRIC BLANKET PACKER Ot J44.9 CHRONIC OBSTRUCTIVE PULMONARY DISEASE, U 12/18/2018 OLMAN GASCAINE E ELECTRIC BLANKET PACKER Ot R00.0 TACHYCARDIA, UNSPECIFIED 12/18/2018 OLMAN GASCAINE E ELECTRIC BLANKET PACKER Ot R13.10 DYSPHAGIA, UNSPECIFIED 12/18/2018 OLMAN GASCAINE E ELECTRIC BLANKET PACKER Ot Z72.0 TOBACCO USE 12/21/2018 OLMAN GASCAINE E ELECTRIC BLANKET PACKER Ot G47.10 HYPERSOMNIA, UNSPECIFIED 12/21/2018 CAMPOSOLMAN MORANINE E ELECTRIC BLANKET PACKER Ot J30.2 OTHER SEASONAL ALLERGIC RHINITIS 12/21/2018 CAMPOSOLMAN MORANINE E ELECTRIC BLANKET PACKER Ot J43.9 EMPHYSEMA, UNSPECIFIED 12/21/2018 CAMPOSOLMAN MORANINE E ELECTRIC BLANKET PACKER Ot R91.8 OTHER NONSPECIFIC ABNORMAL FINDING OF YAYA 12/21/2018 LUIS GASCA ELECTRIC BLANKET PACKER Ot Z72.0 TOBACCO USE 12/25/2018 LUIS GASCA ELECTRIC BLANKET PACKER Ot G47.10 HYPERSOMNIA, UNSPECIFIED 12/25/2018 OLMAN GASCAINE E ELECTRIC BLANKET PACKER Ot J30.2 OTHER SEASONAL ALLERGIC RHINITIS 12/25/2018 OLMAN GASCAINE E ELECTRIC BLANKET PACKER Ot J43.9 EMPHYSEMA, UNSPECIFIED 12/25/2018 OLMAN GACSAINE E ELECTRIC BLANKET PACKER Ot R91.8 OTHER NONSPECIFIC ABNORMAL FINDING OF YAYA 12/25/2018 OLMAN GASCAINE Aaron ELECTRIC BLANKET PACKER Ot Z72.0 TOBACCO USE 12/25/2018 OLMAN GASCAINE E ELECTRIC BLANKET PACKER Ot J44.9 CHRONIC OBSTRUCTIVE PULMONARY DISEASE, U 12/25/2018 OLMAN GASCAINE E ELECTRIC BLANKET PACKER Ot J30.2 OTHER SEASONAL ALLERGIC RHINITIS 12/25/2018 OLMAN GASCAINE E ELECTRIC BLANKET PACKER Ot J44.9 CHRONIC OBSTRUCTIVE PULMONARY DISEASE, U 12/25/2018 OLMAN GASCAINE E ELECTRIC BLANKET PACKER Ot R06.00 DYSPNEA, UNSPECIFIED 12/25/2018 OLMAN GASCAINE E ELECTRIC BLANKET PACKER Ot Z72.0 TOBACCO USE 12/25/2018 OLMAN GASCAINE E ELECTRIC BLANKET PACKER Ot J43.9 EMPHYSEMA, UNSPECIFIED 12/25/2018 OLMAN GASCAINE E ELECTRIC BLANKET PACKER Ot J45.909 UNSPECIFIED ASTHMA, UNCOMPLICATED 12/25/2018 OLMAN GASCAINE E ELECTRIC BLANKET PACKER Ot J98.4 OTHER DISORDERS OF LUNG 12/25/2018 LUIS GASCA ELECTRIC BLANKET PACKER Ot Z72.0 TOBACCO USE 12/25/2018 OLMAN GASCAINE E ELECTRIC BLANKET PACKER Ot R13.11 DYSPHAGIA, ORAL PHASE 12/25/2018 MONTSERRAT MONGE ELECTRIC BLANKET PACKER Ot R06. 02 SHORTNESS OF BREATH 12/25/2018 LUIS GASCA E ELECTRIC BLANKET PACKER Ot G47.10 HYPERSOMNIA, UNSPECIFIED 12/25/2018 OLMAN GASCAINE E ELECTRIC BLANKET PACKER Ot J30.2 OTHER SEASONAL ALLERGIC RHINITIS 12/25/2018 OLMAN GASCAINE E ELECTRIC BLANKET PACKER Ot J44.9 CHRONIC OBSTRUCTIVE PULMONARY DISEASE, U 12/25/2018 OLMAN GASCAINE E ELECTRIC BLANKET PACKER Ot R06.00 DYSPNEA, UNSPECIFIED 12/25/2018 CAMPOSOLMAN MORANINE E ELECTRIC BLANKET PACKER Ot R13.10 DYSPHAGIA, UNSPECIFIED 12/25/2018 CAMPOS, LUIS E ELECTRIC BLANKET PACKER Ot R91.8 OTHER NONSPECIFIC ABNORMAL FINDING OF YAYA 12/25/2018 LUIS GASCA ELECTRIC BLANKET PACKER Ot Z72.0 TOBACCO USE 12/25/2018 OLMAN GASCAINE E ELECTRIC BLANKET PACKER Ot G47.10 HYPERSOMNIA, UNSPECIFIED 12/25/2018 OLMAN GASCAINE E ELECTRIC BLANKET PACKER Ot G47.33 OBSTRUCTIVE SLEEP APNEA (ADULT) (PEDIATR 12/25/2018 OLMAN GASCAINE E ELECTRIC BLANKET PACKER Ot J30.2 OTHER SEASONAL ALLERGIC RHINITIS 12/25/2018 LUIS GASCA ELECTRIC BLANKET PACKER Ot J44.9 CHRONIC OBSTRUCTIVE PULMONARY DISEASE, U 12/25/2018 LUIS GASCA E ELECTRIC BLANKET PACKER Ot R00.0 TACHYCARDIA, UNSPECIFIED 12/25/2018 OLMAN GASCAINE E ELECTRIC BLANKET PACKER Ot R13.10 DYSPHAGIA, UNSPECIFIED 12/25/2018 OLMAN GASCAINE E ELECTRIC BLANKET PACKER Ot Z72.0 TOBACCO USE 12/28/2018 OLMAN GASCAINE E ELECTRIC BLANKET PACKER Ot G47.10 HYPERSOMNIA, UNSPECIFIED 12/28/2018 OLMAN GASCAINE E ELECTRIC BLANKET PACKER Ot J30.2 OTHER SEASONAL ALLERGIC RHINITIS 12/28/2018 OLMAN GASCAINE E ELECTRIC BLANKET PACKER Ot J43.9 EMPHYSEMA, UNSPECIFIED 12/28/2018 CAMPOS, LUIS E ELECTRIC BLANKET PACKER Ot R91.8 OTHER NONSPECIFIC ABNORMAL FINDING OF YAYA 12/28/2018 OLMAN GASCAINE E ELECTRIC BLANKET PACKER Ot Z72.0 TOBACCO USE 12/28/2018 CAMPOS, LUIS E ELECTRIC BLANKET PACKER Ot G47.10 HYPERSOMNIA, UNSPECIFIED 12/28/2018 CAMPOSLUIS MORAN ELECTRIC BLANKET PACKER Ot J30.2 OTHER SEASONAL ALLERGIC RHINITIS 12/28/2018 LUIS GASCA ELECTRIC BLANKET PACKER Ot J43.9 EMPHYSEMA, UNSPECIFIED 12/28/2018 LUIS GASCA ELECTRIC BLANKET PACKER Ot R91.8 OTHER NONSPECIFIC ABNORMAL FINDING OF YAYA 12/28/2018 CAMPOSLUIS MORAN ELECTRIC BLANKET PACKER Ot Z72.0 TOBACCO USE 01/02/2019 CAMPOSLUIS MORAN ELECTRIC BLANKET PACKER Ot G47.10 HYPERSOMNIA, UNSPECIFIED 01/02/2019 CAMPOSLUIS MORAN ELECTRIC BLANKET PACKER Ot G47.33 OBSTRUCTIVE SLEEP APNEA (ADULT) (PEDIATR 01/02/2019 CAMPOSLUIS MORAN ELECTRIC BLANKET PACKER Ot J30.2 OTHER SEASONAL ALLERGIC RHINITIS 01/02/2019 LUIS GASCA ELECTRIC BLANKET PACKER Ot J44.9 CHRONIC OBSTRUCTIVE PULMONARY DISEASE, U 01/02/2019 LUIS GASCA ELECTRIC BLANKET PACKER Ot R00.0 TACHYCARDIA, UNSPECIFIED 01/02/2019 LUIS GASCA ELECTRIC BLANKET PACKER Ot R13.10 DYSPHAGIA, UNSPECIFIED 01/02/2019 LUIS GASCA ELECTRIC BLANKET PACKER Ot Z72.0 TOBACCO USE 01/17/2019 RERE GREENWOOD [...] BLO 01/17/2019 RERE GREENWOOD DO Ot Z79.52 MECHANIC WELDER (CURRENT) USE OF SYSTEMIC STER 01/17/2019 RERE [...] BLO 01/23/2019 RERE GREENWOOD DO Ot Z79.52 SNF (CURRENT) USE OF SYSTEMIC STER 01/23/2019 RERE [...] SMO 02/18/2019 DEONNA BAILEY MD Ot Z79.52 SNF (CURRENT) USE OF SYSTEMIC STER 02/18/2019 DEONNA [...] SMO 02/23/2019 DEONNA BAILEY MD Ot Z79.52 MECHANIC WELDER (CURRENT) USE OF SYSTEMIC STER 02/23/2019 DEONNA [...] SMO 02/25/2019 DEONNA BAILEY MD Ot Z79.52 MECHANIC WELDER (CURRENT) USE OF SYSTEMIC STER 02/25/2019 DEONNA [...] SMO 02/28/2019 DEONNA BAILEY MD Ot Z79.52 SNF (CURRENT) USE OF SYSTEMIC STER 02/28/2019 DEONNA BAILEY MD Ot Z87.891 PERSONAL HISTORY OF NICOTINE DEPENDENCE 02/28/2019 DEONNA BAILEY MD Ot Z90.710 ACQUIRED ABSENCE OF BOTH CERVIX AND UTER 02/28/2019 DEONNA BAILEY MD Ot Z98.51 TUBAL LIGATION STATUS 03/15/2019 LUIS GASCA ELECTRIC BLANKET PACKER Ot J30.2 OTHER SEASONAL ALLERGIC RHINITIS 03/15/2019 LUIS GASCA ELECTRIC BLANKET PACKER Ot J44.9 CHRONIC OBSTRUCTIVE PULMONARY DISEASE, U 03/15/2019 LUIS GASCA ELECTRIC BLANKET PACKER Ot R13.10 DYSPHAGIA, UNSPECIFIED 03/15/2019 OLMAN GASCAINE Aaron ELECTRIC BLANKET PACKER Ot R91.8 OTHER NONSPECIFIC ABNORMAL FINDING OF YAYA 03/15/2019 OLMAN GASCAINE Aaron ELECTRIC BLANKET PACKER Ot Z72.0 TOBACCO USE 03/20/2019 OLMAN GASCAINE Aaron ELECTRIC BLANKET PACKER Ot J30.2 OTHER SEASONAL ALLERGIC RHINITIS 03/20/2019 OLMAN GASCAINE Aaron ELECTRIC BLANKET PACKER Ot J44.9 CHRONIC OBSTRUCTIVE PULMONARY DISEASE, U 03/20/2019 OLMAN GASCAINE Aaron ELECTRIC BLANKET PACKER Ot R13.10 DYSPHAGIA, UNSPECIFIED 03/20/2019 OLMAN GASCAINE Aaron ELECTRIC BLANKET PACKER Ot R91.8 OTHER NONSPECIFIC ABNORMAL FINDING OF YAYA 03/20/2019 LUIS GASCA ELECTRIC BLANKET PACKER Ot Z72.0 TOBACCO USE 03/22/2019 LUIS GASCA ELECTRIC BLANKET PACKER Ot J30.2 OTHER SEASONAL ALLERGIC RHINITIS 03/22/2019 OLMAN GASCAINE Aaron ELECTRIC BLANKET PACKER Ot J44.9 CHRONIC OBSTRUCTIVE PULMONARY DISEASE, U 03/22/2019 OLMAN GASCAINE Aaron ELECTRIC BLANKET PACKER Ot R13.10 DYSPHAGIA, UNSPECIFIED 03/22/2019 OLMAN GASCAINE Aaron ELECTRIC BLANKET PACKER Ot R91.8 OTHER NONSPECIFIC ABNORMAL FINDING OF YAYA 03/22/2019 OLMAN GASCAINE Aaron ELECTRIC BLANKET PACKER Ot Z72.0 TOBACCO USE 03/27/2019 OLMAN GASCAINE Aaron ELECTRIC BLANKET PACKER Ot J30.2 OTHER SEASONAL ALLERGIC RHINITIS 03/27/2019 OLMAN GASCAINE Aaron ELECTRIC BLANKET PACKER Ot J44.9 CHRONIC OBSTRUCTIVE PULMONARY DISEASE, U 03/27/2019 CAMPOS, LUIS E ELECTRIC BLANKET PACKER Ot R13.10 DYSPHAGIA, UNSPECIFIED 03/27/2019 CAMPOS, LUIS E ELECTRIC BLANKET PACKER Ot R91.8 OTHER NONSPECIFIC ABNORMAL FINDING OF YAYA 03/27/2019 CAMPOSOLMAN MORANINE E ELECTRIC BLANKET PACKER Ot Z72.0 TOBACCO USE 03/27/2019 CAMPOSOLMAN MORANINE E ELECTRIC BLANKET PACKER Ot J30.2 OTHER SEASONAL ALLERGIC RHINITIS 03/27/2019 CAMPOS, LUIS E ELECTRIC BLANKET PACKER Ot J44.9 CHRONIC OBSTRUCTIVE PULMONARY DISEASE, U 03/27/2019 CAMPOS LUIS E ELECTRIC BLANKET PACKER Ot R13.10 DYSPHAGIA, UNSPECIFIED 03/27/2019 CAMPOS LUIS E ELECTRIC BLANKET PACKER Ot R91.8 OTHER NONSPECIFIC ABNORMAL FINDING OF YAYA 03/27/2019 CAMPOSOLMAN MORANINE Aaron ELECTRIC BLANKET PACKER Ot Z72.0 TOBACCO USE 03/28/2019 CAMPOSOLMAN MORANINE E ELECTRIC BLANKET PACKER Ot J30.2 OTHER SEASONAL ALLERGIC RHINITIS 03/28/2019 CAMPOSOLMAN MORANINE E ELECTRIC BLANKET PACKER Ot J44.9 CHRONIC OBSTRUCTIVE PULMONARY DISEASE, U 03/28/2019 CAMPOSOLMAN MORANINE E ELECTRIC BLANKET PACKER Ot R13.10 DYSPHAGIA, UNSPECIFIED 03/28/2019 CAMPOS LUIS E ELECTRIC BLANKET PACKER Ot R91.8 OTHER NONSPECIFIC ABNORMAL FINDING OF YAYA 03/28/2019 CAMPOSOLMAN MORANINE Aaron ELECTRIC BLANKET PACKER Ot Z72.0 TOBACCO USE 03/29/2019 CAMPOSOLMAN MORANINE E ELECTRIC BLANKET PACKER Ot J30.2 OTHER SEASONAL ALLERGIC RHINITIS 03/29/2019 CAMPOSOLMAN MORANINE E ELECTRIC BLANKET PACKER Ot J44.9 CHRONIC OBSTRUCTIVE PULMONARY DISEASE, U 03/29/2019 CAMPOSOLMAN MORANINE Aaron ELECTRIC BLANKET PACKER Ot R13.10 DYSPHAGIA, UNSPECIFIED 03/29/2019 CAMPOSOLMAN MORANINE E ELECTRIC BLANKET PACKER Ot R91.8 OTHER NONSPECIFIC ABNORMAL FINDING OF YAYA 03/29/2019 CAMPOSOLMAN MORANINE Aaron ELECTRIC BLANKET PACKER Ot Z72.0 TOBACCO USE 03/29/2019 CAMPOSOLMAN MORANINE E ELECTRIC BLANKET PACKER Ot J30.2 OTHER SEASONAL ALLERGIC RHINITIS 03/29/2019 CAMPOS, LUIS E ELECTRIC BLANKET PACKER Ot J44.9 CHRONIC OBSTRUCTIVE PULMONARY DISEASE, U 03/29/2019 CAMPOSOLMANLUIS E ELECTRIC BLANKET PACKER Ot R13.10 DYSPHAGIA, UNSPECIFIED 03/29/2019 CAMPOS LUIS E ELECTRIC BLANKET PACKER Ot R91.8 OTHER NONSPECIFIC ABNORMAL FINDING OF YAYA 03/29/2019 CAMPOSOLMAN MORANINE E ELECTRIC BLANKET PACKER Ot Z72.0 TOBACCO USE 04/26/2019 DEVIN DOMINGUEZ [...] 04/26/2019 DEVIN DOMINGUEZ MD Ot Z79. 52 SNF (CURRENT) USE OF SYSTEMIC STER 04/26/2019 DEVIN [...] 04/30/2019 DEVIN DOMINGUEZ MD Ot Z79. 52 MECHANIC WELDER (CURRENT) USE OF SYSTEMIC STER 04/30/2019 DEVIN [...] DEPENDENCE ON SUPPLEMENTAL OXYGEN 05/15/2019 LUIS GASCA ELECTRIC BLANKET PACKER Ot J30.2 OTHER SEASONAL ALLERGIC RHINITIS 05/15/2019 LUIS GASCA APRN Ot J44.9 CHRONIC OBSTRUCTIVE PULMONARY DISEASE, U 05/15/2019 LUIS GASCA ELECTRIC BLANKET PACKER Ot R13.10 DYSPHAGIA, UNSPECIFIED 05/15/2019 LUIS GASCA ELECTRIC BLANKET PACKER Ot R91.8 OTHER NONSPECIFIC ABNORMAL FINDING OF YAYA 05/15/2019 LUIS GASCA ELECTRIC BLANKET PACKER Ot Z72.0 TOBACCO USE 05/15/2019 JEAN SKELTON [...] CERVIX AND UTER 05/17/2019 CAMPOSOLMAN MORANINE E ELECTRIC BLANKET PACKER Ot J30.2 OTHER SEASONAL ALLERGIC RHINITIS 05/17/2019 CAMPOSOLMAN MORANINE E ELECTRIC BLANKET PACKER Ot J44.9 CHRONIC OBSTRUCTIVE PULMONARY DISEASE, U 05/17/2019 CAMPOS, LUIS E ELECTRIC BLANKET PACKER Ot R13.10 DYSPHAGIA, UNSPECIFIED 05/17/2019 CAMPOS LUIS E ELECTRIC BLANKET PACKER Ot R91.8 OTHER NONSPECIFIC ABNORMAL FINDING OF YAYA 05/17/2019 CAMPOSOLMAN MORANINE E ELECTRIC BLANKET PACKER Ot Z72.0 TOBACCO USE 05/23/2019 JEAN SKELTON [...] K21. 9 GASTRO-ESOPHAGEAL REFLUX DISEASE WITHOUT 05/23/2019 EJAN SKELTON MD Ot Z87.891 PERSONAL HISTORY OF NICOTINE DEPENDENCE 05/23/2019 JEAN SKELTON MD Ot Z90.710 ACQUIRED ABSENCE OF BOTH CERVIX AND UTER 05/28/2019 LUIS GASCA APRN Ot J30.2 OTHER SEASONAL ALLERGIC RHINITIS 05/28/2019 LUIS GASCA APRN Ot J44.9 CHRONIC OBSTRUCTIVE PULMONARY DISEASE, U 05/28/2019 LUIS GASCA APRN Ot R13.10 DYSPHAGIA, UNSPECIFIED 05/28/2019 LUIS GASCA APRN Ot R91.8 OTHER NONSPECIFIC ABNORMAL FINDING OF YAYA 07/21/2019 DEMETRA LOZA DO Ot M79 .7 FIBROMYALGIA 07/21/2019 DEMETRA LOZA DO Ot Z79.02 SNF (CURRENT) USE OF ANTITHROMBOTI 07/21/2019 DEMETRA LOZA DO Ot Z79.52 SNF (CURRENT) USE OF SYSTEMIC STER 07/27/2019 CHACHO PÉREZ DO Ot R06.02 SHORTNESS OF BREATH 07/27/2019 HALLEY SOLIS MD Ot E86. 0 DEHYDRATION 07/27/2019 HALLEY SOLIS MD Ot F17.210 NICOTINE DEPENDENCE, CIGARETTES, UNCOMPL 07/27/2019 HALLEY SOLIS MD Ot F41. 9 ANXIETY DISORDER, UNSPECIFIED 07/27/2019 HALLEY SOLIS MD Ot I10 ESSENTIAL (PRIMARY) HYPERTENSION 07/27/2019 HALLEY SOLIS MD Ot J44. 9 CHRONIC OBSTRUCTIVE PULMONARY DISEASE, U 07/27/2019 HALLEY SOLIS MD Ot R05 COUGH 07/27/2019 HALLEY SOLIS MD Ot Z79. 02 MECHANIC WELDER (CURRENT) USE OF ANTITHROMBOTI 07/27/2019 HALLEY SOLIS MD Ot Z79.899 OTHER MECHANIC WELDER (CURRENT) DRUG THERAPY 07/27/2019 HALLEY SOLIS MD Ot Z80. 42 FAMILY HISTORY OF MALIGNANT NEOPLASM OF 07/31/2019 HALLEY SOLIS MD Ot E86. 0 DEHYDRATION 07/31/2019 HALLEY SOLIS MD Ot F17.210 NICOTINE DEPENDENCE, CIGARETTES, UNCOMPL 07/31/2019 HALLEY SOLIS MD Ot F41. 9 ANXIETY DISORDER, UNSPECIFIED 07/31/2019 HALLEY SOLIS MD Ot I10 ESSENTIAL (PRIMARY) HYPERTENSION 07/31/2019 HALLEY SOLIS MD, Ot J44. 9 CHRONIC OBSTRUCTIVE PULMONARY DISEASE, U 07/31/2019 HALLEY SOLIS MD Ot R05 COUGH 07/31/2019 HALLEY SOLIS MD Ot Z79. 02 MECHANIC WELDER (CURRENT) USE OF ANTITHROMBOTI 07/31/2019 HALLEY SOLIS MD Ot Z79.899 OTHER SNF (CURRENT) DRUG THERAPY 07/31/2019 HALLEY SOLIS MD Ot Z80. 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 Influenza virus A and B antigen detectio n - 04/26/19 18:04 FLU RESULT NEGATIVE FOR INFLUENZA A AND B ANTIGENS BY IA NRG Bacterial blood culture - 04/26/19 18:35 Bacterial blood culture NG [facility] Complete blood count (CBC) [...] Automated blood platelet mean volume measurement 11.1 [[facility]] 7.4-10.4 Automated blood neutrophils/100 leukocytes 53 % [...] culture - 07/21/19 17:55 Bacterial urine culture [id number] NRG COLONY COUNT >100,000/ML NRG FTX;REPORTABLE SUSCEPTIBILITY [...] culture YES NRG Bacterial urine culture - 07/27/19 09:55 Bacterial urine culture [id number] NRG COLONY COUNT 10,000 CFU/ML NRG FTX;REPORTABLE SUSCEPTIBILITY REPORTED 07/28 12:15 NRG Dirithromycin susceptibility test by dis k diffusion - 07/27/19 09:55 Gentamicin susceptibility test by minimum inhibitory c oncentration > NRG Trimethoprim/sulfamethoxazole susceptibi lity test by minimum inhibitoryconcentration > NRG Levofloxacin susceptibility test by minimum inhibitory concentration > NRG Ampicillin susceptibility test by minimum inhibitory c oncentration > NRG Cefazolin susceptibility test by minimum inhibitory co ncentration 16 NRG Ceftriaxone susceptibility test by minimum inhibitory concentration <= NRG Ciprofloxacin susceptibility test by minimum inhibitor y concentration > NRG Meropenem susceptibility test by minimum inhibitory co ncentration <= NRG Nitrofurantoin susceptibility test by mi nimum inhibitory concentration <= NRG Amoxicillin and clavulanate potassium susc JENNIFER = NRG Encounters ACCT No. Visit Date/Time Discharge Status Pt. Type Provider Facility Loc./Unit Complaint [id number] 07/27/2019 09:04:00 11:15:00 DIS Emergency WILL JASON, HALLEY Joyce [facility] ER FS COUGH; SOB; GENERAL WEA KNESS [id number] 07/24/2019 10:47:00 23:59:59 CLS Outpatient CHACHO PÉREZ DO [facility] RAD FS SOA [id number] 07/21/2019 16:55:00 19:14:00 DIS Emergency DEMETRA LOZA DO [facility] ER FS PAIN ALL OVER [id number] 05/14/2019 13:21:00 13:45:00 DIS Inpatient NAFISA JASON, JEAN Flores [facility] 4TH TROUBLE BREATHING [id number] 02/14/2019 10:39:00 00:01:00 DIS Outpatient LUIS GASCA APRN [facility] PULM COPD [id number] 05/08/2019 17:33:00 19:59:00 DIS Outpatient EMELIA JASON, MAURIZIO Walker [facility] ER FS SOB,COUGH,SWELLING [id number] 04/26/2019 17:34:00 19:34:00 DIS Emergency ALBERTO JASON, DEVIN Rain [facility] ER FS SOB; COUGH [id number] 02/18/2019 15:59:00 18:28:00 DIS Emergency LYNN JASON, DEONNA Treviño [facility] ER FS HEADACHE [id number] 01/17/2019 10:18:00 12:14:00 DIS Emergency RERE GREENWOOD DO [facility] ER FS SOB [id number] 01/10/2019 09:33:00 23:59:59 CLS Preadmit LUIS GASCA APRN [facility] RAD COPD,SOB,SMOKIN G HX [id number] 12/19/2018 11:02:00 23:59:59 CLS Outpatient LUIS GASCA APRN [facility] RAD COPD, SOB, SUSP ECTED SLEEP APNEA [id number] 12/12/2018 20:26:00 23:59:59 CLS Outpatient LUIS GASCA APRN [facility] SLEEP ASTHMA,TOBACCO USER,SOB,SEASONAL ALLERGY,COPD [id number] 11/08/2018 16:46:00 19:18:00 DIS Emergency RERE GREENWOOD DO [facility] ER FS SOB [id number] 11/07/2018 14:49:00 23:59:59 CLS Outpatient LUIS GASCA APRN [facility] RT J44.9 [id number] 10/23/2018 16:10:00 18:07:00 DIS Emergency TANIA BRANCH MD [facility] ER FS SOB,BACK PAIN [id number] 09/21/2018 10:10:00 23:59:59 CLS Outpatient MARIPOSA MONTSERRAT Broderick [employer] [facility] RAD FS SHORTNESS OF BREATH [id number] 09/10/2018 16:24:00 18:37:00 DIS Emergency SUKUMAR CAR DO [facility] ER FS SOA [id number] 08/11/2018 09:26:00 23:59:59 CLS Outpatient LUIS GASCA E [employer] [facility] RAD DYSPHAGIA [id number] 07/13/2018 17:15:00 23:51:00 DIS Emergency LI MIN DO [facility] ER FS SOB [id number] 07/11/2018 07:45:00 23:59:59 CLS Preadmit LUIS GASCA E [employer] [facility] SLEEP ASTHMA,SOB,COPD [id number] 07/07/2018 14:29:00 23:59:59 CLS Outpatient LUIS GASCA E [employer] [facility] RT ASTHMA,COPD,SEA ITZ ALLERGY,SOB,TOBACCO USER [id number] 06/28/2018 12:04:00 23:59:59 CLS Outpatient LUIS GASCA [employer] [facility] RAD COPD [id number] 05/23/2018 16:40:00 23:59:59 CLS Preadmit LUIS GASCA E [employer] [facility] RT ASTHMA, COPD, S EASONAL ALLERGY, SOB, TOBACCO USER [id number] 05/23/2018 11:57:00 23:59:59 CLS Outpatient LUIS GASCA E [employer] [facility] LAB COPD
[2019-10-07] MEDS ORDERED: RT-ALBUTEROL SULF 2.5 MG/3 ML PRE-MIX VIAL INH ONE (09:15)
[2019-10-07] MEDS ORDERED: RT-ALBUTEROL/IPRATROPIUM 3 ML (DUONEB) VIAL INH ONE (09:15)
[2019-10-07 09:24] LABS: BASOPHILS % (AUTO) 0 % (0-10); EOSINOPHILS % (AUTO) 0 % (0-10); HEMATOCRIT 38 % (35-52); HEMOGLOBIN 12.6 G/DL (11.5-16.0); LYMPHOCYTES % (AUTO) 11 % (12-44); MEAN CORPUSCULAR HEMOGLOBIN 31 PG (25-34); MEAN CORPUSCULAR HGB CONC 34 G/DL (32-36); MEAN CORPUSCULAR VOLUME 93 FL (80-99); MONOCYTES % (AUTO) 8 % (0-12); NEUTROPHILS % (AUTO) 81 % (42-75); PLATELET COUNT 355 10^3/uL (130-400); RED CELL DISTRIBUTION WIDTH 12.4 % (10.0-14.5); WHITE BLOOD COUNT 20.4 10^3/uL (4.3-11.0)
[2019-10-07 09:25] LABS: BASOPHILS # (AUTO) 0.1 10^3/uL (0.0-0.1); EOSINOPHILS # (AUTO) 0.1 10^3/uL (0.0-0.3); LYMPHOCYTES # (AUTO) 2.2 X 10^3 (1.0-4.0); MONOCYTES # (AUTO) 1.7 X 10^3 (0.0-1.0); NEUTROPHILS # (AUTO) 16.5 X 10^3 (1.8-7.8)
[2019-10-07 09:38] LABS: BAND NEUTROPHILS 31 %; NEUTROPHILS % (MANUAL) 48 %
[2019-10-07 09:39] LABS: EOSINOPHILS % (MANUAL) 1 %; LYMPHOCYTES % (MANUAL) 10 %; MONOCYTES % (MANUAL) 10 %; RBC MORPH NORMAL; SODIUM 134 MMOL/L (135-145)
--- NOTE | 2019-10-07 09:39 | Diagnostic Imaging Report ---
EXAMINATION: Chest 1 view HISTORY: Shortness of breath. COMPARISON: Chest radiograph on 07/27/2019. FINDINGS: The lung volumes are normal. No focal consolidation is seen. Chronic interstitial markings are noted in the lungs bilaterally. No large pleural effusion or pneumothorax is seen. The cardiomediastinal silhouette is prominent. No acute osseous abnormality is seen. IMPRESSION: 1. Chronic interstitial markings, which can be seen with COPD. No focal consolidation. 2. Cardiomegaly. No overt pulmonary edema. Dictated by: Dictated on workstation # [id number]
[2019-10-07 09:40] LABS: ALANINE AMINOTRANSFERASE 13 U/L (0-55); ALBUMIN 3.6 GM/DL (3.2-4.5); ALKALINE PHOSPHATASE 93 U/L (40-136); BILIRUBIN,TOTAL 0.6 MG/DL (0.1-1.0); BUN/CREATININE RATIO 21; CALCIUM 9.9 MG/DL (8.5-10.1); CARBON DIOXIDE 24 MMOL/L (21-32); CHLORIDE 92 MMOL/L (98-107); CREATININE SERUM 0.68 MG/DL (0.60-1.30); GFR ESTIMATED > 60; GLUCOSE 132 MG/DL (70-105); TOTAL PROTEIN 7.4 GM/DL (6.4-8.2)
[2019-10-07] MEDS ORDERED: AZITHROMYCIN 250 MG TAB (ZITHROMAX) PO ONE (09:45)
[2019-10-07] MEDS ORDERED: cefTRIAXone FOR IV USE 2,000 MG in WATER (STERILE) FOR INJECTION 20 ML IV ONE (09:45)
--- NOTE | 2019-10-07 09:55 | NUR ---
Spoke with Mathematics Instructor Ca RUBIN. Request admission of Dr Calderon patient to [place].
--- NOTE | 2019-10-07 10:00 | NUR ---
Connected with Hospitalist Dr Rosalie Berman. Dr Smith speaking with Dr Berman. No COVID testing in [place] as request for testing in [facility] to expediate their result process.
--- NOTE | 2019-10-07 10:04 | NUR ---
Report to Med-Surg floor nurse Ca RUBIN. Plan to FAX records before pt arrival as requested.
--- NOTE | 2019-10-07 10:12 | ED General ---
General Chief Complaint: Respiratory Problems Stated Complaint: SOB Nursing Triage Note: Pt presents to ED via [facility] for c/o respiratory issues. Pt hx COPD with present cough and SOA with increased mucous production x 3 days. Pt is a former smoker but secondary smoke exposure in home. Temp 37.4 here, EMS reports afebrile. Pt and EMS have used a DUONEB R.T. tx and pt rec'd Solu-Medrol 125 mg IV per EMS. Nursing Sepsis Screen: No Definite Risk History of Present Illness Date Seen by Provider: October 07, 2019 Time Seen by Provider: 10:06 Initial Comments Patient presenting to emergency department for evaluation of cough and shortness of breath fevers chills. Patient says she has been feeling more poorly over the past 3 days and that she has been coughing up thick productive sputum. She has had no measured fevers but she feels chills. She feels short of breath all the time and she reports being her primary care provider doctors 3 days ago but was not seen for this and did not mention the cough or shortness of breath but she says she was tested for coronavirus but then upon further questioning she did not have a nasal swab. She denies being exposed to anyone with coronavirus. She has a history of COPD and is on 2 L at baseline and was on 4 L per EMS due to hypoxia and dyspnea. She received 125 mg of Solu-Medrol from EMS that the IV line may have been positional but she at least received the Solu-Medrol subcutaneously. The IV line was pulled on arrival. She appears nontoxic but is in moderate respiratory distress with current option saturation of 92% on 3 L. Allergies and Home Medications Allergies Coded Allergies: No Known Drug Allergies (Unverified , 07/13/18) Home Medications Bupropion HCl 100 Mg Tablet.er, 100 MG PO BID, (Reported) Clopidogrel Bisulfate 75 Mg Tablet, 75 MG PO DAILY, (Reported) Duloxetine HCl 60 Mg Capsule.dr, 60 MG PO DAILY, (Reported) Esomeprazole Magnesium 40 Mg Capsule.dr, 40 MG PO DAILY, (Reported) Ipratropium/Albuterol Sulfate 3 Ml Ampul.neb, 3 ML NEB Q8H PRN for SHORTNESS OF BREATH, (Reported) Isosorbide Mononitrate 30 Mg Tab.er.24h, 30 MG PO DAILY, (Reported) Lorazepam 1 Mg Tablet, 1 MG PO TID PRN for ANXIETY, (Reported) Meloxicam 15 Mg Tablet, 15 MG PO DAILY, (Reported) Metoprolol Tartrate 25 Mg Tablet, 25 MG PO BID, (Reported) Pramipexole Di-HCl 1 Mg Tablet, 1 MG PO BID, (Reported) Prednisone 20 Mg Tab, 40 MG PO DAILY@0700 Prescribed by: CAROL GODINEZ on 05/15/19 1151 Roflumilast 500 Mcg Tablet, 500 MCG PO DAILY, (Reported) Simvastatin 40 Mg Tablet, 40 MG PO DAILY, (Reported) Topiramate 50 Mg Tablet, 50 MG PO HS, (Reported) Tramadol HCl 50 Mg Tablet, 50 MG PO BID PRN for PAIN Prescribed by: DEMETRA LOZA on 07/21/19 1810 Trazodone HCl 50 Mg Tablet, 100 MG PO DAILY, (Reported) TAKES 2 (50MG) TABS Patient Home Medication List Home Medication List Reviewed: Yes Review of Systems Review of Systems Constitutional: chills, fever EENTM: no symptoms reported Respiratory: cough, short of breath, wheezing Cardiovascular: no symptoms reported Gastrointestinal: no symptoms reported Genitourinary: no symptoms reported Musculoskeletal: no symptoms reported Skin: no symptoms reported Psychiatric/Neurological: No Symptoms Reported All Other Systems Reviewed Negative Unless Noted: Yes Past Qifruso-Ffrfwr-Cvtkit Hx Patient Social History Alcohol Use: Denies Use Recreational Drug Use: No Smoking Status: Former Smoker Type Used: Cigarettes Former Smoker, Quit: Apr 04, 2019 2nd Hand Smoke Exposure: Yes Recent Foreign Travel: No Contact w/Someone Who Travel: No Recent Infectious Disease Expo: No Recent Hopitalizations: No Physical Abuse: No Sexual Abuse: No Mistreated: No Fear: No Immunizations Up To Date Tetanus Booster (TDap): Unknown PED Vaccines UTD: Yes Date of Pneumonia Vaccine: Feb 13, 2019 Date of Influenza Vaccine: Feb 13, 2019 Seasonal Allergies Seasonal Allergies: No Past Medical History Surgeries: No Gallbladder, Hysterectomy, Orthopedic, 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 Respiratory: Yes COPD Currently Using CPAP: No Cardiac: Yes Hypertension Neurological: No Genitourinary: No Gastrointestinal: No Musculoskeletal: No Endocrine: No HEENT: No Cancer: No Psychosocial: Yes Anxiety Integumentary: No Blood Disorders: No Adverse Reaction/Blood Tranf: No Family Medical History Hypertension GRANDMOTHER Neoplasm 19 FATHER (PROSTATE) 19 MOTHER (UNKNOWN CANCER) Physical Exam Vital Signs Vital Signs - First Documented 10/07/19 08:54 Temp 37.4 Pulse 123 Resp 22 B/P (MAP) 155/56 (89) Pulse Ox 95 O2 Delivery Nasal Cannula O2 Flow Rate 2.50 Capillary Refill : Less Than 3 Seconds Height, Weight, BMI Height: 5'0" Weight: 160lbs. oz. 72.498746yy; 26.00 BMI Method:Stated General Appearance: Moderate Distress HEENT: PERRL/EOMI Neck: Supple Respiratory: Decreased Breath Sounds, Respiratory Distress, Wheezing Cardiovascular: Regular Rate, Rhythm Gastrointestinal: Non Tender, Soft Extremity: Normal Capillary Refill, No Pedal Edema Neurologic/Psychiatric: Alert, Oriented x3 Skin: Warm/Dry Focused Exam Lactate Level 10/07/19 09:10: Lactic Acid Level 1.27 Lactic Acid Level Laboratory Tests Test 10/07/19 09:10 Lactic Acid Level 1.27 MMOL/L (0.50-2.00) Progress/Results/Core Measures Suspected Sepsis Recent Fever Within 48 Hours: No Infection Criteria Present: None New/Unexplained Altered Menta: No Sepsis Screen: No Definite Risk SIRS Temperature: Pulse: 123 Respiratory Rate: 22 Laboratory Tests 10/07/19 09:10: White Blood Count 20.4H Blood Pressure 155 /56 Mean: 89 10/07/19 09:10: Lactic Acid Level 1.27 Laboratory Tests 10/07/19 09:10: Creatinine 0.68, Platelet Count 355, Total Bilirubin 0.6 Results/Orders Lab Results Laboratory Tests Test 10/07/19 09:10 Range/Units White Blood Count 20.4 H 4.3-11.0 10^3/uL Red Blood Count 4.04 L 4.35-5.85 10^6/uL Hemoglobin 12.6 11.5-16.0 G/DL Hematocrit 38 35-52 % Mean Corpuscular Volume 93 80-99 FL Mean Corpuscular Hemoglobin 31 25-34 PG Mean Corpuscular Hemoglobin Concent 34 32-36 G/DL Red Cell Distribution Width 12.4 10.0-14.5 % Platelet Count 355 130-400 10^3/uL Mean Platelet Volume 10.0 7.4-10.4 FL Neutrophils (%) (Auto) 81 H 42-75 % Lymphocytes (%) (Auto) 11 L 12-44 % Monocytes (%) (Auto) 8 0-12 % Eosinophils (%) (Auto) 0 0-10 % Basophils (%) (Auto) 0 0-10 % Neutrophils # (Auto) 16.5 H 1.8-7.8 X 10^3 Lymphocytes # (Auto) 2.2 1.0-4.0 X 10^3 Monocytes # (Auto) 1.7 H 0.0-1.0 X 10^3 Eosinophils # (Auto) 0.1 0.0-0.3 10^3/uL Basophils # (Auto) 0.1 0.0-0.1 10^3/uL Neutrophils % (Manual) 48 % Lymphocytes % (Manual) 10 % Monocytes % (Manual) 10 % Eosinophils % (Manual) 1 % Band Neutrophils 31 % Blood Morphology Comment NORMAL Sodium Level 134 L 135-145 MMOL/L Potassium Level 4.0 3.6-5.0 MMOL/L Chloride Level 92 L 98-107 MMOL/L Carbon Dioxide Level 24 21-32 MMOL/L Anion Gap 18 H 5-14 MMOL/L Blood Urea Nitrogen 14 7-18 MG/DL Creatinine 0.68 0.60-1.30 MG/DL Estimat Glomerular Filtration Rate > 60 BUN/Creatinine Ratio 21 Glucose Level 132 H 70-105 MG/DL Lactic Acid Level 1.27 0.50-2.00 MMOL/L Calcium Level 9.9 8.5-10.1 MG/DL Corrected Calcium 10.2 H 8.5-10.1 MG/DL Total Bilirubin 0.6 0.1-1.0 MG/DL Aspartate Amino Transf (AST/SGOT) 15 5-34 U/L Alanine Aminotransferase (ALT/SGPT) 13 0-55 U/L Alkaline Phosphatase 93 40-136 U/L Total Protein 7.4 6.4-8.2 GM/DL Albumin 3.6 3.2-4.5 GM/DL My Orders Orders - RERE GREENWOOD DO Cbc With Automated Diff (10/07/19 09:14) Comprehensive Metabolic Panel (10/07/19 09:14) Chest 1 View Ap/Pa Only (10/07/19 09:14) Iv/Invasive Line Insertion .IV start (10/07/19 09:14) Albuterol/Ipra Inhalation Soln (Duoneb I (10/07/19 09:15) Svn Small Volume Nebulizer (10/07/19 09:14) Albuterol Pre-Mix Nebs (Rt) (Proventil (10/07/19 09:15) Svn Small Volume Nebulizer (10/07/19 09:14) Manual Differential (10/07/19 09:10) Ceftriaxone For Iv Use (Rocephin For I (10/07/19 09:45) Azithromycin Tablet (Zithromax Tablet) (10/07/19 09:45) Lactic Acid Analyzer (10/07/19 09:38) Blood Culture (10/07/19 10:04) Vital Signs/I&O 10/07/19 08:54 Temp 37.4 Pulse 123 Resp 22 B/P (MAP) 155/56 (89) Pulse Ox 95 O2 Delivery Nasal Cannula O2 Flow Rate 2.50 Capillary Refill : Less Than 3 Seconds Blood Pressure Mean: 89 Progress Note : Progress Note Patient received 3 breathing treatments and she said she was feeling better but still was significant dyspneic and said she did not feel well enough to go home. Patient says she is not on antibiotics or steroids currently and she does have leukocytosis of 20. Chest x-ray was read with no obvious focal opacity however basis to appear hazy to me. Clinically I have a suspicion for pneumonia and given her COPD and oxygen requirements I did offer admission to [facility]. Patient said she would not go to [facility] under any circumstance and is requesting to be transferred to [facility]. I spoke to Dr. Rosalie Berman at [facility] and she is willing to accept patient for transfer. Blood cultures have been drawn here and Rocephin and Zithromax have been started. Plan will be to have patient COVID tested at [facility]. Patient transferred in stable condition. Departure Impression Primary Impression: COPD exacerbation Additional Impressions: CAP (community acquired pneumonia) Leukocytosis (leucocytosis) Disposition: 02 XFER SHT-TRM HOSP Condition: Stable Transfer Transfer Reason: Patient preference Transfer Facility: [facility] Method of Transfer: EMS Departure-Patient Inst. Referrals: CHACHO PÉREZ DO (PCP/Family) Primary Care Physician RERE GREENWOOD DO October 07, 2019 10:12
--- NOTE | 2019-10-07 10:30 | NUR ---
Pt signing registration paperwork and transfer forms.
--- NOTE | 2019-10-07 10:37 | NUR ---
Pt began on breathing treatments with RN in COVID appropriate attire with N95 mask.
--- NOTE | 2019-10-07 10:55 | NUR ---
Request EMS for transfer to [facility]. The EMS has just rec'd a 911 call and will arrive when the unit in service on this call is back in service.
--- NOTE | 2019-10-07 11:05 | NUR ---
Verified room number with [facility], Rm [id number].
--- NOTE | 2019-10-07 11:07 | NUR ---
Call to Patient's dgt Viviane as requested and approved by pt. Update of admit given.
--- NOTE | 2019-10-07 11:17 | NUR ---
Attempt to fax records to [place] and will not send.
--- NOTE | 2019-10-07 11:22 | NUR ---
Attempt to Fax records as requested to [facility].
[2019-10-07 11:35] VITALS: BP 153/65
--- NOTE | 2019-10-07 12:25 | NUR ---
EMS here for transfer. Report to [facility].
--- NOTE | 2019-10-07 12:35 | NUR ---
[facility] Pt is no resp distress, reports feeling better, and pt c/o hunger. Will report to [place] staff of ETA.
== END 2019-10-07 11:35 | disposition short-term general hospital (02) ==
LOC: EDUNIT# 08:52 → ER FS 08:52
DX: J44.1 Chronic obstructive pulmonary disease with (acute) exacerbation (principal); J18.9 Pneumonia, unspecified organism; J44.0 Chronic obstructive pulmonary disease with (acute) lower respiratory infection; D72.829 Elevated white blood cell count, unspecified; I10 Essential (primary) hypertension; F41.9 Anxiety disorder, unspecified; Z79.02 Long term (current) use of antithrombotics/antiplatelets; Z79.52 Long term (current) use of systemic steroids; Z87.891 Personal history of nicotine dependence; Z77.22 Contact with and (suspected) exposure to environmental tobacco smoke (acute) (chronic); Z80.42 Family history of malignant neoplasm of prostate
CPT/HCPCS: 36415; 71045; 80053; 83605; 85007; 85027; 87040

== ENCOUNTER → 2020-02-19 | Outpatient (CLI) | payer MEDICARE, MEDICAID ==
[~2020-02-19] MED LIST changes: +CATHETER FLUSH 10 ML SYR IV PRN; +DIATRIZOATE MEGLUM/SODIUM 37% 120 ML (GASTROGRAFIN) PO ONE; +HOLD METFORMIN - RECEIVED CONTRAST 20 ML VIAL IV SCH; +IOHEXOL 350 MG/ML 100 ML (OMNIPAQUE 350) VIAL IV ONE; +NS 100 ML (IVPB) BAG IV ONE; -PANT40TA3; +PANT40TA52
--- NOTE | 2020-02-19 14:24 | Diagnostic Imaging Report ---
EXAMINATION: CT Abdomen/Pelvis with and without intravenous contrast. TECHNIQUE: Precontrast acquisitions were acquired through the abdomen and pelvis. Multiple contiguous axial images were obtained through the abdomen and pelvis after the administration of intravenous contrast. All CT scans use one or more of the following dose optimizing techniques: automated exposure control, MA and/or KvP adjustment based on a patient size and exam type, or iterative reconstruction. HISTORY: Weight loss and abdominal pain. COMPARISON: None available. FINDINGS: Limited views of the lower thorax are unremarkable. The liver is normal without focal lesion. There is biliary ductal dilation to the level of the ampulla without obstructing lesion seen. The gallbladder is surgically absent. The pancreatic duct is mildly dilated. Pancreas is normal. Spleen is normal. Adrenal glands are normal. Cysts are present in the kidneys. No suspicious renal lesions. There is no hydronephrosis. Urinary bladder is normal. Visualized bowel is normal in caliber without obstruction or inflammation. There is some degree of stenosis at the origin of the celiac and superior mesenteric arteries which is poorly evaluated due to the thick slices. No free fluid or air. No abdominal or pelvic lymphadenopathy. Aorta is normal in caliber without aneurysm. There are no suspicious osseus lesions. IMPRESSION: 1. Dilated common duct and pancreatic duct with transition at the ampulla. Findings may be related to papillary stenosis or prior cholecystectomy. ERCP or MRCP would be required for confirmation. 2. There is some degree of stenosis at the origin of the celiac and superior mesenteric arteries which is incompletely evaluated due to the thick slices. Dictated by: Dictated on workstation # [id number]
== END ==
LOC: RAD FS 09:37
PROVIDERS: ATTEND Emergency Medicine
DX: K83.8 Other specified diseases of biliary tract (principal); I77.4 Celiac artery compression syndrome; I70.8 Atherosclerosis of other arteries; R63.4 Abnormal weight loss
CPT/HCPCS: 74178

== ENCOUNTER → 2020-02-26 | Outpatient (CLI) | payer MEDICARE, MEDICAID ==
[~2020-02-26] MED LIST changes: -CATHETER FLUSH 10 ML SYR IV PRN; -DIATRIZOATE MEGLUM/SODIUM 37% 120 ML (GASTROGRAFIN) PO ONE; -HOLD METFORMIN - RECEIVED CONTRAST 20 ML VIAL IV SCH; -IOHEXOL 350 MG/ML 100 ML (OMNIPAQUE 350) VIAL IV ONE; -NS 100 ML (IVPB) BAG IV ONE
--- NOTE | 2020-02-26 10:45 | Diagnostic Imaging Report ---
CLINICAL INDICATION: Patient with cardiomegaly. EXAM: Chest x-ray, PA and lateral views. COMPARISON: Chest x-ray dated 10/07/2019. FINDINGS: Lungs/pleura: Stable increased lung markings throughout both lung bases, likely representing scarring. There is no interval lung infiltrate. Hyperinflated lungs are again seen. Otherwise, the lungs are clear. There is no pneumothorax. There is no pleural effusion. Mediastinum: Unremarkable. Pulmonary vasculature: Unremarkable. Heart: Unremarkable. Bones/extrathoracic soft tissue: There are degenerative spurs seen throughout the thoracic spine. IMPRESSION: Stable chest x-ray exam with no interval radiographic evidence of acute cardiopulmonary process. There is no interval lung infiltrate. Dictated by: Dictated on workstation # [id number]
== END ==
LOC: RAD FS 09:56
PROVIDERS: ATTEND Emergency Medicine
DX: I51.7 Cardiomegaly (principal)
CPT/HCPCS: 71046

== ENCOUNTER → 2020-08-06 | Outpatient (CLI) | payer MEDICARE, MEDICAID ==
[~2020-08-06] MED LIST changes: +CATHETER FLUSH 10 ML SYR IV PRN; +HOLD METFORMIN - RECEIVED CONTRAST 20 ML VIAL IV SCH; +IOHEXOL 350 MG/ML 100 ML (OMNIPAQUE 350) VIAL IV ONE; -ISOS30TA3 PO; +ISOS30TA82 PO; -LISI10TA2 PO; +LISI10TA25 PO; +NS 100 ML (IVPB) BAG IV ONE
[2020-08-06 11:37] LABS: CREATININE SERUM 0.93 MG/DL (0.60-1.30)
--- NOTE | 2020-08-06 13:00 | Diagnostic Imaging Report ---
PROCEDURE: CT neck soft tissue with contrast. TECHNIQUE: Multiple contiguous axial images were obtained through the neck after the administration of contrast. Auto Exposure Controls were utilized during the CT exam to meet ALARA standards for radiation dose reduction. INDICATION: Bilateral neck swelling. COMPARISON: There are no prior studies for comparison. FINDINGS: There is no mass or adenopathy identified. The parotid and submandibular glands appear symmetrical. The thyroid gland is not enlarged and seems homogeneous. The tracheal air shadow is not compressed or deviated. There is dense atherosclerotic plaque about the carotid bifurcation on the right and I am concerned that there is a 70 to 80% stenosis in this area. I would recommend that ultrasound be performed for further study. There is no sign of a hemodynamically significant stenosis of the left carotid system. The vertebral arteries are opacified. The lung apices show mild emphysematous changes. The images through the skull base fail to show any sign of an acute intracranial abnormality. There is sphenoid and bilateral ethmoid sinusitis. IMPRESSION: 1. There is no mass or adenopathy involving the neck. 2. There is atherosclerotic plaque involving the carotid bifurcation on the right and there may be a hemodynamically significant stenosis in this area. Recommendations as above. Dictated by: Dictated on workstation # [id number]
== END ==
LOC: RAD FS 10:57
PROVIDERS: ATTEND Otolaryngology Otolaryngology/Facial Plastic Surgery
DX: I65.21 Occlusion and stenosis of right carotid artery (principal); R07.0 Pain in throat; R63.4 Abnormal weight loss
CPT/HCPCS: 36415; 70491; 82565; 84520

== ENCOUNTER → 2020-08-11 | Outpatient (CLI) | payer MEDICARE, MEDICAID ==
[~2020-08-11] MED LIST changes: -CATHETER FLUSH 10 ML SYR IV PRN; -HOLD METFORMIN - RECEIVED CONTRAST 20 ML VIAL IV SCH; -IOHEXOL 350 MG/ML 100 ML (OMNIPAQUE 350) VIAL IV ONE; -NS 100 ML (IVPB) BAG IV ONE
--- NOTE | 2020-08-11 14:21 | Diagnostic Imaging Report ---
PROCEDURE: US carotid duplex, bilateral. TECHNIQUE: Multiple real-time grayscale images were obtained over the carotid arteries in various projections, bilaterally. Additional spectral analysis and color Doppler duplex images were also obtained. INDICATION: Atherosclerotic plaque right carotid system. There are no prior ultrasound examinations available for comparison. The CT neck exam performed on 08/06/2020 did note atherosclerotic plaque involving the carotid bifurcation on the right and raised a question of a 70-80% stenosis in this area. On this study there is fairly heavy hard and soft plaque formation involving the carotid bifurcation on the right. The IC/CC ratio is elevated at 3.49 and this does suggest a stenosis in the 70-80% range. If further imaging is desired, then CTA of the neck would be recommended. There is only mild soft plaque formation involving the carotid bifurcation on the left. There is no sign of a hemodynamically significant stenosis of the left carotid system. Both vertebral arteries were identified and there was antegrade flow bilaterally. IMPRESSION: 1. There is atherosclerotic plaque involving the right carotid bifurcation. This does result in a 70-80% stenosis of the origin of the internal carotid artery. Additional considerations as above. 2. There is no evidence for a hemodynamically significant stenosis of the left carotid system. Parameters based on the consensus panel Uriarte-Scale and Doppler ultrasound criteria published March 2003, Radiology, Volume 229. DOPPLER (peak systolic velocity M/S Right Left CCA 0.43 2.09 ICA Proximal 1.02 1.16 ICA Mid 1.5 1.1 ICA Distal 1.1 1.2 RATIO 3.49 0.58 ECA 1.2 1.99 VERT 0.99 0.61 Dictated by: Dictated on workstation # [id number]
== END ==
LOC: RAD FS 13:01
PROVIDERS: ATTEND Otolaryngology Otolaryngology/Facial Plastic Surgery
DX: I65.23 Occlusion and stenosis of bilateral carotid arteries (principal)
CPT/HCPCS: 93880

== ENCOUNTER 2020-10-31 14:39 | Emergency (ER) | payer MEDICARE, MEDICAID ==
[~2020-10-31] VITALS: Ht 152.4 cm; Wt 69.2 kg
[2020-10-31 15:02] LABS: BASOPHILS % (AUTO) 1 % (0-10); EOSINOPHILS % (AUTO) 2 % (0-10); HEMATOCRIT 44 % (35-52); HEMOGLOBIN 14.5 G/DL (11.5-16.0); LYMPHOCYTES % (AUTO) 22 % (12-44); MEAN CORPUSCULAR HEMOGLOBIN 31 PG (25-34); MEAN CORPUSCULAR HGB CONC 33 G/DL (32-36); MEAN CORPUSCULAR VOLUME 94 FL (80-99); MEAN PLATELET VOLUME 9.7 FL (7.4-10.4); MONOCYTES % (AUTO) 6 % (0-12); NEUTROPHILS % (AUTO) 68 % (42-75); PLATELET COUNT 393 10^3/uL (130-400); WHITE BLOOD COUNT 13.7 10^3/uL (4.3-11.0)
[2020-10-31 15:03] LABS: BASOPHILS # (AUTO) 0.1 10^3/uL (0.0-0.1); EOSINOPHILS # (AUTO) 0.3 10^3/uL (0.0-0.3); MONOCYTES # (AUTO) 0.8 X 10^3 (0.0-1.0); NEUTROPHILS # (AUTO) 9.3 X 10^3 (1.8-7.8)
--- NOTE | 2020-10-31 15:19 | ED Cough/URI ---
General Chief Complaint: General Problems/Pain Stated Complaint: CRAMPS; HEAT EXPOSURE Nursing Triage Note: Patient reports muscle spasms bilaterally in her ribs for 3 days; she also reports shortness of breath. Sepsis Screen: No Definite Risk Source: patient Exam Limitations: no limitations History of Present Illness Date Seen by Provider: Oct 31, 2020 Time Seen by Provider: 14:46 Initial Comments Here with pain and muscle spasms to the low ribs on the right for the last 2 to 3 days. She has had a cough and feels short of breath. Does have COPD. She has used her inhaler and that does not seem to help. She does still smoke a few cigarettes a day. She has had both doses of her Covid vaccine and has not been around anybody that is sick. Does occasionally get bouts of COPD. Denies nausea, vomiting or diarrhea. Denies sweating or persistent chest pain except for with deep breathing or breathing hard. Timing/Duration: changing over time, other (2 to 3 days) Severity/Quality: moderate, dry cough Prior Episodes/Possible Cause: occasional episodes Modifying Factors: Worse With Activity, Worse With Coughing; Improves With Oxygen, Improves With Rest Associated Symptoms: chest pain/soreness, cough Allergies and Home Medications Allergies Coded Allergies: No Known Drug Allergies (Unverified , 07/13/18) Home Medications Bupropion HCl 100 Mg Tablet.er, 100 MG PO BID, (Reported) Clopidogrel Bisulfate 75 Mg Tablet, 75 MG PO DAILY, (Reported) Duloxetine HCl 60 Mg Capsule.dr, 60 MG PO DAILY, (Reported) Esomeprazole Magnesium 40 Mg Capsule.dr, 40 MG PO DAILY, (Reported) Ipratropium/Albuterol Sulfate 3 Ml Ampul.neb, 3 ML NEB Q8H PRN for SHORTNESS OF BREATH, (Reported) Isosorbide Mononitrate 30 Mg Tab.er.24h, 30 MG PO DAILY, (Reported) Lorazepam 1 Mg Tablet, 1 MG PO TID PRN for ANXIETY, (Reported) Meloxicam 15 Mg Tablet, 15 MG PO DAILY, (Reported) Metoprolol Tartrate 25 Mg Tablet, 25 MG PO BID, (Reported) Pramipexole Di-HCl 1 Mg Tablet, 1 MG PO BID, (Reported) Prednisone 20 Mg Tab, 40 MG PO DAILY@0700 Prescribed by: CAROL GODINEZ on 05/15/19 1151 Roflumilast 500 Mcg Tablet, 500 MCG PO DAILY, (Reported) Simvastatin 40 Mg Tablet, 40 MG PO DAILY, (Reported) Topiramate 50 Mg Tablet, 50 MG PO HS, (Reported) Tramadol HCl 50 Mg Tablet, 50 MG PO BID PRN for PAIN Prescribed by: DEMETRA LOZA on 07/21/19 1810 Trazodone HCl 50 Mg Tablet, 100 MG PO DAILY, (Reported) TAKES 2 (50MG) TABS Patient Home Medication List Home Medication List Reviewed: Yes Review of Systems Review of Systems Constitutional: see HPI; No chills, No fever EENTM: no symptoms reported Respiratory: cough, short of breath Cardiovascular: see HPI; No edema Gastrointestinal: No abdominal pain, No nausea, No vomiting Genitourinary: no symptoms reported Musculoskeletal: muscle pain, muscle cramps Skin: no symptoms reported All Other Systems Reviewed Negative Unless Noted: Yes Past Jryveci-Azmkrk-Fmebwn Hx Past Med/Social Hx: Reviewed Nursing Past Med/Soc Hx Patient Social History Alcohol Use: Denies Use Smoking Status: Current Everyday Smoker Type Used: Cigarettes Former Smoker, Quit: Apr 04, 2019 2nd Hand Smoke Exposure: Yes Recent Infectious Disease Expo: No Recent Hopitalizations: No Immunizations Up To Date Tetanus Booster (TDap): Unknown PED Vaccines UTD: Yes Date of Pneumonia Vaccine: Feb 13, 2019 Date of Influenza Vaccine: Feb 13, 2019 Seasonal Allergies Seasonal Allergies: No Past Medical History Surgeries: Yes Gallbladder, Hysterectomy, Orthopedic, 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 Respiratory: Yes COPD Currently Using CPAP: No Cardiac: Yes Hypertension Neurological: No Genitourinary: No Gastrointestinal: No Musculoskeletal: No Endocrine: No HEENT: No Cancer: No Psychosocial: Yes Anxiety Integumentary: No Blood Disorders: No Adverse Reaction/Blood Tranf: No Family Medical History Reviewed Nursing Family Hx Hypertension GRANDMOTHER Neoplasm 19 FATHER (PROSTATE) 19 MOTHER (UNKNOWN CANCER) Physical Exam Vital Signs - First Documented 10/31/20 10/31/20 14:46 15:03 Temp 35.7 Pulse 105 Resp 20 B/P (MAP) 141/109 (120) Pulse Ox 97 O2 Delivery Room Air O2 Flow Rate 3.00 Capillary Refill : Less Than 3 Seconds Height: 5'0" Weight: 160lbs. oz. 72.955290yp; 29.00 BMI Method:Stated General Appearance: WD/WN, no apparent distress HEENT: PERRL/EOMI, pharynx normal Neck: full range of motion, supple Respiratory: no respiratory distress, decreased breath sounds Cardiovascular: no murmur, tachycardia Gastrointestinal: non tender, soft Extremities: normal range of motion, non-tender Neurologic/Psychiatric: alert, oriented x 3 Skin: normal color, warm/dry Progress/Results/Core Measures Suspected Sepsis Recent Fever Within 48 Hours: No Infection Criteria Present: None New/Unexplained Altered Menta: No Sepsis Screen: No Definite Risk SIRS Temperature: Pulse: 105 Respiratory Rate: 20 Laboratory Tests 10/31/20 14:54: White Blood Count 13.7H Blood Pressure 141 /109 Mean: 120 Laboratory Tests 10/31/20 14:54: Creatinine 0.91, Platelet Count 393, Total Bilirubin 0.2 Results/Orders Lab Results Laboratory Tests Test 10/31/20 14:54 Range/Units White Blood Count 13.7 H 4.3-11.0 10^3/uL Red Blood Count 4.75 4.35-5.85 10^6/uL Hemoglobin 14.5 11.5-16.0 G/DL Hematocrit 44 35-52 % Mean Corpuscular Volume 94 80-99 FL Mean Corpuscular Hemoglobin 31 25-34 PG Mean Corpuscular Hemoglobin Concent 33 32-36 G/DL Red Cell Distribution Width 13.0 10.0-14.5 % Platelet Count 393 130-400 10^3/uL Mean Platelet Volume 9.7 7.4-10.4 FL Immature Granulocyte % (Auto) 1 % Neutrophils (%) (Auto) 68 42-75 % Lymphocytes (%) (Auto) 22 12-44 % Monocytes (%) (Auto) 6 0-12 % Eosinophils (%) (Auto) 2 0-10 % Basophils (%) (Auto) 1 0-10 % Neutrophils # (Auto) 9.3 H 1.8-7.8 X 10^3 Lymphocytes # (Auto) 3.0 1.0-4.0 X 10^3 Monocytes # (Auto) 0.8 0.0-1.0 X 10^3 Eosinophils # (Auto) 0.3 0.0-0.3 10^3/uL Basophils # (Auto) 0.1 0.0-0.1 10^3/uL Immature Granulocyte # (Auto) 0.2 H 0.0-0.1 10^3/uL Sodium Level 143 135-145 MMOL/L Potassium Level 4.7 3.6-5.0 MMOL/L Chloride Level 102 98-107 MMOL/L Carbon Dioxide Level 26 21-32 MMOL/L Anion Gap 15 H 5-14 MMOL/L Blood Urea Nitrogen 24 H 7-18 MG/DL Creatinine 0.91 0.60-1.30 MG/DL Estimat Glomerular Filtration Rate > 60 BUN/Creatinine Ratio 26 Glucose Level 165 H 70-105 MG/DL Calcium Level 10.1 8.5-10.1 MG/DL Corrected Calcium 8.5-10.1 MG/DL Total Bilirubin 0.2 0.1-1.0 MG/DL Aspartate Amino Transf (AST/SGOT) 22 5-34 U/L Alanine Aminotransferase (ALT/SGPT) 26 0-55 U/L Alkaline Phosphatase 140 H 40-136 U/L C-Reactive Protein 0.37 <0.50 MG/DL Total Protein 7.6 6.4-8.2 GM/DL Albumin 4.6 H 3.2-4.5 GM/DL My Orders Orders - TANIA BRANCH MD Cbc With Automated Diff (10/31/20 14:53) Comprehensive Metabolic Panel (10/31/20 14:53) Crp Fs (10/31/20 14:53) Ed Iv/Invasive Line Start (10/31/20 14:53) Chest Pa/Lat (2 View) (10/31/20 14:53) Albuterol/Ipra Inhalation Soln (Duoneb I (10/31/20 15:30) Svn Small Volume Nebulizer (10/31/20 15:19) Medications Given in ED Current Medications Medications Dose Ordered Sig/Hernesto Route Start Time Stop Time Status Last Admin Dose Admin Albuterol/ Ipratropium 3 ml ONCE ONCE INH 10/31/20 15:30 10/31/20 15:31 DC 10/31/20 15:22 3 ML Vital Signs/I&O 10/31/20 10/31/20 14:46 15:03 Temp 35.7 Pulse 105 Resp 20 B/P (MAP) 141/109 (120) Pulse Ox 97 97 O2 Delivery Room Air Nasal Cannula O2 Flow Rate 3.00 Capillary Refill : Less Than 3 Seconds Blood Pressure Mean: 120 Progress Note : Progress Note Seen and evaluated. IV, labs, chest x-ray and DuoNeb ordered. Monitor patient. 1545: Better after breathing treatment. Chest x-ray is negative for acute pneumonia or other problems. She has nebulizer treatments at home and just got her meds today so she will switch to that. We will initiate outpatient steroid and she has appointment with her doctor on next Tuesday. She will keep that appointment. Discharged home with return precautions. Patient verbalized understand instructions and agreement with plan. Diagnostic Imaging Diagonstic Imaging: Xray Plain Films/CT/US/NM/MRI: chest Comments NAME: RUBEN RAPP [facility] REC#: [id number] PT STATUS: REG ER : 1950 PHYSICIAN: TANIA BRANCH MD ADMIT DATE: 10/31/20/ER FS Draft Date of Exam:10/31/20 CHEST PA/LAT (2 VIEW) INDICATION: Right-sided rib pain and cramping for three days. Cough. COMPARISON: 02/26/2020. TECHNIQUE: Two views of the chest. FINDINGS: Lung volumes are normal. No focal consolidation is seen. There is no pleural effusion or pneumothorax. The cardiac silhouette is normal in size. There is a curvilinear hyperdensity projecting over the neck, thought to be external to the patient. IMPRESSION: No acute pulmonary abnormality. Dictated on workstation # [id number] Dict: 10/31/20 1515 Trans: 10/31/20 1518 [facility] [id number] Interpreted by: GINGER ROSALES MD Electronically signed by: Departure Impression Primary Impression: COPD exacerbation Disposition: 01 HOME, SELF-CARE Condition: Improved Departure-Patient Inst. Decision time for Depature: 15:46 Referrals: SARA PUGA MD (PCP/Family) Primary Care Physician Patient Instructions: COPD Exacerbation, Adult ED Add. Discharge Instructions: All discharge instructions reviewed with patient and/or family. Voiced understanding. Take medications as directed. Use your nebulizer treatments as prescribed. Follow-up with Dr. Puga next Tuesday as scheduled. Return for worse pain, fever, vomiting, weakness, breathing problems or other concerns as needed. You may take acetaminophen/Tylenol up to 1000 mg every 6-8 hours as needed for pain. Drink plenty of fluids. Scripts Prednisone (Prednisone) 20 Mg Tab 40 MG PO DAILY, #8 TAB 0 Refills Prov: TANIA BRANCH MD 10/31/20 TANIA BRANCH MD Oct 31, 2020 15:19
[2020-10-31 15:30] LABS: ALANINE AMINOTRANSFERASE 26 U/L (0-55); ALBUMIN 4.6 GM/DL (3.2-4.5); ALKALINE PHOSPHATASE 140 U/L (40-136); BILIRUBIN,TOTAL 0.2 MG/DL (0.1-1.0); BUN/CREATININE RATIO 26; CALCIUM 10.1 MG/DL (8.5-10.1); CARBON DIOXIDE 26 MMOL/L (21-32); CHLORIDE 102 MMOL/L (98-107); CREATININE SERUM 0.91 MG/DL (0.60-1.30); GFR ESTIMATED > 60; GLUCOSE 165 MG/DL (70-105); POTASSIUM 4.7 MMOL/L (3.6-5.0); SODIUM 143 MMOL/L (135-145); TOTAL PROTEIN 7.6 GM/DL (6.4-8.2)
[2020-10-31] MEDS ORDERED: RT-ALBUTEROL/IPRATROPIUM 3 ML (DUONEB) VIAL INH ONE (15:30)
[2020-10-31] MEDS ORDERED: PRD20T PO (15:47)
[2020-10-31 15:49] VITALS: BP 139/89
== END 2020-10-31 15:51 | disposition home or self-care (01) ==
LOC: EDUNIT# 14:39 → ER FS 14:41
DX: J44.1 Chronic obstructive pulmonary disease with (acute) exacerbation (principal); I10 Essential (primary) hypertension; F41.9 Anxiety disorder, unspecified; F17.210 Nicotine dependence, cigarettes, uncomplicated; Z79.52 Long term (current) use of systemic steroids; Z79.899 Other long term (current) drug therapy
CPT/HCPCS: 36415; 71046; 80053; 85025; 86141

== ENCOUNTER 2020-11-17 17:44 | Emergency (ER) | payer MEDICARE, MEDICAID ==
[~2020-11-17] VITALS: Ht 177.8 cm; Wt 68.4 kg
[2020-11-17] MEDS ORDERED: ORPHENADRINE 60 MG/2 ML (NORFLEX) AMP (ED ONLY) IVP STA (18:35)
[2020-11-17] MEDS ORDERED: fentaNYL INJ 100 MCG/2 ML AMP IVP STA ×2 (18:35→23:13)
--- NOTE | 2020-11-17 18:43 | ED General ---
General Chief Complaint: Chest Wall Stated Complaint: LEFT AND RIGHT SIDE TORSO PAIN Nursing Triage Note: Patient reports "muscles spasms" around her rib cage for 2 weeks. She states she saw her PCP, Dr. Puga, and he prescribed soma, which she states is not helping her pain. Source of Information: Patient, Old Records History of Present Illness Date Seen by Provider: Nov 17, 2020 Time Seen by Provider: 17:48 Initial Comments 70-year-old female presenting with complaints of diffuse muscle spasms. She states that she is getting spasms in her rib cage as well as her feet and legs. She had been seen here on October 31 for similar symptoms and discharged with a steroid as well as instructions to use her nebulizer since she seemed to be improved after nebulizer treatment here in the ED. She later saw her primary care provider Dr. Puga and he had prescribed Soma. She states she has been taking it for about 5 days but it was not helping so she came in here to the emergency department. She reports being woke up overnight with severe pain and cramps. She has not had this happen before. She denies any fever, chills, increase in her shortness of breath from her baseline, coughing up more than her usual, abdominal pain, pain with urination. She does have some urinary incontinence and wears a pad because she tends to leak but states that is not an y different from her baseline. She denies any vomiting or diarrhea. Timing/Duration: Getting Worse (for more than 2 weeks) Severity: Severe Associated Systoms: Chest Pain (muscles of chest wall spasms), Cough (chronic and no worse than usual); No Diaphoresis, No Fever/Chills, No Headaches, No Loss of Appetite, No Nausea/Vomiting, No Rash, No Seizure; Shortness of Air (chronic and at baseline); No Syncope Allergies and Home Medications Allergies Coded Allergies: No Known Drug Allergies (Unverified , 07/13/18) Home Medications Bupropion HCl 100 Mg Tablet.er, 100 MG PO BID, (Reported) Clopidogrel Bisulfate 75 Mg Tablet, 75 MG PO DAILY, (Reported) Duloxetine HCl 60 Mg Capsule.dr, 60 MG PO DAILY, (Reported) Esomeprazole Magnesium 40 Mg Capsule.dr, 40 MG PO DAILY, (Reported) Ipratropium/Albuterol Sulfate 3 Ml Ampul.neb, 3 ML NEB Q8H PRN for SHORTNESS OF BREATH, (Reported) Isosorbide Mononitrate 30 Mg Tab.er.24h, 30 MG PO DAILY, (Reported) Lorazepam 1 Mg Tablet, 1 MG PO TID PRN for ANXIETY, (Reported) Meloxicam 15 Mg Tablet, 15 MG PO DAILY, (Reported) Metoprolol Tartrate 25 Mg Tablet, 25 MG PO BID, (Reported) Pramipexole Di-HCl 1 Mg Tablet, 1 MG PO BID, (Reported) Prednisone 20 Mg Tab, 40 MG PO DAILY@0700 Prescribed by: CAROL GODINEZ on 05/15/19 1151 Prednisone 20 Mg Tab, 40 MG PO DAILY Prescribed by: TANIA BRANCH on 10/31/20 1547 Roflumilast 500 Mcg Tablet, 500 MCG PO DAILY, (Reported) Simvastatin 40 Mg Tablet, 40 MG PO DAILY, (Reported) Topiramate 50 Mg Tablet, 50 MG PO HS, (Reported) Tramadol HCl 50 Mg Tablet, 50 MG PO BID PRN for PAIN Prescribed by: DEMETRA LOZA on 07/21/19 1810 Tramadol HCl 50 Mg Tablet, 50 MG PO Q8H PRN for PAIN-SEVERE (8-10) Prescribed by: MAURIZIO KAPOOR on 11/17/20 2307 Trazodone HCl 50 Mg Tablet, 100 MG PO DAILY, (Reported) TAKES 2 (50MG) TABS Patient Home Medication List Home Medication List Reviewed: Yes Review of Systems Review of Systems Constitutional: No chills, No dizziness, No fever EENTM: no symptoms reported Respiratory: see HPI Cardiovascular: see HPI Gastrointestinal: see HPI Genitourinary: see HPI Musculoskeletal: see HPI Skin: no symptoms reported Psychiatric/Neurological: Anxiety Past Qotebef-Vlmden-Omhavm Hx Patient Social History Tobacco Use?: Yes Tobacco type used: Cigarettes Smoking Status: Current Everyday Smoker Use of E-Cig and/or Vaping dev: No Substance use?: No Alcohol Use?: No Pt feels they are or have been: No Immunizations Up To Date Tetanus Booster (TDap): Unknown PED Vaccines UTD: Yes Seasonal Allergies Seasonal Allergies: No Past Medical History Surgery/Hospitalization HX: Hx: choleycystectomy, tubal ligation, hysterectomy Surgeries: Yes Gallbladder, Hysterectomy, Orthopedic, 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 Respiratory: Yes COPD Currently Using CPAP: No Cardiac: Yes Hypertension Neurological: No Genitourinary: No Gastrointestinal: No Musculoskeletal: No Endocrine: No HEENT: No Cancer: No Psychosocial: Yes Anxiety Integumentary: No Blood Disorders: No Adverse Reaction/Blood Tranf: No Family Medical History Hypertension GRANDMOTHER Neoplasm 19 FATHER (PROSTATE) 19 MOTHER (UNKNOWN CANCER) Physical Exam Vital Signs Vital Signs - First Documented 11/17/20 18:01 Temp 36.0 Pulse 120 Resp 24 B/P (MAP) 143/70 (94) Pulse Ox 97 O2 Delivery Room Air Capillary Refill : Less Than 3 Seconds Height, Weight, BMI Height: 5'0" Weight: 160lbs. oz. [id number]; 21.00 BMI Method:Stated General Appearance: Chronically ill, Mild Distress HEENT: PERRL/EOMI, Pharynx Normal Neck: Non Tender, Supple Respiratory: Decreased Breath Sounds, Wheezing, Other (tender to palpation all over chest wall) Cardiovascular: Regular Rate, Rhythm, Normal Peripheral Pulses Gastrointestinal: Normal Bowel Sounds, No Pulsatile Mass, Non Tender, Soft Rectal: Deferred Extremity: Normal Capillary Refill, Normal Range of Motion, No Calf Tenderness, No Pedal Edema, Other (tender to palpation with palpation of extremities) Neurologic/Psychiatric: Alert, Oriented x3, control operator flow coat II-XII Norm as Tested Skin: Normal Color, Warm/Dry Progress/Results/Core Measures Suspected Sepsis SIRS Temperature: Pulse: 120 Respiratory Rate: 24 Laboratory Tests 11/17/20 18:40: White Blood Count 11.4H Blood Pressure 143 /70 Mean: 94 Laboratory Tests 11/17/20 18:40: Creatinine 1.12, INR Comment 0.8, Platelet Count 293, Total Bilirubin 0.3 Results/Orders Lab Results Laboratory Tests Test 11/17/20 17:50 11/17/20 18:40 Range/Units Urine Color YELLOW Urine Clarity CLEAR Urine pH 5.5 5-9 Urine Specific [place] >=1.030 1.016-1.022 Urine Protein TRACE H NEGATIVE Urine Glucose (UA) TRACE H NEGATIVE Urine Ketones TRACE H NEGATIVE Urine Nitrite NEGATIVE NEGATIVE Urine Bilirubin NEGATIVE NEGATIVE Urine Urobilinogen 0.2 < = 1.0 MG/DL Urine Leukocyte Esterase NEGATIVE NEGATIVE Urine RBC (Auto) NEGATIVE NEGATIVE Urine RBC 0-2 /HPF Urine WBC 2-5 /HPF Urine Squamous Epithelial Cells 5-10 /HPF Urine Renal Epithelial Cells RARE /HPF Urine Crystals NONE /LPF Urine Bacteria FEW H /HPF Urine Casts PRESENT /LPF Urine Hyaline Casts 10-25 H /LPF Urine Mucus MODERATE H /LPF Urine Culture Indicated NO White Blood Count 11.4 H 4.3-11.0 10^3/uL Red Blood Count 4.68 4.35-5.85 10^6/uL Hemoglobin 14.3 11.5-16.0 G/DL Hematocrit 43 35-52 % Mean Corpuscular Volume 92 80-99 FL Mean Corpuscular Hemoglobin 31 25-34 PG Mean Corpuscular Hemoglobin Concent 33 32-36 G/DL Red Cell Distribution Width 12.9 10.0-14.5 % Platelet Count 293 130-400 10^3/uL Mean Platelet Volume 9.8 7.4-10.4 FL Immature Granulocyte % (Auto) 1 % Neutrophils (%) (Auto) 63 42-75 % Lymphocytes (%) (Auto) 26 12-44 % Monocytes (%) (Auto) 7 0-12 % Eosinophils (%) (Auto) 3 0-10 % Basophils (%) (Auto) 1 0-10 % Neutrophils # (Auto) 7.1 1.8-7.8 X 10^3 Lymphocytes # (Auto) 2.9 1.0-4.0 X 10^3 Monocytes # (Auto) 0.8 0.0-1.0 X 10^3 Eosinophils # (Auto) 0.4 H 0.0-0.3 10^3/uL Basophils # (Auto) 0.1 0.0-0.1 10^3/uL Immature Granulocyte # (Auto) 0.1 0.0-0.1 10^3/uL Prothrombin Time 11.6 L 12.2-14.7 SEC INR Comment 0.8 0.8-1.4 Activated Partial Thromboplast Time 24 24-35 SEC D-Dimer 1.12 H 0.00-0.49 UG/ML Sodium Level 142 135-145 MMOL/L Potassium Level 4.1 3.6-5.0 MMOL/L Chloride Level 100 98-107 MMOL/L Carbon Dioxide Level 28 21-32 MMOL/L Anion Gap 14 5-14 MMOL/L Blood Urea Nitrogen 24 H 7-18 MG/DL Creatinine 1.12 0.60-1.30 MG/DL Estimat Glomerular Filtration Rate 48 BUN/Creatinine Ratio 21 Glucose Level 128 H 70-105 MG/DL Calcium Level 10.4 H 8.5-10.1 MG/DL Corrected Calcium 10.0 8.5-10.1 MG/DL Magnesium Level 2.1 1.6-2.4 MG/DL Total Bilirubin 0.3 0.1-1.0 MG/DL Aspartate Amino Transf (AST/SGOT) 33 5-34 U/L Alanine Aminotransferase (ALT/SGPT) 46 0-55 U/L Alkaline Phosphatase 142 H 40-136 U/L C-Reactive Protein 0.85 H <0.50 MG/DL Total Protein 7.5 6.4-8.2 GM/DL Albumin 4.5 3.2-4.5 GM/DL My Orders Orders - MAURIZIO KAPOOR MD Ua Culture If Indicated (11/17/20 17:50) Cbc With Automated Diff (11/17/20 18:35) Comprehensive Metabolic Panel (11/17/20 18:35) Magnesium (11/17/20 18:35) O2 (11/17/20 18:35) Ed Iv/Invasive Line Start (11/17/20 18:35) Monitor-Rhythm Ecg Trace Only (11/17/20 18:35) Crp Fs (11/17/20 18:35) Protime With Inr (11/17/20 18:35) Partial Thromboplastin Time (11/17/20 18:35) Fibrin Degradation Products (11/17/20 18:35) Fentanyl Inj (Sublimaze Injection) (11/17/20 18:35) Orphenadrine Inj (Ed Only) (Norflex Inje (11/17/20 18:35) Ns Iv 1000 Ml (Sodium Chloride 0.9%) (11/17/20 19:41) Ct Angio Chest W (11/17/20 21:44) Iohexol Injection (Omnipaque 350 Mg/Ml 1 (11/17/20 22:00) Received Contrast (Hold Metformin- Contr (11/17/20 22:00) Ns (Ivpb) (Sodium Chloride 0.9% Ivpb Bag (11/17/20 22:00) Fentanyl Inj (Sublimaze Injection) (11/17/20 23:13) Ondansetron Injection (Zofran Injectio (7/5/21 23:13) Medications Given in ED Current Medications Medications Dose Ordered Sig/Hernesto Route Start Time Stop Time Status Last Admin Dose Admin Iohexol 50 ml ONCE ONCE IV 11/17/20 22:00 11/17/20 22:11 DC 11/17/20 22:14 50 ML Sodium Chloride 100 ml ONCE ONCE IV 11/17/20 22:00 11/17/20 22:11 DC 11/17/20 22:14 80 ML Vital Signs/I&O 11/17/20 11/17/20 18:01 23:21 Temp 36.0 Pulse 120 101 Resp 24 18 B/P (MAP) 143/70 (94) 142/65 Pulse Ox 97 99 O2 Delivery Room Air 11/17/20 23:59 Intake Total 1000 ml Balance 1000 ml Capillary Refill : Less Than 3 Seconds Blood Pressure Mean: 94 Progress Note #1: Progress Note Check basic labs and coags as well as D-dimer. Try a dose of fentanyl as well as Norflex to see if that helps with her symptoms. Progress Note #2: Progress Note Patient reported improvement in her symptoms. She has no acute significant normality on her basic labs account for her symptoms. Her D-dimer did come back slightly elevated so discussed with patient and her daughter about performing a CT angiogram to evaluate for possible PE. Provided this is negative she could go home with continued treatment of pushing fluids and rest for dehydration on her UA and follow-up with Dr. Puga. Progress Note #3: Progress Note CT angiogram is negative for acute pulmonary embolism or infiltrate. Counseled on results and treatment options. Will prescribe a few low-dose tramadol and have her follow-up through the clinic for continued problems. Departure Impression Primary Impression: Dehydration Additional Impressions: Muscle cramping Right-sided chest wall pain Disposition: HOME, SELF-CARE Condition: Improved Departure-Patient Inst. Decision time for Depature: 23:03 Referrals: SARA PUGA MD (PCP/Family) Primary Care Physician Patient Instructions: Muscle Spasm ED, Dehydration, Adult ED Add. Discharge Instructions: Follow up with Dr. Puga for continued spasms and pain. Try the low dose pain medicine in the meantime for severe spasm and pain. Make sure you are drinking plenty of fluids and staying well hydrated. All discharge instructions reviewed with patient and/or family. Voiced understanding. Scripts Tramadol HCl (Tramadol HCl) 50 Mg Tablet 50 MG PO Q8H PRN for PAIN-SEVERE (8-10) for 5 Days, #15 TAB 0 Refills Prov: MAURIZIO KAPOOR MD 11/17/20 MAURIZIO KAPOOR MD Nov 17, 2020 18:43
[2020-11-17 18:52] LABS: WHITE BLOOD COUNT 11.4 10^3/uL (4.3-11.0)
[2020-11-17 18:53] LABS: HEMATOCRIT 43 % (35-52); HEMOGLOBIN 14.3 G/DL (11.5-16.0); LYMPHOCYTES % (AUTO) 26 % (12-44); MEAN CORPUSCULAR HEMOGLOBIN 31 PG (25-34); MEAN CORPUSCULAR HGB CONC 33 G/DL (32-36); MEAN CORPUSCULAR VOLUME 92 FL (80-99); MEAN PLATELET VOLUME 9.8 FL (7.4-10.4); MONOCYTES % (AUTO) 7 % (0-12); NEUTROPHILS % (AUTO) 63 % (42-75); PLATELET COUNT 293 10^3/uL (130-400)
[2020-11-17 18:54] LABS: BASOPHILS # (AUTO) 0.1 10^3/uL (0.0-0.1); BASOPHILS % (AUTO) 1 % (0-10); EOSINOPHILS # (AUTO) 0.4 10^3/uL (0.0-0.3); EOSINOPHILS % (AUTO) 3 % (0-10); LYMPHOCYTES # (AUTO) 2.9 X 10^3 (1.0-4.0); MONOCYTES # (AUTO) 0.8 X 10^3 (0.0-1.0); NEUTROPHILS # (AUTO) 7.1 X 10^3 (1.8-7.8)
[2020-11-17 19:12] LABS: COLOR,URINE YELLOW
[2020-11-17 19:13] LABS: BILIRUBIN,URINE NEGATIVE (NEGATIVE); CLARITY,URINE CLEAR; GLUCOSE, URINE (UA) TRACE (NEGATIVE); KETONES,URINE TRACE (NEGATIVE); LEUKOCYTE ESTERASE ,URINE NEGATIVE (NEGATIVE); NITRITE,URINE NEGATIVE (NEGATIVE); PH,URINE 5.5 (5-9); PROTEIN,URINE TRACE (NEGATIVE)
[2020-11-17 19:18] LABS: BACTERIA,URINE FEW /HPF; RBC,URINE 0-2 /HPF
[2020-11-17 19:19] LABS: RENAL EPITHELIAL CELLS,URINE RARE /HPF
[2020-11-17 19:25] LABS: ALBUMIN 4.5 GM/DL (3.2-4.5); BILIRUBIN,TOTAL 0.3 MG/DL (0.1-1.0); CALCIUM 10.4 MG/DL (8.5-10.1); CREATININE SERUM 1.12 MG/DL (0.60-1.30); MAGNESIUM 2.1 MG/DL (1.6-2.4); POTASSIUM 4.1 MMOL/L (3.6-5.0); TOTAL PROTEIN 7.5 GM/DL (6.4-8.2)
[2020-11-17] MEDS ORDERED: NS IV 1000 ML 1,000 ML IV STA (19:41)
[2020-11-17 20:58] LABS: INR 0.8 (0.8-1.4); PROTHROMBIN TIME PATIENT 11.6 SEC (12.2-14.7)
[2020-11-17 20:59] LABS: FIBRIN DEGRADATION PRODUCTS 1.12 UG/ML (0.00-0.49)
[2020-11-17] MEDS ORDERED: HOLD METFORMIN - RECEIVED CONTRAST 20 ML VIAL IV SCH (22:00)
[2020-11-17] MEDS ORDERED: NS 100 ML (IVPB) BAG IV ONE (22:00)
[2020-11-17] MEDS ORDERED: IOHEXOL 350 MG/ML 100 ML (OMNIPAQUE 350) VIAL IV ONE (22:00)
[2020-11-17] MEDS ORDERED: TRM50T PO (23:06)
[2020-11-17] MEDS ORDERED: ONDANSETRON 4 MG/2 ML (SDV) Z0FRAN IVP STA (23:13)
[2020-11-17 23:21] VITALS: BP 142/65
--- NOTE | 2020-11-18 07:03 | Diagnostic Imaging Report ---
PROCEDURE: CT angiography of the chest with contrast. TECHNIQUE: Multiple contiguous axial images were obtained through the chest after uneventful bolus administration of intravenous contrast. 3D reconstructed CTA MIP acquisitions were also performed. Auto Exposure Controls were utilized during the CT exam to meet ALARA standards for radiation dose reduction. INDICATION: Right-sided chest spasms x2-3 weeks. Elevated d-dimer. COMPARISON: CTA chest 07/13/2018. FINDINGS: No pulmonary artery filling defects. Normal caliber thoracic aorta. Normal heart size. No pericardial effusion. No mediastinal, hilar or axillary lymphadenopathy. Moderate centrilobular emphysema. No pleural effusion or pneumothorax. No acute osseous findings. Cholecystectomy. IMPRESSION: 1. No pulmonary emboli. 2. Moderate centrilobular emphysema. No significant change from preliminary interpretation. Dictated by: Dictated on workstation # [id number]
== END 2020-11-17 23:21 | disposition home or self-care (01) ==
LOC: EDUNIT# 17:44 → ER FS 17:48
DX: E86.0 Dehydration (principal); R25.2 Cramp and spasm; R07.89 Other chest pain; J44.9 Chronic obstructive pulmonary disease, unspecified; I10 Essential (primary) hypertension; F41.9 Anxiety disorder, unspecified; F17.210 Nicotine dependence, cigarettes, uncomplicated; Z79.01 Long term (current) use of anticoagulants; Z79.52 Long term (current) use of systemic steroids; Z79.899 Other long term (current) drug therapy
CPT/HCPCS: 36415; 71275; 80053; 81000; 83735; 85025; 85379; 85610; 85730; 86141

== ENCOUNTER 2020-11-21 12:28 | Emergency (ER) | payer MEDICARE, MEDICAID ==
[~2020-11-21] VITALS: Ht 152 cm; Wt 65.0 kg
--- NOTE | 2020-11-21 13:14 | ED Fall/Injury ---
General Chief Complaint: Chest Wall Stated Complaint: FALL;R SIDE PAIN Nursing Triage Note: RIGHT SIDE RIB PAIN AFTER FALLING OFF THE SIDE OF THE BED 2 DAYS AGO. Source: patient History of Present Illness Date Seen by Provider: Nov 21, 2020 Time Seen by Provider: 12:36 Initial Comments 70 yo female presents with increased pain to the right chest wall and ribs since falling asleep and falling off the side of the bed 2 days ago. She was seen Tuesday for her pain in the same area but now she has a bruise from falling and hitting her chest wall. She denies hitting her head or losing consciousness. She states that she has not been sleeping well because of pain. She is very groggy and sleepy. She has an appointment to see Dr. Puga next week about her pain symptoms. She states she has tried a lidocaine patch for 2 days with minimal to no improvement. She denies any increased shortness of breath other than her chronic issues. She has had no fever or chills. Occurred: other (Tuesday, November 19) Injuries/Pain Location: chest (Right chest wall bruising from hitting it) Context: other (Fell asleep and slipped off the edge of the bed) Loss of Consciousness: no loss of consciousness Associated Symptoms (Fall): No Abdominal Pain; Chest Pain; No Headache, No Lightheadedness, No Muscle Spasms, No Nausea/Vomiting, No Neck Pain, No Ringing in Ears, No Seizures; Shortness of Air (Chronic and no worse than usual); No Slurred Speech Allergies and Home Medications Allergies Coded Allergies: No Known Drug Allergies (Unverified , 07/13/18) Home Medications Bupropion HCl 100 Mg Tablet.er, 100 MG PO BID, (Reported) Clopidogrel Bisulfate 75 Mg Tablet, 75 MG PO DAILY, (Reported) Duloxetine HCl 60 Mg Capsule.dr, 60 MG PO DAILY, (Reported) Esomeprazole Magnesium 40 Mg Capsule.dr, 40 MG PO DAILY, (Reported) Ipratropium/Albuterol Sulfate 3 Ml Ampul.neb, 3 ML NEB Q8H PRN for SHORTNESS OF BREATH, (Reported) Isosorbide Mononitrate 30 Mg Tab.er.24h, 30 MG PO DAILY, (Reported) Lorazepam 1 Mg Tablet, 1 MG PO TID PRN for ANXIETY, (Reported) Meloxicam 15 Mg Tablet, 15 MG PO DAILY, (Reported) Metoprolol Tartrate 25 Mg Tablet, 25 MG PO BID, (Reported) Pramipexole Di-HCl 1 Mg Tablet, 1 MG PO BID, (Reported) Prednisone 20 Mg Tab, 40 MG PO DAILY@0700 Prescribed by: CAROL GODINEZ on 05/15/19 1151 Prednisone 20 Mg Tab, 40 MG PO DAILY Prescribed by: TANIA BRANCH on 10/31/20 1547 Roflumilast 500 Mcg Tablet, 500 MCG PO DAILY, (Reported) Simvastatin 40 Mg Tablet, 40 MG PO DAILY, (Reported) Topiramate 50 Mg Tablet, 50 MG PO HS, (Reported) Tramadol HCl 50 Mg Tablet, 50 MG PO BID PRN for PAIN Prescribed by: DEMETRA LOZA on 07/21/19 1810 Tramadol HCl 50 Mg Tablet, 50 MG PO Q8H PRN for PAIN-SEVERE (8-10) Prescribed by: MAURIZIO KAPOOR on 11/17/20 2307 Trazodone HCl 50 Mg Tablet, 100 MG PO DAILY, (Reported) TAKES 2 (50MG) TABS Patient Home Medication List Home Medication List Reviewed: Yes Review of Systems Review of Systems Constitutional: No chills, No fever Eyes: No Symptoms Reported Ears, Nose, Mouth, Throat: no symptoms reported Respiratory: see HPI Cardiovascular: see HPI Gastrointestinal: no symptoms reported Genitourinary: no symptoms reported Musculoskeletal: see HPI Skin: see HPI Psychiatric/Neurological: Other (Falling asleep while trying to talk to staff. Pt blames being tired from not sleeping well at home due to pain) Past Yiqhinn-Kneatr-Paamrf Hx Patient Social History Tobacco Use?: Yes Tobacco type used: Cigarettes Smoking Status: Current Everyday Smoker Substance use?: No Alcohol Use?: No Pt feels they are or have been: No Immunizations Up To Date Tetanus Booster (TDap): Unknown PED Vaccines UTD: Yes Seasonal Allergies Seasonal Allergies: No Past Medical History Surgeries: Yes Gallbladder, Hysterectomy, Orthopedic, 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 Respiratory: Yes COPD Currently Using CPAP: No Cardiac: Yes Hypertension Neurological: No Genitourinary: No Gastrointestinal: No Musculoskeletal: No Endocrine: No HEENT: No Cancer: No Psychosocial: Yes Anxiety Integumentary: No Blood Disorders: No Adverse Reaction/Blood Tranf: No Family Medical History Hypertension GRANDMOTHER Neoplasm 19 FATHER (PROSTATE) 19 MOTHER (UNKNOWN CANCER) Physical Exam Vital Signs Vital Signs - First Documented 11/21/20 12:32 Temp 36.4 Pulse 92 Resp 22 B/P (MAP) 133/54 (80) Pulse Ox 94 O2 Delivery Room Air Capillary Refill : Less Than 3 Seconds Height, Weight, BMI Height: 5'0" Weight: 160lbs. oz. 72.270890ur; 28.00 BMI Method:Stated General Appearance: WD/WN, no apparent distress, other (pt falling asleep easily while resting in bed. awakens to voice) HEENT: pharynx normal Neck: non-tender, full range of motion, supple, normal inspection Cardiovascular: normal peripheral pulses, regular rate, rhythm Respiratory: no respiratory distress, no accessory muscle use, decreased breath sounds; No stridor; wheezing, other (tender to palpation on right side of chest wall where she has bruising but no crepitus) Gastrointestinal: normal bowel sounds, non tender, soft, no pulsatile mass Extremities: normal range of motion, normal capillary refill Skin: warm/dry, ecchymosis (right lower ribs anterior and lateral) Mabel Coma Score Best Eye Response: (4) Open Spontaneously Best Verbal Response: (5) Oriented Best Motor Response: (6) Obeys Commands [place] Total: 15 Progress/Results/Core Measures Results/Orders My Orders Orders - MAURIZIO KAPOOR MD Ribs/Unilateral With Chest (11/21/20 12:43) Vital Signs/I&O 11/21/20 11/21/20 12:32 13:32 Temp 36.4 36.4 Pulse 92 84 Resp 22 18 B/P (MAP) 133/54 (80) 128/68 (80) Pulse Ox 94 94 O2 Delivery Room Air Room Air Blood Pressure Mean: 80 Progress Progress Note : Progress Note X-rays obtained of the chest and ribs show no definite fracture or pneumothorax. Appears stable in terms of chronic pulmonary disease. Advised patient to continue with the as needed tramadol for severe pain, add on Tylenol for additional pain relief, continue with lidocaine patches, alternate ice and heat. Keep appointment this upcoming week with Dr. Puga and if needed call to be seen sooner. Diagnostic Imaging Diagonstic Imaging: Xray Plain Films/CT/US/NM/MRI: chest (And right ribs) Comments [facility] [employer] [facility] [place], [place] NAME: RUBEN RAPP [facility] REC#: [id number] PT STATUS: DEP ER : 1950 PHYSICIAN: MAURIZIO KAPOOR MD ADMIT DATE: 11/21/20/ER FS Signed Date of Exam:11/21/20 RIBS/UNILATERAL WITH CHEST INDICATION: Bilateral rib pain. COMPARISON: Chest 10/31/2020 FINDINGS: Single view of the chest, 2 views of the right ribs demonstrate chronic interstitial changes in the bases. The heart is slightly enlarged. There is no pneumothorax or effusion. No osseous abnormalities identified. There is no rib fracture. IMPRESSION: 1. No acute cardiopulmonary findings. 2. No rib fracture identified. Dictated by: Dictated on workstation # [id number] Dict: 11/21/20 1312 Trans: 11/21/20 1638 CV [id number] Interpreted by: DAISY SU Electronically signed by: DAISY SU 11/21/20 1638 Reviewed: Reviewed by Me Departure Impression Primary Impression: Contusion of rib on right side Qualified Codes: S20.211A - Contusion of right front wall of thorax, initial encounter Additional Impression: Chest wall pain Disposition: 01 HOME, SELF-CARE Condition: Stable Departure-Patient Inst. Decision time for Depature: 13:30 Referrals: SARA PUGA MD (PCP/Family) Primary Care Physician Patient Instructions: Blunt Chest Trauma ED, Rib Fracture or Bruised Rib ED Add. Discharge Instructions: The xrays do not show a rib fracture or collapsed lung or pneumonia. A bruised rib can still hurt a lot so alternating ice and heat can help to take some inflammation away. Keep using the lidocaine patches to help with pain to the ribs on right side. Add on Acetaminophen 650 mg every 6 hours as needed for pain. This will help with the Tramadol for your pain. Try sleeping more upright in a recliner or propped up on some extra pillows to see if that helps you rest better. Check back with Dr. Puga for continued problems. All discharge instructions reviewed with patient and/or family. Voiced understanding. MAURIZIO KAPOOR MD Nov 21, 2020 13:14
[2020-11-21 13:32] VITALS: BP 128/68
== END 2020-11-21 13:33 | disposition home or self-care (01) ==
LOC: EDUNIT# 12:28 → ER FS 12:29
DX: S20.211A Contusion of right front wall of thorax, initial encounter (principal); I10 Essential (primary) hypertension; J44.9 Chronic obstructive pulmonary disease, unspecified; F41.9 Anxiety disorder, unspecified; F17.210 Nicotine dependence, cigarettes, uncomplicated; Z79.52 Long term (current) use of systemic steroids; Z79.899 Other long term (current) drug therapy; W06.XXXA Fall from bed, initial encounter
CPT/HCPCS: 71101

== ENCOUNTER → 2020-12-03 | Outpatient (CLI) | payer MEDICARE, MEDICAID ==
[~2020-12-03] MED LIST changes: +RT-ALBUTEROL SULF 2.5 MG/3 ML PRE-MIX VIAL INH ONE
== END ==
LOC: RT 14:30
PROVIDERS: ATTEND Nurse Practitioner Family
DX: J44.9 Chronic obstructive pulmonary disease, unspecified (principal)
CPT/HCPCS: 94060; 94640; 94726; 94729

== ENCOUNTER 2021-01-23 12:11 | Emergency (ER) | payer MEDICARE, MEDICAID ==
[~2021-01-23] VITALS: Ht 152.4 cm; Wt 72.6 kg
[~2021-01-23 12:11] MED LIST changes: -RT-ALBUTEROL SULF 2.5 MG/3 ML PRE-MIX VIAL INH ONE
--- OUTSIDE RECORDS SUMMARY | 2021-01-23 12:19 | XMS REPORT | Clinical Summary ---
Author Author [facility] Organization [facility] Address Unknown Phone Unavailable Care Team Providers Care Step Finisher Name Role Phone Self, Francisco JASON PCP Source Comments Some departments are not documenting in the electronic medical record. If you d o not see the information that you expected, contact Release of Information in [facility] Information Management department at [phone] for further assistan ce in locating additional records.[facility] Allergies No Known Active Allergies Medications End Date Status Medication Sig Dispensed Refills Start Date Active traZODone (DESYREL) 50 mg Take 100 mg 0 tablet by mouth at bedtime daily. Active gabapentin (NEURONTIN) Take 300 mg 0 300 mg capsule by mouth twice daily. Active albuterol (PROAIR HFA, Inhale 2 0 VENTOLIN HFA, OR puffs by PROVENTIL HFA) 90 mouth into mcg/actuation inhaler the lungs every 6 hours as needed for Wheezing or Shortness of Breath. Shake well before use. Active pramipexole (MIRAPEX) 0.5 Take 0.5 mg 0 mg tablet by mouth at bedtime daily. Active LORazepam (ATIVAN) 0.5 mg Take 1 tablet 0 tablet by mouth every 8 hours as needed for Nausea. Active tiZANidine (ZANAFLEX) 4 Take 4 mg by 0 mg tablet mouth every 8 hours as needed. Active clopiDOGrel (PLAVIX) 75 Take 75 mg by 0 mg tablet mouth daily. Active meloxicam (MOBIC) 15 mg Take 15 mg by 0 tablet mouth daily. Active simvastatin (ZOCOR) 40 mg Take 40 mg by 0 tablet mouth at bedtime daily. Active oxybutynin XL (DITROPAN Take 5 mg by 0 XL) 5 mg tablet mouth daily. Active sumatriptan succinate Take 100 mg 0 (IMITREX) 100 mg tablet by mouth as Needed for Migraine symptoms. Dose may be repeated in 2 hours if needed. Max of 2 tablets in 24 hours. Active cholecalciferol(+) Take 2,000 0 (VITAMIN D-3) 2,000 unit Units by tablet mouth daily. Active duloxetine DR (CYMBALTA) Take 60 mg by 0 60 mg capsule mouth daily. Active lisinopril (PRINIVIL; Take 20 mg by 0 ZESTRIL) 20 mg tablet mouth daily. Active esomeprazole DR(+) Take 20 mg by 0 (NEXIUM) 20 mg capsule mouth every morning. Take on an empty stomach at least 1 hour before or 2 hours after food. Active fluticasone (FLONASE) 50 Apply 2 0 mcg/actuation nasal spray sprays to each nostril as directed daily. Shake bottle gently before using. Active buPROPion SR(+) Take 100 mg 0 (WELLBUTRIN-SR) 100 mg by mouth tablet twice daily. Active ranitidine(+) (ZANTAC) Take 150 mg 0 150 mg tablet by mouth twice daily. Active tiotropium (SPIRIVA) 18 Place 18 mcg 0 mcg capsule for inhaler into inhaler and inhale into lungs as directed daily. Active Problems Not on file Surgical History Surgery Date Site/Laterality Comments ANKLE SURGERY Right CHOLECYSTECTOMY HYSTERECTOMY TUBAL LIGATION Medical History Medical History Date Comments Essential hypertension Anxiety COPD (chronic obstructive pulmonary disease) (HCC) Depression Fibromyalgia Hyperlipidemia Panlobular emphysema (HCC) Family History Medical History Relation Name Comments Arthritis Father Cancer Father prostate cancer Hypertension Father Cancer Mother lung cancer Relation Name Status Comments Father Mother Social History Date Tobacco Use Types Packs/Day Years Used Current Every Day Smoker 0.25 Smokeless Tobacco: Never Used Comments Alcohol Use Standard Drinks/Week No 0 (1 standard drink = 0.6 o z pure alcohol) Sex Assigned at Date Recorded Not on file Last Filed Vital Signs Reading Time Taken Comments Vital Sign 149/71 05/02/2017 11:40 AM STAMP COLLECTOR Blood Pressure 79 05/02/2017 11:40 AM STAMP COLLECTOR Pulse - - Temperature - - Respiratory Rate 97% 05/02/2017 11:40 AM STAMP COLLECTOR Oxygen Saturation - - Inhaled Oxygen Concentration 66.2 kg (146 lb) 05/02/2017 11:40 AM STAMP COLLECTOR Weight 152.4 cm (5') 05/02/2017 11:40 AM STAMP COLLECTOR Height 28.51 05/02/2017 11:40 AM STAMP COLLECTOR Body Mass Index Plan of Treatment Health Maintenance Due Date Last Done Comments MEDICARE ANNUAL WELLNESS 1950 VISIT DTAP/TDAP VACCINES (1 - 07/16/1967 Tdap) HEPATITIS C SCREENING 07/16/1967 PHYSICAL (COMPREHENSIVE) 07/16/1967 EXAM BREAST CANCER SCREENING 1989 COLORECTAL CANCER 07/16/1999 SCREENING SHINGLES RECOMBINANT 07/16/1999 VACCINE (1 of 2) OSTEOPOROSIS 2014 SCREENING/MONITORING PNEUMONIA (PPSV23) 2014 VACCINE (1 of 1 - PPSV23) INFLUENZA VACCINE 02/13/2021 Results Not on filefrom Last 3 Months Insurance Type Payer Benefit Subscriber ID Effective Phone Address Plan / Dates Group Medicare MEDICARE MEDICARE [id number] PART A AND resent B [phone] 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
[2021-01-23] MEDS ORDERED: methylPREDNISolone 125 MG (Solu-MEDROL) VIAL IV STA (12:21)
--- NOTE | 2021-01-23 12:21 | ED Dyspnea ---
History of Present Illness Date Seen by Provider: Jan 23, 2021 Time Seen by Provider: 12:19 Initial Comments 70-year-old female presents with some increasing feelings of shortness of breath. Patient has a history of COPD is on 4-1/2 L of oxygen. Patient states that over the last 3 to 4 days she has felt more short of breath. She has a chronic cough but does not feel increased. She has no fevers chills nausea vomiting or other systemic complaints. Patient denies any Covid exposure and is fully vaccinated. Allergies and Home Medications Allergies Coded Allergies: No Known Drug Allergies (Unverified , 07/13/18) Patient Home Medication List Home Medication List Reviewed: Yes Azithromycin (Azithromycin) 250 Mg Tablet, 250 MG PO UD Prescribed by: CANDY ADRIAN on 01/23/21 1323 Bupropion HCl (Bupropion HCl Sr) 100 Mg Tablet.er, 100 MG PO BID, (Reported) Entered as Reported by: MAGUI BERNSTEIN on 07/13/181822 Clopidogrel Bisulfate (Clopidogrel) 75 Mg Tablet, 75 MG PO DAILY, (Reported) Entered as Reported by: MAGUI BERNSTEIN on 07/13/181822 Duloxetine HCl (Duloxetine HCl) 60 Mg Capsule.dr, 60 MG PO DAILY, (Reported) Entered as Reported by: MAGUI BERNSTEIN on 07/13/181822 Esomeprazole Magnesium (Esomeprazole Magnesium) 40 Mg Capsule.dr, 40 MG PO DAILY, (Reported) Entered as Reported by: THERESE ALMAZAN on 05/14/19 1139 Ipratropium/Albuterol Sulfate (Iprat-Albut 0.5-3(2.5) mg/3 ml) 3 Ml Ampul.neb, 3 ML NEB Q8H PRN for SHORTNESS OF BREATH, (Reported) Entered as Reported by: THERESE ALMAZAN on 05/14/19 0805 Isosorbide Mononitrate (Isosorbide Mononitrate ER) 30 Mg Tab.er.24h, 30 MG PO DAILY, (Reported) Entered as Reported by: THERESE ALMAZAN on 05/14/19 113 Lorazepam (Lorazepam) 1 Mg Tablet, 1 MG PO TID PRN for ANXIETY, (Reported) Entered as Reported by: MAGUI BERNSTEIN on 07/13/181822 Meloxicam (Meloxicam) 15 Mg Tablet, 15 MG PO DAILY, (Reported) Entered as Reported by: MAGUI BERNSTEIN on 07/13/181822 Metoprolol Tartrate (Metoprolol Tartrate) 25 Mg Tablet, 25 MG PO BID, (Reported) Entered as Reported by: THERESE ALMAZAN on 05/14/19 0811 Pramipexole Di-HCl (Pramipexole Dihydrochloride) 1 Mg Tablet, 1 MG PO BID, (Reported) Entered as Reported by: MAGUI BERNSTEIN on 07/13/18 182 Prednisone (Prednisone) 20 Mg Tab, 40 MG PO DAILY@0700 Prescribed by: CAROL GODINEZ on 05/15/19 1151 Prednisone (Prednisone) 20 Mg Tab, 40 MG PO DAILY Prescribed by: TANIA BRANCH on 10/31/20 1547 Prednisone (Prednisone) 20 Mg Tab, 40 MG PO DAILY Prescribed by: CANDY ADRIAN on 01/23/21 1323 Roflumilast (Daliresp) 500 Mcg Tablet, 500 MCG PO DAILY, (Reported) Entered as Reported by: THERESE ALMAZAN on 05/14/19 113 Simvastatin (Simvastatin) 40 Mg Tablet, 40 MG PO DAILY, (Reported) Entered as Reported by: MAGUI BERNSTEIN on 07/13/18 182 Topiramate (Topiramate) 50 Mg Tablet, 50 MG PO HS, (Reported) Entered as Reported by: THERESE ALMAZAN on 05/14/19 1139 Tramadol HCl (Tramadol HCl) 50 Mg Tablet, 50 MG PO BID PRN for PAIN Prescribed by: DEMETRA LOZA on 07/21/19 1810 Tramadol HCl (Tramadol HCl) 50 Mg Tablet, 50 MG PO Q8H PRN for PAIN-SEVERE (8- 10) Prescribed by: MAURIZIO KAPOOR on 11/17/20 2307 Trazodone HCl (Trazodone HCl) 50 Mg Tablet, 100 MG PO DAILY, (Reported) Entered as Reported by: MAGUI BERNSTEIN on 07/13/18 182 Review of Systems Review of Systems Constitutional: No chills, No fever EENTM: no symptoms reported Respiratory: cough, short of breath Cardiovascular: No chest pain, No palpitations Gastrointestinal: No abdominal pain, No nausea, No vomiting Genitourinary: no symptoms reported Musculoskeletal: no symptoms reported Skin: no symptoms reported Psychiatric/Neurological: No Symptoms Reported Endocrine: No Symptoms Reported Hematologic/Lymphatic: No Symptoms Reported Past Hxrrqhp-Zlrrwj-Pzlisn Hx Immunizations Up To Date Tetanus Booster (TDap): Unknown PED Vaccines UTD: Yes Seasonal Allergies Seasonal Allergies: No Past Medical History Surgeries: Yes Gallbladder, Hysterectomy, Orthopedic, 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 Respiratory: Yes COPD Currently Using CPAP: No Cardiac: Yes Hypertension Neurological: No Genitourinary: No Gastrointestinal: No Musculoskeletal: No Endocrine: No HEENT: No Cancer: No Psychosocial: Yes Anxiety Integumentary: No Blood Disorders: No Adverse Reaction/Blood Tranf: No Family Medical History Hypertension GRANDMOTHER Neoplasm 19 FATHER (PROSTATE) 19 MOTHER (UNKNOWN CANCER) Physical Exam Vital Signs Vital Signs - First Documented 01/23/21 12:11 Temp 35.9 Pulse 106 Resp 22 B/P (MAP) 89/66 (74) Pulse Ox 94 O2 Delivery Room Air O2 Flow Rate 4.00 Capillary Refill : Height, Weight, BMI Height: 5'0" Weight: 160lbs. oz. 72.695339mp; 28.00 BMI Method:Stated General Appearance: No Apparent Distress, WD/WN Neck: Non Tender Respiratory: No Accessory Muscle Use, No Respiratory Distress; No Accessory Muscle Use; Decreased Breath Sounds Cardiovascular: Regular Rate, Rhythm, No Edema Gastrointestinal: Non Tender, Soft Neurologic/Psychiatric: Alert, Oriented x3, No Motor/Sensory Deficits, treating engineer helper II- XII Norm as Tested Skin: Normal Color, Warm/Dry Progress/Results/Core Measures Results/Orders Lab Results Laboratory Tests Test 01/23/21 12:20 Range/Units White Blood Count 7.9 4.3-11.0 10^3/uL Red Blood Count 4.20 3.80-5.11 10^6/uL Hemoglobin 12.8 11.5-16.0 g/dL Hematocrit 40 35-52 % Mean Corpuscular Volume 96 80-99 fL Mean Corpuscular Hemoglobin 30 25-34 pg Mean Corpuscular Hemoglobin Concent 32 32-36 g/dL Red Cell Distribution Width 13.2 10.0-14.5 % Platelet Count 317 130-400 10^3/uL Mean Platelet Volume 10.4 9.0-12.2 fL Immature Granulocyte % (Auto) 1 % Neutrophils (%) (Auto) 58 42-75 % Lymphocytes (%) (Auto) 28 12-44 % Monocytes (%) (Auto) 7 0-12 % Eosinophils (%) (Auto) 5 0-10 % Basophils (%) (Auto) 1 0-10 % Neutrophils # (Auto) 4.6 1.8-7.8 X 10^3 Lymphocytes # (Auto) 2.2 1.0-4.0 X 10^3 Monocytes # (Auto) 0.6 0.0-1.0 X 10^3 Eosinophils # (Auto) 0.4 H 0.0-0.3 10^3/uL Basophils # (Auto) 0.1 0.0-0.1 10^3/uL Immature Granulocyte # (Auto) 0.1 0.0-0.1 10^3/uL Sodium Level 140 135-145 MMOL/L Potassium Level 4.0 3.6-5.0 MMOL/L Chloride Level 104 98-107 MMOL/L Carbon Dioxide Level 26 21-32 MMOL/L Anion Gap 10 5-14 MMOL/L Blood Urea Nitrogen 18 7-18 MG/DL Creatinine 0.92 0.60-1.30 MG/DL Estimat Glomerular Filtration Rate 60 BUN/Creatinine Ratio 20 Glucose Level 145 H 70-105 MG/DL Calcium Level 9.5 8.5-10.1 MG/DL Corrected Calcium 9.3 8.5-10.1 MG/DL Total Bilirubin 0.3 0.1-1.0 MG/DL Aspartate Amino Transf (AST/SGOT) 37 H 5-34 U/L Alanine Aminotransferase (ALT/SGPT) 51 0-55 U/L Alkaline Phosphatase 104 40-136 U/L C-Reactive Protein 0.89 H <0.50 MG/DL Pro-B-Type Natriuretic Peptide 120.7 H <75.0 PG/ML Total Protein 7.2 6.4-8.2 GM/DL Albumin 4.3 3.2-4.5 GM/DL My Orders Orders - ADRIAN,CANDY L DO Cbc With Automated Diff (01/23/21 12:21) Comprehensive Metabolic Panel (01/23/21 12:21) Probnp Fs (01/23/21 12:21) Crp Fs (01/23/21 12:21) Chest Pa/Lat (2 View) (01/23/21 12:21) Albuterol/Ipra Inhalation Soln (Duoneb I (01/23/21 12:30) Methylprednisolone Sod Succ (Solu-Medrol (01/23/21 12:21) Svn Small Volume Nebulizer (01/23/21 12:21) Medications Given in ED Current Medications Medications Dose Ordered Sig/Hernesto Route Start Time Stop Time Status Last Admin Dose Admin Albuterol/ Ipratropium 3 ml ONCE ONCE INH 01/23/21 12:30 01/23/21 12:31 DC 01/23/21 12:46 3 ML Vital Signs/I&O 01/23/21 01/23/21 01/23/21 12:11 12:11 13:25 Temp 35.9 Pulse 106 88 Resp 22 20 B/P (MAP) 89/66 (74) 129/61 Pulse Ox 94 100 O2 Delivery Room Air Nasal Cannula Room Air O2 Flow Rate 4.00 Progress Progress Note : Progress Note Patient's oxygen saturation remained in the upper 90s throughout her stay. She does have maybe some early questionable infiltrate with underlying COPD. I will treat her with azithromycin, steroids and discharged home. She should follow-up with her primary care provider Tuesday or Tuesday of next week Diagnostic Imaging Diagonstic Imaging: Xray Plain Films/CT/US/NM/MRI: chest Comments Date of Exam:01/23/21 CHEST PA/LAT (2 VIEW) INDICATION: Shortness of breath. EXAMINATION: 2 view chest 01/23/2021 COMPARISON: 11/21/2020 FINDINGS: The heart is unremarkable. Pulmonary vasculature is within normal limits. Vague patchy airspace opacity seen in the right perihilar region and left lung base. This likely is due to atelectasis with early infiltrate not excluded. No pneumothorax. No effusions. No acute osseous abnormality IMPRESSION: 1. Mild left base and right perihilar atelectasis with early infiltrate not excluded. Departure Impression Primary Impression: COPD with lower respiratory infection Disposition: 01 HOME, SELF-CARE Condition: Stable Departure-Patient Inst. Referrals: SARA PUGA MD (PCP/Family) Primary Care Physician Patient Instructions: COPD Exacerbation, Adult ED Add. Discharge Instructions: Use your nebulizer every 4 hours while awake, follow-up with your primary care provider Tuesday or Tuesday of next week Scripts Prednisone (Prednisone) 20 Mg Tab 40 MG PO DAILY, #6 TAB 0 Refills Prov: CANDY ADRIAN DO 01/23/21 Azithromycin (Azithromycin) 250 Mg Tablet 250 MG PO UD, #6 TAB TAKE 2 TABLETS ON DAY ONE THEN TAKE 1 TABLET DAILY FOR FOUR MORE DAYS Prov: CANDY ADRIAN DO 01/23/21 CANDY ADRIAN DO Jan 23, 2021 12:21
[2021-01-23] MEDS ORDERED: RT-ALBUTEROL/IPRATROPIUM 3 ML (DUONEB) VIAL INH ONE (12:30)
--- NOTE | 2021-01-23 12:46 | Diagnostic Imaging Report ---
INDICATION: Shortness of breath. EXAMINATION: 2 view chest 01/23/2021 COMPARISON: 11/21/2020 FINDINGS: The heart is unremarkable. Pulmonary vasculature is within normal limits. Vague patchy airspace opacity seen in the right perihilar region and left lung base. This likely is due to atelectasis with early infiltrate not excluded. No pneumothorax. No effusions. No acute osseous abnormality IMPRESSION: 1. Mild left base and right perihilar atelectasis with early infiltrate not excluded. Dictated by: Dictated on workstation # [id number]
[2021-01-23 12:53] LABS: HEMATOCRIT 40 % (35-52); HEMOGLOBIN 12.8 g/dL (11.5-16.0); MEAN CORPUSCULAR HEMOGLOBIN 30 pg (25-34); MEAN CORPUSCULAR HGB CONC 32 g/dL (32-36); MEAN CORPUSCULAR VOLUME 96 fL (80-99); WHITE BLOOD COUNT 7.9 10^3/uL (4.3-11.0)
[2021-01-23 12:54] LABS: BASOPHILS # (AUTO) 0.1 10^3/uL (0.0-0.1); BASOPHILS % (AUTO) 1 % (0-10); EOSINOPHILS # (AUTO) 0.4 10^3/uL (0.0-0.3); EOSINOPHILS % (AUTO) 5 % (0-10); LYMPHOCYTES # (AUTO) 2.2 X 10^3 (1.0-4.0); LYMPHOCYTES % (AUTO) 28 % (12-44); MEAN PLATELET VOLUME 10.4 fL (9.0-12.2); MONOCYTES # (AUTO) 0.6 X 10^3 (0.0-1.0); MONOCYTES % (AUTO) 7 % (0-12); NEUTROPHILS # (AUTO) 4.6 X 10^3 (1.8-7.8); NEUTROPHILS % (AUTO) 58 % (42-75); PLATELET COUNT 317 10^3/uL (130-400)
[2021-01-23 13:06] LABS: BILIRUBIN,TOTAL 0.3 MG/DL (0.1-1.0); CALCIUM 9.5 MG/DL (8.5-10.1); CREATININE SERUM 0.92 MG/DL (0.60-1.30)
[2021-01-23 13:07] LABS: ALBUMIN 4.3 GM/DL (3.2-4.5); TOTAL PROTEIN 7.2 GM/DL (6.4-8.2)
[2021-01-23] MEDS ORDERED: AZIT250T12 PO (13:23)
[2021-01-23] MEDS ORDERED: PRD20T PO (13:23)
[2021-01-23 13:25] VITALS: BP 129/61
== END 2021-01-23 13:25 | disposition home or self-care (01) ==
LOC: EDUNIT# 12:11 → ER FS 12:14
DX: J44.0 Chronic obstructive pulmonary disease with (acute) lower respiratory infection (principal); I10 Essential (primary) hypertension; F41.9 Anxiety disorder, unspecified; Z79.899 Other long term (current) drug therapy; Z79.01 Long term (current) use of anticoagulants
CPT/HCPCS: 36415; 71046; 80053; 83880; 85025; 86141; 99281

== ENCOUNTER 2021-02-05 23:45 | Emergency (ER) | payer MEDICARE, MEDICAID ==
--- NOTE | 2021-02-05 23:52 | ED Dyspnea ---
General Stated Complaint: SOB Source of Information: Patient, EMS Exam Limitations: No Limitations History of Present Illness Date Seen by Provider: Feb 05, 2021 Time Seen by Provider: 23:47 Initial Comments 70-year-old female presents with complaint of shortness of air onset about 2 hours prior to arrival. She called EMS for assistance. Given albuterol neb en- route and states she is feeling a little better on arrival to ER. She is normally on 4 L of oxygen per nasal cannula. Allergies and Home Medications Allergies Coded Allergies: No Known Allergies (Verified Allergy, Unknown, 02/05/21) Patient Home Medication List Home Medication List Reviewed: Yes Azithromycin (Azithromycin) 250 Mg Tablet, 250 MG PO UD Prescribed by: CANDY ADRIAN on 01/23/21 1323 Bupropion HCl (Bupropion HCl Sr) 100 Mg Tablet.er, 100 MG PO BID, (Reported) Entered as Reported by: MAGUI BERNSTEIN on 07/13/181822 Clopidogrel Bisulfate (Clopidogrel) 75 Mg Tablet, 75 MG PO DAILY, (Reported) Entered as Reported by: MAGUI BERNSTEIN on 07/13/181822 Duloxetine HCl (Duloxetine HCl) 60 Mg Capsule.dr, 60 MG PO DAILY, (Reported) Entered as Reported by: MAGUI BERNSTEIN on 07/13/181822 Esomeprazole Magnesium (Esomeprazole Magnesium) 40 Mg Capsule.dr, 40 MG PO DAILY, (Reported) Entered as Reported by: THERESE ALMAZAN on 05/14/19 113 Ipratropium/Albuterol Sulfate (Iprat-Albut 0.5-3(2.5) mg/3 ml) 3 Ml Ampul.neb, 3 ML NEB Q8H PRN for SHORTNESS OF BREATH, (Reported) Entered as Reported by: THERESE ALMAZAN on 05/14/19 0805 Isosorbide Mononitrate (Isosorbide Mononitrate ER) 30 Mg Tab.er.24h, 30 MG PO DAILY, (Reported) Entered as Reported by: THERESE ALMAZAN on 05/14/19 113 Lorazepam (Lorazepam) 1 Mg Tablet, 1 MG PO TID PRN for ANXIETY, (Reported) Entered as Reported by: MAGUI BERNSTEIN on 07/13/181822 Meloxicam (Meloxicam) 15 Mg Tablet, 15 MG PO DAILY, (Reported) Entered as Reported by: MAGUI BERNSTEIN on 07/13/181822 Metoprolol Tartrate (Metoprolol Tartrate) 25 Mg Tablet, 25 MG PO BID, (Reported) Entered as Reported by: THERESE ALMAZAN on 05/14/19 0811 Pramipexole Di-HCl (Pramipexole Dihydrochloride) 1 Mg Tablet, 1 MG PO BID, (Reported) Entered as Reported by: MAGUI BERNSTEIN on 07/13/18 182 Prednisone (Prednisone) 20 Mg Tab, 40 MG PO DAILY@0700 Prescribed by: CAROL GODINEZ on 05/15/19 1151 Prednisone (Prednisone) 20 Mg Tab, 40 MG PO DAILY Prescribed by: TANIA BRANCH on 10/31/20 1547 Prednisone (Prednisone) 20 Mg Tab, 40 MG PO DAILY Prescribed by: CANDY ADRIAN on 01/23/21 1323 Roflumilast (Daliresp) 500 Mcg Tablet, 500 MCG PO DAILY, (Reported) Entered as Reported by: THERESE ALMAZAN on 05/14/19 1139 Simvastatin (Simvastatin) 40 Mg Tablet, 40 MG PO DAILY, (Reported) Entered as Reported by: MAGUI BERNSTEIN on 07/13/18 182 Topiramate (Topiramate) 50 Mg Tablet, 50 MG PO HS, (Reported) Entered as Reported by: THERESE ALMAZAN on 05/14/19 1139 Tramadol HCl (Tramadol HCl) 50 Mg Tablet, 50 MG PO BID PRN for PAIN Prescribed by: DEMETRA LOZA on 07/21/19 1810 Tramadol HCl (Tramadol HCl) 50 Mg Tablet, 50 MG PO Q8H PRN for PAIN-SEVERE (8- 10) Prescribed by: MAURIZIO KAPOOR on 11/17/20 2307 Trazodone HCl (Trazodone HCl) 50 Mg Tablet, 100 MG PO DAILY, (Reported) Entered as Reported by: MAGUI BERNSTEIN on 07/13/181822 Review of Systems Review of Systems Constitutional: No chills, No fever; malaise EENTM: no symptoms reported Respiratory: No cough; short of breath Cardiovascular: No chest pain, No edema Gastrointestinal: No abdominal pain, No nausea, No vomiting Musculoskeletal: No back pain, No joint pain Skin: No change in color, No rash Past Ogtuuvc-Rezsrs-Zenbtu Hx Patient Social History Tobacco Use?: No Physical Exam Vital Signs Vital Signs - First Documented 02/05/21 23:48 Temp 36.7 Pulse 83 Resp 20 B/P (MAP) 145/75 (98) Pulse Ox 98 O2 Delivery Nasal Cannula O2 Flow Rate 4.50 Capillary Refill : Height, Weight, BMI Height: '" Weight: lbs. oz. kg; BMI Method: General Appearance: No Apparent Distress, WD/WN HEENT: PERRL/EOMI, Normal ENT Inspection Neck: Full Range of Motion, Non Tender, Supple Respiratory: Chest Non Tender, No Accessory Muscle Use, No Respiratory Distress, Decreased Breath Sounds Cardiovascular: Regular Rate, Rhythm, No Edema Gastrointestinal: Normal Bowel Sounds, Non Tender, Soft Extremity: Normal Capillary Refill, Non Tender Neurologic/Psychiatric: Alert, Oriented x3 Skin: Normal Color, Warm/Dry Progress/Results/Core Measures Results/Orders Lab Results Laboratory Tests Test 02/06/21 00:04 Range/Units White Blood Count 8.3 4.3-11.0 10^3/uL Red Blood Count 3.87 3.80-5.11 10^6/uL Hemoglobin 11.9 11.5-16.0 g/dL Hematocrit 38 35-52 % Mean Corpuscular Volume 97 80-99 fL Mean Corpuscular Hemoglobin 31 25-34 pg Mean Corpuscular Hemoglobin Concent 32 32-36 g/dL Red Cell Distribution Width 13.3 10.0-14.5 % Platelet Count 283 130-400 10^3/uL Mean Platelet Volume 10.2 9.0-12.2 fL Immature Granulocyte % (Auto) 1 % Neutrophils (%) (Auto) 52 42-75 % Lymphocytes (%) (Auto) 36 12-44 % Monocytes (%) (Auto) 6 0-12 % Eosinophils (%) (Auto) 4 0-10 % Basophils (%) (Auto) 1 0-10 % Neutrophils # (Auto) 4.3 1.8-7.8 X 10^3 Lymphocytes # (Auto) 3.0 1.0-4.0 X 10^3 Monocytes # (Auto) 0.5 0.0-1.0 X 10^3 Eosinophils # (Auto) 0.3 0.0-0.3 10^3/uL Basophils # (Auto) 0.1 0.0-0.1 10^3/uL Immature Granulocyte # (Auto) 0.1 0.0-0.1 10^3/uL My Orders Orders - MATIAS NORRIS DO Ed Iv/Invasive Line Start (02/05/21 23:47) Cbc With Automated Diff (02/05/21 23:47) Albuterol/Ipra Inhalation Soln (Duoneb I (02/06/21 00:00) Methylprednisolone Sod Succ (Solu-Medrol (02/06/21 00:00) Svn Small Volume Nebulizer (02/05/21 23:48) Chest 1 View Ap/Pa Only (02/06/21 00:01) Medications Given in ED Current Medications Medications Dose Ordered Sig/Hernesto Route Start Time Stop Time Status Last Admin Dose Admin Albuterol/ Ipratropium 3 ml ONCE ONCE INH 02/06/21 00:00 02/06/21 00:02 DC 02/06/21 00:02 3 ML Methylprednisolone Sodium Succinate 80 mg ONCE ONCE IV 02/06/21 00:00 02/06/21 00:02 DC 02/06/21 00:02 80 MG Vital Signs/I&O 02/05/21 23:48 Temp 36.7 Pulse 83 Resp 20 B/P (MAP) 145/75 (98) Pulse Ox 98 O2 Delivery Nasal Cannula O2 Flow Rate 4.50 Progress Progress Note : Time: 00:26 Progress Note Patient states she is feeling a little better after the DuoNeb nebulizer, review her chest x-ray without any acute abnormality. CBC within normal limits. Will repeat DuoNeb with plans to send patient home. O2 sats 97% on 4 L (which is her normal level of oxygen). Lungs with fair aeration, audible wheezes apparent now....no distress Diagnostic Imaging Diagonstic Imaging: Xray Plain Films/CT/US/NM/MRI: chest Reviewed: Reviewed by Me Departure Impression Primary Impression: COPD exacerbation Disposition: 01 HOME, SELF-CARE Condition: Improved Departure-Patient Inst. Decision time for Depature: 00:28 Patient Instructions: Exacerbation of COPD (DC) Add. Discharge Instructions: Call your PCP tomorrow to schedule a follow up appointment in 5 to 7 days, return to the ER if worse Scripts Doxycycline Hyclate (Doxycycline Hyclate) 100 Mg Tablet 100 MG PO BID, #20 TAB 0 Refills Prov: MATIAS NORRIS DO 02/06/21 Albuterol/Ipratropium (Combivent Respimat Inhal [place]) 4 Gm Aero 2 PUFF IH QID, #1 INH Prov: MATIAS NORRIS DO 02/06/21 Prednisone (Prednisone) 50 Mg Tab 50 MG PO DAILY, #7 TAB Prov: MATIAS NORRIS DO 02/06/21 MATIAS NORRIS DO Feb 05, 2021 23:52
[2021-02-06] MEDS ORDERED: methylPREDNISolone 40 MG/ML (Solu-MEDROL) VIAL IV ONE
[2021-02-06 00:15] LABS: HEMATOCRIT 38 % (35-52); HEMOGLOBIN 11.9 g/dL (11.5-16.0); MEAN CORPUSCULAR HEMOGLOBIN 31 pg (25-34); MEAN CORPUSCULAR HGB CONC 32 g/dL (32-36); MEAN CORPUSCULAR VOLUME 97 fL (80-99); PLATELET COUNT 283 10^3/uL (130-400); WHITE BLOOD COUNT 8.3 10^3/uL (4.3-11.0)
[2021-02-06 00:16] LABS: BASOPHILS # (AUTO) 0.1 10^3/uL (0.0-0.1); BASOPHILS % (AUTO) 1 % (0-10); EOSINOPHILS # (AUTO) 0.3 10^3/uL (0.0-0.3); EOSINOPHILS % (AUTO) 4 % (0-10); LYMPHOCYTES % (AUTO) 36 % (12-44); MEAN PLATELET VOLUME 10.2 fL (9.0-12.2); MONOCYTES # (AUTO) 0.5 X 10^3 (0.0-1.0); MONOCYTES % (AUTO) 6 % (0-12); NEUTROPHILS # (AUTO) 4.3 X 10^3 (1.8-7.8); NEUTROPHILS % (AUTO) 52 % (42-75)
[2021-02-06] MEDS ORDERED: DOXY100T2 PO (00:24)
[2021-02-06] MEDS ORDERED: IPRA4AER IH (00:24)
[2021-02-06] MEDS ORDERED: PRD50T PO (00:24)
[2021-02-06] MEDS ORDERED: RT-ALBUTEROL/IPRATROPIUM 3 ML (DUONEB) VIAL INH ONE ×2 (00:30)
[2021-02-06 00:43] VITALS: BP 117/74
--- NOTE | 2021-02-06 06:02 | Diagnostic Imaging Report ---
EXAMINATION: AP upright portable chest INDICATION: Shortness of breath. History of COPD. COMPARISON: Multiple priors, most recent performed on 02/02/2021. FINDINGS: There is hyperlucency in the upper lung bearden and mild flattening of hemidiaphragms, chronic findings likely related to COPD. There is mild bibasilar scarring/atelectasis. The lungs are otherwise clear and the pulmonary vasculature is normal. No pneumothorax or large pleural effusion. Heart size and mediastinal contours are normal and unchanged. No acute osseous abnormality is identified. IMPRESSION: Mild bibasilar scarring/atelectasis. Otherwise, no radiographic evidence of acute chest disease and no significant change from prior. Dictated by: Dictated on workstation # [id number]
== END 2021-02-06 01:17 | disposition home or self-care (01) ==
LOC: EDUNIT# 23:45 → ER FS 23:47
DX: J44.1 Chronic obstructive pulmonary disease with (acute) exacerbation (principal); Z79.01 Long term (current) use of anticoagulants; Z79.52 Long term (current) use of systemic steroids
CPT/HCPCS: 36415; 71045; 85025; 96374

== ENCOUNTER 2021-02-16 18:49 | Emergency (ER) | payer MEDICARE, MEDICAID ==
[~2021-02-16] VITALS: Ht 152 cm; Wt 76.3 kg
[~2021-02-16 18:49] MED LIST changes: +IPRA4AER IH; +PRD50T PO
[2021-02-16] MEDS ORDERED: RT-ALBUTEROL/IPRATROPIUM 3 ML (DUONEB) VIAL INH ONE (19:30)
--- NOTE | 2021-02-16 19:30 | ED Dyspnea ---
General Chief Complaint: General Problems/Pain Stated Complaint: TROUBLE BREATHING Nursing Triage Note: PT REPORTS TROUBLE BREATHING X1 HR. TOOK NEB TX AT HOME WITH SOME RELIEF. PT NOT HAVING DIFFICULTY NOW BUT IS WORRIED THAT IF SHE CONTINUES HER ADL'S SHE WILL BECOME WORSE. PT SEEN LAST WEEK FOR SAME COMPLAINT. 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 PT ROOM AIR SAT WAS 95-96%. PLACED ON 2LPM FOR PT COMFORT WITH SAT OF 97%. Source of Information: Patient Exam Limitations: No Limitations History of Present Illness Date Seen by Provider: Feb 16, 2021 Time Seen by Provider: 19:03 Initial Comments 70-year-old female with past medical history of severe COPD on 4 to 5 L baseline at home coming in due to worsening shortness of breath. She was seen here about a week and a half ago and was treated for COPD exacerbation with steroids, antibiotics, and nebulizer which improved her symptoms. Chest x-ray at that time was clear. Said earlier today she was feeling more difficulty breathing and having difficulty with her ADLs. Actually feels better now that she is in the ER. Is otherwise denying any chest pain, cough, fever, nausea, vomiting, weakness, numbness, diarrhea, rash, or any other concerns. Allergies and Home Medications Allergies Coded Allergies: No Known Allergies (Verified Allergy, Unknown, 02/05/21) Patient Home Medication List Home Medication List Reviewed: Yes Albuterol/Ipratropium (Combivent Respimat Inhal [place]) 4 Gm Aero, 2 PUFF IH QID Prescribed by: MATIAS NORRIS on 02/06/21 0024 Azithromycin (Azithromycin) 250 Mg Tablet, 250 MG PO UD Prescribed by: CANDY ADRIAN on 01/23/21 1323 Bupropion HCl (Bupropion HCl Sr) 100 Mg Tablet.er, 100 MG PO BID, (Reported) Entered as Reported by: MAGUI BERNSTEIN on 07/13/181822 Clopidogrel Bisulfate (Clopidogrel) 75 Mg Tablet, 75 MG PO DAILY, (Reported) Entered as Reported by: MAGUI BERNSTEIN on 07/13/181822 Doxycycline Hyclate (Doxycycline Hyclate) 100 Mg Tablet, 100 MG PO BID Prescribed by: MATIAS NORRIS on 02/06/21 002 Duloxetine HCl (Duloxetine HCl) 60 Mg Capsule.dr, 60 MG PO DAILY, (Reported) Entered as Reported by: MAGUI BERNSTEIN on 07/13/181822 Esomeprazole Magnesium (Esomeprazole Magnesium) 40 Mg Capsule.dr, 40 MG PO DAILY, (Reported) Entered as Reported by: THERESE ALMAZAN on 05/14/19 113 Ipratropium/Albuterol Sulfate (Iprat-Albut 0.5-3(2.5) mg/3 ml) 3 Ml Ampul.neb, 3 ML NEB Q8H PRN for SHORTNESS OF BREATH, (Reported) Entered as Reported by: THERESE ALMAZAN on 05/14/19 0805 Isosorbide Mononitrate (Isosorbide Mononitrate ER) 30 Mg Tab.er.24h, 30 MG PO DAILY, (Reported) Entered as Reported by: THERESE ALMAZAN on 05/14/19 113 Lorazepam (Lorazepam) 1 Mg Tablet, 1 MG PO TID PRN for ANXIETY, (Reported) Entered as Reported by: MAGUI BERNSTEIN on 07/13/181822 Meloxicam (Meloxicam) 15 Mg Tablet, 15 MG PO DAILY, (Reported) Entered as Reported by: MAGUI BERNSTEIN on 07/13/181822 Metoprolol Tartrate (Metoprolol Tartrate) 25 Mg Tablet, 25 MG PO BID, (Reported) Entered as Reported by: THERESE ALMAZAN on 05/14/19 0811 Pramipexole Di-HCl (Pramipexole Dihydrochloride) 1 Mg Tablet, 1 MG PO BID, (Reported) Entered as Reported by: MAGUI BERNSTEIN on 07/13/181822 Prednisone (Prednisone) 20 Mg Tab, 40 MG PO DAILY@0700 Prescribed by: CAROL GODINEZ on 05/15/19 1151 Prednisone (Prednisone) 20 Mg Tab, 40 MG PO DAILY Prescribed by: TANIA BRANCH on 10/31/20 1547 Prednisone (Prednisone) 20 Mg Tab, 40 MG PO DAILY Prescribed by: CANDY ADRIAN on 01/23/21 1323 Prednisone (Prednisone) 50 Mg Tab, 50 MG PO DAILY Prescribed by: MATIAS NORRIS on 02/06/21 0024 Roflumilast (Daliresp) 500 Mcg Tablet, 500 MCG PO DAILY, (Reported) Entered as Reported by: THERESE ALMAZAN on 05/14/19 1139 Simvastatin (Simvastatin) 40 Mg Tablet, 40 MG PO DAILY, (Reported) Entered as Reported by: MAGUI BERNSTEIN on 07/13/18 182 Topiramate (Topiramate) 50 Mg Tablet, 50 MG PO HS, (Reported) Entered as Reported by: THERESE ALMAZAN on 05/14/19 1139 Tramadol HCl (Tramadol HCl) 50 Mg Tablet, 50 MG PO BID PRN for PAIN Prescribed by: DEMETRA LOZA on 07/21/19 1810 Tramadol HCl (Tramadol HCl) 50 Mg Tablet, 50 MG PO Q8H PRN for PAIN-SEVERE (8- 10) Prescribed by: MAURIZIO KAPOOR on 11/17/20 230 Trazodone HCl (Trazodone HCl) 50 Mg Tablet, 100 MG PO DAILY, (Reported) Entered as Reported by: MAGUI BERNSTEIN on 07/13/181822 Review of Systems Review of Systems Constitutional: No chills, No fever EENTM: No blurred vision Respiratory: No cough; short of breath Cardiovascular: chest pain Gastrointestinal: No abdominal pain, No diarrhea, No nausea, No vomiting Genitourinary: no symptoms reported Musculoskeletal: no symptoms reported Skin: no symptoms reported Psychiatric/Neurological: No Symptoms Reported Endocrine: No Symptoms Reported Hematologic/Lymphatic: No Symptoms Reported All Other Systems Reviewed Negative Unless Noted: Yes Past Vharwyd-Clhtot-Smbbbz Hx Patient Social History Tobacco Use?: Yes Tobacco type used: Cigarettes Smoking Status: Current Everyday Smoker Substance use?: No Alcohol Use?: No Pt feels they are or have been: No Immunizations Up To Date Tetanus Booster (TDap): Unknown PED Vaccines UTD: Yes First/Initial COVID19 Vaccinat: Jun 2020 Second COVID19 Vaccination Cristobal: SEPTEMBER 2020 COVID19 Vaccine Rice Farmer: MODERNGerri Seasonal Allergies Seasonal Allergies: No Past Medical History Surgeries: Yes Gallbladder, Hysterectomy, Orthopedic, 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 Respiratory: Yes COPD Currently Using CPAP: No Cardiac: Yes Hypertension Neurological: No Genitourinary: No Gastrointestinal: No Musculoskeletal: No Endocrine: No HEENT: No Cancer: No Psychosocial: Yes Anxiety Integumentary: No Blood Disorders: No Adverse Reaction/Blood Tranf: No Family Medical History Hypertension GRANDMOTHER Neoplasm 19 FATHER (PROSTATE) 19 MOTHER (UNKNOWN CANCER) Physical Exam Vital Signs Vital Signs - First Documented 02/16/21 18:53 Temp 36.5 Pulse 86 Resp 14 B/P (MAP) 163/75 (104) Pulse Ox 97 O2 Delivery Nasal Cannula O2 Flow Rate 5.00 Capillary Refill : Less Than 3 Seconds Height, Weight, BMI Height: 5'0" Weight: 160lbs. oz. 72.538311wf; 33.00 BMI Method:Stated General Appearance: No Apparent Distress, WD/WN HEENT: PERRL/EOMI, Normal ENT Inspection, Pharynx Normal Neck: Full Range of Motion, Normal Inspection, Non Tender, Supple Respiratory: Chest Non Tender, No Accessory Muscle Use, No Respiratory Distress, Crackles, Wheezing Cardiovascular: Regular Rate, Rhythm, No Edema, Normal Peripheral Pulses Gastrointestinal: Normal Bowel Sounds, Non Tender, Soft; No Distended, No Guarding Extremity: Normal Capillary Refill, Normal Inspection, Normal Range of Motion, Non Tender, No Calf Tenderness, No Pedal Edema Neurologic/Psychiatric: Alert, No Motor/Sensory Deficits, Normal Mood/Affect Skin: Normal Color, Warm/Dry Lymphatic: No Adenopathy Progress/Results/Core Measures Results/Orders Lab Results Laboratory Tests Test 02/16/21 19:40 Range/Units White Blood Count 8.4 4.3-11.0 10^3/uL Red Blood Count 3.76 L 3.80-5.11 10^6/uL Hemoglobin 11.5 11.5-16.0 g/dL Hematocrit 36 35-52 % Mean Corpuscular Volume 97 80-99 fL Mean Corpuscular Hemoglobin 31 25-34 pg Mean Corpuscular Hemoglobin Concent 32 32-36 g/dL Red Cell Distribution Width 13.5 10.0-14.5 % Platelet Count 227 130-400 10^3/uL Mean Platelet Volume 10.4 9.0-12.2 fL Immature Granulocyte % (Auto) 1 % Neutrophils (%) (Auto) 58 42-75 % Lymphocytes (%) (Auto) 28 12-44 % Monocytes (%) (Auto) 9 0-12 % Eosinophils (%) (Auto) 4 0-10 % Basophils (%) (Auto) 1 0-10 % Neutrophils # (Auto) 4.9 1.8-7.8 X 10^3 Lymphocytes # (Auto) 2.4 1.0-4.0 X 10^3 Monocytes # (Auto) 0.7 0.0-1.0 X 10^3 Eosinophils # (Auto) 0.3 0.0-0.3 10^3/uL Basophils # (Auto) 0.0 0.0-0.1 10^3/uL Immature Granulocyte # (Auto) 0.1 0.0-0.1 10^3/uL Sodium Level 142 135-145 MMOL/L Potassium Level 4.2 3.6-5.0 MMOL/L Chloride Level 105 98-107 MMOL/L Carbon Dioxide Level 27 21-32 MMOL/L Anion Gap 10 5-14 MMOL/L Blood Urea Nitrogen 17 7-18 MG/DL Creatinine 0.90 0.60-1.30 MG/DL Estimat Glomerular Filtration Rate 62 BUN/Creatinine Ratio 19 Glucose Level 144 H 70-105 MG/DL Calcium Level 9.1 8.5-10.1 MG/DL Corrected Calcium 9.3 8.5-10.1 MG/DL Total Bilirubin 0.2 0.1-1.0 MG/DL Aspartate Amino Transf (AST/SGOT) 20 5-34 U/L Alanine Aminotransferase (ALT/SGPT) 33 0-55 U/L Alkaline Phosphatase 101 40-136 U/L Troponin I < 0.30 <0.30 NG/ML Pro-B-Type Natriuretic Peptide 408.9 H <75.0 PG/ML Total Protein 6.0 L 6.4-8.2 GM/DL Albumin 3.7 3.2-4.5 GM/DL My Orders Orders - DANIELA ROLDAN MD Chest 1 View Ap/Pa Only (02/16/21 19:16) Cbc With Automated Diff (02/16/21 19:16) Comprehensive Metabolic Panel (02/16/21 19:16) Probnp Fs (02/16/21 19:16) Troponin I Fs (02/16/21 19:16) Ekg Tracing (02/16/21 19:16) Albuterol/Ipra Inhalation Soln (Duoneb I (02/16/21 19:30) Svn Small Volume Nebulizer (02/16/21 19:16) Furosemide Tablet (Lasix Tablet) (02/16/21 20:30) Medications Given in ED Current Medications Medications Dose Ordered Sig/Hernesto Route Start Time Stop Time Status Last Admin Dose Admin Albuterol/ Ipratropium 3 ml ONCE ONCE INH 02/16/21 19:30 02/16/21 19:31 DC 02/16/21 19:34 3 ML Vital Signs/I&O 02/16/21 02/16/21 18:53 18:53 Temp 36.5 Pulse 86 Resp 14 B/P (MAP) 163/75 (104) Pulse Ox 97 O2 Delivery Nasal Cannula Nasal Cannula O2 Flow Rate 5.00 2.00 Blood Pressure Mean: 104 Progress Progress Note : Progress Note 70-year-old female with above history coming in due to shortness of breath. ABCs were intact and vitals were stable on presentation. Despite being on oxygen at home, she was actually around 92% on room air for a while here before she was placed back on her baseline oxygen. Lungs with wheezing and crackles in the bases. No signs of real volume overload on exam. No clinical signs of DVT. Wiqdh-ee-yrfo ultrasound with no pericardial effusion, normal ejection fraction in 1 view, IVC normal appearing and relatively collapsible about 50% with inspiration, no B-lines on lung ultrasound all consistent with not being volume overloaded. Chest x-ray negative for any acute pneumonia or pneumothorax on my i nterpretation. EKG without new ischemic changes. Labs significant for negative troponin, normal white blood count, and proBNP of around 400. proBNP could point to volume overload especially given the crackles on her lower lung exam. Will trial Lasix here and give her prescription for the next week. She has follow-up after that, and I told her if she is feeling better with the Lasix she may recommend that to her primary care doctor. Also recommended potassium while she is doing that. She was then discharged home in stable condition with strict return precautions. Initial ECG Impression Date: Feb 16, 2021 Initial ECG Impression Time: 19:22 Initial ECG Rate: 78 Initial ECG Rhythm: Normal Sinus Comment Narrow QRS, normal axis, T wave inversions high lateral but otherwise no signifi cant ST changes, almost identical to previous EKG over a year ago Diagnostic Imaging Diagonstic Imaging: Xray Plain Films/CT/US/NM/MRI: chest Comments [facility]. [place], [place] NAME: RUBEN RAPP [facility] REC#: [id number] PT STATUS: REG ER : 1950 PHYSICIAN: DANIELA ROLDAN MD ADMIT DATE: 02/16/21/ER FS Draft Date of Exam:02/16/21 CHEST 1 VIEW AP/PA ONLY INDICATION: Shortness of breath COMPARISON: 02/06/2021 FINDINGS: Single view of the chest demonstrates clear lungs bilaterally. The heart is normal. There is no pneumothorax. The osseous structures are normal. IMPRESSION: Negative chest Dictated on workstation # [id number] Dict: 02/16/[id number] Trans: 02/16/211940 DARRICK [id number] Interpreted by: DAISY SU Electronically signed by: Departure Impression Primary Impression: COPD exacerbation Additional Impression: Dyspnea Qualified Codes: R06.00 - Dyspnea, unspecified Disposition: HOME, SELF-CARE Condition: Stable Departure-Patient Inst. Referrals: SARA PUGA MD (PCP/Family) Primary Care Physician Patient Instructions: Shortness of Breath, Adult ED, Exacerbation of COPD (DC) Add. Discharge Instructions: You are seen in the emergency department because you are short of breath. Your chest x-ray looked clear and showed no signs of pneumonia. It does appear like he might have a little extra fluid which consider on your lungs. Take the Lasix pill every other day for the next week or so. When you take it be sure to take a potassium supplement with. If this makes you feel significantly better, then call your primary care doctor and they may want to add this to your regimen. If you develop any fever, worsening cough with bringing up a lot of phlegm, or any other concerns then please come back to the ER. All discharge instructions reviewed with patient and/or family. Voiced understanding. Scripts Potassium Chloride (Potassium Chloride) 20 Meq Tab.er.prt 20 MEQ PO DAILY for 10 Days, #10 TAB Prov: DANIELA ROLDAN MD 02/16/21 Furosemide (Lasix) 40 Mg Tablet 40 MG PO UD for 10 Days, #5 TAB Take every other day for the next 10 days Prov: DANIELA ROLDAN MD 02/16/21 DANIELA ROLDAN MD Feb 16, 2021 19:30
--- NOTE | 2021-02-16 19:41 | Diagnostic Imaging Report ---
INDICATION: Shortness of breath COMPARISON: 02/06/2021 FINDINGS: Single view of the chest demonstrates clear lungs bilaterally. The heart is normal. There is no pneumothorax. The osseous structures are normal. IMPRESSION: Negative chest Dictated by: Dictated on workstation # [email or web address] [id number]
[2021-02-16 19:53] LABS: HEMATOCRIT 36 % (35-52); HEMOGLOBIN 11.5 g/dL (11.5-16.0); MEAN CORPUSCULAR HEMOGLOBIN 31 pg (25-34); MEAN CORPUSCULAR HGB CONC 32 g/dL (32-36); MEAN CORPUSCULAR VOLUME 97 fL (80-99); MEAN PLATELET VOLUME 10.4 fL (9.0-12.2); PLATELET COUNT 227 10^3/uL (130-400); WHITE BLOOD COUNT 8.4 10^3/uL (4.3-11.0)
[2021-02-16 19:54] LABS: BASOPHILS % (AUTO) 1 % (0-10); EOSINOPHILS # (AUTO) 0.3 10^3/uL (0.0-0.3); EOSINOPHILS % (AUTO) 4 % (0-10); LYMPHOCYTES # (AUTO) 2.4 X 10^3 (1.0-4.0); LYMPHOCYTES % (AUTO) 28 % (12-44); MONOCYTES # (AUTO) 0.7 X 10^3 (0.0-1.0); MONOCYTES % (AUTO) 9 % (0-12); NEUTROPHILS # (AUTO) 4.9 X 10^3 (1.8-7.8); NEUTROPHILS % (AUTO) 58 % (42-75)
[2021-02-16 20:23] LABS: ALANINE AMINOTRANSFERASE 33 U/L (0-55); ALKALINE PHOSPHATASE 101 U/L (40-136); BILIRUBIN,TOTAL 0.2 MG/DL (0.1-1.0); BUN/CREATININE RATIO 19; CALCIUM 9.1 MG/DL (8.5-10.1); CARBON DIOXIDE 27 MMOL/L (21-32); CHLORIDE 105 MMOL/L (98-107); GFR ESTIMATED 62; GLUCOSE 144 MG/DL (70-105); POTASSIUM 4.2 MMOL/L (3.6-5.0); SODIUM 142 MMOL/L (135-145)
[2021-02-16 20:24] LABS: ALBUMIN 3.7 GM/DL (3.2-4.5)
[2021-02-16] MEDS ORDERED: FUROSEMIDE 20 MG (LASIX) TAB PO ONE (20:30)
[2021-02-16] MEDS ORDERED: POTA20TA15 PO (20:39)
[2021-02-16] MEDS ORDERED: FURO-124 PO (20:39)
[2021-02-16] MEDS ORDERED: FUROSEMIDE 20 MG (LASIX) TAB ONE (20:40)
[2021-02-16 21:12] VITALS: BP 122/86
== END 2021-02-16 20:50 | disposition home or self-care (01) ==
LOC: EDUNIT# 18:49 → ER FS 18:50
DX: J44.1 Chronic obstructive pulmonary disease with (acute) exacerbation (principal); R06.00 Dyspnea, unspecified; I10 Essential (primary) hypertension; F41.9 Anxiety disorder, unspecified; F17.210 Nicotine dependence, cigarettes, uncomplicated; Z79.899 Other long term (current) drug therapy; Z79.01 Long term (current) use of anticoagulants; Z79.52 Long term (current) use of systemic steroids
CPT/HCPCS: 36415; 71045; 80053; 83880; 84484; 85025; 93005

== ENCOUNTER 2021-03-02 05:43 | Outpatient (CLI) | payer MEDICARE, MEDICAID ==
[~2021-03-02] VITALS: Ht 152.4 cm; Wt 73.1 kg
[~2021-03-02 05:43] MED LIST changes: +FURO-124 PO; +POTA20TA15 PO
[2021-03-02] MEDS ORDERED: ESOM40CA52 PO (11:19)
[2021-03-02] MEDS ORDERED: FLUT1BLS3 IH (11:19)
[2021-03-02] MEDS ORDERED: RT-ALBUINH INH (11:19)
[2021-03-02] MEDS ORDERED: LISI10TA25 PO (11:19)
[2021-03-02] MEDS ORDERED: DULO60CA59 PO (11:19)
[2021-03-02] MEDS ORDERED: LORA10TA7 PO ×2 (11:19→11:20)
[2021-03-02] MEDS ORDERED: MELO7.5T46 PO (11:19)
[2021-03-02] MEDS ORDERED: ISOS30TA82 PO (11:19)
[2021-03-02] MEDS ORDERED: HYDR-4164 PO (11:19)
[2021-03-02] MEDS ORDERED: MONT10TA32 PO (11:19)
[2021-03-02] MEDS ORDERED: MIRA50TA PO (11:19)
[2021-03-02] MEDS ORDERED: CETI10TA23 PO (11:19)
[2021-03-02] MEDS ORDERED: PRD50T PO (11:19)
[2021-03-02] MEDS ORDERED: ALBU2.5V4 INH (11:19)
[2021-03-02] MEDS ORDERED: MTP25TSR PO (11:19)
[2021-03-02] MEDS ORDERED: ACHD5005 PO (11:19)
[2021-03-02] MEDS ORDERED: IPRA4AER IH (11:19)
[2021-03-02] MEDS ORDERED: QUET300T2 PO (11:19)
[2021-03-02] MEDS ORDERED: TOLT4CAP26 PO (11:19)
[2021-03-02] MEDS ORDERED: FLUT9.9S NS (11:19)
[2021-03-02] MEDS ORDERED: TRAM50TA3 PO (11:19)
== END 2021-03-02 11:36 | disposition home or self-care (01) ==
LOC: PREOP 05:43
PROVIDERS: ATTEND Urology
DX: Z01.818 Encounter for other preprocedural examination (principal)

== ENCOUNTER 2021-03-04 07:00 | Day surgery (SDC) | payer MEDICARE, MEDICAID ==
[2021-03-04] VITALS (12 sets, daily range): BP systolic 94–126; BP diastolic 53–98
[~2021-03-04] VITALS: Ht 152.4 cm; Wt 73.1 kg
[~2021-03-04 07:00] MED LIST changes: +ACHD5005 PO; +CETI10TA23 PO; +FLUT1BLS3 IH; +FLUT9.9S NS; +HYDR-4164 PO; +LORA10TA7 PO; +MELO7.5T46 PO; +MIRA50TA PO; +MONT10TA32 PO; +MTP25TSR PO; +QUET300T2 PO; +RT-ALBUINH INH; +TOLT4CAP26 PO; +TRAM50TA3 PO
[2021-03-04] MEDS ORDERED: ceFAZolin INJECTION 1,000 MG in WATER (STERILE) FOR INJECTION 10 ML IV ONE (07:15)
[2021-03-04] MEDS: LACTATED RINGERS 1,000 ML IV PRN ×2 (07:26→09:02)
--- NOTE | 2021-03-04 07:27 | Progress Note-Pre Operative ---
Pre-Operative Progress Note H&P Reviewed The H&P was reviewed, patient examined and no changes noted. Date Seen by Provider: Mar 04, 2021 Time Seen by Provider: : Date H&P Reviewed: Mar 04, 2021 Time H&P Reviewed: : Pre-Operative Diagnosis: INCONTINENCE, OAB, ISD SEBASTIAN WOODWARD MD Mar 04, 2021 07:27
[2021-03-04] MEDS ORDERED: ONDANSETRON 4 MG/2 ML (SDV) Z0FRAN ONE (07:45)
[2021-03-04] MEDS ORDERED: SEVOFLURANE (ULTANE) 15 ML INHAL SOLN ONE (07:45)
[2021-03-04] MEDS ORDERED: proPOfol 200 MG/20 ML (DIPRIVAN) VIAL IV ONE (07:45)
[2021-03-04] MEDS ORDERED: LIDOCAINE PF 2% 5 ML (XYLOCAINE) VIAL ONE (07:45)
[2021-03-04] MEDS ORDERED: MIDAZOLAM 2 MG/2 ML (VERSED) VIAL ONE (07:46)
[2021-03-04] MEDS ORDERED: fentaNYL INJ 100 MCG/2 ML AMP ONE (07:46)
[2021-03-04] MEDS ORDERED: WATER (STERILE) FOR INJECTION 10 ML ONE (08:01)
[2021-03-04] MEDS ORDERED: ceFAZolin INJECTION 1,000 MG ONE (08:01)
[2021-03-04] MEDS ORDERED: PHENYLEPHRINE 100 MCG/ML 10 ML (ANESTHESIA) SYR ONE (08:17)
--- NOTE | 2021-03-04 08:35 | Progress Note-Post Operative ---
Post-Operative Progess Note Surgeon (s)/Electrician Apprentice (s) Surgeon SEBASTIAN WOODWARD MD Electrician Apprentice: NONE Pre-Operative Diagnosis INCONTINENCE, OAB, ISD Post-Operative Diagnosis SAME Procedure & Operative Findings Date of Procedure 03/04/21 Procedure Performed/Findings MACROPLASTIQUE IMPLANT Anesthesia Type GENERAL Estimated Blood Loss Estimated blood loss (mL): NEGLIGIBLE Specimens/Packing Specimens Removed NONE Packing: NONE SEBASTIAN WOODWARD MD Mar 04, 2021 08:35
--- NOTE | 2021-03-04 08:36 | Anesthesia-General Post-Op ---
General Patient Condition Mental Status/LOC: Same as Preop Cardiovascular: Satisfactory Nausea/Vomiting: Absent Respiratory: Satisfactory Pain: Controlled Complications: Absent Post Op Complications Complications None Follow Up Care/Instructions Patient Instructions None needed. Anesthesia/Patient Condition Patient Condition Patient is doing well, no complaints, stable vital signs, no apparent adverse anesthesia problems. No complications reported per nursing. CARLYN MARQUEZ CRNA Mar 04, 2021 08:36
[2021-03-04] MEDS ORDERED: RT-ALBUTEROL SULF 2.5 MG/3 ML PRE-MIX VIAL ONE ×2 (08:37→09:17)
--- NOTE | 2021-03-04 08:37 | Discharge Inst-Urology ---
Discharge Inst-Urology Reconcile Patient Problems Problems Reviewed?: Yes Final Diagnosis INCONTINENCE, OAB, AND ISD Patient Instructions/Follow Up Plan/Assessment/Instructions Please make appointment to been seen in office in 4 weeks. Increase oral fluids for 48 hours and then as needed. Diet and Activity as tolerated. If questions or concerns contact your physician Or seek help at emergency department. SEBASTIAN WOODWARD MD Mar 04, 2021 08:37
[2021-03-04] MEDS ORDERED: fentaNYL INJ 100 MCG/2 ML AMP IVP ONE (08:45)
[2021-03-04] MEDS ORDERED: ONDANSETRON 4 MG/2 ML (SDV) Z0FRAN IVP PRN (08:45)
[2021-03-04] MEDS ORDERED: morphine INJ 10 MG/ML 1ML (SYR OR VIAL) IVP ONE (08:45)
[2021-03-04] MEDS ORDERED: HYDROmorphone 2 MG/ML VIAL (DILAUDID) IV ONE (08:45)
[2021-03-04] MEDS ORDERED: MEPERIDINE (DEMEROL) INJ 50 MG/ML IVP ONE (08:45)
[2021-03-04] MEDS ORDERED: LACTATED RINGERS 1,000 ML IV ONE (08:55)
[2021-03-04] MEDS ORDERED: PHEN-640 PO (09:15)
[2021-03-04] MEDS ORDERED: NITR-65 PO (09:15)
--- NOTE | 2021-03-04 14:25 | OPERATIVE REPORT ---
DATE OF SERVICE: 03/04/2021 PREOPERATIVE DIAGNOSES: Incontinence, overactive bladder and ISD. POSTOPERATIVE DIAGNOSES: Incontinence, overactive bladder and ISD. OPERATION PERFORMED: Macroplastique implant. SURGEON: Lb Woodward MD ANESTHESIA: General. COMPLICATIONS: None. DESCRIPTION OF PROCEDURE: Under satisfactory general anesthesia, the patient in lithotomy position, genitalia were prepped and draped in the usual sterile fashion. Cystoscope was introduced under vision. I went ahead and injected a full syringe at the 6 o'clock position at the mid urethral level and then half a syringe in each of the 10 and 2 o'clock position. There was excellent coaptation of the urethra. I removed the cystoscope, performed manual Valsalva maneuver that was negative. Reinserted the scope, empty the bladder. There was no bleeding. The patient tolerated the procedure and anesthesia well and was sent to recovery room in stable condition. Job ID: [id number] DocumentID: [id number] Dictated Date: 03/04/2021 08:39:54 Ship Rigger Apprentice Date: 03/04/2021 14:24:31 Dictated By: LB WOODWARD MD
== END 2021-03-04 10:48 | disposition home or self-care (01) ==
LOC: SDC 07:00
PROVIDERS: ATTEND Urology
DX: N32.81 Overactive bladder (principal); N36.42 Intrinsic sphincter deficiency (ISD); N39.46 Mixed incontinence; I25.10 Atherosclerotic heart disease of native coronary artery without angina pectoris; K21.9 Gastro-esophageal reflux disease without esophagitis; J44.9 Chronic obstructive pulmonary disease, unspecified; I10 Essential (primary) hypertension; E66.9 Obesity, unspecified; G43.909 Migraine, unspecified, not intractable, without status migrainosus; M79.7 Fibromyalgia; M19.90 Unspecified osteoarthritis, unspecified site; F41.9 Anxiety disorder, unspecified; F17.210 Nicotine dependence, cigarettes, uncomplicated; F32.9 Major depressive disorder, single episode, unspecified; Z79.891 Long term (current) use of opiate analgesic; Z79.899 Other long term (current) drug therapy; Z79.52 Long term (current) use of systemic steroids
CPT/HCPCS: 51715; 87081; L8603

== ENCOUNTER 2021-05-27 11:22 | Emergency (ER) | payer MEDICARE, MEDICAID ==
[~2021-05-27] VITALS: Ht 177 cm; Wt 80.0 kg
[~2021-05-27 11:22] MED LIST changes: -CETI10TA23 PO; +CETI10TA24 PO; +CYCL10TA25; -CYCL10TA9; +MONT-40 PO; -MONT10TA32 PO; +NITR-65 PO; +PHEN-640 PO; +POTA-179 PO; -POTA20TA15 PO
[2021-05-27 11:56] VITALS: BP 123/82
[2021-05-27] MEDS ORDERED: HYDROcodone/APAP 5 MG/325 MG (LORTAB) TAB PO ONE (12:15)
[2021-05-27] MEDS ORDERED: PRD20T PO (12:16)
--- NOTE | 2021-05-27 12:16 | ED Upper Extremity ---
General Chief Complaint: Upper Extremity Stated Complaint: LT HAND PAIN Nursing Triage Note: Patient has ambulated to ER 4 with cc of hand pain for the last 4 days. Patient reports that her wrist and hand have bee sore - she denies any known injury or trauma. She states that she has chronic hip pain and today her left hip is more sore than normal - she denies injury to her hip. Source: patient Exam Limitations: no limitations History of Present Illness Date Seen by Provider: May 27, 2021 Time Seen by Provider: 11:48 Initial Comments Here with complaint of left wrist and hand pain without known injury and some worsening of her left hip pain. She was supposed to be seen by her doctor today but her appointment time was different than what she thought and will be unable to see him for 2 weeks. Does have history of arthritis. Does admit to sleeping with her hands folded. Pain worse with hyperflexion of the left wrist. Denies fevers. Does have some numbness with flexion. Worse in the morning and better through the day. Onset: other (Few days) Severity: mild, moderate Pain/Injury Location: left wrist, left hand Method of Injury: unknown Modifying Factors: Improves With Immobilization; Worse With Movement Allergies and Home Medications Allergies Coded Allergies: metformin (Verified Allergy, Severe, Vomiting, 03/02/21) gabapentin (Verified Allergy, Unknown, 03/02/21) pregabalin (Verified Allergy, Unknown, 03/02/21) STATES INTOLERANCE TO Patient Home Medication List Home Medication List Reviewed: Yes Albuterol Sulfate (Albuterol Sulfate) 2.5 Mg/3 Ml Vial.neb, 2.5 MG INH QID PRN for SHORTNESS OF BREATH, (Reported) Entered as Reported by: JERRY KIRKPATRICK on 03/02/21 111 Albuterol Sulfate (Ventolin Hfa) 1 Puff Puff, 2 PUFF INH Q4H PRN for SHORTNESS OF BREATH, (Reported) Entered as Reported by: JERRY KIRKPATRICK on 03/02/21 111 Albuterol/Ipratropium (Combivent Respimat Inhal [place]) 4 Gm Aero, 1 PUFF IH Q6H PRN for SHORTNESS OF BREATH, (Reported) Entered as Reported by: JERRY KIRKPATRICK on 03/02/21 111 Cetirizine HCl (Cetirizine HCl) 10 Mg Tab.chew, 10 MG PO DAILY PRN, (Reported) Entered as Reported by: JERRY KIRKPATRICK on 03/02/211118 Duloxetine HCl (Duloxetine HCl) 60 Mg Capsule.dr, 60 MG PO BID, (Reported) Entered as Reported by: JERRY KIRKPATRICK on 03/02/211118 Esomeprazole Magnesium (Esomeprazole Magnesium) 40 Mg Capsule.dr, 40 MG PO DAILY, (Reported) Entered as Reported by: JERRY KIRKPATRICK on 03/02/211118 Fluticasone Propionate (Flonase Allergy Relief) 9.9 Ml [place].susp, 1 SPRAY NS DAILY, (Reported) Entered as Reported by: JERRY KIRKPATRICK on 03/02/211118 Fluticasone/Umeclidin/Vilanter (Trelegy Ellipta 100-62.5-25) 1 Each Blst.w.dev, 1 EACH IH DAILY, (Reported) Entered as Reported by: JERRY KIRKPATRICK on 03/02/211118 Hydrocodone/Acetaminophen (Hydrocodone-Acetamin 5-325 mg) 1 Each Tablet, 1 TAB PO Q6H PRN for PAIN-MODERATE (5-7), (Reported) Entered as Reported by: JERRY KIRKPATRICK on 03/02/211118 Hydrocortisone (Hydrocortisone) 10 Mg Tablet, 10 MG PO BID WITH MEALS, (Reported) Entered as Reported by: JERRY KIRKPATRICK on 03/02/211118 Isosorbide Mononitrate (Isosorbide Mononitrate ER) 30 Mg Tab.er.24h, 30 MG PO DAILY, (Reported) Entered as Reported by: JERRY KIRKPATRICK on 03/02/211118 Lisinopril (Lisinopril) 10 Mg Tablet, 10 MG PO DAILY, (Reported) Entered as Reported by: JERRY KIRKPATRICK on 03/02/211118 Loratadine (Loratadine) 10 Mg Tablet, 10 MG PO DAILY PRN, (Reported) Entered as Reported by: JERRY KIRKPATRICK on 03/02/211119 Meloxicam (Meloxicam) 7.5 Mg Tablet, 7.5 MG PO DAILY, (Reported) Entered as Reported by: JERRY KIRKPATRICK on 03/02/211118 Metoprolol Succinate (Metoprolol Succinate) 25 Mg Tab.er.24h, 25 MG PO DAILY, (Reported) Entered as Reported by: JERRY KIRKPATRICK on 03/02/211118 Mirabegron (Myrbetriq) 50 Mg Tab.er.24h, 50 MG PO DAILY, (Reported) Entered as Reported by: JERRY KIRKPATRICK on 03/02/211118 Montelukast Sodium (Montelukast Sodium) 10 Mg Tablet, 10 MG PO DAILY, (Reported) Entered as Reported by: JERRY KIRKPATRICK on 03/02/211118 Nitrofurantoin Monohyd/M-Cryst (Macrobid 100 mg Capsule) 100 Mg Capsule, 1 TAB PO BID Prescribed by: RUBEN TALBOT on 03/04/21914 Phenazopyridine HCl (Pyridium) 200 Mg Tablet, 1 TAB PO TID Prescribed by: RUBEN TALBOT on 03/04/21914 Prednisone (Prednisone) 50 Mg Tab, 50 MG PO DAILY, (Reported) Entered as Reported by: JERRY KIRKPATRICK on 03/02/211118 Quetiapine Fumarate (Seroquel) 300 Mg Tablet, 300 MG PO HS, (Reported) Entered as Reported by: JERRY KIRKPATRICK on 03/02/211118 Tolterodine Tartrate (Tolterodine Tartrate ER) 4 Mg Cap.er.24h, 4 MG PO DAILY, (Reported) Entered as Reported by: JERRY KIRKPATRICK on 03/02/211118 Tramadol HCl (Tramadol HCl) 50 Mg Tablet, 50 MG PO TID PRN for PAIN- BREAKTHROUGH, (Reported) Entered as Reported by: JERRY KIRKPATRICK on 03/02/211118 Review of Systems Constitutional: see HPI; No chills, No fever Respiratory: no symptoms reported Cardiovascular: no symptoms reported Musculoskeletal: joint pain, muscle pain, muscle stiffness Skin: No change in color, No lesions Psychiatric/Neurological: Tingling; Denies Weakness Past Abvanbs-Laxjdl-Flpfha Hx Patient Social History Tobacco Use?: Yes Tobacco type used: Cigarettes Smoking Status: Current Everyday Smoker Use of E-Cig and/or Vaping dev: No Substance use?: No Alcohol Use?: No Pt feels they are or have been: No Immunizations Up To Date Tetanus Booster (TDap): Unknown PED Vaccines UTD: Yes First/Initial COVID19 Vaccinat: JUNE 26, 2020 Second COVID19 Vaccination Cristobal: JULY 24, 2020 Third COVID19 Vaccination Date: JUNE 26, 2020 Seasonal Allergies Seasonal Allergies: Yes Past Medical History Surgeries: Yes (RIGHT ANKLE SURGERY, BILATERAL CATARACT SURGERY, DENTAL SURGERY) Eye Surgery, Gallbladder, Hysterectomy, Orthopedic, 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 Respiratory: Yes (USES OXYGEN CONTINUOSLY AT 5L N/C) COPD Currently Using CPAP: No Cardiac: Yes Hypertension Neurological: 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 Headaches /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, 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 Genitourinary: No Gastrointestinal: Yes Gastroesophageal Reflux Musculoskeletal: Yes Arthritis, Fibromyalgia Endocrine: No HEENT: Yes (WEARS GLASSES) Loss of Vision: Denies Hearing Impairment: Denies Cancer: No Psychosocial: Yes Sleep Difficulties, Anxiety, Depression Integumentary: No Blood Disorders: No Adverse Reaction/Blood Tranf: No (N/A) Family Medical History Reviewed Nursing Family Hx Hypertension GRANDMOTHER Neoplasm 19 FATHER (PROSTATE) 19 MOTHER (UNKNOWN CANCER) Physical Exam Vital Signs Vital Signs - First Documented 05/27/21 11:56 Temp 35.7 Pulse 85 Resp 18 B/P (MAP) 123/82 (96) Pulse Ox 97 Capillary Refill : Height, Weight, BMI Height: 5'0" Weight: 160lbs. oz. 72.057943mx; 25.00 BMI Method:Stated General Appearance: WD/WN, no apparent distress Cardiovascular: regular rate, rhythm, no murmur Respiratory: lungs clear, normal breath sounds Wrist: Yes pain (Left wrist), Yes soft tissue tenderness (Left wrist) Hand: Left, soft tissue tenderness, stiffness Neurologic/Psychiatric: alert, oriented x 3 Skin: normal color, warm/dry Progress/Results/Core Measures Results/Orders My Orders Orders - TANIA BRANCH MD Hydrocodone/Apap 5/325 Tablet (Lortab 5 (05/27/21 12:15) Vital Signs/I&O 05/27/21 11:56 Temp 35.7 Pulse 85 Resp 18 B/P (MAP) 123/82 (96) Pulse Ox 97 Blood Pressure Mean: 96 Progress Progress Note : Progress Note Seen and evaluated. No indication for x-ray. Appears to be more carpal tunnel related. Hydrocodone 5/325 1 tab p.o. Left wrist splint given. We will initiate outpatient treatment with prednisone 40 mg daily for 5 days and she will use OTC meds as well as her prescribed tramadol. She will follow-up with her doctor for worsening and/or return. Discharged home with return prec autions. Patient verbalized understanding of instructions and agreement with plan Departure Impression Primary Impression: Left wrist pain Additional Impression: Arthralgia Qualified Codes: M25.532 - Pain in left wrist Disposition: 01 HOME, SELF-CARE Condition: Stable Departure-Patient Inst. Decision time for Depature: 12:15 Referrals: SARA PUGA MD (PCP/Family) Primary Care Physician Patient Instructions: Carpal Tunnel Syndrome (DC), Wrist Sprain (DC) Add. Discharge Instructions: All discharge instructions reviewed with patient and/or family. Voiced understanding. Take medications as prescribed. You may use ibuprofen 400 mg every 8 hours as needed for pain. You may use ice packs to area of concern 20 minutes/h as needed over the next 1 to 2 days. Use wrist splint especially when sleeping at night. Follow-up with your doctor as scheduled or earlier if needed. Return for worse pain, swelling, weakness, numbness or other concerns as needed. Scripts Prednisone (Prednisone) 20 Mg Tab 40 MG PO DAILY, #10 TAB 0 Refills Prov: TANIA BRANCH MD 05/27/21 TANIA BRANCH MD May 27, 2021 12:16
== END 2021-05-27 12:20 | disposition home or self-care (01) ==
LOC: EDUNIT# 11:22 → ER FS 11:24
DX: M25.532 Pain in left wrist (principal); J44.9 Chronic obstructive pulmonary disease, unspecified; I10 Essential (primary) hypertension; F41.9 Anxiety disorder, unspecified; F32.9 Major depressive disorder, single episode, unspecified; K21.9 Gastro-esophageal reflux disease without esophagitis; F17.210 Nicotine dependence, cigarettes, uncomplicated; Z79.899 Other long term (current) drug therapy
CPT/HCPCS: 99283

== ENCOUNTER 2021-06-12 10:30 | Emergency (ER) | payer MEDICARE, MEDICAID ==
[~2021-06-12] VITALS: Ht 152 cm; Wt 74.0 kg
[2021-06-12 10:39] VITALS: BP 151/124
--- NOTE | 2021-06-12 10:42 | ED Upper Extremity ---
General Chief Complaint: Upper Extremity Stated Complaint: LT HAND PAIN History of Present Illness Date Seen by Provider: Jun 12, 2021 Time Seen by Provider: 10:42 Initial Comments 70-year-old female presents with left wrist pain. She reports has been going on for at least 3 weeks. This can a throbbing. That she really has not seen her primary care provider about it. She never had it x-rayed before. Patient reports that gets worse with flexion of her wrist. That she has been told it might be carpal tunnel syndrome. She currently takes tramadol prescribed by her primary care provider. She reports that she wears a wrist brace that helps the pain. Allergies and Home Medications Allergies Coded Allergies: metformin (Verified Allergy, Severe, Vomiting, 03/02/21) gabapentin (Verified Allergy, Unknown, 03/02/21) pregabalin (Verified Allergy, Unknown, 03/02/21) STATES INTOLERANCE TO Patient Home Medication List Home Medication List Reviewed: Yes Albuterol Sulfate (Albuterol Sulfate) 2.5 Mg/3 Ml Vial.neb, 2.5 MG INH QID PRN for SHORTNESS OF BREATH, (Reported) Entered as Reported by: JERRY KIRKPATRICK on 03/02/211118 Albuterol Sulfate (Ventolin Hfa) 1 Puff Puff, 2 PUFF INH Q4H PRN for SHORTNESS OF BREATH, (Reported) Entered as Reported by: JERRY KIRKPATRICK on 03/02/211118 Albuterol/Ipratropium (Combivent Respimat Inhal [place]) 4 Gm Aero, 1 PUFF IH Q6H PRN for SHORTNESS OF BREATH, (Reported) Entered as Reported by: JERRY KIRKPATRICK on 03/02/211118 Cetirizine HCl (Cetirizine HCl) 10 Mg Tab.chew, 10 MG PO DAILY PRN, (Reported) Entered as Reported by: JERRY KIRKPATRICK on 03/02/21 111 Duloxetine HCl (Duloxetine HCl) 60 Mg Capsule.dr, 60 MG PO BID, (Reported) Entered as Reported by: JERRY KIRKPATRICK on 03/02/211118 Esomeprazole Magnesium (Esomeprazole Magnesium) 40 Mg Capsule.dr, 40 MG PO DAILY, (Reported) Entered as Reported by: JERRY KIRKPATRICK on 10/18/21 1119 Fluticasone Propionate (Flonase Allergy Relief) 9.9 Ml [place].susp, 1 SPRAY NS DAILY, (Reported) Entered as Reported by: JERRY KIRKPATRICK on 03/02/21 111 Fluticasone/Umeclidin/Vilanter (Trelegy Ellipta 100-62.5-25) 1 Each Blst.w.dev, 1 EACH IH DAILY, (Reported) Entered as Reported by: JERRY KIRKPATRICK on 03/02/21 111 Hydrocodone/Acetaminophen (Hydrocodone-Acetamin 5-325 mg) 1 Each Tablet, 1 TAB PO Q6H PRN for PAIN-MODERATE (5-7), (Reported) Entered as Reported by: JERRY KIRKPATRICK on 03/02/211118 Hydrocortisone (Hydrocortisone) 10 Mg Tablet, 10 MG PO BID WITH MEALS, (Reported ) Entered as Reported by: JERRY KIRKPATRICK on 03/02/211118 Isosorbide Mononitrate (Isosorbide Mononitrate ER) 30 Mg Tab.er.24h, 30 MG PO DAILY, (Reported) Entered as Reported by: JERRY KIRKPATRICK on 03/02/211118 Lisinopril (Lisinopril) 10 Mg Tablet, 10 MG PO DAILY, (Reported) Entered as Reported by: JERRY KIRKPATRICK on 03/02/21 111 Loratadine (Loratadine) 10 Mg Tablet, 10 MG PO DAILY PRN, (Reported) Entered as Reported by: JERRY KIRKPATRICK on 03/02/21 112 Meloxicam (Meloxicam) 7.5 Mg Tablet, 7.5 MG PO DAILY, (Reported) Entered as Reported by: JERRY KIRKPATRICK on 03/02/21 111 Metoprolol Succinate (Metoprolol Succinate) 25 Mg Tab.er.24h, 25 MG PO DAILY, (Reported) Entered as Reported by: JERRY KIRKPATRICK on 03/02/211118 Mirabegron (Myrbetriq) 50 Mg Tab.er.24h, 50 MG PO DAILY, (Reported) Entered as Reported by: JERRY KIRKPATRICK on 03/02/211118 Montelukast Sodium (Montelukast Sodium) 10 Mg Tablet, 10 MG PO DAILY, (Reported) Entered as Reported by: JERRY KIRKPATRICK on 03/02/211118 Nitrofurantoin Monohyd/M-Cryst (Macrobid 100 mg Capsule) 100 Mg Capsule, 1 TAB PO BID Prescribed by: RUBEN TALBOT on 03/04/21 0915 Phenazopyridine HCl (Pyridium) 200 Mg Tablet, 1 TAB PO TID Prescribed by: RUBEN TALBOT on 03/04/21 0915 Prednisone (Prednisone) 50 Mg Tab, 50 MG PO DAILY, (Reported) Entered as Reported by: JERRY KIRKPATRICK on 03/02/21 111 Prednisone (Prednisone) 20 Mg Tab, 40 MG PO DAILY Prescribed by: TANIA BRANCH on 05/27/21 1216 Quetiapine Fumarate (Seroquel) 300 Mg Tablet, 300 MG PO HS, (Reported) Entered as Reported by: JERRY KIRKPATRICK on 03/02/21 111 Tolterodine Tartrate (Tolterodine Tartrate ER) 4 Mg Cap.er.24h, 4 MG PO DAILY, (Reported) Entered as Reported by: JERRY KIRKPATRICK on 03/02/21 111 Tramadol HCl (Tramadol HCl) 50 Mg Tablet, 50 MG PO TID PRN for PAIN- BREAKTHROUGH, (Reported) Entered as Reported by: JERRY KIRKPATRICK on 03/02/21 111 Review of Systems Constitutional: No chills, No fever EENTM: no symptoms reported Respiratory: no symptoms reported Cardiovascular: no symptoms reported Gastrointestinal: no symptoms reported Musculoskeletal: see HPI Skin: no symptoms reported Psychiatric/Neurological: No Symptoms Reported Past Xzkhhdw-Dsthdp-Bthasb Hx Patient Social History Tobacco Use?: No Use of E-Cig and/or Vaping dev: No Substance use?: No Alcohol Use?: No Immunizations Up To Date Tetanus Booster (TDap): Unknown PED Vaccines UTD: Yes First/Initial COVID19 Vaccinat: JUNE 26, 2020 Second COVID19 Vaccination Cristobal: JULY 24, 2020 Third COVID19 Vaccination Date: JUNE 26, 2020 Seasonal Allergies Seasonal Allergies: Yes Past Medical History Surgeries: Yes (RIGHT ANKLE SURGERY, BILATERAL CATARACT SURGERY, DENTAL SURGERY) Eye Surgery, Gallbladder, Hysterectomy, Orthopedic, 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 Respiratory: Yes (USES OXYGEN CONTINUOSLY AT 5L N/C) COPD Currently Using CPAP: No Cardiac: Yes Hypertension Neurological: Yes Headaches /Migraines 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, 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 Genitourinary: No Gastrointestinal: Yes Gastroesophageal Reflux Musculoskeletal: Yes Arthritis, Fibromyalgia Endocrine: No HEENT: Yes (WEARS GLASSES) Loss of Vision: Denies Hearing Impairment: Denies Cancer: No Psychosocial: Yes Sleep Difficulties, Anxiety, Depression Integumentary: No Blood Disorders: No Adverse Reaction/Blood Tranf: No (N/A) Family Medical History Hypertension GRANDMOTHER Neoplasm 19 FATHER (PROSTATE) 19 MOTHER (UNKNOWN CANCER) Physical Exam Vital Signs Vital Signs - First Documented 06/12/21 10:39 Temp 36.0 Pulse 105 Resp 20 B/P (MAP) 151/124 (133) O2 Delivery Room Air Capillary Refill : Height, Weight, BMI Height: 5'0" Weight: 160lbs. oz. 72.060640ch; 25.00 BMI Method:Stated General Appearance: WD/WN, no apparent distress Neck: full range of motion, supple Cardiovascular: normal peripheral pulses, regular rate, rhythm Respiratory: lungs clear, normal breath sounds Gastrointestinal: non tender, soft Shoulder: normal inspection, non-tender Elbow/Forearm: normal inspection, non-tender Wrist: Yes soft tissue tenderness (Patient with a Velcro wrist splint in place.); No swelling Skin: normal color, warm/dry Progress/Results/Core Measures Results/Orders My Orders Orders - CANDY ADRIAN DO Wrist 3 View Left (06/12/21 10:43) Ketorolac Injection (Toradol Injection) (06/12/21 10:43) Vital Signs/I&O 06/12/21 10:39 Temp 36.0 Pulse 105 Resp 20 B/P (MAP) 151/124 (133) O2 Delivery Room Air Progress Progress Note : Progress Note Patient's x-ray shows no acute findings. Patient symptoms consistent with carpal tunnel syndrome. Discussed with patient that she is currently on tramadol if she needs stronger pain medication she will need to follow-up with her primary care provider. She can use topical Voltaren and lidocaine cream. I also recommended she follow-up with her OB and orthopedic surgery for further evaluation. Patient stable discharged Departure Impression Primary Impression: Left wrist pain Disposition: HOME, SELF-CARE Condition: Stable Departure-Patient Inst. Referrals: SARA PUGA MD (PCP/Family) Primary Care Physician Patient Instructions: Carpal Tunnel Exercises, Carpal Tunnel Syndrome Add. Discharge Instructions: Your symptoms are consistent with carpal tunnel syndrome. Continue to wear the brace. Recommend you follow-up with your primary care provider and Chidi Grace sight effects specialist in [place] for further evaluation. You may use 4% topical lidocaine with menthol and Voltaren cream in addition to your already prescribed medication. You need stronger medication than what you have already been prescribed by your primary care provider you will need to follow-up with them for a prescription. You may also use warm moist heat to help with the pain. All discharge instructions reviewed with patient and/or family. Voiced understanding. CANDY ADRIAN DO Jun 12, 2021 10:42
[2021-06-12] MEDS ORDERED: KETOROLAC 60 MG/2 ML VIAL IM STA (10:43)
--- NOTE | 2021-06-12 11:05 | Diagnostic Imaging Report ---
INDICATION: Left wrist pain 4 views of the left wrist show no fracture, dislocation or other acute abnormalities. IMPRESSION: Negative left wrist Dictated by: Dictated on workstation # [id number]
== END 2021-06-12 11:55 | disposition home or self-care (01) ==
LOC: EDUNIT# 10:30 → ER FS 10:31
DX: M25.532 Pain in left wrist (principal); I10 Essential (primary) hypertension; J44.9 Chronic obstructive pulmonary disease, unspecified; G43.909 Migraine, unspecified, not intractable, without status migrainosus; K21.9 Gastro-esophageal reflux disease without esophagitis; M79.7 Fibromyalgia; F41.9 Anxiety disorder, unspecified; F32.A Depression, unspecified; Z99.81 Dependence on supplemental oxygen; Z79.51 Long term (current) use of inhaled steroids; Z79.52 Long term (current) use of systemic steroids; Z79.899 Other long term (current) drug therapy
CPT/HCPCS: 73110

== ENCOUNTER 2021-07-03 11:48 | Emergency (ER) | payer MEDICARE, MEDICAID ==
[2021-07-03] MEDS ORDERED: RT-ALBUTEROL/IPRATROPIUM 3 ML (DUONEB) VIAL INH ONE (12:00)
[2021-07-03 12:06] LABS: BASOPHILS % (AUTO) 0 % (0-10); EOSINOPHILS # (AUTO) 0.2 10^3/uL (0.0-0.3); EOSINOPHILS % (AUTO) 2 % (0-10); HEMATOCRIT 40 % (35-52); HEMOGLOBIN 13.3 g/dL (11.5-16.0); LYMPHOCYTES # (AUTO) 1.9 10^3/uL (1.0-4.0); LYMPHOCYTES % (AUTO) 21 % (12-44); MEAN CORPUSCULAR HEMOGLOBIN 30 pg (25-34); MEAN CORPUSCULAR HGB CONC 33 g/dL (32-36); MEAN CORPUSCULAR VOLUME 90 fL (80-99); MEAN PLATELET VOLUME 9.7 fL (9.0-12.2); MONOCYTES # (AUTO) 0.6 10^3/uL (0.0-1.0); MONOCYTES % (AUTO) 7 % (0-12); NEUTROPHILS # (AUTO) 6.4 10^3/uL (1.8-7.8); NEUTROPHILS % (AUTO) 70 % (42-75); PLATELET COUNT 313 10^3/uL (130-400); WHITE BLOOD COUNT 9.2 10^3/uL (4.3-11.0)
[2021-07-03 12:08] LABS: BILIRUBIN,URINE NEGATIVE (NEGATIVE); CLARITY,URINE SL CLOUDY; COLOR,URINE YELLOW; GLUCOSE, URINE (UA) NEGATIVE (NEGATIVE); KETONES,URINE NEGATIVE (NEGATIVE); LEUKOCYTE ESTERASE ,URINE NEGATIVE (NEGATIVE); NITRITE,URINE NEGATIVE (NEGATIVE); PROTEIN,URINE NEGATIVE (NEGATIVE)
--- NOTE | 2021-07-03 12:08 | ED Dyspnea ---
General Stated Complaint: COUGH; FALL Source of Information: Patient, Old Records History of Present Illness Date Seen by Provider: Jul 03, 2021 Time Seen by Provider: 11:52 Initial Comments 70-year-old female presenting with increased shortness of breath and cough that started today. She states that she has chronic COPD and severe shortness of breath all the time. She does breathing treatments every 4 hours. She reports that she is due for breathing treatment on arrival to the ED. She has been havi ng just clear to white-colored sputum that she is coughing up. She denies fever or chills. She uses oxygen at 5 L/min all the time. She has taken a prednisone pill this am that she had left over at home. Her PCP, Dr. Puga, is out of his [place] office on Fridays so she came here to the ED. Timing/Duration: 4-6 Hours Severity: Severe Activities at Onset: None Prior Episodes/Possible Cause: Chronic Episodes, Frequent Episodes Modifying Factors: Worse With Activity; Improves With Albuterol Nebulizer Associated Symptoms: Anxiety, Cough, Wheezing Allergies and Home Medications Allergies Coded Allergies: metformin (Verified Allergy, Severe, Vomiting, 03/02/21) gabapentin (Verified Allergy, Unknown, 03/02/21) pregabalin (Verified Allergy, Unknown, 03/02/21) STATES INTOLERANCE TO Patient Home Medication List Home Medication List Reviewed: Yes Albuterol Sulfate (Albuterol Sulfate) 2.5 Mg/3 Ml Vial.neb, 2.5 MG INH QID PRN for SHORTNESS OF BREATH, (Reported) Entered as Reported by: JERRY KIRKPATRICK on 03/02/21 111 Albuterol Sulfate (Ventolin Hfa) 1 Puff Puff, 2 PUFF INH Q4H PRN for SHORTNESS OF BREATH, (Reported) Entered as Reported by: JERRY KIRKPATRICK on 03/02/21 111 Albuterol/Ipratropium (Combivent Respimat Inhal [facility]) 4 Gm Aero, 1 PUFF IH Q6H PRN for SHORTNESS OF BREATH, (Reported) Entered as Reported by: JERRY KIRKPATRICK on 03/02/21 111 Cetirizine HCl (Cetirizine HCl) 10 Mg Tab.chew, 10 MG PO DAILY PRN, (Reported) Entered as Reported by: JERRY KIRKPATRICK on 03/02/211118 Duloxetine HCl (Duloxetine HCl) 60 Mg Capsule.dr, 60 MG PO BID, (Reported) Entered as Reported by: JERRY KIRKPATRICK on 03/02/211118 Esomeprazole Magnesium (Esomeprazole Magnesium) 40 Mg Capsule.dr, 40 MG PO DAILY, (Reported) Entered as Reported by: JERRY KIRKPATRICK on 03/02/211118 Fluticasone Propionate (Flonase Allergy Relief) 9.9 Ml [facility].susp, 1 SPRAY NS DAILY, (Reported) Entered as Reported by: JERRY KIRKPATRICK on 03/02/211118 Fluticasone/Umeclidin/Vilanter (Trelegy Ellipta 100-62.5-25) 1 Each Blst.w.dev, 1 EACH IH DAILY, (Reported) Entered as Reported by: JERRY KIRKPATRICK on 03/02/211118 Hydrocodone/Acetaminophen (Hydrocodone-Acetamin 5-325 mg) 1 Each Tablet, 1 TAB PO Q6H PRN for PAIN-MODERATE (5-7), (Reported) Entered as Reported by: JERRY KIRKPATRICK on 03/02/211118 Hydrocortisone (Hydrocortisone) 10 Mg Tablet, 10 MG PO BID WITH MEALS, (Reported) Entered as Reported by: JERRY KIRKPATRICK on 03/02/211118 Isosorbide Mononitrate (Isosorbide Mononitrate ER) 30 Mg Tab.er.24h, 30 MG PO DAILY, (Reported) Entered as Reported by: JERRY KIRKPATRICK on 03/02/211118 Lisinopril (Lisinopril) 10 Mg Tablet, 10 MG PO DAILY, (Reported) Entered as Reported by: JERRY KIRKPATRICK on 03/02/211118 Loratadine (Loratadine) 10 Mg Tablet, 10 MG PO DAILY PRN, (Reported) Entered as Reported by: JERRY KIRKPATRICK on 03/02/211119 Meloxicam (Meloxicam) 7.5 Mg Tablet, 7.5 MG PO DAILY, (Reported) Entered as Reported by: JERRY KIRKPATRICK on 03/02/211118 Metoprolol Succinate (Metoprolol Succinate) 25 Mg Tab.er.24h, 25 MG PO DAILY, (Reported) Entered as Reported by: JERRY KIRKPATRICK on 03/02/211118 Mirabegron (Myrbetriq) 50 Mg Tab.er.24h, 50 MG PO DAILY, (Reported) Entered as Reported by: JERRY KIRKPATRICK on 03/02/211118 Montelukast Sodium (Montelukast Sodium) 10 Mg Tablet, 10 MG PO DAILY, (Reported) Entered as Reported by: JERRY KIRKPATRICK on 03/02/211118 Nitrofurantoin Monohyd/M-Cryst (Macrobid 100 mg Capsule) 100 Mg Capsule, 1 TAB PO BID Prescribed by: RUBEN TALBOT on 03/04/21914 Phenazopyridine HCl (Pyridium) 200 Mg Tablet, 1 TAB PO TID Prescribed by: RUBEN TALBOT on 03/04/21 09 Prednisone (Prednisone) 50 Mg Tab, 50 MG PO DAILY, (Reported) Entered as Reported by: JERRY KIRKPATRICK on 03/02/211118 Prednisone (Prednisone) 20 Mg Tab, 40 MG PO DAILY Prescribed by: TANIA BRANCH on 05/27/21 1216 Prednisone (Prednisone) 20 Mg Tab, 20 MG PO UD Prescribed by: MAURIZIO KAPOOR on 07/03/21 1320 Quetiapine Fumarate (Seroquel) 300 Mg Tablet, 300 MG PO HS, (Reported) Entered as Reported by: JERRY KIRKPATRICK on 03/02/211118 Tolterodine Tartrate (Tolterodine Tartrate ER) 4 Mg Cap.er.24h, 4 MG PO DAILY, (Reported) Entered as Reported by: JERRY KIRKPATRICK on 03/02/211118 Tramadol HCl (Tramadol HCl) 50 Mg Tablet, 50 MG PO TID PRN for PAIN- BREAKTHROUGH, (Reported) Entered as Reported by: JERRY KIRKPATRICK on 03/02/211118 Review of Systems Review of Systems Constitutional: No chills, No fever; malaise EENTM: No epistaxis, No nose congestion Respiratory: see HPI Cardiovascular: No chest pain Gastrointestinal: No nausea, No vomiting Genitourinary: No dysuria Musculoskeletal: no symptoms reported Skin: No rash Psychiatric/Neurological: Anxiety Past Tkgzaac-Kflzky-Rmapyi Hx Immunizations Up To Date Tetanus Booster (TDap): Unknown PED Vaccines UTD: Yes First/Initial COVID19 Vaccinat: JUNE 26, 2020 Second COVID19 Vaccination Cristobal: JULY 24, 2020 Third COVID19 Vaccination Date: JUNE 26, 2020 Seasonal Allergies Seasonal Allergies: Yes Past Medical History Surgery/Hospitalization HX: COPD on 5 Lpm O2 06/12 Surgeries: Yes (RIGHT ANKLE SURGERY, BILATERAL CATARACT SURGERY, DENTAL SURGERY) Eye Surgery, Gallbladder, Hysterectomy, Orthopedic, 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 Respiratory: Yes (USES OXYGEN CONTINUOSLY AT 5L N/C) COPD Currently Using CPAP: No Cardiac: Yes Hypertension Neurological: Yes Headaches /Migraines 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 oz. 72.491671uv; 32.00 BMI Method:Stated General Appearance: Mild Distress HEENT: PERRL/EOMI, Pharynx Normal Neck: Full Range of Motion, Non Tender, Supple Respiratory: Chest Non Tender, Accessory Muscle Use, Decreased Breath Sounds, Wheezing Cardiovascular: Regular Rate, Rhythm, Normal Peripheral Pulses Gastrointestinal: Normal Bowel Sounds, No Pulsatile Mass, Non Tender, Soft Extremity: Normal Capillary Refill, No Pedal Edema Neurologic/Psychiatric: Alert, Oriented x3 Skin: Normal Color, Warm/Dry Focused Exam Lactate Level 07/03/21 11:53: Lactic Acid Level 0.89 Lactic Acid Level Laboratory Tests Test 07/03/21 11:53 Lactic Acid Level 0.89 MMOL/L (0.50-2.00) Progress/Results/Core Measures Results/Orders Lab Results Laboratory Tests Test 07/03/21 11:53 Range/Units White Blood Count 9.2 4.3-11.0 10^3/uL Red Blood Count 4.47 3.80-5.11 10^6/uL Hemoglobin 13.3 11.5-16.0 g/dL Hematocrit 40 35-52 % Mean Corpuscular Volume 90 80-99 fL Mean Corpuscular Hemoglobin 30 25-34 pg Mean Corpuscular Hemoglobin Concent 33 32-36 g/dL Red Cell Distribution Width 12.5 10.0-14.5 % Platelet Count 313 130-400 10^3/uL Mean Platelet Volume 9.7 9.0-12.2 fL Immature Granulocyte % (Auto) 0 % Neutrophils (%) (Auto) 70 42-75 % Lymphocytes (%) (Auto) 21 12-44 % Monocytes (%) (Auto) 7 0-12 % Eosinophils (%) (Auto) 2 0-10 % Basophils (%) (Auto) 0 0-10 % Neutrophils # (Auto) 6.4 1.8-7.8 10^3/uL Lymphocytes # (Auto) 1.9 1.0-4.0 10^3/uL Monocytes # (Auto) 0.6 0.0-1.0 10^3/uL Eosinophils # (Auto) 0.2 0.0-0.3 10^3/uL Basophils # (Auto) 0.0 0.0-0.1 10^3/uL Immature Granulocyte # (Auto) 0.0 0.0-0.1 10^3/uL Urine Color YELLOW Urine Clarity SL CLOUDY Urine pH 6.0 5-9 Urine Specific [place] 1.025 H 1.016-1.022 Urine Protein NEGATIVE NEGATIVE Urine Glucose (UA) NEGATIVE NEGATIVE Urine Ketones NEGATIVE NEGATIVE Urine Nitrite NEGATIVE NEGATIVE Urine Bilirubin NEGATIVE NEGATIVE Urine Urobilinogen 0.2 < = 1.0 MG/DL Urine Leukocyte Esterase NEGATIVE NEGATIVE Urine RBC (Auto) NEGATIVE NEGATIVE Urine RBC NONE /HPF Urine WBC 0-2 /HPF Urine Squamous Epithelial Cells 0-2 /HPF Urine Crystals NONE /LPF Urine Bacteria NEGATIVE /HPF Urine Casts NONE /LPF Urine Mucus SMALL H /LPF Urine Culture Indicated NO Sodium Level 140 135-145 MMOL/L Potassium Level 3.7 3.6-5.0 MMOL/L Chloride Level 103 98-107 MMOL/L Carbon Dioxide Level 25 21-32 MMOL/L Anion Gap 12 5-14 MMOL/L Blood Urea Nitrogen 13 7-18 MG/DL Creatinine 0.78 0.60-1.30 MG/DL Estimat Glomerular Filtration Rate 81 BUN/Creatinine Ratio 17 Glucose Level 160 H 70-105 MG/DL Lactic Acid Level 0.89 0.50-2.00 MMOL/L Calcium Level 9.1 8.5-10.1 MG/DL Corrected Calcium 9.3 8.5-10.1 MG/DL Magnesium Level 2.0 1.6-2.4 MG/DL Total Bilirubin 0.4 0.1-1.0 MG/DL Aspartate Amino Transf (AST/SGOT) 21 5-34 U/L Alanine Aminotransferase (ALT/SGPT) 26 0-55 U/L Alkaline Phosphatase 107 40-136 U/L C-Reactive Protein 3.99 H <0.50 MG/DL Total Protein 6.8 6.4-8.2 GM/DL Albumin 3.8 3.2-4.5 GM/DL My Orders Orders - MAURIZIO KAPOOR MD Cbc With Automated Diff (07/03/21 11:59) Comprehensive Metabolic Panel (07/03/21 11:59) Blood Culture (07/03/21 11:59) Chest 1 View Ap/Pa Only (07/03/21 11:59) Albuterol/Ipra Inhalation Soln (Duoneb I (07/03/21 12:00) Monitor-Rhythm Ecg Trace Only (07/03/21 11:59) Crp Fs (07/03/21 11:59) Lactic Acid Analyzer (07/03/21 11:59) Svn Small Volume Nebulizer (07/03/21 11:59) Ua Culture If Indicated (07/03/21 11:59) Magnesium (07/03/21 11:59) Ekg Tracing (07/03/21 11:59) O2 (07/03/21 11:59) Ed Iv/Invasive Line Start (07/03/21 11:59) Sputum Culture (07/03/21 11:59) Fentanyl Inj (Sublimaze Injection) (07/03/21 13:14) Dexamethasone Injection (Decadron Inje (07/03/21 13:14) Medications Given in ED Current Medications Medications Dose Ordered Sig/[place] Route Start Time Stop Time Status Last Admin Dose Admin Albuterol/ Ipratropium 3 ml ONCE ONCE INH 07/03/21 12:00 07/03/21 12:03 DC 07/03/21 12:08 3 ML Vital Signs/I&O 07/03/21 07/03/21 07/03/21 07/03/21 11:52 11:52 11:55 13:24 Temp 36.6 36.6 Pulse 105 105 Resp 18 18 B/P (MAP) 159/68 (98) 159/68 Pulse Ox 99 99 99 O2 Delivery Nasal Cannula Nasal Cannula Nasal Cannula Nasal Cannula O2 Flow Rate 5.00 5.00 5.00 5.00 5.00 Progress Progress Note #1: Progress Note Check labs including blood cultures and lactic acid. Sputum culture if she coughs anything up. Chest x-ray to look for signs of pneumonia. Progress Note #2: Time: 12:16 Progress Note Stable CBC without acute elevation of white blood cell count. Her chest x-ray does not show an acute process and no infiltrate for pneumonia. Her electrocardiogram shows sinus rhythm without ST elevation. Urinalysis does not show any signs of infection. Chemistry and lactic acid are pending Progress Note #3: Progress Note Chemistry and Lactic acid do not show acute significant abnormality. She has mild elevation of glucose that is likely due to taking steroid. Counseled patient and caregiver about results and findings. We will continue with steroids for COPD exacerbation. Patient did ask for something to help with pain in her left hand which is chronic and she states is related to carpal tunnel. She takes tramadol at home. Will give a single dose of fentanyl here to try and help with pain. Encouraged to follow-up through the clinic. Patient states that she plans to try and change to a provider here at [place]. Initial ECG Impression Date: Jul 03, 2021 Initial ECG Impression Time: 12:04 Initial ECG Rate: 95 Initial ECG Rhythm: Normal Sinus Initial ECG Comparisson: Unchanged Comment Normal sinus rhythm with heart rate 95 bpm. IN interval 124 ms. T wave flattening especially in the lateral leads. No acute ST elevation. QT interval 326 ms with a QTc interval 410 ms. Appears similar to prior tracings in the system. Diagnostic Imaging Diagonstic Imaging: Xray Plain Films/CT/US/NM/MRI: chest Comments NAME: [facility] REC#: [id number] PT STATUS: REG ER : 1950 PHYSICIAN: MAURIZIO KAPOOR MD ADMIT DATE: 07/03/21/ER FS Draft Date of Exam:07/03/21 CHEST 1 VIEW AP/PA ONLY CLINICAL INDICATION: Patient with cough. EXAM: Portable chest x-ray, upright view. COMPARISON: Chest x-ray dated 02/16/2021. FINDINGS: Lungs/pleura: There is minimal bibasilar atelectasis. There is no gross lung infiltrate. There is no pneumothorax. There is no pleural effusion. Mediastinum: Unremarkable. Pulmonary vasculature: Unremarkable. Heart: Unremarkable. Bones/extrathoracic soft tissue: There are hypertrophic spurs involving the spine. IMPRESSION: There is no radiographic evidence of acute cardiopulmonary process. There is minimal bibasilar atelectasis. Dictated on workstation # [id number] Dict: 07/03/21 1219 Trans: 07/03/21 1221 [id number] Interpreted by: DERICK BROWN MD Electronically signed by: Reviewed: Reviewed by Me Departure Impression Primary Impression: Chronic obstructive pulmonary disease with (acute) exacerbation Disposition: 01 HOME, SELF-CARE Condition: Stable Departure-Patient Inst. Decision time for Depature: 13:16 Referrals: SARA PUGA MD (PCP/Family) Primary Care Physician Patient Instructions: COPD Exacerbation, Adult ED, COPD Diet Add. Discharge Instructions: Take the steroid taper to help with exacerbation of COPD. Continue with Mucinex to help with thinning out congestion and cough. Make sure to drink plenty of water along with this to help the medicine work. Follow up with clinic for continued problems with the COPD as well as your hand pain. You may need to see a Pain management doctor for better control of your hand pain. Scripts Prednisone (Prednisone) 20 Mg Tab 20 MG PO UD for COPD Exacerbation, #22 TAB Take 3 tabs(60mg)daily,decrease by 1/2 tab(10mg)every other day. Prov: MAURIZIO KAPOOR MD 07/03/21 MAURIZIO KAPOOR MD Jul 03, 2021 12:08
[2021-07-03 12:19] LABS: BACTERIA,URINE NEGATIVE /HPF; SQUAMOUS EPITHELIAL CELL,UR 0-2 /HPF; WBC,URINE 0-2 /HPF
--- NOTE | 2021-07-03 12:21 | Diagnostic Imaging Report ---
CLINICAL INDICATION: Patient with cough. EXAM: Portable chest x-ray, upright view. COMPARISON: Chest x-ray dated 02/16/2021. FINDINGS: Lungs/pleura: There is minimal bibasilar atelectasis. There is no gross lung infiltrate. There is no pneumothorax. There is no pleural effusion. Mediastinum: Unremarkable. Pulmonary vasculature: Unremarkable. Heart: Unremarkable. Bones/extrathoracic soft tissue: There are hypertrophic spurs involving the spine. IMPRESSION: There is no radiographic evidence of acute cardiopulmonary process. There is minimal bibasilar atelectasis. Dictated by: Dictated on workstation # [id number]
[2021-07-03 12:33] LABS: POTASSIUM 3.7 MMOL/L (3.6-5.0)
[2021-07-03 12:34] LABS: ALBUMIN 3.8 GM/DL (3.2-4.5); BILIRUBIN,TOTAL 0.4 MG/DL (0.1-1.0); CALCIUM 9.1 MG/DL (8.5-10.1); CREATININE SERUM 0.78 MG/DL (0.60-1.30); TOTAL PROTEIN 6.8 GM/DL (6.4-8.2)
[2021-07-03] MEDS ORDERED: fentaNYL INJ 100 MCG/2 ML AMP IVP STA (13:14)
[2021-07-03] MEDS ORDERED: PRD20T PO (13:20)
[2021-07-03 13:24] VITALS: BP 159/68
== END 2021-07-03 13:25 | disposition home or self-care (01) ==
LOC: EDUNIT# 11:48 → ER FS 11:50
DX: J44.1 Chronic obstructive pulmonary disease with (acute) exacerbation (principal); I10 Essential (primary) hypertension; F41.9 Anxiety disorder, unspecified; F32.9 Major depressive disorder, single episode, unspecified; K21.9 Gastro-esophageal reflux disease without esophagitis; Z79.899 Other long term (current) drug therapy
CPT/HCPCS: 36415; 71045; 80053; 81000; 83605; 83735; 85025; 86141; 87040; 93005; 93041

== ENCOUNTER 2021-07-08 09:52 | Outpatient (CLI) | payer MEDICARE, MEDICAID ==
[~2021-07-08] VITALS: Ht 152.4 cm; Wt 71.3 kg
[2021-07-08] MEDS ORDERED: CYCL10TA25 PO (10:27)
[2021-07-08] MEDS ORDERED: NORT10SO PO (10:27)
[2021-07-08] MEDS ORDERED: FLUT1BLS3 IH (10:27)
[2021-07-08] MEDS ORDERED: HYDR50TA76 PO (10:27)
[2021-07-08] MEDS ORDERED: PRAM0.12 PO (10:27)
[2021-07-08] MEDS ORDERED: ZOLP10TA PO (10:27)
[2021-07-08] MEDS ORDERED: DULO30CA49 PO (10:27)
== END 2021-07-08 10:40 | disposition home or self-care (01) ==
LOC: PREOP 09:52
PROVIDERS: ATTEND Urology
DX: Z01.818 Encounter for other preprocedural examination (principal)

== ENCOUNTER 2021-07-15 06:06 | Day surgery (SDC) | payer MEDICARE, MEDICAID ==
[2021-07-15] VITALS (11 sets, daily range): BP systolic 86–129; BP diastolic 45–77
[~2021-07-15] VITALS: Ht 152.4 cm; Wt 71.3 kg
[~2021-07-15 06:06] MED LIST changes: +CYCL10TA25 PO; +DULO30CA49 PO; +HYDR50TA76 PO; +NORT10SO PO; +PRAM0.12 PO; +ZOLP10TA PO
[2021-07-15] MEDS ORDERED: cefTRIAXone 1 GM PRE-MIX 50 ML IV ONE (06:45)
[2021-07-15] MEDS ORDERED: LACTATED RINGERS 1,000 ML IV PRN (06:45)
[2021-07-15] MEDS ORDERED: LIDOCAINE PF 2% 5 ML (XYLOCAINE) VIAL ONE (06:58)
[2021-07-15] MEDS ORDERED: proPOfol 200 MG/20 ML (DIPRIVAN) VIAL IV ONE (06:58)
[2021-07-15] MEDS ORDERED: ONDANSETRON 4 MG/2 ML (SDV) Z0FRAN ONE (06:58)
[2021-07-15] MEDS ORDERED: SEVOFLURANE (ULTANE) 15 ML INHAL SOLN ONE (06:58)
[2021-07-15] MEDS ORDERED: MIDAZOLAM 2 MG/2 ML (VERSED) VIAL ONE (06:59)
[2021-07-15] MEDS ORDERED: fentaNYL INJ 100 MCG/2 ML AMP ONE (06:59)
[2021-07-15] MEDS ORDERED: LIDOCAINE/EPI 1%-1:200,000 (XYLOCAINE) 30 ML VIAL ONE (07:05)
[2021-07-15] MEDS ORDERED: ESTRADIOL VAGINAL CREAM 42.5 GM (ESTRACE) VG ONE (07:05)
--- NOTE | 2021-07-15 07:06 | Progress Note-Pre Operative ---
Pre-Operative Progress Note H&P Reviewed The H&P was reviewed, patient examined and no changes noted. Date Seen by Provider: Jul 15, 2021 Time Seen by Provider: 07:06 Date H&P Reviewed: Jul 15, 2021 Time H&P Reviewed: 07:06 Pre-Operative Diagnosis: CHICO AND ISD SEBASTIAN WOODWARD MD Jul 15, 2021 07:06
--- NOTE | 2021-07-15 07:11 | Progress Note-Post Operative ---
Post-Operative Progess Note Surgeon (s)/Frog Catcher (s) Surgeon SEBASTIAN WOODWARD MD Frog Catcher: NONE Pre-Operative Diagnosis CYSTOCELE, CHICO AND ISD Post-Operative Diagnosis SAME Procedure & Operative Findings Date of Procedure 07/15/21 Procedure Performed/Findings PVS AND CYSTOSCOPY Anesthesia Type GENERAL Estimated Blood Loss Estimated blood loss (mL): LESS THAN 50CC Specimens/Packing Specimens Removed NONE PackinGM ESTRACE VAGINAL PACK SEBASTIAN WOODWARD MD Jul 15, 2021 07:11
[2021-07-15] MEDS ORDERED: MILK OF MAGNESIA 400 MG/5 ML 30 ML UDC PO PRN (07:15)
--- NOTE | 2021-07-15 08:22 | Anesthesia-General Post-Op ---
General Patient Condition Mental Status/LOC: Same as Preop Cardiovascular: Satisfactory Nausea/Vomiting: Absent Respiratory: Satisfactory Pain: Controlled Complications: Absent Post Op Complications Complications None Follow Up Care/Instructions Patient Instructions None needed. Anesthesia/Patient Condition Patient Condition Patient is doing well, no complaints, stable vital signs, no apparent adverse anesthesia problems. No complications reported per nursing. CARLYN MARQUEZ CRNA Jul 15, 2021 08:22
[2021-07-15] MEDS ORDERED: morphine INJ 10 MG/ML 1ML (SYR OR VIAL) IVP ONE (08:30)
[2021-07-15] MEDS ORDERED: ONDANSETRON 4 MG/2 ML (SDV) Z0FRAN IVP PRN (08:30)
[2021-07-15] MEDS ORDERED: KETOROLAC 30 MG/ML VIAL IVP PRN (11:00)
[2021-07-15] MEDS: HYDROcodone/APAP 5 MG/325 MG (LORTAB) TAB PO PRN ×4 (12:43→20:46)
--- NOTE | 2021-07-15 12:43 | OPERATIVE REPORT ---
DATE OF SERVICE: 07/15/2021 PREOPERATIVE DIAGNOSES: Stress urinary incontinence and ISD. POSTOPERATIVE DIAGNOSES: Stress urinary incontinence, ISD, and cystocele. OPERATION PERFORMED: Anterior repair, pubovaginal sling and cystoscopy. SURGEON: Lb Woodward MD ANESTHESIA: General. COMPLICATIONS: None. DESCRIPTION OF PROCEDURE: Under satisfactory general anesthesia, the patient in extended lithotomy position, genitalia were prepped and draped in the usual sterile fashion including abdomen and thighs with a separate vaginal prep. A Nguyen catheter was inserted, draining clear urine. The anterior vaginal wall was infiltrated with 2% lidocaine and epinephrine. An incision was made vertically in the anterior vaginal wall and the mucosa was dissected off the underlying fascia with sharp dissection. A couple of bleeders were cauterized. The fascia was approximated with several interrupted 2-0 Vicryl sutures giving good support to the bladder. Then, I passed the pubovaginal sling Desara type II on both sides using the described technique. Sling was sitting nicely under the mid urethra with no twisting, tension and passage of a hemostat easily between it and the underlying urethra. I removed the Nguyen catheter to perform cystoscopy to confirm the integrity of the bladder and urethra and ureteral orifices where no foreign body in the bladder or the urethra and presence of the sling under the mid urethra. I left the bladder half full to perform a manual Valsalva maneuver that was negative. Because the patient refused spinal or epidural, we had to give her very light anesthesia general because of her lung status, which made the straining and motion little bit more than usual; however, everything went fine with no problem, no bleeding significant at all and the results were pretty satisfactory surgically. The excess vaginal mucosa was sharply excised. Then, the mucosa was approximated with a running 2-0 Vicryl Rapide type suture. Catheter was reinserted draining clear urine. Estimated blood loss 50 mL, none of which was replaced. Two grams Estrace vaginal pack was inserted. The patient tolerated the procedure and anesthesia well and was sent to recovery room in stable condition. Needle, instruments counts correct x2. Job ID: [id number] DocumentID: [id number] Dictated Date: 07/15/2021 08:17:58 Welfare Supervisor Date: 07/15/2021 12:42:32 Dictated By: LB WOODWARD MD
[2021-07-15] MEDS ORDERED: PATIENT MAY USE OWN MED,SINGLE MED PO SCH ×2 (13:30→14:00)
[2021-07-15] MEDS ORDERED: ZOLPIDEM 5 MG (AMBIEN) TAB PO PRN (14:15)
[2021-07-15] MEDS: LACTATED RINGERS 1,000 ML IV SCH ×2 (14:32→20:46)
[2021-07-15] MEDS ORDERED: KETOROLAC 15 MG/ML VIAL ONE (19:50)
[2021-07-15] MEDS: KETOROLAC 15 MG/ML VIAL IVP PRN (19:53)
[2021-07-15] MEDS: DULoxetine 30 MG (CYMBALTA) CAP PO SCH (20:46)
[2021-07-15] MEDS: DULOXETINE 60 MG CAPSULE PO SCH (20:47)
[2021-07-15] MEDS: PRAMIPEXOLE 1.5 MG TABLET PO SCH (20:47)
[2021-07-15] MEDS ORDERED: NON-FORMULARY MEDICATION 1 EA EA (Zolpidem Tartrate (Ambien) 10 MG) PO SCH (21:00)
[2021-07-15] MEDS ORDERED: DULoxetine 30 MG (CYMBALTA) CAP PO SCH (21:00)
[2021-07-16 00:52] VITALS: BP 137/62
[2021-07-16] MEDS: KETOROLAC 15 MG/ML VIAL IVP PRN ×2 (00:52→08:17)
[2021-07-16] MEDS: HYDROcodone/APAP 5 MG/325 MG (LORTAB) TAB PO PRN ×2 (00:52→08:45)
[2021-07-16 03:23] VITALS: BP 139/62
[2021-07-16] MEDS: LACTATED RINGERS 1,000 ML IV SCH (03:23)
[2021-07-16] MEDS: PRAMIPEXOLE 1.5 MG TABLET PO SCH (08:20)
[2021-07-16] MEDS: DULOXETINE 60 MG CAPSULE PO SCH (08:21)
[2021-07-16] MEDS: DULoxetine 30 MG (CYMBALTA) CAP PO SCH (08:23)
[2021-07-16 09:00] VITALS: BP 183/69
[2021-07-16] MEDS ORDERED: PRAMIPEXOLE 0.125 MG (MIRAPEX) TABLET PO SCH (09:00)
--- NOTE | 2021-07-16 09:32 | Progress Note - Urology ---
Progress Note-Urology Progress Notes/Assess & Plan Progress/Assessment & Plan DOING VERY WELL. VOIDED SOME. NO LEAK. CHECK PVR AND DECIDE DISCHARGE. INSTRUCTIONS GIVEN Final Diagnosis INCONTINENCE SEBASTIAN WOODWARD MD Jul 16, 2021 09:32
[2021-07-16] MEDS ORDERED: CIPR-225 PO (11:21)
[2021-07-16] MEDS ORDERED: ACHD5005 PO (11:25)
[2021-07-16 11:30] VITALS: BP 148/66
[2021-07-16] MEDS ORDERED: FLU QUAD HIGH DOSE 240 MCG/0.7 ML 2021-22 (FLUZONE) IM ONE (11:30)
[2021-07-16 12:25] VITALS: BP 148/66
== END 2021-07-16 12:25 | disposition home or self-care (01) ==
LOC: SDC 06:06 → EDSTATUS 08:00 → WS 09:10 → SDC 07-16 12:25
PROVIDERS: ATTEND Urology
DX: N39.3 Stress incontinence (female) (male) (principal); N36.42 Intrinsic sphincter deficiency (ISD); N81.10 Cystocele, unspecified
CPT/HCPCS: 87081

== ENCOUNTER → 2021-10-13 | Outpatient (CLI) | payer MEDICARE, MEDICAID ==
[~2021-10-13] MED LIST changes: +AMLO-251 PO; +AMOX500C2 PO; +BUPR-104 PO; -BUPR100T8 PO; +CATHETER FLUSH 10 ML SYR IV PRN; +CIPR-225 PO; +HOLD METFORMIN - RECEIVED CONTRAST 20 ML VIAL IV SCH; +HYDR50CA3 PO; +IOHEXOL 350 MG/ML 100 ML (OMNIPAQUE 350) VIAL IV ONE; +LACT1CAP28 PO; +NORT50CA PO; +NS 100 ML (IVPB) BAG IV ONE; +PRAM1.5T5 PO; +PRD10T PO; +ZOLP5TAB7 PO
[2021-10-13 10:26] LABS: CREATININE SERUM 1.38 MG/DL (0.60-1.30)
--- NOTE | 2021-10-13 12:43 | Diagnostic Imaging Report ---
EXAM: CT ANGIO NECK W 3D reconstructions including MIPs of the angiographic images were performed and reviewed. INDICATION: Carotid artery stenosis. COMPARISON: CT neck with IV contrast 08/06/2020. FINDINGS: CTA demonstrates conventional aortic arch. Moderate atherosclerotic calcifications. This results in 50 is 69% narrowing of the right internal carotid artery origin. No high-grade narrowing of the bilateral common carotid, left internal carotid artery or right vertebral artery. The right vertebral artery is dominant. There is only sporadic opacification of the left vertebral artery below the level of C6. The visualized [place] is intact. Grade 1 anterolisthesis of C2 on C3 and C3 on C4. No acute CT findings in the cervical spine. Mild mucosal thickening in the ethmoid sinuses. The mastoids are clear. Emphysematous changes in the lung apices. IMPRESSION: 1. Atherosclerotic disease results in 50 is 69% narrowing of the right internal carotid artery origin. 2. High-grade narrowing of the diminutive proximal left vertebral artery which is only partially visualized below the level of C6. The right vertebral artery is dominant. Dictated by: Dictated on workstation # [id number]
== END ==
LOC: RAD FS 09:44
PROVIDERS: ATTEND Physician Assistant
DX: I65.23 Occlusion and stenosis of bilateral carotid arteries (principal)
CPT/HCPCS: 36415; 70498; 82565; 84520; Q9967

== ENCOUNTER 2021-10-26 08:04 | Emergency (ER) | payer MEDICARE, MEDICAID ==
[~2021-10-26] VITALS: Ht 152.4 cm; Wt 72.6 kg
[~2021-10-26 08:04] MED LIST changes: -CATHETER FLUSH 10 ML SYR IV PRN; -HOLD METFORMIN - RECEIVED CONTRAST 20 ML VIAL IV SCH; -IOHEXOL 350 MG/ML 100 ML (OMNIPAQUE 350) VIAL IV ONE; -NS 100 ML (IVPB) BAG IV ONE
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
[2021-10-26] MEDS ORDERED: MUPIROCIN 2% OINT 22 GM (BACTROBAN) TUBE NSEACH STA (08:49)
[2021-10-26] MEDS ORDERED: MUPI30OI TP (09:25)
[2021-10-26 09:32] VITALS: BP 136/74
== END 2021-10-26 09:32 | disposition home or self-care (01) ==
LOC: EDUNIT# 08:04 → ER FS 08:05
DX: T20.15XA Burn of first degree of scalp [any part], initial encounter (principal); T21.14XA Burn of first degree of lower back, initial encounter; T20.14XA Burn of first degree of nose (septum), initial encounter; T22.111A Burn of first degree of right forearm, initial encounter; T22.112A Burn of first degree of left forearm, initial encounter; J44.9 Chronic obstructive pulmonary disease, unspecified; F17.210 Nicotine dependence, cigarettes, uncomplicated; Z99.81 Dependence on supplemental oxygen; X08.8XXA Exposure to other specified smoke, fire and flames, initial encounter; Y92.039 Unspecified place in apartment as the place of occurrence of the external cause
CPT/HCPCS: 99282

== ENCOUNTER 2021-11-02 14:29 | Observation (INO) | payer MEDICARE, MEDICAID ==
[~2021-11-02] VITALS: Ht 152.4 cm; Wt 74.9 kg
[~2021-11-02 14:29] MED LIST changes: +MUPI30OI TP
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
[2021-11-02] MEDS ORDERED: NS IV 500 ML 500 ML IV ONE (14:45)
[2021-11-02 14:51] LABS: HEMATOCRIT 32 % (35-52); HEMOGLOBIN 10.2 g/dL (11.5-16.0); MEAN CORPUSCULAR HEMOGLOBIN 30 pg (25-34); MEAN CORPUSCULAR HGB CONC 32 g/dL (32-36); MEAN CORPUSCULAR VOLUME 92 fL (80-99); PLATELET COUNT 344 10^3/uL (130-400); WHITE BLOOD COUNT 9.1 10^3/uL (4.3-11.0)
[2021-11-02 14:52] LABS: BASOPHILS % (AUTO) 0 % (0-10); EOSINOPHILS % (AUTO) 2 % (0-10); LYMPHOCYTES % (AUTO) 18 % (12-44); MEAN PLATELET VOLUME 8.8 fL (9.0-12.2); MONOCYTES % (AUTO) 9 % (0-12); NEUTROPHILS # (AUTO) 6.4 X 10^3 (1.8-7.8); NEUTROPHILS % (AUTO) 71 % (42-75)
[2021-11-02 14:53] LABS: EOSINOPHILS # (AUTO) 0.2 10^3/uL (0.0-0.3); LYMPHOCYTES # (AUTO) 1.6 X 10^3 (1.0-4.0); MONOCYTES # (AUTO) 0.8 X 10^3 (0.0-1.0)
[2021-11-02 15:11] LABS: ALKALINE PHOSPHATASE 93 U/L (40-136); BILIRUBIN,TOTAL 0.4 MG/DL (0.1-1.0); BUN/CREATININE RATIO 13; CALCIUM 9.2 MG/DL (8.5-10.1); CARBON DIOXIDE 24 MMOL/L (21-32); CHLORIDE 103 MMOL/L (98-107); CREATININE SERUM 0.88 MG/DL (0.60-1.30); GFR ESTIMATED 70; GLUCOSE 176 MG/DL (70-105); MAGNESIUM 1.8 MG/DL (1.6-2.4); POTASSIUM 3.4 MMOL/L (3.6-5.0); SODIUM 138 MMOL/L (135-145)
[2021-11-02 15:12] LABS: ALANINE AMINOTRANSFERASE 24 U/L (0-55); TOTAL PROTEIN 6.4 GM/DL (6.4-8.2)
--- NOTE | 2021-11-02 15:13 | Diagnostic Imaging Report ---
EXAMINATION: CT head without contrast. TECHNIQUE: Multiple contiguous axial images were obtained through the brain without the use of intravenous contrast. All CT scans use one or more of the following dose optimizing techniques: automated exposure control, MA and/or KvP adjustment based on patient size and exam type or iterative reconstruction. HISTORY: tremors, frequent fall COMPARISON: None available. FINDINGS: Mild diffuse cerebral volume loss with proportional enlargement of the ventricles and sulci. Age indeterminate hypoattenuation within the right frontal lobe. No acute intracranial hemorrhage or abnormal extra-axial fluid collections are present. Calcification of the intracranial ICAs. No hyperdense vessel. The calvarium is intact. The mastoid air cells are clear. The visualized paranasal sinuses are clear. Surgical changes from bilateral cataract repair. IMPRESSION: 1. Age indeterminate hypoattenuation of the right frontal lobe. MRI may be more sensitive for evaluation of acute infarct. 2. No other acute intracranial abnormality. Dictated by: Dictated on workstation # [id number]
[2021-11-02] MEDS ORDERED: KETOROLAC 30 MG/ML VIAL IVP STA (15:48)
[2021-11-02 18:19] VITALS: BP 131/62
[2021-11-02 19:11] LABS: TRIGLYCERIDES 76 MG/DL (<150); VLDL CHOLESTEROL 15 MG/DL (5-40)
[2021-11-02 19:16] LABS: CHOLESTEROL 172 MG/DL (< 200)
[2021-11-02 19:17] LABS: HDL CHOLESTEROL 49 MG/DL (40-60)
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
[2021-11-02] MEDS ORDERED: ASPIRIN 325 MG (5 GR) TABLET PO ONE (20:00)
--- NOTE | 2021-11-02 20:06 | Diagnostic Imaging Report ---
INDICATION: Fall. Right hip pain. COMPARISON: None. FINDINGS: 2 views of the right hip were obtained and show no fractures, dislocations, or other acute bony abnormalities. Joint spaces are well maintained throughout. The soft tissues appear unremarkable. No radiopaque foreign bodies are identified. IMPRESSION: Unremarkable radiographic exam of the right hip. Dictated by: Dictated on workstation # [id number]
[2021-11-02] MEDS ORDERED: CLOPIDOGREL 300 MG (PLAVIX) TABLET PO ONE ×2 (20:15→22:17)
[2021-11-02 20:51] VITALS: BP 164/77
[2021-11-02 21:01] VITALS: BP 162/73
[2021-11-02] MEDS ORDERED: RT-ALBUTEROL SULF 2.5 MG/3 ML PRE-MIX VIAL INH PRN (21:15)
--- NOTE | 2021-11-02 21:36 | Diagnostic Imaging Report ---
INDICATION: Shortness of breath Frontal chest obtained at 8:55 p.m. and compared to 08/22/2021. There is cardiomegaly. There is mild central vascular prominence. There is no consolidation or pneumothorax or pleural fluid IMPRESSION: Cardiomegaly and mild central vascular prominence. No overt consolidation or pleural fluid. Dictated by: Dictated on workstation # [id number]
[2021-11-02] MEDS ORDERED: RT-ALBUTEROL SULF 2.5 MG/3 ML PRE-MIX VIAL ONE (21:39)
[2021-11-02] MEDS ORDERED: ASPIRIN 325 MG (5 GR) TABLET ONE (22:10)
[2021-11-02 23:15] VITALS: BP 162/72
[2021-11-03 03:57] VITALS: BP 147/90
[2021-11-03] MEDS: predniSONE 20 MG TAB PO SCH (05:18)
[2021-11-03 06:06] LABS: BASOPHILS # (AUTO) 0.1 10^3/uL (0.0-0.1); BASOPHILS % (AUTO) 1 % (0-10); EOSINOPHILS # (AUTO) 0.2 10^3/uL (0.0-0.3); EOSINOPHILS % (AUTO) 2 % (0-10); HEMATOCRIT 32 % (35-52); HEMOGLOBIN 10.5 g/dL (11.5-16.0); LYMPHOCYTES # (AUTO) 1.7 10^3/uL (1.0-4.0); LYMPHOCYTES % (AUTO) 18 % (12-44); MEAN CORPUSCULAR HEMOGLOBIN 29 pg (25-34); MEAN CORPUSCULAR HGB CONC 32 g/dL (32-36); MEAN CORPUSCULAR VOLUME 91 fL (80-99); MEAN PLATELET VOLUME 9.2 fL (9.0-12.2); MONOCYTES # (AUTO) 0.8 10^3/uL (0.0-1.0); MONOCYTES % (AUTO) 9 % (0-12); NEUTROPHILS # (AUTO) 6.6 10^3/uL (1.8-7.8); NEUTROPHILS % (AUTO) 70 % (42-75); PLATELET COUNT 328 10^3/uL (130-400); WHITE BLOOD COUNT 9.5 10^3/uL (4.3-11.0)
[2021-11-03 06:21] LABS: ALBUMIN 3.7 GM/DL (3.2-4.5); POTASSIUM 3.4 MMOL/L (3.6-5.0)
[2021-11-03 06:24] LABS: TOTAL PROTEIN 6.5 GM/DL (6.4-8.2)
[2021-11-03 06:25] LABS: BILIRUBIN,TOTAL 0.7 MG/DL (0.1-1.0)
[2021-11-03 06:27] LABS: CREATININE SERUM 0.8 MG/DL (0.60-1.30)
[2021-11-03 06:31] LABS: MAGNESIUM 1.7 MG/DL (1.6-2.4)
[2021-11-03] MEDS: RT-ALBUTEROL SULF 2.5 MG/3 ML PRE-MIX VIAL INH SCH ×4 (06:58→19:13)
[2021-11-03 07:39] VITALS: BP 175/79
[2021-11-03] MEDS: CLOPIDOGREL 75 MG (PLAVIX) TABLET PO SCH (08:18)
[2021-11-03] MEDS: ASPIRIN E.C. 81 MG (ECOTRIN) TAB PO SCH (08:18)
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
[2021-11-03] MEDS: RT--FLUTICASONE/SALMETEROL 232-14 (AIRDUO RespiCLICK) IH SCH ×2 (10:45→19:13)
[2021-11-03] MEDS: UMECLIDINIUM BROMIDE (INCRUSE ELLIPTA) 7'S IH SCH (10:45)
[2021-11-03] MEDS ORDERED: FLUT9.9S NSEACH (11:32)
[2021-11-03] MEDS ORDERED: MUPI22OI2 TOP (11:32)
[2021-11-03] MEDS ORDERED: CETI10TA17 PO (11:32)
[2021-11-03] MEDS ORDERED: ZOLP5TAB PO (11:32)
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
[2021-11-03 12:06] VITALS: BP 189/80
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
--- NOTE | 2021-11-03 12:43 | Diagnostic Imaging Report ---
PROCEDURE: MR imaging of the brain without contrast. TECHNIQUE: Multiplanar, multisequence MR imaging of the brain was performed without contrast. INDICATION: Confusion and right-sided weakness. FINDINGS: Overall quality of the study is limited due to significant patient motion. No diffusion restriction is identified to suggest acute ischemia. The normal expected flow-voids within the carotid siphons are seen. There are some periventricular and subcortical white matter changes noted consistent with chronic microvascular ischemia. No definite acute intra-axial or extra-axial hemorrhage is detected. IMPRESSION: Limited study demonstrating chronic changes. No acute intracranial abnormality is detected. Dictated by: Dictated on workstation # [id number]
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
[2021-11-03 15:57] VITALS: BP 158/69
[2021-11-03] MEDS ORDERED: RX-CYCLOBENZAPRINE 10 MG (FLEXERIL) TAB PPK#3 PO PRN (16:00)
[2021-11-03] MEDS ORDERED: RT-ALBUTEROL SULF 2.5 MG/3 ML PRE-MIX VIAL INH PRN ×2 (16:00)
[2021-11-03] MEDS ORDERED: ZOLPIDEM 5 MG (AMBIEN) TAB PO PRN (16:00)
[2021-11-03] MEDS ORDERED: HYDROXYZINE PAMOATE PO PRN (16:00)
[2021-11-03] MEDS ORDERED: CETIRIZINE HCL (ZYRTEC) 10 MG TAB PO PRN (16:00)
[2021-11-03] MEDS ORDERED: LORATADINE (CLARITIN) 10 MG TAB PO PRN (16:15)
[2021-11-03] MEDS ORDERED: CYCLOBENZAPRINE 10 MG (FLEXERIL) TAB PO PRN (16:30)
[2021-11-03] MEDS: PRAMIPEXOLE 0.5 MG TAB (MIRAPEX) PO SCH (19:26)
[2021-11-03] MEDS: DULoxetine 30 MG (CYMBALTA) CAP PO SCH (19:27)
[2021-11-03] MEDS: MUPIROCIN 2% OINT 22 GM (BACTROBAN) TUBE TOP SCH (19:27)
[2021-11-03 19:37] VITALS: BP 142/63
[2021-11-03] MEDS ORDERED: NORTRIPTYLINE HCL 150 MG PO SCH (21:00)
[2021-11-03] MEDS ORDERED: NON-FORMULARY MEDICATION 1 EA EA (Duloxetine HCl 60 MG) PO SCH (21:00)
[2021-11-03] MEDS ORDERED: NON-FORMULARY MEDICATION 1 EA EA (Pramipexole Di-HCl (Pramipexole Dihydrochloride) 1.5 MG) PO SCH (21:00)
[2021-11-03] MEDS ORDERED: NORTRIPTYLINE 25 MG (PAMELOR) CAP PO SCH (21:00)
[2021-11-03] MEDS ORDERED: NON-FORMULARY MEDICATION 1 EA EA (Fluticasone Propionate (Flonase Allergy Relief) 1 SPRAY) NSEACH SCH (21:00)
[2021-11-03] MEDS ORDERED: NS IV 1000 ML 1,000 ML ONE (23:53)
[2021-11-03] MEDS ORDERED: LORazepam INJ 2 MG/ML (ATIVAN) VIAL ONE (23:56)
[2021-11-04] VITALS (22 sets, daily range): BP systolic 116–170; BP diastolic 49–104
[2021-11-04] MEDS ORDERED: NS IV 500 ML 500 ML IV SCH
[2021-11-04] MEDS ORDERED: LORazepam INJ 2 MG/ML (ATIVAN) VIAL IVP ONE
[2021-11-04] MEDS: LORazepam INJ 2 MG/ML (ATIVAN) VIAL IVP PRN ×2 (00:59→06:07)
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
[2021-11-04 01:14] LABS: ABG BASE EXCESS -2.9 MMOL/L (-2.5-2.5); ABG OXYGEN SATURATION 99 % (94-100); ABG PCO2 44 MMHG (35-45); ABG PO2 121 MMHG (79-93); ABG TCO2 23.6 MMOL/L (21.0-31.0); ALLENS TEST NEGATIVE
[2021-11-04 01:15] LABS: INSPIRED O2 30% BIPAP; PATIENT TEMP 36.9; VENTILATOR NO
[2021-11-04 01:16] LABS: ABG PH 7.33 (7.37-7.43)
[2021-11-04 04:47] LABS: POTASSIUM 3.6 MMOL/L (3.6-5.0)
[2021-11-04 04:48] LABS: CALCIUM 9.1 MG/DL (8.5-10.1)
[2021-11-04 04:52] LABS: PHOSPHORUS 3.5 MG/DL (2.3-4.7)
[2021-11-04 04:53] LABS: CREATININE SERUM 0.91 MG/DL (0.60-1.30)
[2021-11-04 04:55] LABS: MAGNESIUM 2.1 MG/DL (1.6-2.4)
[2021-11-04 05:17] LABS: BASOPHILS % (AUTO) 0 % (0-10); EOSINOPHILS % (AUTO) 0 % (0-10); HEMATOCRIT 33 % (35-52); HEMOGLOBIN 10.9 g/dL (11.5-16.0); LYMPHOCYTES # (AUTO) 1.6 10^3/uL (1.0-4.0); LYMPHOCYTES % (AUTO) 13 % (12-44); MEAN CORPUSCULAR HEMOGLOBIN 30 pg (25-34); MEAN CORPUSCULAR HGB CONC 33 g/dL (32-36); MEAN CORPUSCULAR VOLUME 91 fL (80-99); MEAN PLATELET VOLUME 9.3 fL (9.0-12.2); MONOCYTES # (AUTO) 1.2 10^3/uL (0.0-1.0); MONOCYTES % (AUTO) 9 % (0-12); NEUTROPHILS # (AUTO) 9.7 10^3/uL (1.8-7.8); NEUTROPHILS % (AUTO) 77 % (42-75); PLATELET COUNT 369 10^3/uL (130-400); WHITE BLOOD COUNT 12.6 10^3/uL (4.3-11.0)
[2021-11-04] MEDS: POTASSIUM CL 10MEQ/50ML IVPB 50 ML IV SCH ×2 (05:25→06:08)
[2021-11-04] MEDS ORDERED: LORazepam INJ 2 MG/ML (ATIVAN) VIAL IVP PRN ×3 (05:45→09:00)
[2021-11-04 05:46] LABS: HYPERSEGMENTED NEUT SLIGHT; LYMPHOCYTES % (MANUAL) 17 %; MONOCYTES % (MANUAL) 6 %; NEUTROPHILS % (MANUAL) 77 %
[2021-11-04 05:47] LABS: POLYCHROMASIA SLIGHT
[2021-11-04] MEDS ORDERED: MAGNESIUM 1 GM/100 ML IVPB 100 ML IV SCH (06:00)
[2021-11-04] MEDS ORDERED: KCL 20 MEQ TAB (K-DUR) PO SCH (06:00)
[2021-11-04] MEDS ORDERED: POTASSIUM CL 10MEQ/50ML IVPB 50 ML IV SCH (06:00)
--- NOTE | 2021-11-04 06:49 | Occ Therapy Progress Note ---
Therapy Progress Note Due to decline in medical status, pt dismissed from OT services. Pt will need new orders when medically stable and able to actively participate in skilled therapy. MARLENI GRAF Nov 04, 2021 06:49
[2021-11-04] MEDS: predniSONE 20 MG TAB PO SCH (07:12)
[2021-11-04] MEDS: RT-ALBUTEROL SULF 2.5 MG/3 ML PRE-MIX VIAL INH SCH ×2 (07:35→11:05)
--- NOTE | 2021-11-04 07:58 | Physical Therapy Progress Note ---
Therapy Progress Note Patient was transferred to ICU from the medical floor due to medical complications. Will need new PT orders to continue when appropriate and when patient can participate. ELOISE TAYLOR PT Nov 04, 2021 07:58
[2021-11-04] MEDS ORDERED: MONTELUKAST 10 MG (SINGULAIR) TAB PO SCH (09:00)
[2021-11-04] MEDS ORDERED: lisINopril 10 MG (PRINIVIL) TABLET PO SCH (09:00)
[2021-11-04] MEDS ORDERED: NON-FORMULARY MEDICATION 1 EA EA (Esomeprazole Magnesium 40 MG) PO SCH (09:00)
[2021-11-04] MEDS ORDERED: fentaNYL INJ 100 MCG/2 ML AMP IVP ONE (09:00)
[2021-11-04] MEDS ORDERED: ISOSORBIDE MONONITRATE 30 MG (IMDUR) TAB PO SCH (09:00)
[2021-11-04] MEDS: MUPIROCIN 2% OINT 22 GM (BACTROBAN) TUBE TOP SCH (09:00)
[2021-11-04] MEDS ORDERED: PANTOPRAZOLE 40 MG (PROTONIX) TAB PO SCH (09:00)
[2021-11-04] MEDS: ASPIRIN E.C. 81 MG (ECOTRIN) TAB PO SCH (09:11)
[2021-11-04] MEDS: CLOPIDOGREL 75 MG (PLAVIX) TABLET PO SCH (09:11)
[2021-11-04] MEDS: DULoxetine 30 MG (CYMBALTA) CAP PO SCH (09:11)
[2021-11-04] MEDS: PRAMIPEXOLE 0.5 MG TAB (MIRAPEX) PO SCH (09:11)
--- NOTE | 2021-11-04 09:51 | Diagnostic Imaging Report ---
INDICATION: Respiratory distress Portable chest 9:31 AM Heart size and pulmonary vascularity are normal. Lungs are clear. There are no effusions or pneumothoraces. IMPRESSION: No acute abnormalities in the chest Dictated by: Dictated on workstation # [id number]
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
[2021-11-04] MEDS: RT--FLUTICASONE/SALMETEROL 232-14 (AIRDUO RespiCLICK) IH SCH (11:07)
[2021-11-04] MEDS: UMECLIDINIUM BROMIDE (INCRUSE ELLIPTA) 7'S IH SCH (11:07)
[2021-11-04] MEDS ORDERED: fentaNYL INJ 100 MCG/2 ML AMP ONE (11:29)
[2021-11-04] MEDS ORDERED: fentaNYL INJ 100 MCG/2 ML AMP IVP NR (11:30)
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
== END 2021-11-04 11:46 | disposition short-term general hospital (02) ==
LOC: EDUNIT# 14:29 → ER FS 14:32 → UNDOADMOB 18:00 → 4TH 18:00 → INTOOBSV 18:00 → 4TH 18:00 → ICU 11-04 00:17 → UNDODISOB 11-04 11:46
PROVIDERS: ADMIT Family Medicine; ATTEND Family Medicine
DX: R41.82 Altered mental status, unspecified (principal); J44.1 Chronic obstructive pulmonary disease with (acute) exacerbation; Z79.899 Other long term (current) drug therapy; Z99.81 Dependence on supplemental oxygen; F17.210 Nicotine dependence, cigarettes, uncomplicated; I10 Essential (primary) hypertension; F32.A Depression, unspecified; F41.9 Anxiety disorder, unspecified; M79.7 Fibromyalgia; T20.04XD Burn of unspecified degree of nose (septum), subsequent encounter; T20.0 Burn of unspecified degree of head, face, and neck; T21.03XD Burn of unspecified degree of upper back, subsequent encounter; F17.200 Nicotine dependence, unspecified, uncomplicated
CPT/HCPCS: 36415; 36600; 70450; 70551; 71045; 73502; 80048; 80053; 80061; 80320; 82805; 82947; 83735; 84100; 84443; 85007; 85025; 85027; 93306; 94640; 94660; 94664; 94760; 96361; 96365; 96366; 96375; 96376; G0378

== ENCOUNTER → 2022-02-02 | Outpatient (CLI) | payer MEDICARE, MEDICAID ==
[~2022-02-02] MED LIST changes: +CETI10TA17 PO; +FLUT9.9S NSEACH; +MUPI22OI2 TOP; +ZOLP5TAB PO
[2022-02-02 12:56] LABS: BASOPHILS # (AUTO) 0.1 10^3/uL (0.0-0.1); BASOPHILS % (AUTO) 1 % (0-10); EOSINOPHILS # (AUTO) 0.4 10^3/uL (0.0-0.3); EOSINOPHILS % (AUTO) 4 % (0-10); HEMATOCRIT 36 % (35-52); HEMOGLOBIN 11.5 g/dL (11.5-16.0); LYMPHOCYTES # (AUTO) 2.5 10^3/uL (1.0-4.0); LYMPHOCYTES % (AUTO) 24 % (12-44); MEAN CORPUSCULAR HEMOGLOBIN 28 pg (25-34); MEAN CORPUSCULAR HGB CONC 32 g/dL (32-36); MEAN CORPUSCULAR VOLUME 88 fL (80-99); MEAN PLATELET VOLUME 9.4 fL (9.0-12.2); MONOCYTES # (AUTO) 0.5 10^3/uL (0.0-1.0); MONOCYTES % (AUTO) 5 % (0-12); NEUTROPHILS # (AUTO) 6.9 10^3/uL (1.8-7.8); NEUTROPHILS % (AUTO) 66 % (42-75); PLATELET COUNT 382 10^3/uL (130-400); WHITE BLOOD COUNT 10.4 10^3/uL (4.3-11.0)
[2022-02-02 13:18] LABS: POTASSIUM 3.9 MMOL/L (3.6-5.0)
[2022-02-02 13:19] LABS: ALBUMIN 3.8 GM/DL (3.2-4.5); BILIRUBIN,TOTAL 0.2 MG/DL (0.1-1.0); CALCIUM 9.9 MG/DL (8.5-10.1); CREATININE SERUM 0.8 MG/DL (0.60-1.30)
[2022-02-02 13:45] LABS: ERYTHROCYTE SEDIMENTATION RATE 65 MM/HR (0-30)
[2022-02-02 15:38] LABS: URIC ACID 5.6 MG/DL (2.6-7.2)
--- NOTE | 2022-02-02 17:31 | Diagnostic Imaging Report ---
INDICATION: Swelling of right hand. FINDINGS: 3 views. There is soft tissue swelling noted. Mild arthritic changes are noted along the interphalangeal joints. MP joints are well preserved throughout. The 1st CMC joint shows a moderate arthritic change. Carpal bones show good alignment with mild arthritic changes as does the radiocarpal joint. No evidence of osteonecrosis. No fractures. No periosteal reactive changes. IMPRESSION: Scattered arthritic changes noted in a osteoarthritic-type distribution. Dictated by: Dictated on workstation # [id number]
--- NOTE | 2022-02-02 17:37 | Diagnostic Imaging Report ---
INDICATION: Pain and swelling left hand. FINDINGS: 3 views. Mild narrowing the joint spaces throughout the inner phalangeal joints. The 1st MP joint shows moderate arthritic change. The 1st CMC joint shows mild arthritic change. 2nd through 5th MP joints are well preserved. There are no fractures. No periosteal reactive changes. Carpal bones are in good alignment without evidence of osteonecrosis. There is mild arthritic change along the radiocarpal joint. IMPRESSION: Osteoarthritic type distribution, changes are noted as described. Dictated by: Dictated on workstation # [id number]
== END ==
LOC: LAB FS 12:23
PROVIDERS: ATTEND Pediatrics
DX: M19.042 Primary osteoarthritis, left hand (principal); M19.041 Primary osteoarthritis, right hand
CPT/HCPCS: 36415; 73130; 80053; 84550; 85025; 85652; 86038; 86141; 86200; 86431

== ENCOUNTER 2022-03-19 04:33 | Emergency (ER) | payer MEDICARE, MEDICAID ==
[~2022-03-19] VITALS: Ht 152.4 cm; Wt 69.3 kg
[2022-03-19] MEDS ORDERED: DOXYCYCLINE 100 MG (VIBRAMYCIN) TABLET PO STA (04:42)
[2022-03-19] MEDS ORDERED: RT-ALBUTEROL/IPRATROPIUM 3 ML (DUONEB) VIAL INH ONE (04:45)
--- NOTE | 2022-03-19 04:50 | ED Respiratory ---
General Chief Complaint: Respiratory Problems Stated Complaint: COPD Source: patient, EMS, assisted records Exam Limitations: no limitations History of Present Illness Date Seen by Provider: Mar 19, 2022 Time Seen by Provider: 04:38 Initial Comments 71-year-old female with past medical history of COPD on 2 L baseline oxygen coming in via EMS from her assisted due to shortness of breath. She states 4 hours ago she started feeling short of breath and wheezing. She has as needed breathing treatments to use, but she did not receive one. On EMS arrival, her oxygen was 96% on room air. She was wheezing for them so they gave her a DuoNeb. She states after receiving the DuoNeb she feels back to her baseline. She denies any worsening cough, congestion, fever, chest pain, abdominal pain, nausea, vomiting, diarrhea, weakness, numbness, rash, or any other concerns. She has recently started a steroid as of yesterday. Allergies and Home Medications Allergies Coded Allergies: metformin (Verified Allergy, Severe, Vomiting, 07/15/21) gabapentin (Verified Allergy, Unknown, 07/15/21) pregabalin (Verified Allergy, Unknown, 07/15/21) STATES INTOLERANCE TO Patient Home Medication List Home Medication List Reviewed: Yes Albuterol Sulfate (Albuterol Sulfate) 2.5 Mg/3 Ml Vial.neb, 2.5 MG INH QID PRN for SHORTNESS OF BREATH, (Reported) Entered as Reported by: JERRY KIRKPATRICK on 03/02/21 111 Albuterol Sulfate (Ventolin Hfa) 1 Puff Puff, 2 PUFF INH Q4H PRN for SHORTNESS OF BREATH, (Reported) Entered as Reported by: JERRY KIRKPATRICK on 03/02/21 1119 Cetirizine HCl (Cetirizine HCl) 10 Mg Tablet, 10 MG PO DAILY PRN for ALERGY SYMPTOMS, (Reported) Entered as Reported by: THERESE ALMAZAN on 11/03/21 1132 Cyclobenzaprine HCl (Cyclobenzaprine HCl) 10 Mg Tablet, 10 MG PO BID PRN for MUSCLE SPASMS, (Reported) Entered as Reported by: DULCE ALBRECHT on 07/08/21 1027 Duloxetine HCl (Duloxetine HCl) 60 Mg Capsule.dr, 60 MG PO BID, (Reported) Entered as Reported by: JERRY KIRKPATRICK on 03/02/21 1119 Duloxetine HCl (Duloxetine HCl) 30 Mg Capsule.dr, 30 MG PO BID, (Reported) Entered as Reported by: DULCE ALBRECHT on 07/08/21 1027 Esomeprazole Magnesium (Esomeprazole Magnesium) 40 Mg Capsule.dr, 40 MG PO DAILY, (Reported) Entered as Reported by: JERRY KIRKPATRICK on 03/02/21 111 Fluticasone Propionate (Flonase Allergy Relief) 50 Mcg/Actuation [place].susp, 1 SPRAY NSEACH BID, (Reported) Entered as Reported by: THERESE ALMAZAN on 11/03/21 1132 Fluticasone/Umeclidin/Vilanter (Trelegy Ellipta 100-62.5-25) 1 Each Blst.w.dev, 1 EACH IH DAILY, (Reported) Entered as Reported by: DULCE ALBRECHT on 07/08/21 1027 Hydroxyzine Pamoate (Hydroxyzine Pamoate) 50 Mg Capsule, 50-100 MG PO HS PRN for SLEEP, (Reported) Entered as Reported by: THERESE ALMAZAN on 08/18/21 1555 Isosorbide Mononitrate (Isosorbide Mononitrate ER) 30 Mg Tab.er.24h, 30 MG PO DAILY, (Reported) Entered as Reported by: JERRY KIRKPATRICK on 03/02/21 111 Lisinopril (Lisinopril) 10 Mg Tablet, 10 MG PO DAILY, (Reported) Entered as Reported by: JERRY KIRKPATRICK on 03/02/21 111 Montelukast Sodium (Montelukast Sodium) 10 Mg Tablet, 10 MG PO DAILY, (Reported) Entered as Reported by: JERRY KIRKPATRICK on 03/02/21 111 Mupirocin (Mupirocin) 2 % Oint...g., 1 APPLIC TOP TID, (Reported) Entered as Reported by: THERESE ALMAZAN on 11/03/21 1132 Nortriptyline HCl (Nortriptyline HCl) 50 Mg Capsule, 150 MG PO HS, (Reported) Entered as Reported by: THERESE ALMAZAN on 08/18/21 1555 Pramipexole Di-HCl (Pramipexole Dihydrochloride) 1.5 Mg Tablet, 1.5 MG PO BID, (Reported) Entered as Reported by: THERESE ALMAZAN on 08/18/21 1555 Tramadol HCl (Tramadol HCl) 50 Mg Tablet, 50 MG PO TID PRN for PAIN-MODERATE (5- 7), (Reported) Entered as Reported by: JERRY KIRKPATRICK on 03/02/21 1119 Zolpidem Tartrate (Ambien) 5 Mg Tablet, 5 MG PO HS PRN for INSOMNIA, (Reported) Entered as Reported by: THERESE ALMAZAN on 11/03/21 1132 Review of Systems Review of Systems Constitutional: No fever EENTM: No blurred vision Respiratory: short of breath Cardiovascular: no symptoms reported Gastrointestinal: no symptoms reported Genitourinary: no symptoms reported Musculoskeletal: no symptoms reported Skin: no symptoms reported Psychiatric/Neurological: No Symptoms Reported Hematologic/Lymphatic: No Symptoms Reported Immunological/Allergic: no symptoms reported All Other Systems Reviewed Negative Unless Noted: Yes Past Pwewezg-Mewqes-Hbhbar Hx Patient Social History Tobacco Use?: No Substance use?: No Alcohol Use?: No Pt feels they are or have been: No Immunizations Up To Date Tetanus Booster (TDap): Unknown PED Vaccines UTD: Yes First/Initial COVID19 Vaccinat: 07/06 Second COVID19 Vaccination Cristobal: 08/03 Third COVID19 Vaccination Date: UNKNOWN Seasonal Allergies Seasonal Allergies: Yes Past Medical History Surgery/Hospitalization HX: COPD on 5 Lpm O2 06/12 Surgeries: Yes (RIGHT ANKLE SURGERY, BILATERAL CATARACT SURGERY, DENTAL SURGERY) Eye Surgery, Gallbladder, Hysterectomy, Orthopedic, 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 Respiratory: Yes (USES OXYGEN CONTINUOSLY AT 5L N/C) Pneumonia, Chronic Bronchitis, COPD Currently Using CPAP: No Currently Using BIPAP: No Cardiac: Yes High Cholesterol, Hypertension Neurological: Yes Headaches /Migraines 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 oz. [id number]; 32.24 BMI Method:Stated General Appearance: WD/WN, no apparent distress Eyes: Bilateral Eye Normal Inspection HEENT: PERRL/EOMI, normal ENT inspection, pharynx normal Neck: non-tender, full range of motion, supple, normal inspection Respiratory: chest non-tender, no respiratory distress, no accessory muscle use, wheezing Cardiovascular: regular rate, rhythm, no edema, no murmur Gastrointestinal: normal bowel sounds, non tender, soft; No distended, No guard ing, No rebound Extremities: normal range of motion, non-tender, normal inspection, no pedal edema, no calf tenderness, normal capillary refill Neurologic/Psychiatric: no motor/sensory deficits, alert, normal mood/affect Skin: normal color, warm/dry Lymphatic: no adenopathy Progress/Results/Core Measures Suspected Sepsis SIRS Temperature: Pulse: Respiratory Rate: Blood Pressure / Mean: Results/Orders My Orders Orders - DANIELA ROLDAN MD Chest 1 View Ap/Pa Only (03/19/22 04:42) Doxycycline Hyclate Tablet (Vibramycin T (03/19/22 04:42) Albuterol/Ipra Inhalation Soln (Duoneb I (03/19/22 04:45) Vital Signs/I&O Capillary Refill : Progress Note : Progress Note 71-year-old female with above history coming in due to shortness of breath and wheezing in setting of known COPD. The patient is supposed to be on oxygen at all times, and reportedly she was on room air with a good oxygen saturation. After she received a DuoNeb from EMS she states she felt back to her baseline. She did still have some wheezing on exam here, so we gave her a second DuoNeb. I see that she was started on a steroid based on her assisted records yesterday. We will start her on an antibiotic as well for likely COPD exacerbation. In the absence of fever, or other infectious symptoms, we will forego viral testing at this time. She is denying any chest pain or any concerns that would require EKG or lab testing at this time. Chest x-ray my interpretation with no large infiltrate or pneumothorax. I believe she is stable for discharge with outpatient follow-up. She was sent home with strict return precautions Diagnostic Imaging Diagonstic Imaging: Xray Plain Films/CT/US/NM/MRI: chest Departure Impression Primary Impression: COPD exacerbation Disposition: HOME, SELF-CARE Condition: Improved Departure-Patient Inst. Decision time for Depature: 05:10 Referrals: MAULIK CROSS MD (PCP/Family) Primary Care Physician Patient Instructions: COPD Exacerbation, Adult ED Add. Discharge Instructions: You will be on an antibiotic for the next week. When you start feeling short of breath like this again, ask to be given a breathing treatment and be sure to put your oxygen on. Scripts Doxycycline Hyclate (Doxycycline Hyclate) 100 Mg Tablet 100 MG PO BID for 7 Days, #14 TAB 0 Refills Prov: DANIELA ROLDAN MD 03/19/22 DANIELA ROLDAN MD Mar 19, 2022 04:50
[2022-03-19] MEDS ORDERED: DOXY100T2 PO (04:54)
--- NOTE | 2022-03-19 08:10 | Diagnostic Imaging Report ---
INDICATION: Shortness of breath Frontal chest obtained at 4:43 a.m. and compared to 11/04/2021. Heart and mediastinal silhouette are normal in appearance. The lungs are clear. There is no pneumothorax or pleural fluid. IMPRESSION: Negative chest. Dictated by: Dictated on workstation # [id number]
== END 2022-03-19 05:17 | disposition home or self-care (01) ==
LOC: EDUNIT# 04:33 → ER FS 04:37
DX: J44.1 Chronic obstructive pulmonary disease with (acute) exacerbation (principal); Z99.81 Dependence on supplemental oxygen
CPT/HCPCS: 71045; 94640

== ENCOUNTER 2022-04-20 11:09 | Emergency (ER) | payer MEDICARE, MEDICAID ==
[~2022-04-20] VITALS: Ht 152.4 cm; Wt 69.4 kg
[2022-04-20] MEDS ORDERED: NS IV 500 ML 500 ML IV STA (11:21)
--- NOTE | 2022-04-20 11:28 | ED Respiratory ---
General Chief Complaint: Respiratory Problems Stated Complaint: SOA/COUGH Source: patient, RN/MD Exam Limitations: no limitations History of Present Illness Date Seen by Provider: Apr 20, 2022 Time Seen by Provider: 11:11 Initial Comments 71-year-old female with past medical history most notable for COPD on baseline oxygen 3 to 4 L coming as a referral from [facility] clinic due to concerns for potential pneumonia. The patient states she has had a worsening productive cough of white sputum for the past several days with feeling increasingly short of breath during that time. Finish steroids within the past week. Has not been on any antibiotics. Had a breathing treatment a couple hours ago which seemed to help. Denies any fever, nausea, vomiting, diarrhea, chest pain, abdominal pain, weakness, numbness, or any other concerns Allergies and Home Medications Allergies Coded Allergies: metformin (Verified Allergy, Severe, Vomiting, 07/15/21) gabapentin (Verified Allergy, Unknown, 07/15/21) pregabalin (Verified Allergy, Unknown, 07/15/21) STATES INTOLERANCE TO Patient Home Medication List Home Medication List Reviewed: Yes Albuterol Sulfate (Albuterol Sulfate) 2.5 Mg/3 Ml Vial.neb, 2.5 MG INH QID PRN for SHORTNESS OF BREATH, (Reported) Entered as Reported by: JERRY KIRKPATRICK on 03/02/21 1119 Albuterol Sulfate (Ventolin Hfa) 1 Puff Puff, 2 PUFF INH Q4H PRN for SHORTNESS OF BREATH, (Reported) Entered as Reported by: JERRY KIRKPATRICK on 03/02/21 1119 Cetirizine HCl (Cetirizine HCl) 10 Mg Tablet, 10 MG PO DAILY PRN for ALERGY SYMPTOMS, (Reported) Entered as Reported by: THERESE ALMAZAN on 11/03/21 1132 Cyclobenzaprine HCl (Cyclobenzaprine HCl) 10 Mg Tablet, 10 MG PO BID PRN for MUSCLE SPASMS, (Reported) Entered as Reported by: DULCE ALBRECHT on 07/08/21 1027 Doxycycline Hyclate (Doxycycline Hyclate) 100 Mg Tablet, 100 MG PO BID Prescribed by: DANIELA ROLDAN on 03/19/22 0454 Duloxetine HCl (Duloxetine HCl) 60 Mg Capsule.dr, 60 MG PO BID, (Reported) Entered as Reported by: JERRY KIRKPATRICK on 03/02/21 1119 Duloxetine HCl (Duloxetine HCl) 30 Mg Capsule.dr, 30 MG PO BID, (Reported) Entered as Reported by: DULCE ALBRECHT on 07/08/21 1027 Esomeprazole Magnesium (Esomeprazole Magnesium) 40 Mg Capsule.dr, 40 MG PO DAILY, (Reported) Entered as Reported by: JERRY KIRKPATRICK on 03/02/21 111 Fluticasone Propionate (Flonase Allergy Relief) 50 Mcg/Actuation [place].susp, 1 SPRAY NSEACH BID, (Reported) Entered as Reported by: THERESE ALMAZAN on 11/03/21 1132 Fluticasone/Umeclidin/Vilanter (Trelegy Ellipta 100-62.5-25) 1 Each Blst.w.dev, 1 EACH IH DAILY, (Reported) Entered as Reported by: DULCE ALBRECHT on 07/08/21 1027 Hydroxyzine Pamoate (Hydroxyzine Pamoate) 50 Mg Capsule, 50-100 MG PO HS PRN for SLEEP, (Reported) Entered as Reported by: THERESE ALMAZAN on 08/18/21 1555 Isosorbide Mononitrate (Isosorbide Mononitrate ER) 30 Mg Tab.er.24h, 30 MG PO DAILY, (Reported) Entered as Reported by: JERRY KIRKPATRICK on 03/02/21 111 Lisinopril (Lisinopril) 10 Mg Tablet, 10 MG PO DAILY, (Reported) Entered as Reported by: JERRY KIRKPATRICK on 03/02/21 111 Montelukast Sodium (Montelukast Sodium) 10 Mg Tablet, 10 MG PO DAILY, (Reported) Entered as Reported by: JERRY KIRKPATRICK on 03/02/21 111 Mupirocin (Mupirocin) 2 % Oint...g., 1 APPLIC TOP TID, (Reported) Entered as Reported by: THERESE ALMAZAN on 11/03/21 1132 Nortriptyline HCl (Nortriptyline HCl) 50 Mg Capsule, 150 MG PO HS, (Reported) Entered as Reported by: THERESE ALMAZAN on 08/18/21 1555 Pramipexole Di-HCl (Pramipexole Dihydrochloride) 1.5 Mg Tablet, 1.5 MG PO BID, (Reported) Entered as Reported by: THERESE ALMAZAN on 08/18/21 1555 Tramadol HCl (Tramadol HCl) 50 Mg Tablet, 50 MG PO TID PRN for PAIN-MODERATE (5- 7), (Reported) Entered as Reported by: JERRY KIRKPATRICK on 03/02/21 1119 Zolpidem Tartrate (Ambien) 5 Mg Tablet, 5 MG PO HS PRN for INSOMNIA, (Reported) Entered as Reported by: THERESE ALMAZAN on 11/03/21 1132 Review of Systems Review of Systems Constitutional: No fever EENTM: no symptoms reported Respiratory: see HPI Cardiovascular: no symptoms reported Gastrointestinal: no symptoms reported Genitourinary: no symptoms reported Musculoskeletal: no symptoms reported Skin: no symptoms reported Psychiatric/Neurological: No Symptoms Reported Hematologic/Lymphatic: No Symptoms Reported Immunological/Allergic: no symptoms reported All Other Systems Reviewed Negative Unless Noted: Yes Past Wlojmdr-Scevek-Ztyyze Hx Patient Social History Tobacco Use?: No Smoking Status: Former Smoker Immunizations Up To Date Tetanus Booster (TDap): Unknown PED Vaccines UTD: Yes First/Initial COVID19 Vaccinat: 07/06 Second COVID19 Vaccination Cristobal: 08/03 Third COVID19 Vaccination Date: UNKNOWN Seasonal Allergies Seasonal Allergies: Yes Past Medical History Surgery/Hospitalization HX: COPD on 5 Lpm O2 06/12 Surgeries: Yes (RIGHT ANKLE SURGERY, BILATERAL CATARACT SURGERY, DENTAL SURGERY) Eye Surgery, Gallbladder, Hysterectomy, Orthopedic, 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 Respiratory: Yes (USES OXYGEN CONTINUOSLY AT 5L N/C) Pneumonia, Chronic Bronchitis, COPD Currently Using CPAP: No Currently Using BIPAP: No Cardiac: Yes High Cholesterol, Hypertension Neurological: 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 Headaches /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, 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 Genitourinary: Yes (INCONTINENCE - CURRENTLY NEEDING SLING) Gastrointestinal: Yes Gastroesophageal Reflux Musculoskeletal: Yes Arthritis, Fibromyalgia Endocrine: No HEENT: Yes (WEARS GLASSES) Loss of Vision: Denies Hearing Impairment: Denies Cancer: No Psychosocial: Yes Sleep Difficulties, Anxiety, Depression Integumentary: No Blood Disorders: No Adverse Reaction/Blood Tranf: No (N/A) Family Medical History Hypertension GRANDMOTHER Neoplasm 19 FATHER (PROSTATE) 19 MOTHER (UNKNOWN CANCER) No Pertinent Family Hx Physical Exam Vital Signs - First Documented 04/20/22 11:20 Temp 36.4 Pulse 76 Resp 16 B/P (MAP) 93/39 (57) Pulse Ox 100 O2 Delivery Nasal Cannula O2 Flow Rate 3.00 Capillary Refill : Height: 5'0" Weight: 160lbs. oz. 72.964646df; 29.00 BMI Method:Stated General Appearance: WD/WN, no apparent distress Eyes: Bilateral Eye Normal Inspection HEENT: PERRL/EOMI, normal ENT inspection, pharynx normal Neck: non-tender, full range of motion, supple, normal inspection Respiratory: chest non-tender, no respiratory distress, no accessory muscle use, wheezing Cardiovascular: regular rate, rhythm, no edema, no murmur Gastrointestinal: normal bowel sounds, non tender, soft; No distended, No guarding, No rebound Extremities: normal range of motion, non-tender, normal inspection, no pedal edema, no calf tenderness, normal capillary refill Neurologic/Psychiatric: no motor/sensory deficits, alert, normal mood/affect Skin: normal color, warm/dry Lymphatic: no adenopathy Progress/Results/Core Measures Suspected Sepsis SIRS Temperature: Pulse: Respiratory Rate: Laboratory Tests 04/20/22 11:30: White Blood Count 7.5 Blood Pressure / Mean: Laboratory Tests 04/20/22 11:30: Creatinine 1.01, Platelet Count 270, Total Bilirubin 0.2 Results/Orders Lab Results Laboratory Tests Test 04/20/22 11:30 04/20/22 11:35 Range/Units White Blood Count 7.5 4.3-11.0 10^3/uL Red Blood Count 3.96 3.80-5.11 10^6/uL Hemoglobin 11.7 11.5-16.0 g/dL Hematocrit 36 35-52 % Mean Corpuscular Volume 91 80-99 fL Mean Corpuscular Hemoglobin 30 25-34 pg Mean Corpuscular Hemoglobin Concent 33 32-36 g/dL Red Cell Distribution Width 15.3 H 10.0-14.5 % Platelet Count 270 130-400 10^3/uL Mean Platelet Volume 9.8 9.0-12.2 fL Immature Granulocyte % (Auto) 0 % Neutrophils (%) (Auto) 71 42-75 % Lymphocytes (%) (Auto) 19 12-44 % Monocytes (%) (Auto) 7 0-12 % Eosinophils (%) (Auto) 2 0-10 % Basophils (%) (Auto) 0 0-10 % Neutrophils # (Auto) 5.4 1.8-7.8 10^3/uL Lymphocytes # (Auto) 1.4 1.0-4.0 10^3/uL Monocytes # (Auto) 0.5 0.0-1.0 10^3/uL Eosinophils # (Auto) 0.1 0.0-0.3 10^3/uL Basophils # (Auto) 0.0 0.0-0.1 10^3/uL Immature Granulocyte # (Auto) 0.0 0.0-0.1 10^3/uL Sodium Level 137 135-145 MMOL/L Potassium Level 4.2 3.6-5.0 MMOL/L Chloride Level 99 98-107 MMOL/L Carbon Dioxide Level 29 21-32 MMOL/L Anion Gap 9 5-14 MMOL/L Blood Urea Nitrogen 24 H 7-18 MG/DL Creatinine 1.01 0.60-1.30 MG/DL Estimat Glomerular Filtration Rate 59 BUN/Creatinine Ratio 24 Glucose Level 112 H 70-105 MG/DL Calcium Level 9.2 8.5-10.1 MG/DL Corrected Calcium 9.4 8.5-10.1 MG/DL Magnesium Level 1.7 1.6-2.4 MG/DL Total Bilirubin 0.2 0.1-1.0 MG/DL Aspartate Amino Transf (AST/SGOT) 28 5-34 U/L Alanine Aminotransferase (ALT/SGPT) 33 0-55 U/L Alkaline Phosphatase 114 40-136 U/L Pro-B-Type Natriuretic Peptide 842.8 H <125.0 PG/ML Total Protein 6.6 6.4-8.2 GM/DL Albumin 3.7 3.2-4.5 GM/DL Influenza Type A (RT-PCR) Detected H Not Detecte Influenza Type B (RT-PCR) Not Detected Not Detecte SARS-CoV-2 RNA (RT-PCR) Not Detected Not Detecte My Orders Orders - DANIELA ROLDAN MD Monitor-Rhythm Ecg Trace Only (04/20/22 11:21) Pulse Oximetry Order (04/20/22 11:21) Prednisone Tablet (Deltasone Tablet) (04/20/22 11:30) Albuterol/Ipra Inhalation Soln (Duoneb I (04/20/22 11:30) Ceftriaxone 1 Gm Pre-Mix (Rocephin 1 Gm (04/20/22 11:30) Cbc And Manual Diff (04/20/22 11:21) Influenza A And B By Pcr (04/20/22 11:21) Doxycycline Hyclate Tablet (Vibramycin T (04/20/22 11:30) Comprehensive Metabolic Panel (04/20/22 11:21) Covid 19 Inhouse Test (04/20/22 11:21) Magnesium (04/20/22 11:21) Probnp Fs (04/20/22 11:21) Chest 1 View Ap/Pa Only (04/20/22 11:21) Ns Iv 500 Ml (Sodium Chloride 0.9%) (04/20/22 11:21) Medications Given in ED Current Medications Medications Dose Ordered Sig/Hernesto Route Start Time Stop Time Status Last Admin Dose Admin Albuterol/ Ipratropium 3 ml ONCE ONCE IH 04/20/22 11:30 04/20/22 11:31 DC 04/20/22 11:44 3 ML Ceftriaxone Sodium/Dextrose 50 ml @ 100 mls/hr ONCE ONCE IV 04/20/22 11:30 04/20/22 11:59 DC 04/20/22 11:45 100 MLS/HR Doxycycline Hyclate 100 mg ONCE ONCE PO 04/20/22 11:30 04/20/22 11:31 DC 04/20/22 11:46 100 MG Prednisone 40 mg ONCE ONCE PO 04/20/22 11:30 04/20/22 11:31 DC 04/20/22 11:46 40 MG Vital Signs/I&O 04/20/22 04/20/22 11:20 11:20 Temp 36.4 Pulse 76 Resp 16 B/P (MAP) 93/39 (57) Pulse Ox 100 O2 Delivery Nasal Cannula Room Air O2 Flow Rate 3.00 Capillary Refill : Progress Note : Progress Note 71-year-old female with above history coming in due to increasing shortness of breath and productive cough. ABCs were intact and vitals were stable on presentation. Initially her blood pressure was slightly low, came back up even after just getting 100 cc of IV fluids with a MAP in the 70s.. Chest x-ray with bibasilar atelectasis versus infiltrate. Given ceftriaxone and doxycycline. Influenza A test is positive. Given her comorbidities, would opt to treat her with Tamiflu. Patient and I had a discussion regarding her prognosis with her advanced COPD. She states she knows she is "dying soon". She states she has been thinking a lot about hospice, and is considering it. She does not want to spend more time in the hospital than she would have to. Offered her admission today, and she would prefer to take medicines back where she is living and see if she gets better. I think this is reasonable given her quality of life and wishes. Diagnostic Imaging Diagonstic Imaging: Xray Plain Films/CT/US/NM/MRI: chest Comments NAME: RUBEN RAPP [facility] REC#: [id number] PT STATUS: REG ER : 1950 PHYSICIAN: DANIELA ROLDAN MD ADMIT DATE: 04/20/22/ER FS Draft Date of Exam:04/20/22 CHEST 1 VIEW AP/PA ONLY Clinical indications: Patient with chest pain and shortness of breath. EXAM: Portable chest x-ray upright view. COMPARISON: Chest x-ray dated 03/19/2022. FINDINGS: Lungs/pleura: There is interval development of subtle amorphous airspace opacities involving both lung bases. Otherwise, the remainder of the lungs are clear and stable. There is no pneumothorax. There is no pleural effusion. Mediastinum: Unremarkable. Pulmonary vasculature: Unremarkable. Heart: Unremarkable. Bones/extrathoracic soft tissue: There are degenerative spurs involving the spine. IMPRESSION: There is interval development of subtle amorphous airspace opacities involving both bases which may represent atelectasis versus infiltrates. Dictated on workstation # [id number] Dict: 04/20/22 1146 Trans: 04/20/22 1150 [facility] [id number] Interpreted by: DERICK BROWN MD Electronically signed by: Departure Impression Primary Impression: Influenza A Additional Impressions: Pneumonia Qualified Codes: J18.9 - Pneumonia, unspecified organism Chronic respiratory failure Qualified Codes: J96.11 - Chronic respiratory failure with hypoxia Disposition: 01 HOME, SELF-CARE Condition: Stable Departure-Patient Inst. Decision time for Depature: 12:31 Referrals: MAULIK CROSS MD (PCP/Family) Primary Care Physician Patient Instructions: Flu, Adult ED Add. Discharge Instructions: You do have influenza A which likely is making you feel worse. We will put you on Tamiflu for the next 5 days as well as an antibiotic for the next week. The tamiflu can cause nausea and vomiting so we sent Kat for that as well. We recommend doing your breathing treatments every 2-4 hours. If things worsen, you can turn up your oxygen, and of course she can always come back to the ER. Scripts Ondansetron (Ondansetron Odt) 4 Mg Tab.rapdis 4 MG SL Q6H PRN for NAUSEA/VOMITING for 5 Days, #20 TAB Prov: DANIELA ROLDAN MD 04/20/22 Oseltamivir Phosphate (Tamiflu) 75 Mg Cap 75 MG PO BID for 5 Days, #10 CAP Prov: DANIELA ROLDAN MD 04/20/22 Cefdinir (Cefdinir) 300 Mg Capsule 300 MG PO BID for 7 Days, #14 CAP 0 Refills Prov: DANIELA ROLDAN MD 04/20/22 DANIELA ROLDAN MD Apr 20, 2022 11:28
[2022-04-20] MEDS ORDERED: DOXYCYCLINE 100 MG (VIBRAMYCIN) TABLET PO ONE (11:30)
[2022-04-20] MEDS ORDERED: predniSONE 20 MG TAB PO ONE (11:30)
[2022-04-20] MEDS ORDERED: RT-ALBUTEROL/IPRATROPIUM 3 ML (DUONEB) VIAL IH ONE (11:30)
[2022-04-20] MEDS ORDERED: cefTRIAXone 1 GM PRE-MIX 50 ML IV ONE (11:30)
[2022-04-20 11:43] LABS: BASOPHILS % (AUTO) 0 % (0-10); EOSINOPHILS # (AUTO) 0.1 10^3/uL (0.0-0.3); EOSINOPHILS % (AUTO) 2 % (0-10); HEMATOCRIT 36 % (35-52); HEMOGLOBIN 11.7 g/dL (11.5-16.0); LYMPHOCYTES # (AUTO) 1.4 10^3/uL (1.0-4.0); LYMPHOCYTES % (AUTO) 19 % (12-44); MEAN CORPUSCULAR HEMOGLOBIN 30 pg (25-34); MEAN CORPUSCULAR HGB CONC 33 g/dL (32-36); MEAN CORPUSCULAR VOLUME 91 fL (80-99); MEAN PLATELET VOLUME 9.8 fL (9.0-12.2); MONOCYTES # (AUTO) 0.5 10^3/uL (0.0-1.0); MONOCYTES % (AUTO) 7 % (0-12); NEUTROPHILS # (AUTO) 5.4 10^3/uL (1.8-7.8); NEUTROPHILS % (AUTO) 71 % (42-75); PLATELET COUNT 270 10^3/uL (130-400); WHITE BLOOD COUNT 7.5 10^3/uL (4.3-11.0)
--- NOTE | 2022-04-20 11:50 | Diagnostic Imaging Report ---
Clinical indications: Patient with chest pain and shortness of breath. EXAM: Portable chest x-ray upright view. COMPARISON: Chest x-ray dated 03/19/2022. FINDINGS: Lungs/pleura: There is interval development of subtle amorphous airspace opacities involving both lung bases. Otherwise, the remainder of the lungs are clear and stable. There is no pneumothorax. There is no pleural effusion. Mediastinum: Unremarkable. Pulmonary vasculature: Unremarkable. Heart: Unremarkable. Bones/extrathoracic soft tissue: There are degenerative spurs involving the spine. IMPRESSION: There is interval development of subtle amorphous airspace opacities involving both bases which may represent atelectasis versus infiltrates. Dictated by: Dictated on workstation # [id number]
[2022-04-20 12:17] LABS: ALBUMIN 3.7 GM/DL (3.2-4.5); BILIRUBIN,TOTAL 0.2 MG/DL (0.1-1.0); CALCIUM 9.2 MG/DL (8.5-10.1); CREATININE SERUM 1.01 MG/DL (0.60-1.30); MAGNESIUM 1.7 MG/DL (1.6-2.4); POTASSIUM 4.2 MMOL/L (3.6-5.0); TOTAL PROTEIN 6.6 GM/DL (6.4-8.2)
[2022-04-20] MEDS ORDERED: CEFD300C3 PO (12:33)
[2022-04-20] MEDS ORDERED: ONDA4TAB11 SL (12:33)
[2022-04-20] MEDS ORDERED: OSLT75C PO (12:33)
[2022-04-20 12:37] LABS: BAND NEUTROPHILS 12 %; BASOPHILS % (MANUAL) 0 %; EOSINOPHILS % (MANUAL) 5 %; LYMPHOCYTES % (MANUAL) 20 %; MONOCYTES % (MANUAL) 8 %; NEUTROPHILS % (MANUAL) 55 %
[2022-04-20 12:39] VITALS: BP 134/82
== END 2022-04-20 12:40 | disposition home or self-care (01) ==
LOC: EDUNIT# 11:09 → ER FS 11:12
DX: J10.1 Influenza due to other identified influenza virus with other respiratory manifestations (principal); J18.9 Pneumonia, unspecified organism; J96.10 Chronic respiratory failure, unspecified whether with hypoxia or hypercapnia; J44.9 Chronic obstructive pulmonary disease, unspecified; Z87.891 Personal history of nicotine dependence; Z20.822 Contact with and (suspected) exposure to COVID-19; Z99.81 Dependence on supplemental oxygen
CPT/HCPCS: 36415; 71045; 80053; 83735; 83880; 85007; 85027; 87636

== ENCOUNTER 2022-06-19 11:02 | Emergency (ER) | payer MEDICARE, MEDICAID ==
[~2022-06-19] VITALS: Ht 152.4 cm; Wt 64.0 kg
[~2022-06-19 11:02] MED LIST changes: +CEFD300C3 PO; +ONDA4TAB11 SL; +OSLT75C PO
--- NOTE | 2022-06-19 11:09 | ED General ---
General Chief Complaint: General Problems/Pain Stated Complaint: GEN PAIN History of Present Illness Date Seen by Provider: Jun 19, 2022 Time Seen by Provider: 11:09 Initial Comments 71-year-old female presents with just generalized pain and malaise. She has very vague symptoms. 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 That she has had some swelling and pain in the wrist for a long time and has been x-rayed before negative but it seems like there is more swelling. She complains of just generalized pain with no focal complaint. The symptoms been going on for at least 3 to 4 weeks. She has not follow-up with Dr. Ray since they started. No reports of fever cough or other systemic complaints Allergies and Home Medications Allergies Coded Allergies: metformin (Verified Allergy, Severe, Vomiting, 07/15/21) gabapentin (Verified Allergy, Unknown, 07/15/21) pregabalin (Verified Allergy, Unknown, 07/15/21) STATES INTOLERANCE TO Patient Home Medication List Home Medication List Reviewed: Yes Albuterol Sulfate (Albuterol Sulfate) 2.5 Mg/3 Ml Vial.neb, 2.5 MG INH QID PRN for SHORTNESS OF BREATH, (Reported) Entered as Reported by: JERRY KIRKPATRICK on 03/02/21 1119 Albuterol Sulfate (Ventolin Hfa) 1 Puff Puff, 2 PUFF INH Q4H PRN for SHORTNESS OF BREATH, (Reported) Entered as Reported by: JERRY KIRKPATRICK on 03/02/21 1119 Cefdinir (Cefdinir) 300 Mg Capsule, 300 MG PO BID Prescribed by: DANIELA ROLDAN on 04/20/22 1233 Cetirizine HCl (Cetirizine HCl) 10 Mg Tablet, 10 MG PO DAILY PRN for ALERGY SYMPTOMS, (Reported) Entered as Reported by: THERESE ALMAZAN on 11/03/21 1132 Cyclobenzaprine HCl (Cyclobenzaprine HCl) 10 Mg Tablet, 10 MG PO BID PRN for MUSCLE SPASMS, (Reported) Entered as Reported by: DULCE ALBRECHT on 07/08/21 1027 Doxycycline Hyclate (Doxycycline Hyclate) 100 Mg Tablet, 100 MG PO BID Prescribed by: DANIELA ROLDAN on 03/19/22 0454 Duloxetine HCl (Duloxetine HCl) 60 Mg Capsule.dr, 60 MG PO BID, (Reported) Entered as Reported by: JERRY KIRKPATRICK on 03/02/21 1119 Duloxetine HCl (Duloxetine HCl) 30 Mg Capsule.dr, 30 MG PO BID, (Reported) Entered as Reported by: DULCE ALBRECHT on 07/08/21 1027 Esomeprazole Magnesium (Esomeprazole Magnesium) 40 Mg Capsule.dr, 40 MG PO DAILY, (Reported) Entered as Reported by: JERRY KIRKPATRICK on 03/02/21 1119 Fluticasone Propionate (Flonase Allergy Relief) 50 Mcg/Actuation [place].susp, 1 SPRAY NSEACH BID, (Reported) Entered as Reported by: THERESE ALMAZAN on 11/03/21 1132 Fluticasone/Umeclidin/Vilanter (Trelegy Ellipta 100-62.5-25) 1 Each Blst.w.dev, 1 EACH IH DAILY, (Reported) Entered as Reported by: DULCE ALBRECHT on 07/08/21 1027 Hydroxyzine Pamoate (Hydroxyzine Pamoate) 50 Mg Capsule, 50-100 MG PO HS PRN for SLEEP, (Reported) Entered as Reported by: THERESE ALMAZAN on 08/18/21 1555 Isosorbide Mononitrate (Isosorbide Mononitrate ER) 30 Mg Tab.er.24h, 30 MG PO DAILY, (Reported) Entered as Reported by: JERRY KIRKPATRICK on 03/02/21 111 Lisinopril (Lisinopril) 10 Mg Tablet, 10 MG PO DAILY, (Reported) Entered as Reported by: JERRY KIRKPATRICK on 03/02/21 111 Montelukast Sodium (Montelukast Sodium) 10 Mg Tablet, 10 MG PO DAILY, (Reported) Entered as Reported by: JERRY KIRKPATRICK on 03/02/21 111 Mupirocin (Mupirocin) 2 % Oint...g., 1 APPLIC TOP TID, (Reported) Entered as Reported by: THERESE ALMAZAN on 11/03/21 1132 Nortriptyline HCl (Nortriptyline HCl) 50 Mg Capsule, 150 MG PO HS, (Reported) Entered as Reported by: THERESE ALMAZAN on 08/18/21 1555 Ondansetron (Ondansetron Odt) 4 Mg Tab.rapdis, 4 MG SL Q6H PRN for NAUSEA/VOMITING Prescribed by: DANIELA ROLDAN on 04/20/22 1233 Oseltamivir Phosphate (Tamiflu) 75 Mg Cap, 75 MG PO BID Prescribed by: DANIELA ROLDAN on 04/20/22 1233 Pramipexole Di-HCl (Pramipexole Dihydrochloride) 1.5 Mg Tablet, 1.5 MG PO BID, (Reported) Entered as Reported by: THERESE ALMAZAN on 08/18/21 1555 Tramadol HCl (Tramadol HCl) 50 Mg Tablet, 50 MG PO TID PRN for PAIN-MODERATE (5-7), (Reported) Entered as Reported by: JERRY KIRKPATRICK on 03/02/21 1119 Zolpidem Tartrate (Ambien) 5 Mg Tablet, 5 MG PO HS PRN for INSOMNIA, (Reported) Entered as Reported by: THERESE ALMAZAN on 11/03/21 1132 Review of Systems Review of Systems Constitutional: see HPI, malaise EENTM: no symptoms reported Respiratory: no symptoms reported Cardiovascular: no symptoms reported Gastrointestinal: no symptoms reported Genitourinary: no symptoms reported Musculoskeletal: see HPI Skin: no symptoms reported Psychiatric/Neurological: No Symptoms Reported Hematologic/Lymphatic: No Symptoms Reported Past Ekezbpw-Jsuvzu-Yalphq Hx Immunizations Up To Date Tetanus Booster (TDap): Unknown PED Vaccines UTD: Yes First/Initial COVID19 Vaccinat: 07/06 Second COVID19 Vaccination Cristobal: 08/03 Third COVID19 Vaccination Date: UNKNOWN Seasonal Allergies Seasonal Allergies: Yes Past Medical History Surgery/Hospitalization HX: COPD on 5 Lpm O2 06/12 Surgeries: Yes (RIGHT ANKLE SURGERY, BILATERAL CATARACT SURGERY, DENTAL SURGE RY) Eye Surgery, Gallbladder, Hysterectomy, Orthopedic, 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 Respiratory: Yes (USES OXYGEN CONTINUOSLY AT 5L N/C) Pneumonia, Chronic Bronchitis, COPD Currently Using CPAP: No Currently Using BIPAP: No Cardiac: Yes High Cholesterol, Hypertension Neurological: 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 Headaches /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, 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 Genitourinary: Yes (INCONTINENCE - CURRENTLY NEEDING SLING) Gastrointestinal: Yes Gastroesophageal Reflux Musculoskeletal: Yes Arthritis, Fibromyalgia Endocrine: No HEENT: Yes (WEARS GLASSES) Loss of Vision: Denies Hearing Impairment: Denies Cancer: No Psychosocial: Yes Sleep Difficulties, Anxiety, Depression Integumentary: No Blood Disorders: No Adverse Reaction/Blood Tranf: No (N/A) Family Medical History Hypertension GRANDMOTHER Neoplasm 19 FATHER (PROSTATE) 19 MOTHER (UNKNOWN CANCER) No Pertinent Family Hx Physical Exam Vital Signs Vital Signs - First Documented 06/19/22 11:13 Temp 36.0 Pulse 74 Resp 18 B/P (MAP) 138/60 (86) Pulse Ox 95 O2 Delivery Room Air Capillary Refill : Height, Weight, BMI Height: 5'0" Weight: 160lbs. oz. 72.433520qg; 29.00 BMI Method:Stated General Appearance: No Apparent Distress, WD/WN HEENT: PERRL/EOMI Neck: Non Tender, Supple Respiratory: Lungs Clear Cardiovascular: Regular Rate, Rhythm, No Edema Gastrointestinal: Non Tender, Soft Extremity: Other (Tenderness over medial right wrist with prominent ulna, no acute findings) Neurologic/Psychiatric: Alert, Oriented x3, No Motor/Sensory Deficits Skin: Normal Color, Warm/Dry Progress/Results/Core Measures Suspected Sepsis SIRS Temperature: Pulse: Respiratory Rate: Laboratory Tests 06/19/22 11:50: White Blood Count 7.8 Blood Pressure / Mean: Laboratory Tests 06/19/22 11:50: Creatinine 0.73, Platelet Count 401H, Total Bilirubin 0.3 Results/Orders Lab Results Laboratory Tests Test 06/19/22 11:50 Range/Units White Blood Count 7.8 4.3-11.0 10^3/uL Red Blood Count 4.03 3.80-5.11 10^6/uL Hemoglobin 12.1 11.5-16.0 g/dL Hematocrit 37 35-52 % Mean Corpuscular Volume 91 80-99 fL Mean Corpuscular Hemoglobin 30 25-34 pg Mean Corpuscular Hemoglobin Concent 33 32-36 g/dL Red Cell Distribution Width 13.8 10.0-14.5 % Platelet Count 401 H 130-400 10^3/uL Mean Platelet Volume 9.0 9.0-12.2 fL Immature Granulocyte % (Auto) 0 % Neutrophils (%) (Auto) 54 42-75 % Lymphocytes (%) (Auto) 33 12-44 % Monocytes (%) (Auto) 8 0-12 % Eosinophils (%) (Auto) 4 0-10 % Basophils (%) (Auto) 1 0-10 % Neutrophils # (Auto) 4.2 1.8-7.8 10^3/uL Lymphocytes # (Auto) 2.6 1.0-4.0 10^3/uL Monocytes # (Auto) 0.6 0.0-1.0 10^3/uL Eosinophils # (Auto) 0.3 0.0-0.3 10^3/uL Basophils # (Auto) 0.1 0.0-0.1 10^3/uL Immature Granulocyte # (Auto) 0.0 0.0-0.1 10^3/uL Sodium Level 138 135-145 MMOL/L Potassium Level 4.4 3.6-5.0 MMOL/L Chloride Level 102 98-107 MMOL/L Carbon Dioxide Level 26 21-32 MMOL/L Anion Gap 10 5-14 MMOL/L Blood Urea Nitrogen 14 7-18 MG/DL Creatinine 0.73 0.60-1.30 MG/DL Estimat Glomerular Filtration Rate 87 BUN/Creatinine Ratio 19 Glucose Level 114 H 70-105 MG/DL Calcium Level 9.4 8.5-10.1 MG/DL Corrected Calcium 9.7 8.5-10.1 MG/DL Magnesium Level 1.6 1.6-2.4 MG/DL Total Bilirubin 0.3 0.1-1.0 MG/DL Aspartate Amino Transf (AST/SGOT) 15 5-34 U/L Alanine Aminotransferase (ALT/SGPT) 8 0-55 U/L Alkaline Phosphatase 112 40-136 U/L Troponin I < 0.30 <0.30 NG/ML C-Reactive Protein 4.96 H <0.50 MG/DL Total Protein 6.5 6.4-8.2 GM/DL Albumin 3.6 3.2-4.5 GM/DL My Orders Orders - ADRIAN,CANDY L DO Cbc With Automated Diff (06/19/22 11:18) Comprehensive Metabolic Panel (06/19/22 11:18) Magnesium (06/19/22 11:18) Crp Fs (06/19/22 11:18) Troponin I Fs (06/19/22 11:18) Wrist 2 View Right (06/19/22 11:18) Ua Culture If Indicated (06/19/22 11:18) Ekg Tracing (06/19/22 11:18) Vital Signs/I&O 06/19/22 11:13 Temp 36.0 Pulse 74 Resp 18 B/P (MAP) 138/60 (86) Pulse Ox 95 O2 Delivery Room Air Capillary Refill : Progress Note : Progress Note Patient's symptoms are consistent with arthritis. Could be reactive versus arthritis such as RA. X-ray shows some mild inflammatory/swelling no other ac [place] changes. She has a slight elevation in CRP otherwise no acute changes. I will start her on Naprosyn twice daily recommend she follow-up with her primary care provider and get further testing. She is stable and discharged ECG Initial ECG Impression Date: Jun 19, 2022 Initial ECG Impression Time: 11:55 Initial ECG Rate: 70 Initial ECG Rhythm: Normal Sinus Initial ECG Intervals: QRS (97) Initial ECG Impression: Nonspecific Changes Comment no acute changes Departure Impression Primary Impression: Arthritis Disposition: 01 HOME, SELF-CARE Condition: Stable Departure-Patient Inst. Referrals: MAULIK RAY MD (PCP) Primary Care Physician Patient Instructions: Osteoarthritis (DC), Physical Activity for People With Arthritis Add. Discharge Instructions: please follow up with Dr Ray for further testing and medication management as needed. All discharge instructions reviewed with patient and/or family. Voiced understanding. Scripts Naproxen (Naprosyn) 500 Mg Tablet 500 MG PO BID, #30 TAB 0 Refills Prov: CANDY ADRIAN DO 06/19/22 CANDY ADRIAN DO Jun 19, 2022 11:09
[2022-06-19 11:56] LABS: BASOPHILS # (AUTO) 0.1 10^3/uL (0.0-0.1); BASOPHILS % (AUTO) 1 % (0-10); EOSINOPHILS # (AUTO) 0.3 10^3/uL (0.0-0.3); EOSINOPHILS % (AUTO) 4 % (0-10); HEMATOCRIT 37 % (35-52); HEMOGLOBIN 12.1 g/dL (11.5-16.0); LYMPHOCYTES # (AUTO) 2.6 10^3/uL (1.0-4.0); LYMPHOCYTES % (AUTO) 33 % (12-44); MEAN CORPUSCULAR HEMOGLOBIN 30 pg (25-34); MEAN CORPUSCULAR HGB CONC 33 g/dL (32-36); MEAN CORPUSCULAR VOLUME 91 fL (80-99); MONOCYTES # (AUTO) 0.6 10^3/uL (0.0-1.0); MONOCYTES % (AUTO) 8 % (0-12); NEUTROPHILS # (AUTO) 4.2 10^3/uL (1.8-7.8); NEUTROPHILS % (AUTO) 54 % (42-75); PLATELET COUNT 401 10^3/uL (130-400); WHITE BLOOD COUNT 7.8 10^3/uL (4.3-11.0)
[2022-06-19 12:15] LABS: CARBON DIOXIDE 26 MMOL/L (21-32); CHLORIDE 102 MMOL/L (98-107); POTASSIUM 4.4 MMOL/L (3.6-5.0); SODIUM 138 MMOL/L (135-145)
[2022-06-19 12:16] LABS: ALANINE AMINOTRANSFERASE 8 U/L (0-55); ALBUMIN 3.6 GM/DL (3.2-4.5); ALKALINE PHOSPHATASE 112 U/L (40-136); BILIRUBIN,TOTAL 0.3 MG/DL (0.1-1.0); BUN/CREATININE RATIO 19; CALCIUM 9.4 MG/DL (8.5-10.1); CREATININE SERUM 0.73 MG/DL (0.60-1.30); GFR ESTIMATED 87; GLUCOSE 114 MG/DL (70-105); MAGNESIUM 1.6 MG/DL (1.6-2.4); TOTAL PROTEIN 6.5 GM/DL (6.4-8.2)
--- NOTE | 2022-06-19 12:27 | Diagnostic Imaging Report ---
INDICATION: Pain and swelling to the right wrist. TIME OF EXAM: 11:43 a.m. TECHNIQUE: Two views of the right wrist were obtained. FINDINGS: Distal radius and ulna appear to be intact. Carpal bones are intact. There are triscaphe and first CMC joint degenerative changes noted. Metacarpals are intact. No fractures are seen. There is some generalized soft tissue swelling noted. IMPRESSION: Soft tissue swelling about the right wrist with degenerative changes. No acute bony abnormality is detected. Dictated by: Dictated on workstation # [id number]
[2022-06-19] MEDS ORDERED: NAPR-1071 PO (13:05)
[2022-06-19 13:08] VITALS: BP 141/79
== END 2022-06-19 13:10 | disposition home or self-care (01) ==
LOC: EDUNIT# 11:02 → ER FS 11:04
DX: M19.041 Primary osteoarthritis, right hand (principal)
CPT/HCPCS: 36415; 73100; 80053; 83735; 84484; 85025; 86141; 93005